=== PATIENT | female | born 1950 | race Caucasian/White ===

== ENCOUNTER → 2016-07-05 | Outpatient (CLI) | payer MEDICARE ==
--- NOTE | 2016-07-09 10:51 | MM ---
Reason for exam: screening (asymptomatic). Last mammogram was performed 1 year ago. History: Patient is postmenopausal. Took estrogen beginning at age 63. Physical Findings: A clinical breast exam by your physician is recommended on an annual basis and results should be correlated with mammographic findings. MG 3D Screening Mammo W/Cad Bilateral CC and MLO view(s) were taken. Prior study comparison: July 06, 2015, bilateral MG 3d screening mammo w/cad. May 23, 2014, bilateral MG screening mammo w CAD. May 24, 2011, bilateral digital screening mammo w/CAD. There are scattered fibroglandular densities. Finding: There are typically benign round calcifications in the right breast. There is a chronic nodularity in the right breast. There is no discrete abnormality. ASSESSMENT: Benign, BI-RAD 2 RECOMMENDATION: Routine screening mammogram of both breasts in 1 year.
== END ==
LOC: RADMAMWWP 09:10
PROVIDERS: ATTEND Obstetrics & Gynecology
DX: Z12.31 Encounter for screening mammogram for malignant neoplasm of breast (principal)
CPT/HCPCS: 77063; G0202

== ENCOUNTER 2016-12-06 10:52 | Day surgery (SDC) | payer MEDICARE ==
[2016-12-04 10:24] VITALS: BMI 36.2
[~2016-12-06 10:52] MED LIST: CLINDAMYCIN 900 MG in DEXTROSE 5% IN WATER 50 ML IVPB ONE; DEXAMETHASONE SOD PHOSPHATE 10 MG/ML 1 ML VIAL IV ONE; HYDROmorphone 1 MG/ML 1 ML SYRINGE IVP PRN; LIDOCAINE 1% 20 ML VIAL (10MG/ML) FOR IV START INTRADERMA PRN; ONDANSETRON 4 MG/2 ML VIAL IVP ONE; SCOPOLAMINE 1.5MG/72HR PATCH TRANSDERM ONE
[2016-12-06] MEDS: LACTATED RINGERS 1,000 ML IV SCH (11:07)
[2016-12-06] MEDS ORDERED: PROPOFOL 10 MG/ML 20 ML VIAL IV ONE ×2 (12:28)
[2016-12-06] MEDS ORDERED: HYDROmorphone (PF) 1 MG/ML ONE ×2 (12:28)
[2016-12-06] MEDS ORDERED: GLYCOPYRROLATE 0.2 MG/ML 2 ML VIAL ONE ×2 (12:28)
[2016-12-06] MEDS ORDERED: MIDAZOLAM 2 MG/2 ML VIAL ONE ×2 (12:28)
[2016-12-06] MEDS ORDERED: PHENYLEPHRINE-0.9% NACL SYG 1 MG/10 ML SYRINGE ONE ×2 (12:28)
[2016-12-06] MEDS ORDERED: fentaNYL (PF) 50 MCG/ML 2 ML AMP ONE ×2 (12:28)
[2016-12-06] MEDS ORDERED: KETAMINE 10 MG/ML 20 ML VIAL ONE ×2 (12:28)
[2016-12-06] MEDS ORDERED: LACTATED RINGERS 1,000 ML IV ONE (13:51)
--- NOTE | 2016-12-06 15:12 | XR ---
EXAMINATION TYPE: XR foot complete RT DATE OF EXAM: 12/06/2016 COMPARISON: NONE HISTORY: Intraoperative TECHNIQUE: One view submitted. FINDINGS: Surgical change appears in near-anatomic alignment. Deformity of the distal metatarsal likely chronic . IMPRESSION: 1. Intraoperative image
--- NOTE | 2016-12-06 15:13 | FL ---
EXAMINATION TYPE: FL guidance operating room DATE OF EXAM: 12/06/2016 HISTORY: Flouroscopy time 48 seconds of fluoroscopy provided. IMPRESSION: 1. Fluoroscopy time.
[2016-12-06] MEDS ORDERED: hydrOXYzine PAMOATE 25 MG CAP PO PRN (15:25)
[2016-12-06] MEDS ORDERED: ONDANSETRON 4 MG/2 ML VIAL IVP PRN (15:25)
[2016-12-06] MEDS ORDERED: METOCLOPRAMIDE 5 MG/ML 2 ML VIAL IVP PRN (15:25)
[2016-12-06] MEDS ORDERED: SENNOSIDES-DOCUSATE SODIUM 1 EACH TAB PO PRN (15:25)
[2016-12-06] MEDS ORDERED: diphenhydrAMINE 25 MG CAP PO PRN (15:25)
[2016-12-06] MEDS ORDERED: TEMAZEPAM 15 MG CAP PO PRN (15:25)
[2016-12-06] MEDS ORDERED: HYDROmorphone 1 MG/ML 1 ML SYRINGE IVP PRN ×3 (15:25)
[2016-12-06] MEDS ORDERED: HYDROcodone/APAP 5-325MG 1 EACH TAB PO PRN ×2 (15:25)
[2016-12-06 15:46] VITALS: RESP 16
--- NOTE | 2016-12-06 15:51 | P.OP ---
Date of Procedure: 12/06/16 Preoperative Diagnosis: 1. Right midfoot arthritis 2. Right gastroc equinus contracture 3. Recurrent right hallux valgus Postoperative Diagnosis: Same Procedure(s) Performed: 1. Right midfoot arthrodesis (arthrodesis of the first, second, and third tarsometatarsal joints) 2. Right gastrocnemius recession 3. Right foot hardware removal 4. Application of short leg splint, right leg Anesthesia: RAEJEV Surgeon: Agustín Donaldson Revenue [employer] Collection Agent #1: Slick Ding Estimated Blood Loss (ml): 50 IV fluids (ml): 1,400 Pathology: none sent Condition: stable Disposition: PACU Indications for Procedure: The patient is a very pleasant 66-year-old female with a long-standing history of problems in her right foot. The patient previously had reduction of the hallux valgus deformity but continued to have pain mostly in her midfoot. The patient saw me in the office and was diagnosed with midfoot arthritis. The patient is failed a long course of conservative treatment over 6 months including activity modification, NSAIDs, shoe inserts, rocker-bottom shoes, and injections. The patient failed to improve with nonoperative treatment and requested surgery. My recommendation was to perform a midfoot fusion of the first, second, and third tarsometatarsal joints and a gastroc recession to offload the mid foot due to her equinus contracture. We discussed potential risks and complications of all the above procedures in the office including but not limited to risk of anesthesia, risk of superficial infection, risk of deep infection, risk of delayed wound healing, risk of wound necrosis, risk of necrosis of the flap between the dorsal incisions, risk of damage to local sensory nerves resulting in temporary or permanent numbness, risk of damage to sensory nerves resulting in a painful neuroma, risk of damage to blood vessels resulting in inadequate blood flow to the foot, risk of nonunion of the fusion sites, risk of malunion of the fusion sites, risk of metatarsalgia, risk of symptomatically hardware, risk of intraoperative fracture, risk of postoperative fracture, risk of chronic pain, risk of chronic swelling, risk of inability to ambulate long surgery, risk of dissatisfaction with surgery, risk of surgery failing to meet preoperative expectations, risk of damage to the sural nerve to the gastroc incision, risk of decreased Circumference, risk of Weakness, risk of DVT, risk of PE, risk of postoperative medical complications, and possibly loss of life or limb. The patient voiced her understanding of this and provided her verbal and written consent to go forward with surgery. Description of Procedure: The patient was identified in preoperative holding and the correct right lower extremity was marked with my initials. I reviewed the procedure and the consent form with the patient and her . All their questions were answered. The patient was then brought back to the operating room after I marked the correct right limb with a marker. Once in the operating room she was positioned on the operating room table where general anesthetic and preoperative antibiotics were administered. Once the patient was under anesthesia she was positioned on the operating room table. A tourniquet was applied to the proximal aspect of the right thigh. A bump was placed under her right buttock internally rotating the leg to neutral. The contralateral left leg was secured to the table with foam padding and tape. The patient's right leg was then prepped and draped in the standard sterile fashion. Prior to starting surgery timeout was performed identifying the correct patient, operative extremity, and procedure. The patient's leg was then placed on a sterile Rivers stand and a gastroc recession was performed. I began by outlining a 3 cm incision off the posteromedial border of the tibia at the level of the distal muscle belly of the gastrocnemius. Skin incision was made a 15 blade scalpel. I dissected carefully to the skin and subcu tissue and his tissues with tenotomy scissors. The fascia was identified and incised longitudinally in line with the skin incision. I bluntly developed the interval between the gastrocnemius aponeurosis and superficial fascia identifying the sural nerve adherent to the fascia. I then bluntly developed interval between the gastrocnemius aponeurosis and soleus fascia. Modified right angle retractors were placed in both of these intervals isolating the gastrocnemius aponeurosis. I resected the gastrocnemius aponeurosis from medial to lateral under direct visualization. Following this a verified that the sural nerve was intact and had not been cut. The wound was copiously irrigated. The deep subcu was reapproximated using 2-0 Vicryl. The skin was closed using 3-0 nylon horizontal mattress stitches. The leg was then elevated , exsanguinated with an Esmarch bandage, and the tourniquet was inflated to 250 mmHg. I began by marking out 2 incisions over the dorsal midfoot. The dorsomedial incision was marked out between the first and second metatarsals and the dorsolateral incision was marked out along the medial border of the fourth metatarsal. I began by making the medial incision. Skin incision was made a 15 blade scalpel dissection was carried down carefully to the subcutaneous tissue using tenotomy scissors. I retracted a branch of superficial peroneal nerve. The EHL tendon sheath was incised and the interval was developed between the EHL and EHB. I then circumferentially exposed the first tarsometatarsal joint and the medial aspect of the second tarsometatarsal joint. The articular cartilage from the first tarsometatarsal joint was removed using osteotomes and curettes. I nature to remove all of the cartilage to the plantar aspect of the joint to prevent inadvertently dorsiflexing the joint. I then removed the articular cartilage from the medial half of the second tarsometatarsal joint. Attention was then turned to the lateral incision. Skin incision was made to 15 blade scalpel. Dissection was carried down carefully through subcutaneous tissue with tenotomy scissors. A branch the superficial peroneal nerve was identified and carefully retracted. The EDB muscle was incised longitudinally in line with the skin incision. I then exposed the third tarsometatarsal joint and lateral half of the second tarsometatarsal joint. Osteophytes were contoured off both the second and third tarsometatarsal joint with a Ronguer. The articular cartilage from both the second and third tarsometatarsal joint was removed using Tourette's and osteotomes. I then used a 2.0 mm drill bit to perforate the subchondral bone of the first, second, and third tarsometatarsal joints. I also perforated the one-two intermetatarsal space. A bur was used tuber the dorsal aspect of the intercuneiform joint. Attention was then turned to the distal incision over the medial eminence of the first MTP joint. I marked out the previously made incision and incised the skin with a scalpel. Dissection was carried down carefully to the skin down to the level of the joint capsule which was incised in line with the skin incision. The dorsal screw was identified and removed. The joint was carefully distracted and the lateral aspect of the first MTP joint was sharply incised through the joint to allow correction of the hallux valgus deformity. Attention was then turned to reducing the first metatarsal. I held the first tarsometatarsal joint reduced taking care to plantarflex the first ray. An contact center assistant placed a 0.0625 K wire eccentric we across the joint. Reduction was verified with fluoroscopy and clinically. I then used a bur to create a pocket hole of the dorsal aspect of the first metatarsal 1.5 cm distal to the joint. Using a 3.5 mm drill bit a gliding hole was created in the dorsal aspect of the first metatarsal and using a 2.5 mm jewel bit a threaded hole was made in the medial cuneiform. A fully threaded 3.5 mm lag screw was placed across the joint generating excellent compression. I then placed a second lag screw antegrade across the joint. A 3.5 mm jewel bit was used to create a gliding hole in the dorsal aspect of the medial cuneiform and a 2.5 mm drill bit was used to create a threaded hole in the first metatarsal. A fully threaded 3.5 mm screw was placed across the joint generating excellent compression. Attention was then turned to the second tarsometatarsal joint. The joint was reduced and held with a [id number] reduction clamp. I then used a 3.5 mm drill bit to create a gliding hole along the dorsal aspect of the second metatarsal distal to the joint and a 2.5 mm jewel bit to create a threaded hole in the middle cuneiform. A fully threaded 3.5 mm screws placed generating excellent compression across the joint. Attention was then turned to the third tarsometatarsal joint through the lateral incision. The joint was held reduced with a 0.0625 K wire. I then used a 3.5 mm drill bit to create a gliding hole on the dorsal aspect of the third metatarsal distal to the joint and a 2.5 mm drill bit to create a threaded hole in the lateral cuneiform. A fully threaded 3.5 mm screw was placed across the joint generating excellent compression. I then elected to place an intercuneiform screw. A stab incision was made along the medial border of the middle cuneiform. A 2.5 mm drill bit was used to create a airplane pilot hole for a fully threaded 3.5 mm screw. I then placed a fully threaded 3.5 mm screw across the intercuneiform joint. Bone graft that had been collected from the drill bits was then used to pack the first tarsometatarsal joint and a bur was used to create stress-strain bone graft sites. Final fluoroscopy images were taken. All the hardware appeared to be in acceptable position and the joints appeared to be adequately compressed. The wounds were then copiously irrigated. The periosteum over the first and second tarsometatarsal joint was closed with a running 0 Vicryl stitch. The deep subcutaneous tissue was reapproximated using 3-0 Monocryl. The skin was closed using 3-0 nylon horizontal mattress stitches. Incision over the medial eminence was irrigated and the capsule was closed with interrupted 0 Vicryl stitch. The deep subcu was reapproximated using 3-0 Monocryl and the skin was closed with 3-0 nylon horizontal mattress stitches. The dorsolateral incision was closed using 3-0 Monocryl for the subcutaneous layers and 3-0 nylon horizontal mattress stitches in the skin. The stab incision medially was closed with a single interrupted nylon stitch. I verified that all instrument, sponge, and sharp counts were correct. The skin was cleansed and a sterile dressing consisting of Betadine soaked Adaptic 4 x 4 and web roll was applied. Tourniquet was let down for total tourniquet time of 90 minutes. The drapes were removed and a very well-padded bulky [place] splint was placed with the ankle in neutral. At this point the patient was awoken from her anesthetic, transferred from the operating table to the [facility] and brought to PACU having tolerated the procedure well. Slick Ding PA-C was required is a skilled contact center assistant for the entire procedure for patient positioning, surgical exposure, retraction, preparation of the fusion site, placement of hardware, closure of wounds, and application of splint. Plan: The patient is going to be admitted overnight for pain control, 2 doses of postoperative antibiotics, and an evaluation by physical therapy. She'll be treated with Lovenox for DVT prophylaxis while in-house home on aspirin. She can discharge home tomorrow when her pain is adequately controlled and she passes physical therapy.
[2016-12-06] MEDS ORDERED: LIDOCAINE 2%-EPI 1:100,000 20 ML VIAL SQ ONE (16:01)
[2016-12-06] MEDS ORDERED: BUPIVACAINE-EPI 0.5%-1:200,000 10 ML VIAL SQ ONE (16:01)
[2016-12-06] MEDS ORDERED: CLINDAMYCIN 600 MG in DEXTROSE 5% IN WATER 50 ML IVPB SCH ×2 (18:00)
--- NOTE | 2016-12-06 18:42 | P.ONQ ---
Anesthesiology Proc Note - PNB - Peripheral Nerve Block Performed Right Popliteal Single Time Out Performed: Yes Indication: Acute Post-Operative Pain, Analgesia Specifically requested for management of pain by DrMatthew: Agustín Donaldson Sedation Type: Sedate with meaningful contact maintained Preparation: Sterile Prep Position: Supine Catheter: None Needle Types: Other (see comment) (stimuplex) Needle Size: 50mm (2") Needle Gauge: 21 Technique: Ultrasound Injectate: Other (see comment) (2% lidocaine, 0.25% Bupivicaine) Adjunct: Epinephrine (see comment for dilution ratio) (1/200,000) Blood Aspirated: No Pain Paresthesia on Injection Noted: No Resistance on Injection: Normal Events: Uneventful and Well Tolerated
[2016-12-06 19:01] LABS: Basophils % (A) 0 %; CH 27.1; CHCM 31.9; Eosinophils % (A) 0 %; HCT 41.3 % (34.0-46.0); HDW 2.53; HGB 12.7 gm/dL (11.4-16.0); Luc # (Auto) 0.02; Luc % (Auto) 0; Lymphocytes # (A) 0.4 k/uL (1.0-4.8); Lymphocytes % (A) 3 %; MCH 26.4 pg (25.0-35.0); MCHC 30.8 g/dL (31.0-37.0); MCV 85.8 fL (80.0-100.0); Mean Platelet Volume 7.6; Monocytes # (A) 0.2 k/uL (0-1.0); Monocytes % (A) 2 %; Neutrophils # (A) 10.7 k/uL (1.3-7.7); Neutrophils % (A) 94 %; RBC 4.81 m/uL (3.80-5.40); RDW 15.7 % (11.5-15.5); WBC 11.3 k/uL (3.8-10.6); WBC (Perox) 12.16
[2016-12-06] MEDS: CLINDAMYCIN 900 MG in DEXTROSE 5% IN WATER 50 ML IVPB SCH ×4 (22:43→23:17)
[2016-12-07] MEDS: LACTATED RINGERS 1,000 ML IV SCH ×4 (00:05→12:37)
[2016-12-07] MEDS: CLINDAMYCIN 900 MG in DEXTROSE 5% IN WATER 50 ML IVPB SCH ×4 (05:18→12:58)
[2016-12-07 08:45] VITALS: BP 135/60; PULSE 78; TEMP 97.4
[2016-12-07] MEDS ORDERED: ENOXAPARIN 40 MG/0.4 ML SYRINGE SQ SCH (09:00)
[2016-12-07] MEDS ORDERED: LEVOTHYROXINE 50 MCG TAB PO SCH (09:00)
--- NOTE | 2016-12-07 09:46 | P.DS ---
Providers Date of admission: 12/06/2016 Expected date of discharge: 12/07/16 Attending physician: Agustín Donaldson Consults: 12/06/16 15:25 Consult Physician Routine Consulting Provider: Willard Fox Reason/Comments: post op medical management Do you want consulting provider notified?: Yes Primary care physician: Willard Fox Hospital Course: She was admitted the OR on 12/06/2016 to undergo a right tarsometatarsal fusion , midfoot fusion after failing conservative measures as an outpatient. She elected to proceed with elective surgery after given informed consent. She underwent the above procedure which she tolerated well without complication. Postoperative hospital course has remained without complication. On day of discharge she is afebrile, vital signs stable, labs within acceptable ranges, tolerating by mouth meds and diet, voiding without difficulty, positive flatus, denies abdominal pain or calf pain, pain is controlled on oral pain medication and has no new complaints. Wound is benign, neurovascular status is intact, calf is soft and nontender, abdomen soft and nontender. Review of systems is negative for numbness, tingling, fever, chills, chest pain, shortness breath, nausea, vomiting, dizziness, headaches, slurred speech or other. Procedures: Tarsometatarsal fusion of the right foot Patient Condition at Discharge: Good Plan - Discharge Summary New Discharge Prescriptions: New Aspirin 325 mg PO BID #60 tab Docusate [Colace] 100 mg PO BID #60 capsule HYDROcodone/APAP 7.5-325MG [Benson 7.5-325] 1 - 2 tab PO Q6HR PRN #60 tab PRN Reason: Pain No Action Zolpidem [Ambien] 10 mg PO HS PRN PRN Reason: SLEEP Lovastatin [Mevacor] 20 mg PO HS Levothyroxine Sodium [Synthroid] 50 mcg PO QAM ALPRAZolam [Xanax] 0.5 mg PO DAILY PRN PRN Reason: Anxiety Naproxen Sodium [Aleve] 440 mg PO HS PRN PRN Reason: Pain Aspirin EC [Ecotrin] 325 mg PO DAILY PRN PRN Reason: Pain Discharge Medication List Levothyroxine Sodium [Synthroid] 50 mcg PO QAM 05/19/14 [History] Lovastatin [Mevacor] 20 mg PO HS 05/19/14 [History] Zolpidem [Ambien] 10 mg PO HS PRN 05/19/14 [History] ALPRAZolam [Xanax] 0.5 mg PO DAILY PRN 05/26/14 [History] Naproxen Sodium [Aleve] 440 mg PO HS PRN 12/05/14 [History] Aspirin EC [Ecotrin] 325 mg PO DAILY PRN 12/05/15 [History] Aspirin 325 mg PO BID #60 tab 12/07/16 [Rx] Docusate [Colace] 100 mg PO BID #60 capsule 12/07/16 [Rx] HYDROcodone/APAP 7.5-325MG [Benson 7.5-325] 1 - 2 tab PO Q6HR PRN #60 tab [Rx] Follow up Appointment(s)/Referral(s): Agustín Donaldson MD [Medical Doctor] - 2 Weeks Ambulatory/Diagnostic Orders: Walker w/ Wheels [DME.AMB1] Location: Determined By Patient Activity/Diet/Wound Care/Special Instructions: maintain splint non weightbearing right lower extremity take meds as directed f/u with Dr. Donaldson elevate right foot Discharge Disposition: HOME SELF-CARE
[2016-12-07 13:47] LABS: Appearance,Urine Clear (Clear); Bilirubin,Urine Negative (Negative); Glucose,Urine (UA) Negative (Negative); Ketones,Urine Negative (Negative); Leukocyte Esterase,Urine Negative (Negative); Nitrite,Urine Negative (Negative); PH, Urine 6.5 (5.0-8.0); Protein,Urine Negative (Negative); UA Billing (MACRO vs. MICRO) CHEM; Urobilinogen,Urine <2.0 mg/dL (<2.0)
--- NOTE | 2016-12-07 22:44 | CONS ---
CONSULTATION I am covering for Dr. Fox. REASON FOR CONSULTATION: Advice regarding hyperlipidemia and other multiple medical problems requested by Dr. Donaldson. HISTORY OF PRESENT ILLNESS: This 66-year-old woman with a past history of chest pain, angina, hyperlipidemia, DJD, hypothyroidism and H-pylori being followed by Dr. Fox in the outpatient setting was admitted with right foot pain and patient underwent tarsometatarsal fusion of the right foot by Dr. Donaldson. There is no history of fever, rigors. No history of headache, loss of consciousness. No chest pain. No palpations at this time. White count is 11.3. PAST MEDICAL HISTORY: History of chest pain, hyperlipidemia, DJD, history of thyroid disorders, cardiac catheterization. MEDICATIONS: Prior to admission include: 1. Ambien 10 mg q.h.s. p.r.n. 2. Mevacor 20 mg q.h.s. 3. Xanax 0.5 daily p.r.n. 4. Aleve 440 mg q.h.s. 5. Synthroid 50 mcg p.o. q.a.m. 6. Aspirin 320 mg daily. 7. [place] 7.5 q.6h p.r.n. 8. Colace 100 mg b.i.d. 9. Aspirin 320 mg daily. ALLERGIES: PENICILLIN AND SULFA. FAMILY HISTORY: No history of any strokes or heart attacks. SOCIAL HISTORY: No history of smoking. Occasional alcohol intake. REVIEW OF SYSTEMS: ENT: No diminished hearing or vision. CARDIOVASCULAR: No angina or palpitations. Respiration: No cough or hemoptysis. GI: No nausea or vomiting. no dysuria. Nervous system: No numbness, weakness. Allergy/Immunology: No asthma or hayfever. Musculoskeletal: As mentioned earlier. Hematology/Oncology: No history of anemia. Endocrine: No history of diabetes, hypothyroidism. Constitutional: As mentioned earlier. Dermatology: Negative. Rheumatology: Negative. Psychiatric: As mentioned earlier. PHYSICAL EXAMINATION: Alert and oriented times three. Pulse 78, blood pressure 135/60, respirations 16, temperature 97.4, pulse ox 97% on 2 L. HEENT: Conjunctivae normal. Oral mucosa moist. Neck is no jugular venous distention. No carotid bruit. No lymph node enlargement. Cardiovascular is S1, S2. No S3, no S4. Respiratory: Breath sounds diminished in the bases. Bilateral scattered rhonchi and crackles. Expiratory wheezing also present. ABDOMEN: Soft, nontender. No mass palpable. Legs no edema. No swelling. NERVOUS SYSTEM: Higher functions as mentioned earlier. Moves all four limbs. Lymphatics: No lymph nodes palpable in the neck, axillae or groin. SKIN: No ulcer, rash or bleeding. LABS: At this time shows, the labs WBC 7.2, hemoglobin 12.7. ASSESSMENT: 1. Right midfoot arthrodesis status post increased WBC possibly reactive improved. 2. History of chest pain. 3. Hyperlipidemia. 4. History of degenerative joint disease. 5. History of hypothyroidism. RECOMMENDATIONS AND DISCUSSION: In this 66-year-old woman presents after surgery, at this time I recommend to continue current medications. I recommend resume the home medications. I would also recommend UA with micro because of the high WBC. UA with micro is normal. Patient may be discharged and recommended to follow up with Dr. Fox in the outpatient setting. Please note the UA with micro is normal. Continue incentive spirometry. Pain medications and rest of the medications per orthopedic surgery. Further recommendations to follow. Thank you Dr. Donaldson for letting us participate in the care of this patient. MMODL / IJN: [id number] /
== END 2016-12-07 16:22 | disposition home or self-care (01) ==
LOC: OR 10:52 → 3SUR 15:10 → OR 12-07 16:22
PROVIDERS: ATTEND Orthopaedic Surgery
DX: M20.11 Hallux valgus (acquired), right foot (principal); M62.471 Contracture of muscle, right ankle and foot; M25.774 Osteophyte, right foot; M19.071 Primary osteoarthritis, right ankle and foot; E78.5 Hyperlipidemia, unspecified; E03.9 Hypothyroidism, unspecified; F41.9 Anxiety disorder, unspecified; F32.9 Major depressive disorder, single episode, unspecified; Z79.1 Long term (current) use of non-steroidal anti-inflammatories (NSAID); Z79.891 Long term (current) use of opiate analgesic; Z79.899 Other long term (current) drug therapy; Z88.0 Allergy status to penicillin; Z88.2 Allergy status to sulfonamides
CPT/HCPCS: 97162; 85025; 81003; 87086; 73630; 27687; 28730; C1713; J2250; J1100; J2405; J1650; J3010; J1170; J2370; J2704

== ENCOUNTER 2017-09-29 21:34 | Inpatient (IN) | payer MEDICARE ==
--- NOTE | 2017-09-29 21:57 | ED ---
Chest Pain HPI - General Chief Complaint: Chest Pain Stated Complaint: Abdominl Pain Time Seen by Provider: 09/29/17 21:57 Source: patient Mode of arrival: ambulatory Limitations: no limitations - History of Present Illness Initial Comments: Kerry is a obese 67-year-old female with past medical history of hyperlipidemia who presents to the emergency department today for evaluation of epigastric discomfort. Patient reports that earlier today she was feeling her usual self. She completed a lot of household tasks including vacuuming and cleaning the floors. She began to feel of some epigastric burning pain that radiated from her epigastrium to her back. She thought that this was just due to the exertion she declined coming to the hospital earlier in the day. Throughout the day the discomfort has progressively worsened, the burning like discomfort located in her epigastrium and radiating to the right side. She states that she discussed the symptoms with her and they were concerned that it may be her gallbladder, however she wanted make sure wasn't her heart. Patient denies any exertional symptoms. She does report pain with deep inspiration and states that due to the pain she feels like she is taking short breaths but she is able to get oxygen. She denies any palpitations. She denies any previous cardiac history. She states that she had a stress test approximately one year ago and was told that it was good. She has no history of acid reflux or gallbladder disorders that she is aware of. - Related Data Home Medications Medication Instructions Recorded Confirmed Levothyroxine Sodium [Synthroid] 50 mcg PO QAM 05/19/14 09/29/17 Zolpidem [Ambien] 10 mg PO HS PRN 05/19/14 09/29/17 ALPRAZolam [Xanax] 0.5 mg PO TID PRN 05/26/14 09/29/17 Naproxen Sodium [Aleve] 440 mg PO HS PRN 12/05/14 09/29/17 Aspirin EC [Ecotrin] 325 mg PO ONCE PRN 12/05/15 09/29/17 Simvastatin [Zocor] 20 mg PO HS 09/29/17 09/29/17 Allergies Allergy/AdvReac Type Severity Reaction Status Date / Time Penicillins Allergy Rash/Hives/ Verified 09/29/17 22:06 Swelling Sulfa (Sulfonamide Allergy Rash/Hives Verified 09/29/17 21:52 Antibiotics) Review of Systems ROS Statement: Those systems with pertinent positive or pertinent negative responses have been documented in the HPI. ROS Other: All systems not noted in ROS Statement are negative. Constitutional: Denies: fever, chills ENT: Denies: throat pain Respiratory: Denies: cough, dyspnea, wheezes Cardiovascular: Denies: chest pain, palpitations, dyspnea on exertion Endocrine: Denies: fatigue Gastrointestinal: Reports: abdominal pain, nausea. Denies: diarrhea, constipation Genitourinary: Denies: urgency, dysuria Musculoskeletal: Reports: back pain Skin: Denies: rash Neurological: Denies: headache Psychiatric: Reports: anxiety Hematological/Lymphatic: Denies: easy bleeding, easy bruising EKG Findings - EKG Comments: EKG Findings:: KG at 2158. Rate is 75, rhythm is normal sinus, there is normal axis, there are normal intervals, there are no acute ST elevations or depressions. No evidence of acute ischemia or infarction. Past Medical History Past Medical History: Cancer, Chest Pain / Angina, Hyperlipidemia, Osteoarthritis (OA), Thyroid Disorder Additional Past Medical History / Comment(s): pain rt foot, hx. h pylori, irregular heart beat, SOB w/activity, skin cancer, past elevated liver enzymes, varicose veins,UTIs.Steroid injection 11-12-16 Last Myocardial Infarction Date:: unknown History of Any Multi-Drug Resistant Organisms: None Reported Past Surgical History: Heart Catheterization, Hysterectomy, Orthopedic Surgery Additional Past Surgical History / Comment(s): yesica cataract surg., bunionectomy , carpal tunnel surg. Past Anesthesia/Blood Transfusion Reactions: No Reported Reaction Additional Past Anesthesia/Blood Transfusion Reaction / Comment(s): no hx blood transfusion Past Psychological History: Anxiety Smoking Status: Never smoker Past Alcohol Use History: Occasional Past Drug Use History: None Reported - Past Family History Sister(s) Family Medical History: Cancer Brother(s) Family Medical History: Cancer Mother Family Medical History: No Reported History General Exam Limitations: no limitations General appearance: alert, other (Appears uncomfortable) Head exam: Present: atraumatic, normocephalic Eye exam: Present: normal appearance ENT exam: Present: normal exam Neck exam: Present: normal inspection Respiratory exam: Present: normal lung sounds bilaterally. Absent: respiratory distress Cardiovascular Exam: Present: regular rate, normal rhythm, normal heart sounds. Absent: systolic murmur, diastolic murmur GI/Abdominal exam: Present: soft, tenderness, normal bowel sounds. Absent: distended, guarding, rebound Rectal exam: Present: deferred Extremities exam: Present: normal inspection, normal capillary refill. Absent: pedal edema Back exam: Present: normal inspection Neurological exam: Present: alert, oriented X3 Psychiatric exam: Present: normal affect, normal mood Skin exam: Present: warm, dry Course Vital Signs 09/29/17 09/30/17 09/30/17 21:49 00:41 00:43 Temperature 98.3 F Pulse Rate 81 70 66 Respiratory 18 18 18 Rate Blood Pressure 185/116 135/63 135/63 O2 Sat by Pulse 98 97 96 Oximetry Chest Pain [facility] Patient was seen and evaluated, history was obtained from the patient and her at bedside Patient with no cardiac history presenting with burning epigastric pain radiating to her back, no exertional pain, no shortness breath, no diaphoresis, no lightheadedness upon initial evaluation at a low suspicion for cardiac etiology a high suspicion for pancreatitis. Patient does have her gallbladder, no history of gallstones, no history of pancreatic tightness, no history of alcohol abuse. She's had no recent change in her medications which would precipitate pancreatitis. Patient has no dental trauma which would precipitate the otitis Labs are consistent with acute pancreatitis Ultrasound and CT revealed no evidence of acute gallstones, no evidence of acute PE cryptitis, pancreatic abscess or pancreatic pseudocyst on CT IV fluids, when necessary morphine and diet were ordered for the patient care was discussed with her primary care physician Dr. Fox who accepts admission to the hospital for acute pancreatitis of uncertain etiology. Disposition Clinical Impression: Acute pancreatitis Disposition: ADMITTED IP TO THIS HOSP Decision Time: 01:04
[2017-09-29] MEDS ORDERED: SODIUM CHLORIDE 0.9% 500 ML IV STA (22:03)
[2017-09-29] MEDS ORDERED: ASPIRIN 81 MG PO STA (22:03)
[2017-09-29] MEDS ORDERED: MORPHINE SULFATE 4 MG/ML SYRINGE IVP STA (22:06)
[2017-09-29 22:17] LABS: Basophils % (A) 0 %; Eosinophils # (A) 0.2 k/uL (0-0.7); Eosinophils % (A) 2 %; HGB 14.3 gm/dL (11.4-16.0); Lymphocytes # (A) 1.8 k/uL (1.0-4.8); Lymphocytes % (A) 20 %; MCHC 32.4 g/dL (31.0-37.0); MCV 80.4 fL (80.0-100.0); Mean Platelet Volume 7.4; Monocytes # (A) 0.5 k/uL (0-1.0); Monocytes % (A) 6 %; Neutrophils # (A) 6.3 k/uL (1.3-7.7); Neutrophils % (A) 70 %; Platelet Count 226 k/uL (150-450); RBC 5.48 m/uL (3.80-5.40); RDW 14.9 % (11.5-15.5); WBC 8.9 k/uL (3.8-10.6)
[2017-09-29 22:23] LABS: ALT 61 U/L (9-52); AST 24 U/L (14-36); Albumin 4.7 g/dL (3.5-5.0); Alkaline Phosphatase 128 U/L (38-126); Anion Gap 10 mmol/L; Blood Urea Nitrogen 17 mg/dL (7-17); Calcium 9.9 mg/dL (8.4-10.2); Carbon Dioxide 26 mmol/L (22-30); Chloride 103 mmol/L (98-107); Glucose 96 mg/dL (74-99); Magnesium 2.2 mg/dL (1.6-2.3); Potassium 4.3 mmol/L (3.5-5.1); Sodium 139 mmol/L (137-145); Total Bilirubin 0.8 mg/dL (0.2-1.3); Total Protein 7.6 g/dL (6.3-8.2)
--- NOTE | 2017-09-29 22:34 | XR ---
EXAMINATION TYPE: XR chest 2V DATE OF EXAM: 09/29/2017 COMPARISON: NONE HISTORY: Chest pain TECHNIQUE: Frontal and lateral views of the chest are obtained. FINDINGS: Heart and mediastinum are normal. Lungs are clear. Diaphragm is normal. There are chest le ads. Bony thorax is intact. IMPRESSION: Normal chest.
[2017-09-29 22:35] LABS: Creatine Kinase 163 U/L (30-135)
[2017-09-29 22:37] LABS: Partial Thromboplastin Time 24.5 sec (22.0-30.0)
[2017-09-29 22:49] LABS: Creatine Kinase MB 1.4 ng/mL (0.0-2.4); Troponin I <0.012 ng/mL (0.000-0.034)
[2017-09-29 22:51] LABS: Lipase 7099 U/L (23-300)
[2017-09-29] MEDS ORDERED: SODIUM CHLORIDE 0.9% 2,000 ML IV STA (23:10)
[2017-09-29] MEDS ORDERED: SODIUM CHLORIDE 0.9% 1,000 ML IV STA (23:10)
--- NOTE | 2017-09-30 00:15 | US ---
EXAMINATION TYPE: US abdomen complete DATE OF EXAM: 09/29/2017 COMPARISON: NONE CLINICAL HISTORY: Pain. RUQ pain EXAM MEASUREMENTS: Liver Length: 17.8 cm Gallbladder Wall: 0.3 cm CBD: 0.56 cm Spleen: 10.6 cm Right Kidney: 10.8 x 4.3 x 4.6 cm Left Kidney: 11.0 x 5.1 x 4.2 cm Pancreas: Obscured by bowel gas Liver: Heterogenous course texture. Gallbladder: No stones seen Evidence for sonographic Rwoan's sign: No CBD: wnl Spleen: wnl Right Kidney: No hydronephrosis or masses seen Left Kidney: No hydronephrosis or masses seen Upper IVC: wnl Abd Aorta: wnl IMPRESSION: Negative complete abdominal sonogram. No gallstones or dilated ducts. No evidence of azalea l obstruction.
--- NOTE | 2017-09-30 00:42 | CT ---
EXAMINATION TYPE: CT abdomen pelvis w con DATE OF EXAM: 09/30/2017 COMPARISON: None HISTORY: Epigastric pain CT DLP: 1221.90 mGycm Automated exposure control for dose reduction was used. TECHNIQUE: Helical acquisition of images was performed from the lung bases through the pelvis. CONTRAST: Performed without Oral Contrast and with IV Contrast, patient injected with 100 mL of Isovue 300. FINDINGS: Lung bases are clear. There is no pleural effusion. There is no pericardial effusion. There is heterogeneous enhancement of the liver. The spleen appears normal. There is no pancreatic ma ss. Gallbladder appears normal. Bile ducts are not dilated. There is no adrenal mass. Kidneys show satisfactory contrast opacification. There is no hydronephrosi s. There is a 5 mm cyst in the anterior left kidney. There is no retroperitoneal adenopathy. There is no ascites. Bladder distends smoothly. There is no free fluid in the pelvis. I see no intestinal wal l thickening. There are no dilated loops. Appendix appears normal. There are a few sigmoid diverticul a. There is no evidence of diverticulitis. I see no bony destructive process. IMPRESSION: NO EVIDENCE OF PANCREATITIS. HETEROGENEOUS ENHANCEMENT OF THE LIVER WITH TARGET RING-ENHANCING LESION S SEEN IN THE POSTERIOR RIGHT LOBE. FOLLOW-UP IS RECOMMENDED. THIS COULD RELATE TO MULTIPLE HEMANGIOM JENIFER OR METASTATIC DISEASE. MR SCAN WOULD BE HELPFUL FOR FURTHER EVALUATION IF CLINICALLY INDICATED. LIVER WAS SOMEWHAT HETEROGENEOUS ON THE ULTRASOUND EXAM TODAY BUT NO DISCRETE MASS BY ULTRASOUND.
[2017-09-30] MEDS ORDERED: MORPHINE SULFATE 4 MG/ML SYRINGE IV PRN (00:52)
[2017-09-30] MEDS ORDERED: NALOXONE 0.4 MG/ML 1 ML VIAL IV PRN (00:52)
[2017-09-30] MEDS ORDERED: ONDANSETRON 4 MG/2 ML VIAL IVP PRN (00:52)
[2017-09-30 02:07] VITALS: BMI 80.4
[2017-09-30 07:02] LABS: Glucose,Whole Blood 92 mg/dL (75-99)
[2017-09-30] MEDS: INSULIN ASPART 100 UNIT/ML 1 ML 10 ML VIAL SQ SCH ×3 (07:05→19:38)
[2017-09-30] MEDS ORDERED: NAPROXEN 250 MG TAB PO PRN (07:21)
[2017-09-30] MEDS ORDERED: ALPRAZolam 0.5 MG TAB PO PRN (07:21)
[2017-09-30] MEDS ORDERED: ZOLPIDEM 10 MG TAB PO PRN (07:21)
[2017-09-30] MEDS: PANTOPRAZOLE 40 MG/10 ML VIAL IVP SCH (09:45)
[2017-09-30] MEDS: SODIUM CHLORIDE 0.9% 1,000 ML IV SCH ×2 (09:45→13:41)
--- NOTE | 2017-09-30 11:20 | P.CONS ---
History of Present Illness - Reason for Consult Consult date: 09/30/17 Pancreatitis Requesting physician: Willard Fox - History of Present Illness 67-year-old female admitted with severe midepigastric upper back pain that started yesterday afternoon after scrubbing her floors. Patient has no history of this type of pain. Admission lipase 7099. Amylase 2:30. Total bilirubin 0.8. AST 24. ALT 61. AP 128. INR 1.0. White count 8.9. He will and 14.3. Platelet 226. No history of pancreatitis or autoimmune disorders. She drinks 1 maybe 2 beers a week and has been doing so for many years. No history of alcohol abuse. No changes in medications. No recent travels or sick contacts. No weight loss hematemesis hematochezia or melena. No history of peptic ulcer disease. Ultrasound abdomen pancreas obscured by gas. Gallbladder wall 0.3 cm. CBD 0.5 cm. No evidence of gallstones or dilated ducts. CT abdomen and pelvis with contrast heterogeneous enhancement of the liver with target ring-enhancing lesions seen in the posterior right lobe could relate to multiple hemangiomata or metastatic disease. Spleen appeared normal. No pancreatic mass. Gallbladder appeared normal. Bile duct not dilated. Patient states that when she was very young her mother took her downtown for radiation treatments to the right side of her abdomen wasn't sure if it was secondary to skin hemangiomas or not she doesn't remember. EGD colonoscopy November 2014 for H. pylori positive testing and change in bowel habits reported small sliding hiatal hernia no evidence of peptic ulcer disease. Sigmoid diverticulosis. Review of Systems Constitutional: Denies fever, chills, sweats, weight gain, or loss. HEENT: Negative for migraines, blurred vision or loss, earaches, drainage, tinnitus, oral mucosal lesions, dysphagia, or odynophagia. CARDIAC: Negative for chest pain, arrhythmias, or palpitation. RESPIRATORY: Negative for shortness of breath, hemoptysis, cough, or sputum production. GI: See HPI for pertinent findings. : Negative for hematuria, urgency, frequency, polyuria, or dysuria. GYNc: Denies possibility of . Negative vaginal discharge. MUSCULOSKELETAL: Negative for muscle aches, swelling, arthritis, and arthralgias. NEUROLOGIC: Negative for stroke or TIA. ENDOCRINE: Negative for thyroid problems. SKIN: Negative for rash or itching. PSYCHIATRIC: Negative history for depression and anxiety Past Medical History Past Medical History: Cancer, Chest Pain / Angina, Hyperlipidemia, Osteoarthritis (OA), Thyroid Disorder Additional Past Medical History / Comment(s): pain rt foot, hx. h pylori, irregular heart beat, SOB w/activity, skin cancer, past elevated liver enzymes, varicose veins,UTIs.Steroid injection 11-12-16 Last Myocardial Infarction Date:: unknown History of Any Multi-Drug Resistant Organisms: None Reported Past Surgical History: Heart Catheterization, Hysterectomy, Orthopedic Surgery Additional Past Surgical History / Comment(s): yesica cataract surg., bunionectomy , carpal tunnel surg. Past Anesthesia/Blood Transfusion Reactions: No Reported Reaction Additional Past Anesthesia/Blood Transfusion Reaction / Comm: no hx blood transfusion Past Psychological History: Anxiety Smoking Status: Never smoker Past Alcohol Use History: Occasional Past Drug Use History: None Reported - Past Family History Sister(s) Family Medical History: Cancer Brother(s) Family Medical History: Cancer Mother Family Medical History: No Reported History Medications and Allergies Home Medications Medication Instructions Recorded Confirmed Type Levothyroxine Sodium [Synthroid] 50 mcg PO QAM 05/19/14 09/29/17 History Zolpidem [Ambien] 10 mg PO HS PRN 05/19/14 09/30/17 History ALPRAZolam [Xanax] 0.5 mg PO TID PRN 05/26/14 09/29/17 History Naproxen Sodium [Aleve] 440 mg PO HS PRN 12/05/14 09/30/17 History Aspirin EC [Ecotrin] 325 mg PO ONCE PRN 12/05/15 09/30/17 History Simvastatin [Zocor] 20 mg PO HS 09/29/17 09/29/17 History Allergies Allergy/AdvReac Type Severity Reaction Status Date / Time Penicillins Allergy Rash/Hives/ Verified 09/29/17 22:06 Swelling Sulfa (Sulfonamide Allergy Rash/Hives Verified 09/29/17 21:52 Antibiotics) Physical Exam Vitals: Vital Signs Temp Pulse Pulse Resp BP BP Pulse Ox 09/30/17 07:00 97.6 F 64 18 131/77 96 09/30/17 02:06 97 F L 74 18 147/83 98 09/30/17 00:43 66 18 135/63 96 09/30/17 00:41 70 18 135/63 97 09/29/17 21:49 98.3 F 81 18 185/116 98 Intake and Output 09/29/17 09/30/17 09/30/17 22:59 06:59 14:59 Other: # Voids 1 Weight 90.718 kg 90.407 kg General appearance: The patient is alert, oriented, in no acute distress. HET: Head is normocephalic and atraumatic. Pupils are equal and reactive. Oropharynx is clear without lesions. Neck: Supple without lymphadenopathy. Trachea midline. Heart: S1 S2. Regular rate and rhythm. Lungs: No crackles or wheezes are heard. Abdomen: Soft, very mild tenderness to the midepigastrium, nondistended with bowel sounds. No peritoneal signs. No palpable organomegaly or masses. Extremities: Normal skin color and turgor. No cyanosis, rash, ulceration, clubbing, or edema. Radial and pedal pulses are 2/4 bilaterally. Neurological: No focal deficits. Strength and sensation are grossly intact. Results CBC & Chem 7: 10/01/17 07:05 10/01/17 07:05 Labs: Abnormal Lab Results - Last 24 Hours (Table) 09/29/17 09/29/17 09/29/17 Range/Units 22:00 22:00 22:00 RBC 5.48 H (3.80-5.40) m/uL ALT 61 H (9-52) U/L Alkaline Phosphatase 128 H (38-126) U/L Total Creatine Kinase 163 H (30-135) U/L Amylase (30-110) U/L Lipase 7099 H (23-300) U/L 09/30/17 Range/Units 07:51 RBC (3.80-5.40) m/uL ALT (9-52) U/L Alkaline Phosphatase (38-126) U/L Total Creatine Kinase (30-135) U/L Amylase 230 H (30-110) U/L Lipase (23-300) U/L CT scan - abdomen: report reviewed (Dr. Kelly) US - abdomen: report reviewed (Dr. Kelly) Assessment and Plan (1) Acute pancreatitis Narrative/Plan: First episode etiology unclear underlying autoimmune pathology cannot be excluded Current Visit: Yes Status: Acute Code(s): K85.90 - ACUTE PANCREATITIS WITHOUT NECROSIS OR INFECTION, UNSP SNOMED Code(s): 223924407 (2) Abnormal CT of the abdomen Narrative/Plan: Heterogeneous enhancement of liver with ring-enhancing lesions seen in the right posterior lobe suspicious for possible metastatic disease possible hemangiomatas. 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 Current Visit: Yes Status: Acute Code(s): R93.5 - ABN FINDINGS ON DX IMAGING OF ABD REGIONS, INC RETROPERITON SNOMED Code(s): 11923848621536007 Plan: 1. MRI liver/MRCP. 2. AFP, CEA, CA-19-9. 3. Repeat amylase lipase today and in a.m. Hepatitis screen. Triglycerides. AARON, subclass 1-4 IgG. 4. Clear liquid diet. Thank you for this kind referral and the opportunity to participate in the care of your patient. This consultation was discussed with Dr. Kelly. The impression and plan of care have been directed as dictated.
[2017-09-30 11:48] LABS: ALT 44 U/L (9-52); AST 17 U/L (14-36); Albumin 3.3 g/dL (3.5-5.0); Alkaline Phosphatase 96 U/L (38-126); Anion Gap 5 mmol/L; Blood Urea Nitrogen 11 mg/dL (7-17); Calcium 8.2 mg/dL (8.4-10.2); Carbon Dioxide 25 mmol/L (22-30); Chloride 109 mmol/L (98-107); Glucose 97 mg/dL (74-99); Lipase 1264 U/L (23-300); Potassium 4.5 mmol/L (3.5-5.1); Sodium 139 mmol/L (137-145); Total Bilirubin 0.6 mg/dL (0.2-1.3); Total Protein 5.8 g/dL (6.3-8.2)
--- NOTE | 2017-09-30 12:46 | P.HPIM ---
History of Present Illness H&P Date: 09/30/17 Chief Complaint: Elevated lipase with abdominal pain This is a 67-year-old white female with history of hypertension who states sudden onset abdominal pain yesterday. Food was numbness or provocative or palliative. But the pain was epigastric and felt the back. The patient has no ethanol usage. Oh elevation of lipase was found in the ER workup and she is appropriately admitted for this abnormality. She has consulted and is ordering MRI MRCP of the area of the liver and question. Otherwise, she is in minimal pain when seen this morning. Review of Systems Constitutional: Denies chills, Denies fever Eyes: denies blurred vision, denies pain Ears, nose, mouth and throat: Denies headache, Denies sore throat Cardiovascular: Denies chest pain, Denies shortness of breath Respiratory: Denies cough Gastrointestinal: Reports as per HPI, Reports abdominal pain, Reports belching, Reports diarrhea, Reports nausea, Reports vomiting Musculoskeletal: Denies myalgias Integumentary: Denies pruritus, Denies rash Past Medical History Past Medical History: Cancer, Chest Pain / Angina, Hyperlipidemia, Osteoarthritis (OA), Thyroid Disorder Additional Past Medical History / Comment(s): pain rt foot, hx. h pylori, irregular heart beat, SOB w/activity, skin cancer, past elevated liver enzymes, varicose veins,UTIs.Steroid injection 11-12-16 Last Myocardial Infarction Date:: unknown History of Any Multi-Drug Resistant Organisms: None Reported Past Surgical History: Heart Catheterization, Hysterectomy, Orthopedic Surgery Additional Past Surgical History / Comment(s): yesica cataract surg., bunionectomy , carpal tunnel surg. Past Anesthesia/Blood Transfusion Reactions: No Reported Reaction Additional Past Anesthesia/Blood Transfusion Reaction / Comment(s): no hx blood transfusion Past Psychological History: Anxiety Smoking Status: Never smoker Past Alcohol Use History: Occasional Past Drug Use History: None Reported - Past Family History Sister(s) Family Medical History: Cancer Brother(s) Family Medical History: Cancer Mother Family Medical History: No Reported History Medications and Allergies Home Medications Medication Instructions Recorded Confirmed Type Levothyroxine Sodium [Synthroid] 50 mcg PO QAM 05/19/14 09/29/17 History Zolpidem [Ambien] 10 mg PO HS PRN 05/19/14 09/30/17 History ALPRAZolam [Xanax] 0.5 mg PO TID PRN 05/26/14 09/29/17 History Naproxen Sodium [Aleve] 440 mg PO HS PRN 12/05/14 09/30/17 History Aspirin EC [Ecotrin] 325 mg PO ONCE PRN 12/05/15 09/30/17 History Simvastatin [Zocor] 20 mg PO HS 09/29/17 09/29/17 History Allergies Allergy/AdvReac Type Severity Reaction Status Date / Time Penicillins Allergy Rash/Hives/ Verified 09/29/17 22:06 Swelling Sulfa (Sulfonamide Allergy Rash/Hives Verified 09/29/17 21:52 Antibiotics) Physical Exam Vitals: Vital Signs Temp Pulse Pulse Resp BP BP Pulse Ox 09/30/17 07:00 97.6 F 64 18 131/77 96 09/30/17 02:06 97 F L 74 18 147/83 98 09/30/17 00:43 66 18 135/63 96 09/30/17 00:41 70 18 135/63 97 09/29/17 21:49 98.3 F 81 18 185/116 98 Intake and Output 09/29/17 09/30/17 09/30/17 22:59 06:59 14:59 Other: # Voids 1 Weight 90.718 kg 90.407 kg - Constitutional General appearance: no acute distress - EENT Eyes: EOMI - Neck Neck: no lymphadenopathy - Respiratory Respiratory: bilateral: CTA - Cardiovascular Rhythm: regular - Gastrointestinal General gastrointestinal: soft - Integumentary Integumentary: no cellulitis Results CBC & Chem 7: 09/29/17 22:00 09/30/17 07:51 Labs: Abnormal Lab Results - Last 24 Hours (Table) 09/29/17 09/29/17 09/29/17 Range/Units 22:00 22:00 22:00 RBC 5.48 H (3.80-5.40) m/uL Chloride (98-107) mmol/L Calcium (8.4-10.2) mg/dL ALT 61 H (9-52) U/L Alkaline Phosphatase 128 H (38-126) U/L Total Creatine Kinase 163 H (30-135) U/L Total Protein (6.3-8.2) g/dL Albumin (3.5-5.0) g/dL Amylase (30-110) U/L Lipase 7099 H (23-300) U/L 09/30/17 09/30/17 Range/Units 07:51 07:51 RBC (3.80-5.40) m/uL Chloride 109 H (98-107) mmol/L Calcium 8.2 L (8.4-10.2) mg/dL ALT (9-52) U/L Alkaline Phosphatase (38-126) U/L Total Creatine Kinase (30-135) U/L Total Protein 5.8 L (6.3-8.2) g/dL Albumin 3.3 L (3.5-5.0) g/dL Amylase 230 H (30-110) U/L Lipase 1264 H (23-300) U/L Thrombosis Risk Factor Assmnt - Choose All That Apply Any of the Below Risk Factors Present?: Yes Each Factor Represents 1 point: Obesity (BMI >25), Varicose veins Other Risk Factors: Yes Each Risk Factor Represents 2 Points: Age 61-74 years Other congenital or acquired thrombophilia - If yes, enter type in comment: No Thrombosis Risk Factor Assessment Total Risk Factor Score: 4 Thrombosis Risk Factor Assessment Level: Moderate Risk Assessment and Plan (1) Elevated lipase Current Visit: Yes Status: Acute Code(s): R74.8 - ABNORMAL LEVELS OF OTHER SERUM ENZYMES SNOMED Code(s): 833477625 (2) Abdominal pain Current Visit: Yes Status: Acute Code(s): R10.9 - UNSPECIFIED ABDOMINAL PAIN SNOMED Code(s): 93955954 Plan: Given her elevated lipase with abnormality found on computed tomography scan of abdomen, MRI will be obtained. Check enzymatic follow-up with amylase and lipase in a.m. Gastroneurology is not consulted. Reconcile medications. See orders otherwise. Prognosis is guarded. Time with Patient: Less than 30
[2017-09-30 13:25] LABS: Glucose,Whole Blood 77 mg/dL (75-99)
[2017-09-30 17:03] LABS: Alpha Fetoprotein, Tumor Mkr <2.5 ng/mL (0.0-7.9)
[2017-09-30 17:04] LABS: Cancer Antigen 19-9 10.9 U/mL (0.0-34.9)
[2017-09-30 17:34] LABS: Hepatitis A Antibody IgM Non-Reactive (Non-Reactive); Hepatitis B Core IgM Non-Reactive (Non-Reactive)
[2017-09-30 19:01] LABS: Glucose,Whole Blood 82 mg/dL (75-99)
[2017-09-30] MEDS ORDERED: ATORVASTATIN 10 MG TAB PO SCH (21:00)
[2017-09-30 21:26] VITALS: TEMP 96.9
--- NOTE | 2017-09-30 22:58 | MR ---
EXAMINATION TYPE: MR liver wo/w con and mrcp DATE OF EXAM: 09/30/2017 COMPARISON: CT abdomen and pelvis from earlier today. Complete abdominal ultrasound from yesterday. H ISTORY: Epigastric pain. Pancreatitis, possible liver lesions per order. CONTRAST: Standard multiplanar, multisequence MRI departmental protocol utilizing 10 mL intravenous Gadavist c ontrast. Imaging is performed of the abdomen focusing on the liver. Thin and thick slice MRCP imagin g was performed without contrast. FINDINGS: LIVER/GB/PANCREAS/BILIARY SYSTEM: Gallbladder has distended margins. There are no intraluminal gallst ones identified. No suspicious wall thickening or surrounding inflammatory change is seen. There is n o intrahepatic or extrahepatic biliary dilatation noted. Findings correlate with recent CT and ultras ound. Pancreas is normal in size. Pancreatic duct is visualized but nondilated. There are a few subcentimet er areas of thin-walled cysts scattered throughout the pancreas, some appear to connect to side branc hes of the main pancreatic duct, others do not show connection. No suspicious solid masses identified . No adjacent inflammatory change is seen. Liver is normal in size. There is 4 mm thin-walled cyst right hepatic lobe near gallbladder fossa cor onal image 17. There is peripheral 9 mm lesion posterior segment right hepatic lobe series 8 on image 54 of T1 hypointensity and T2 hyperintensity with peripheral nodular enhancement and progressive edith tripetal filling, imaging characteristics consistent with benign hemangioma. Lesion corresponds to CT axial image 23. Medial and just superior to this there is a 7 mm lesion of subtle T1 hypointensity a nd T2 hyperintensity that shows progressive central enhancement on multiphasic sequences favoring hem angioma, initial sequences do not show classic peripheral nodular enhancement. Findings correlate wit h CT axial image 21. There is no additional worrisome solid or cystic intrahepatic mass. Liver overall shows mild diffuse dropout consistent with mild diffuse fatty infiltration on in and out of phase sequence imaging. Main portal vein is patent and nondilated. Hepatic veins are patent draining into the portal vein. Other: Lung bases are clear. Heart size is upper limits of normal. Spleen is normal in size and appea rs grossly unremarkable. Adrenal glands are within normal limits. There is no concerning renal mass o r hydronephrosis identified. Stomach is poorly distended and thus suboptimally evaluated. There is no suspicious small or large bowel dilatation. IMPRESSION: 1. No MRI evidence for acute pancreatitis. Several thin-walled cystic lesions along course of pancrea s somewhat which connect to the side branches of main pancreatic duct. Differential includes pancreat ic pseudocysts however cystic neoplasm and sidebranch IPMNs are in the differential for some of these lesions. At minimum would advise MRI/MRCP monitoring in 6-12 months time. 2. Mild fatty infiltration of liver. A 9 mm hemangioma is noted. A smaller 7 mm nonspecific lesion fa vors a hemangioma. Advise MRI surveillance or reimaging in 6-12 months time. 3. No gallstones or US evidence for acute cholecystitis.
[2017-10-01 00:57] LABS: Glucose,Whole Blood 81 mg/dL (75-99)
[2017-10-01] MEDS: INSULIN ASPART 100 UNIT/ML 1 ML 10 ML VIAL SQ SCH ×2 (04:29→06:31)
[2017-10-01 06:30] VITALS: BP 137/78; PULSE 72; RESP 18
[2017-10-01 06:30] LABS: Glucose,Whole Blood 108 mg/dL (75-99)
[2017-10-01] MEDS ORDERED: LEVOTHYROXINE 50 MCG TAB PO SCH (06:30)
[2017-10-01 07:56] LABS: Basophils % (A) 1 %; Eosinophils # (A) 0.1 k/uL (0-0.7); Eosinophils % (A) 2 %; HCT 47.1 % (34.0-46.0); HGB 14.4 gm/dL (11.4-16.0); Hypochromasia Slight; Lymphocytes # (A) 1.3 k/uL (1.0-4.8); Lymphocytes % (A) 20 %; MCH 25.3 pg (25.0-35.0); MCHC 30.5 g/dL (31.0-37.0); MCV 83.1 fL (80.0-100.0); Mean Platelet Volume 7.2; Monocytes # (A) 0.4 k/uL (0-1.0); Monocytes % (A) 6 %; Neutrophils # (A) 4.6 k/uL (1.3-7.7); Neutrophils % (A) 69 %; Platelet Count 242 k/uL (150-450); RBC 5.67 m/uL (3.80-5.40); RDW 14.9 % (11.5-15.5); WBC 6.6 k/uL (3.8-10.6)
[2017-10-01 08:25] LABS: ALT 44 U/L (9-52); AST 20 U/L (14-36); Alkaline Phosphatase 111 U/L (38-126); Amylase 52 U/L (30-110); Anion Gap 8 mmol/L; Blood Urea Nitrogen 10 mg/dL (7-17); Calcium 9.1 mg/dL (8.4-10.2); Carbon Dioxide 25 mmol/L (22-30); Chloride 107 mmol/L (98-107); Glucose 96 mg/dL (74-99); Lipase 116 U/L (23-300); Potassium 4.3 mmol/L (3.5-5.1); Sodium 140 mmol/L (137-145); Total Bilirubin 0.8 mg/dL (0.2-1.3); Total Protein 6.4 g/dL (6.3-8.2)
[2017-10-01] MEDS: PANTOPRAZOLE 40 MG/10 ML VIAL IVP SCH (09:27)
--- NOTE | 2017-10-01 10:11 | P.PN ---
Subjective Progress Note Date: 10/01/17 Principal diagnosis: Pancreatitis Feels well abdominal pain improved. Pancreatic enzymes normalized. AFP CEA CA- 19-9 within normal limits. MRI of liver reviewed mostly consistent with benign hemangiomas. Few pancreatic cysts possible pseudocyst possible IPMN possible cystic neoplasm could not be excluded. Objective - Vital Signs Vital signs: Vital Signs Temp 96.9 F L 09/30/17 20:29 Pulse 72 10/01/17 06:29 Resp 18 10/01/17 06:29 BP 137/78 10/01/17 06:29 Pulse Ox 97 10/01/17 06:29 Intake & Output 09/30/17 10/01/17 10/01/17 18:59 06:59 18:59 Intake Total 700 300 Balance 700 300 Intake: Intake, IV Titration 700 Amount Sodium Chloride 0.9% 1, 700 000 ml @ 100 mls/hr IV . Q10H TOMAS Rx#:[id number] Oral 300 Other: Voiding Method Toilet # Voids 1 - Exam General appearance: The patient is alert, oriented, in no acute distress. HET: Head is normocephalic and atraumatic. Pupils are equal and reactive. Oropharynx is clear without lesions. Neck: Supple without lymphadenopathy. Trachea midline. Heart: S1 S2. Regular rate and rhythm. Lungs: No crackles or wheezes are heard. Abdomen: Soft, nontender, nondistended with bowel sounds. No peritoneal signs. No palpable organomegaly or masses. Extremities: Normal skin color and turgor. No cyanosis, rash, ulceration, clubbing, or edema. Radial and pedal pulses are 2/4 bilaterally. Neurological: No focal deficits. Strength and sensation are grossly intact. - Labs CBC & Chem 7: 10/01/17 07:05 10/01/17 07:05 Labs: Abnormal Lab Results - Last 24 Hours (Table) 09/30/17 10/01/17 10/01/17 Range/Units 07:51 06:28 07:05 RBC 5.67 H (3.80-5.40) m/uL Hct 47.1 H (34.0-46.0) % MCHC 30.5 L (31.0-37.0) g/dL Chloride 109 H (98-107) mmol/L POC Glucose (mg/dL) 108 H (75-99) mg/dL Calcium 8.2 L (8.4-10.2) mg/dL Total Protein 5.8 L (6.3-8.2) g/dL Albumin 3.3 L (3.5-5.0) g/dL Lipase 1264 H (23-300) U/L Assessment and Plan (1) Acute pancreatitis Narrative/Plan: First episode etiology unclear underlying autoimmune pathology cannot be excluded. Cystic areas seen on pancreas per MRI possible pancreatic pseudocysts possible IPMN cystic neoplasm could not be excluded. Current Visit: Yes Status: Acute Code(s): K85.90 - ACUTE PANCREATITIS WITHOUT NECROSIS OR INFECTION, UNSP SNOMED Code(s): 479414480 (2) Abnormal CT of the abdomen Narrative/Plan: MRI abdomen demonstrated liver lesions consistent with benign hemangiomas. Current Visit: Yes Status: Acute Code(s): R93.5 - ABN FINDINGS ON DX IMAGING OF ABD REGIONS, INC RETROPERITON SNOMED Code(s): 28565343133317928 Plan: 1. MRI findings discussed with patient and spouse. Abdominal pain is resolved. Pancreatic enzymes normalized. Agreeable for discharge today. Continue with a low-fat diet. Abstain from alcohol. Follow-up in office in 2- 3 weeks for reevaluation. Outpatient endoscopic ultrasound was advised and will be scheduled through the GI office. Assessment and plan a care discussed with Dr. Kelly
[2017-10-01 10:30] LABS: IgG Subclass 3 19.5 mg/dL (11.0-85.0); IgG Subclass 4 7.8 mg/dL (3.0-175.0)
--- NOTE | 2017-10-01 11:22 | P.DS ---
Providers Date of admission: 09/30/17 00:52 Expected date of discharge: 10/01/17 Attending physician: Willard Fox Consults: 09/30/17 07:21 Consult Physician Routine Consulting Provider: Elma Kelly Consult Reason/Comments: elevated lipase Do you want consulting provider notified?: Yes Primary care physician: Willard Fox [facility] Course: 67-year-old female who presented to the emergency room with a chief complaint of abdominal pain/epigastric discomfort that radiated to her back. The patient had been doing household cleaning tasks such as vacuuming and cleaning the floors on her hands and knees. She thought originally the pain was due to these activities and thought that she possibly "overdid it". However the pain persisted and the patient presented to the emergency room for further evaluation. Chest x-ray was negative for acute process. Ultrasound of abdomen was negative. No evidence of gallstones or dilated ducts. No evidence of renal obstruction. CT of abdomen and pelvis was completed which did not reveal evidence of pancreatitis. Heterogeneous enhancement of the liver with target ring-enhancing lesion seen in the posterior right lobe, which could be related to multiple hemangiomas or metastatic disease. Lipase was elevated on admission at 7099. Amylase was 230. She was admitted to the medical floor and a consult for GI was placed. She underwent an MRI which did not show evidence of acute pancreatitis. Possible pancreatic pseudocysts however cystic neoplasm and side branch IPMNs are also in the differential. Mild fatty infiltration of the liver. 9 mm hemangiomas noted. A smaller 7 mm nonspecific lesion favors a hemangioma. No gallstones or evidence of acute cholecystitis. AFP, CEA, and CA 19-9 were within normal limits. The patient's abdominal pain has resolved. Her pancreatic enzymes have returned to normal. She was cleared for discharge from a GI standpoint. She is to follow up with Dr. Kelly in 2-3 weeks and outpatient endoscopic ultrasound was recommended and will be scheduled through GI office. She was deemed stable for discharge. She is to resume previous home medications. Low fat diet was recommended. She was encouraged to also avoid alcohol. DISCHARGE DIAGNOSIS: Acute pancreatitis, etiology unclear, patient denies alcohol abuse, no evidence of gallstones, can not rule out underlying autoimmune pathology. Abdominal pain, present on admission, secondary to above, resolved at time of discharge Cystic lesions of pancreas per MRI, possible pseudocysts, however cystic neoplasm and IPMN are included in differential Liver lesions, visualized on MRI, consistent with benign hemangiomas Hyperlipidemia Osteoarthritis Hypothyroidism Obesity: BMI 36.5 Nurse practitioner note has been reviewed by physician. Signing provider agrees with the documented findings, assessment, and plan of care. Patient Condition at Discharge: Stable Plan - Discharge Summary Discharge Rx Participant: Yes New Discharge Prescriptions: Continue Zolpidem [Ambien] 10 mg PO HS PRN PRN Reason: SLEEP Levothyroxine Sodium [Synthroid] 50 mcg PO QAM ALPRAZolam [Xanax] 0.5 mg PO TID PRN PRN Reason: Anxiety Naproxen Sodium [Aleve] 440 mg PO HS PRN PRN Reason: Pain Simvastatin [Zocor] 20 mg PO HS Discontinued Aspirin EC [Ecotrin] 325 mg PO ONCE PRN PRN Reason: Chest Pain Discharge Medication List Levothyroxine Sodium [Synthroid] 50 mcg PO QAM 05/19/14 [History] Zolpidem [Ambien] 10 mg PO HS PRN 05/19/14 [History] ALPRAZolam [Xanax] 0.5 mg PO TID PRN 05/26/14 [History] Naproxen Sodium [Aleve] 440 mg PO HS PRN 12/05/14 [History] Simvastatin [Zocor] 20 mg PO HS 09/29/17 [History] Follow up Appointment(s)/Referral(s): Willard Fox MD [Primary Care Provider] - 1-2 days Elma Kelly MD [STAFF PHYSICIAN] - 11/13/17 2:00 pm Activity/Diet/Wound Care/Special Instructions: Low fat diet, avoid alcohol Discharge Disposition: HOME SELF-CARE
== END 2017-10-01 11:42 | disposition home or self-care (01) | DRG 439 ==
LOC: EC 21:34 → 6PED 09-30 00:52
PROVIDERS: ADMIT Family Medicine; ATTEND Family Medicine
DX: K85.90 Acute pancreatitis without necrosis or infection, unspecified (principal); K86.2 Cyst of pancreas; D18.03 Hemangioma of intra-abdominal structures; E03.9 Hypothyroidism, unspecified; E66.9 Obesity, unspecified; E78.5 Hyperlipidemia, unspecified; F41.9 Anxiety disorder, unspecified; I10 Essential (primary) hypertension; K44.9 Diaphragmatic hernia without obstruction or gangrene; K57.30 Diverticulosis of large intestine without perforation or abscess without bleeding; K76.0 Fatty (change of) liver, not elsewhere classified; M19.90 Unspecified osteoarthritis, unspecified site; Z68.36 Body mass index [BMI] 36.0-36.9, adult; Z79.82 Long term (current) use of aspirin; Z85.828 Personal history of other malignant neoplasm of skin; Z90.710 Acquired absence of both cervix and uterus; Z98.42 Cataract extraction status, left eye; Z98.41 Cataract extraction status, right eye; Z79.1 Long term (current) use of non-steroidal anti-inflammatories (NSAID); Z79.890 Hormone replacement therapy; Z79.899 Other long term (current) drug therapy; Z88.0 Allergy status to penicillin; Z88.2 Allergy status to sulfonamides
CPT/HCPCS: 36415; 71046; 74177; 74183; 76700; 80053; 80074; 82105; 82150; 82378; 82550; 82553; 82787; 83690; 83735; 83880; 84478; 84484; 85025; 85610; 85730; 86038; 86301; 93005; 96361; 96374; 99285

== ENCOUNTER → 2018-01-13 | Outpatient (CLI) | payer MEDICARE ==
[2018-01-13 16:22] LABS: LDL Cholesterol,Calculated 94.4 mg/dL (0.0-131.0); VLDL Calculation 18.6 mg/dL (5.00-40.00)
== END ==
LOC: LABWHC1 09:24
PROVIDERS: ATTEND Internal Medicine Interventional Cardiology
DX: E78.2 Mixed hyperlipidemia (principal)
CPT/HCPCS: 36415; 80061; 84450; 84460

== ENCOUNTER → 2018-02-16 | Outpatient (CLI) | payer MEDICARE ==
[2018-02-16 17:08] LABS: Appearance,Urine Clear (Clear); Bilirubin,Urine Negative (Negative); Blood,Urine Negative (Negative); Color,Urine Yellow; Glucose,Urine (UA) Negative (Negative); Ketones,Urine Negative (Negative); Leukocyte Esterase,Urine Trace (Negative); Mucus,Urine Rare /hpf; Nitrite,Urine Negative (Negative); PH, Urine 5.5 (5.0-8.0); Protein,Urine Negative (Negative); RBC,Urine 1 /hpf (0-5); Squamous Epithelial Cell,Urine 1 /hpf (0-4); Urobilinogen,Urine <2.0 mg/dL (<2.0); WBC,Urine 1 /hpf (0-5)
== END | disposition home or self-care (01) ==
LOC: LABPAT 16:23
PROVIDERS: ATTEND Orthopaedic Surgery
DX: Z01.812 Encounter for preprocedural laboratory examination (principal)
CPT/HCPCS: 81001

== ENCOUNTER → 2018-02-16 | Outpatient (CLI) | payer MEDICARE | END | disposition home or self-care (01) | LOC: LABWHC1 12:06 | PROVIDERS: ATTEND Internal Medicine Gastroenterology | DX: K86.2 Cyst of pancreas (principal) | CPT/HCPCS: 36415; 82565; 84520 ==

== ENCOUNTER → 2018-02-17 | Outpatient (CLI) | payer MEDICARE ==
--- NOTE | 2018-02-19 16:23 | MR ---
MR pancreas, MRCP with and without contrast HISTORY: Previous abnormal pancreas MRI, cysts of pancreas Multiplanar multisequence and postcontrast images obtained through the pancreas following 8.5 cc Gada vist IV. Three-dimensional reconstructions performed through the biliary system. Correlation to prior MRI liver and CT abdomen pelvis dated 09/30/2017 Small cystic foci within the pancreas show a stable appearance. 2 hyperintensity shows a similar dist ribution of lesions, same size. Biliary system shows a similar appearance. Apparent kinking of the region of the distal proper hepati c duct shows a stable appearance and correlates to passage of vessel at this level is likely due to s ome extrinsic vascular compression, difficult to exclude a stricture at this level, there is a calibe r change. No evident gallstone. There is no retroperitoneal adenopathy or ascites. No evident pleural effusion. The areas of enhancement in the posterior right lobe of the liver seen on prior exam shows a similar appearance. Liver shows a heterogeneous enhancement pattern initially. Small umbilical hernia contains fat. Circumaortic left renal vein is noted incidentally. Small cystic focus associated with the left kidney anteriorly at the midpole is stable. IMPRESSION: Findings are stable. No significant interval change.
== END | disposition home or self-care (01) ==
LOC: RADMRIMAIN 08:12
PROVIDERS: ATTEND Internal Medicine Gastroenterology
DX: K86.2 Cyst of pancreas (principal)
CPT/HCPCS: 74183; A9585

== ENCOUNTER 2018-02-23 07:00 | Inpatient (IN) | payer MEDICARE ==
[2018-02-16 14:59] VITALS: BMI 35.4
[~2018-02-23 07:00] MED LIST changes: +ACETAMINOPHEN TAB 500 MG TAB PO ONE; +HYDROmorphone 0.5 MG/0.5 ML SYRINGE IVP PRN; -HYDROmorphone 1 MG/ML 1 ML SYRINGE IVP PRN; +MELOXICAM 7.5 MG TAB PO ONE; +MIDAZOLAM (PF) 2 MG/2 ML VIAL IV PRN; +ROPIVACAINE 246.25 MG, EPINEPHrine 0.5 MG, KETOROLAC 30 MG, cloNIDine HCL/PF 80 MCG, WA... MISCELLANE ONE; +TRANEXAMIC ACID 1,000 MG in SODIUM CHLORIDE 0.9% 50 ML IVPB ONE
[2018-02-23] MEDS: LACTATED RINGERS 1,000 ML IV SCH (08:02)
[2018-02-23] MEDS ORDERED: MIDAZOLAM 2 MG/2 ML VIAL IVP ONE (08:27)
[2018-02-23] MEDS ORDERED: HYDROmorphone 1 MG/ML 1 ML SYRINGE IVP PRN ×2 (08:56)
[2018-02-23] MEDS ORDERED: NA PHOS,M-B/NA PHOS,DI-BA 133 ML ENEMA RECTAL PRN (08:56)
[2018-02-23] MEDS ORDERED: MAGNESIUM HYDROXIDE 2,400 MG/10 ML CUP PO PRN (08:56)
[2018-02-23] MEDS ORDERED: DIAZEPAM 5 MG TAB PO PRN (08:56)
[2018-02-23] MEDS ORDERED: BISACODYL 10 MG SUPP RECTAL PRN (08:56)
[2018-02-23] MEDS ORDERED: NALOXONE 0.4 MG/ML 1 ML VIAL IV PRN (08:56)
[2018-02-23] MEDS ORDERED: HYDROcodone/APAP 5-325MG 1 EACH TAB PO PRN (08:56)
[2018-02-23] MEDS ORDERED: DEXTROSE 5% IN WATER 250 ML BAG IV ONE (09:31)
[2018-02-23] MEDS ORDERED: TRANEXAMIC ACID 1,000 MG/10 ML VIAL ONE (09:31)
[2018-02-23] MEDS ORDERED: PROPOFOL 10 MG/ML 20 ML VIAL IV ONE (09:31)
[2018-02-23] MEDS ORDERED: SODIUM CHLORIDE 0.9% 100 ML BAG ONE (09:31)
[2018-02-23] MEDS ORDERED: MIDAZOLAM 2 MG/2 ML VIAL ONE (09:31)
[2018-02-23] MEDS ORDERED: BUPIVACAINE (PF) 0.5% 30 ML VIAL ONE (09:31)
[2018-02-23] MEDS ORDERED: fentaNYL (PF) 50 MCG/ML 2 ML AMP ONE (09:31)
[2018-02-23] MEDS ORDERED: ceFAZolin 3,000 MG in SODIUM CHLORIDE 0.9% IRRIGATIO 3,000 ML IRRIGATION ONE (09:58)
[2018-02-23] MEDS ORDERED: ROPIVACAINE 1,100 MG, SODIUM CHLORIDE 0.9% 500 ML 330 ML MISCELLANE PRN ×2 (10:28)
--- NOTE | 2018-02-23 10:30 | P.ONQ ---
Anesthesiology Proc Note - PNB - Peripheral Nerve Block Performed Left Adductor Canal Infusion Time Out Performed: Yes (826) Procedure Start Time: : Procedure Stop Time: :37 Indication: Acute Post-Operative Pain, Dx/Pain Location, Requested by physician Sedation Type: Awake Preparation: Sterile Prep Catheter: Indwelling Needle Types: On-Q Needle Size: 100mm (4") Needle Gauge: 20 Technique: Ultrasound Injectate: 0.5% Ropivacaine (see comment for volume) (20ml) Blood Aspirated: No Pain Paresthesia on Injection Noted: No Resistance on Injection: Normal Events: Uneventful and Well Tolerated
--- NOTE | 2018-02-23 10:47 | P.OP ---
Date of Procedure: 02/23/18 Preoperative Diagnosis: Severe osteoarthritis left knee Postoperative Diagnosis: Severe osteoarthritis left knee Procedure(s) Performed: Left total knee arthroplasty Implants: Argueta [employer] Nephew Journey II CR Oxinium cruciate retaining femoral component size 4, left [employer] Journey left nonporous tibial baseplate size 4 Ar[employer] Journey II, XLPE CR articular insert, size 9 mm, Size 3-4 left [employer] Journey BCS resurfacing oval patellar component, 29 mm All components were cemented using Palacos R bone cement.. The articulation is Oxinium on polyethylene. Anesthesia: spinal Surgeon: Kaz Pham Autoclave Operator #1: Tess Anand Estimated Blood Loss (ml): 25 Pathology: other (Bone and cartilage) Condition: stable Disposition: PACU Indications for Procedure: After failure of conservative treatment we discussed the surgical and nonsurgical treatment options at length. Patient wishes to proceed with a total knee arthroplasty. Complications specific to this procedure were discussed at length, including but not limited to infection, bleeding, stiffness , and nerve injury. Patient is aware of all these complications and informed consent was obtained Operative Findings: The operative findings are consistent with severe osteoarthritis of the left knee Description of Procedure: Patient was seen in the preoperative area consent was reviewed and operative site was marked with a skin marker. An adductor canal pain catheter was placed by anesthesia in the preoperative area. Patient was then brought to the operating room and given preoperative antibiotics intravenously. A spinal anesthetic was administered by the anesthesia department. A tourniquet was placed on the upper thigh and the lower extremity was prepped and draped in usual sterile fashion. A gram of transexamic acid was given. A universal timeout was then performed which confirmed the patient's name, surgical site, ALLERGIES, and consent. The lower extremity was then exsanguinated and tourniquet was inflated to 250 mmHg. A standard and anterior midline approach to the knee was performed. The skin and subcutaneous tissue was dissected down to the patellar tendon. A medial parapatellar arthrotomy was then performed. The knee was then extended, the patellar was everted, and the knee was again flexed. Anterior horns of both menisci were excised, and a release was performed to the posterior medial aspect of the knee. On gross visual inspection, there was complete loss of articular cartilage in the medial and patellofemoral joint spaces. There was also significant cartilage damage in the lateral compartment. There were multiple periarticular osteophytes which were then removed with a Ronguer. The femoral canal was then opened with the appropriate drill, and the intramedullary femoral cutting guide was then placed and set for 5 of valgus. The distal femoral cutting block was then pinned in place, and the distal femur was then cut. The cutting block was then removed and the cut was checked for flatness. Next, the sizing guide was then placed and set for 3 external rotation based off of the epicondylar axis and Whitesides line. After the femur was sized, the appropriate 4-in-1 cutting block was then pinned in place. The anterior condyles were cut without notching. The posterior and chamfer cuts were performed while protecting the collateral ligaments. The cutting block was then removed, and the femoral canal was plugged with autologous bone. Attention was then directed to the tibia. The remaining ACL was removed with a Ronguer, and the tibia was then gently subluxed forward with a large bent knee retractor. Any remaining menisci was excised. The posterior lateral corner was cauterized in order to cauterize the lateral geniculate artery. The extra medullary tibial cutting guide was then placed, set for the appropriate rotation , slope, and depth of resection. The proximal tibia cutting guide was then pinned in place. Proximal tibia was then cut and sized. Next trials were then placed with the appropriate-sized insert. The knee was able to fully extend and flex to 130 and was stable throughout all range of motion. The knee was then extended, patella everted. Patella was then measured, and then using an osteotomy guide, the patella was cut at the appropriate level. The patella was then measured and drilled and the patella trial was then placed. The knee was then taken through range of motion with the patella trial and the patella tracked normally. The knee was then extended patella trial was then removed and the patella was everted. Knee was then flexed and lug holes were drilled through the femoral trial and the femoral trial was then removed. The tibial was then exposed, and the tibial broach guide was then pinned in place after it was set for the appropriate rotation to allow for the most coverage without overhang. The tibia was then reamed and broached. The cut surfaces of bone were then irrigated with pulsatile lavage. The posterior structures were injected with the ropivacaine solution. The knee was also irrigated with Irrisept solution. The components were then opened, the cement was mixed, and the components were then cemented in place. The cement was allowed to harden with the knee in full extension. While the cement was hardening, the remaining soft tissues were then injected with a ropivacaine solution, which consisted of 246.25 mg of ropivacaine, 0.5 mg of epinephrine, 30 mg of Toradol, 80 g of clonidine, and 48.45 mL of sterile water, for a total of 100 mL of fluid injected. After the cemented hardened. The tourniquet was released, and hemostasis was obtained. A second gram of transexamic acid was given. The knee was again irrigated. The knee was again taken through range of motion and found to be stable throughout all range of motion of 0-130 , and the patella tracked normally. The fascia was then closed with #2 strata fix suture. The subcutaneous tissue was closed with 3-0 Vicryl and 3-0 strata fix. Dermabond glue was used for the skin and placed with the knee in flexion. The patient was placed in a sterile silver dressing. Patient was then transferred to recovery room in stable condition. The retail event and sales assistant TABATHA Love was required due the complexity surgery and the need for a skilled surgical elastic knitter. She assisted in positioning, draping, retraction, and closure of the wound.
--- NOTE | 2018-02-23 12:35 | XR ---
Limited left knee HISTORY: Status post left knee arthroplasty 2 views of the left knee Patient is status post left knee arthroplasty. There is anatomic alignment. Lucency in the soft tissu es compatible with postop state IMPRESSION: Orthopedic follow-up.
[2018-02-23] MEDS: SODIUM CHLORIDE 0.9% 1,000 ML IV SCH (12:41)
[2018-02-23] MEDS: ASPIRIN 325 MG TAB PO SCH ×2 (12:56→20:40)
[2018-02-23] MEDS: HYDROcodone/APAP 5-325MG 1 EACH TAB PO PRN ×2 (13:46→18:34)
[2018-02-23] MEDS: hydrOXYzine PAMOATE 25 MG CAP PO PRN ×2 (13:47→18:33)
[2018-02-23] MEDS ORDERED: ALPRAZolam 0.5 MG TAB PO PRN (14:00)
[2018-02-23] MEDS: CLINDAMYCIN 900 MG in DEXTROSE 5% IN WATER 50 ML IVPB SCH ×4 (16:40→21:35)
[2018-02-23] MEDS: HYDROmorphone 1 MG/ML 1 ML SYRINGE IVP PRN (16:59)
[2018-02-23] MEDS: ATORVASTATIN 10 MG TAB PO SCH (20:40)
[2018-02-23] MEDS: SENNOSIDES-DOCUSATE SODIUM 1 EACH TAB PO SCH (20:40)
[2018-02-23] MEDS: ZOLPIDEM 10 MG TAB PO PRN (23:20)
[2018-02-24] MEDS: HYDROcodone/APAP 5-325MG 1 EACH TAB PO PRN ×3 (00:21→13:23)
[2018-02-24] MEDS: SODIUM CHLORIDE 0.9% 1,000 ML IV SCH ×2 (02:57→17:02)
[2018-02-24] MEDS: LEVOTHYROXINE 50 MCG TAB PO SCH (05:46)
[2018-02-24] MEDS: LACTATED RINGERS 1,000 ML IV SCH (08:01)
[2018-02-24] MEDS: ASPIRIN 325 MG TAB PO SCH ×2 (08:13→21:14)
[2018-02-24] MEDS: MELOXICAM 7.5 MG TAB PO SCH (08:13)
--- NOTE | 2018-02-24 09:32 | P.DS ---
Providers Date of admission: 02/23/18 07:00 Expected date of discharge: 02/24/18 Attending physician: Kaz Pham Consults: 02/23/18 08:56 Consult Physician Routine Consulting Provider: Willard Fox Consult Reason/Comments: medical management Do you want consulting provider notified?: Yes Primary care physician: Willard Fox - Discharge Diagnosis(es) (1) S/P total knee arthroplasty Current Visit: Yes Status: Acute (2) Primary osteoarthritis of left knee Current Visit: Yes Status: Acute Hospital Course: This is a 67-year-old female with known history of degenerative arthritis of the left knee. The patient presents for evaluation. After discussion and consideration patient elects to proceed with total knee arthroplasty. The patient is seen preoperatively by Dr. Pham and medically cleared for surgery by their primary care physician. Patient is admitted to [facility] on 02/23/2018 for total knee arthroplasty. The procedures performed without complication or sequelae. The patient is doing well postoperatively. Labs and vital signs are stable on day of discharge. On day of discharge patient's knee incision is healing well. There is minimal erythema. There is no drainage noted at this time. There is minimal soft tissue swelling to the knee. Patient has full foot and ankle motion without difficulty or pain. Neurovascular status to the left lower extremity is intact. Patient is discharged home in good condition. Please see med rec for accurate list of home medications. Plan - Discharge Summary Discharge Rx Participant: Yes New Discharge Prescriptions: New Aspirin 325 mg PO BID #60 tab HYDROcodone/APAP 5-325MG [Adams 5-325] 1 - 2 tab PO Q4-6H PRN #84 tab PRN Reason: Pain Sennosides [Senokot] 1 tab PO BID #60 tablet No Action Zolpidem [Ambien] 10 mg PO HS PRN PRN Reason: Insomnia Levothyroxine Sodium [Synthroid] 50 mcg PO QAM ALPRAZolam [Xanax] 0.5 mg PO TID PRN PRN Reason: Anxiety Naproxen Sodium [Aleve] 440 mg PO HS PRN PRN Reason: Pain Simvastatin [Zocor] 20 mg PO HS Discharge Medication List Levothyroxine Sodium [Synthroid] 50 mcg PO QAM 05/19/14 [History] Zolpidem [Ambien] 10 mg PO HS PRN 03/05/15 [History] ALPRAZolam [Xanax] 0.5 mg PO TID PRN 05/26/14 [History] Naproxen Sodium [Aleve] 440 mg PO HS PRN 12/05/14 [History] Simvastatin [Zocor] 20 mg PO HS 09/29/17 [History] Aspirin 325 mg PO BID #60 tab 02/24/18 [Rx] HYDROcodone/APAP 5-325MG [Adams 5-325] 1 - 2 tab PO Q4-6H PRN #84 tab 02/24/18 [ Rx] Sennosides [Senokot] 1 tab PO BID #60 tablet 02/24/18 [Rx] Follow up Appointment(s)/Referral(s): Kaz Pham DO [Doctor of Osteopathic Medicine] - 2 Weeks Ambulatory/Diagnostic Orders: Continuous Passive Motion (CPM) Machine [DME.AMB1] Time Frame: 3 Weeks, Location : None Selected Activity/Diet/Wound Care/Special Instructions: Weightbearing as tolerated with a walker. CPM 5-6h daily. Leave dressing intact. May be removed by home care nurse in 10 days. May shower with dressing on. Please follow up with [facility] and call with any questions or concerns, . Discharge Disposition: HOME WITH HOME HEALTH SERVICES
--- NOTE | 2018-02-24 10:26 | P.CONS ---
History of Present Illness - Reason for Consult Consult date: 02/24/18 Medical management - Chief Complaint Knee repair - History of Present Illness This is a consultation note on a 67-year-old white female who has an underlying history of arthropathy. We are consulted for medical management and I have seen her postop day #1. Pain control is appropriate. No significant nausea, vomiting or diarrhea is stated. Vital signs are stable. However, after this, she had episodic chest pain. CK-MB and troponin are now ordered. There are no acute EKG changes. She has had intermittent chest pain in the past. Review of Systems Constitutional: Denies chills, Denies fever Eyes: denies blurred vision, denies pain Ears, nose, mouth and throat: Denies headache, Denies sore throat Cardiovascular: Denies chest pain, Denies shortness of breath Respiratory: Denies cough Gastrointestinal: Denies abdominal pain, Denies diarrhea, Denies nausea, Denies vomiting Musculoskeletal: right: knee pain Neurological: Denies numbness, Denies weakness Past Medical History Past Medical History: Cancer, Chest Pain / Angina, Hyperlipidemia, Osteoarthritis (OA), Thyroid Disorder Additional Past Medical History / Comment(s): pain rt foot, hx. h pylori, irregular heart beat, SOB w/activity, skin cancer, past elevated liver enzymes, varicose veins,UTIs.Steroid injection 11-12-16 Last Myocardial Infarction Date:: unknown History of Any Multi-Drug Resistant Organisms: None Reported Past Surgical History: Heart Catheterization, Hysterectomy, Orthopedic Surgery Additional Past Surgical History / Comment(s): yesica cataract surg., bunionectomy , carpal tunnel surg. Past Anesthesia/Blood Transfusion Reactions: No Reported Reaction Additional Past Anesthesia/Blood Transfusion Reaction / Comm: no hx blood transfusion Past Psychological History: Anxiety Smoking Status: Never smoker Past Alcohol Use History: Occasional Past Drug Use History: None Reported - Past Family History Sister(s) Family Medical History: Cancer Brother(s) Family Medical History: Cancer Mother Family Medical History: No Reported History Medications and Allergies Home Medications Medication Instructions Recorded Confirmed Type Levothyroxine Sodium [Synthroid] 50 mcg PO QAM 05/19/14 02/23/18 History Zolpidem [Ambien] 10 mg PO HS PRN 05/19/14 02/23/18 History ALPRAZolam [Xanax] 0.5 mg PO TID PRN 05/26/14 02/23/18 History Naproxen Sodium [Aleve] 440 mg PO HS PRN 12/05/14 02/23/18 History Simvastatin [Zocor] 20 mg PO HS 09/29/17 02/23/18 History Aspirin 325 mg PO BID #60 tab 02/24/18 Rx HYDROcodone/APAP 5-325MG [[place] 1 - 2 tab PO Q4-6H PRN #84 tab 02/24/18 Rx 5-325] Sennosides [Senokot] 1 tab PO BID #60 tablet 02/24/18 Rx Allergies Allergy/AdvReac Type Severity Reaction Status Date / Time Penicillins Allergy Rash/Hives/ Verified 02/23/18 11:50 Swelling Sulfa (Sulfonamide Allergy Rash/Hives Verified 02/23/18 11:50 Antibiotics) Physical Exam Vitals: Vital Signs Temp Pulse Pulse Resp BP Pulse Ox 02/24/18 10:06 81 16 136/81 96 02/24/18 07:00 97.5 F L 75 16 121/62 98 02/24/18 03:26 77 18 02/24/18 00:20 98.8 F 77 18 111/70 97 02/24/18 00:00 18 02/23/18 20:00 98 F 77 18 130/71 94 L 02/23/18 14:15 98 169/72 98 02/23/18 14:00 87 134/72 98 02/23/18 13:45 85 124/71 97 02/23/18 13:30 83 127/76 98 02/23/18 13:15 83 126/71 99 02/23/18 13:00 75 127/66 100 02/23/18 12:45 71 121/75 99 02/23/18 12:30 70 113/67 98 02/23/18 12:25 68 16 108/59 96 02/23/18 12:15 97.3 F L 64 18 113/69 98 02/23/18 12:10 72 16 107/58 96 02/23/18 11:55 69 16 104/53 95 02/23/18 11:32 64 16 96/54 96 02/23/18 11:17 98.3 F 71 18 113/59 95 Intake and Output 02/23/18 02/24/18 02/24/18 22:59 06:59 14:59 Intake Total 50 Balance 50 Intake: Intake, IV Titration 50 Amount Clindamycin 900 mg In 50 Dextrose 5% in Water 50 ml @ 50 mls/hr IVPB Q6H [facility] Rx#:[id number] Other: Voiding Method Toilet Toilet Weight 87.997 kg - Constitutional General appearance: no acute distress - EENT Eyes: EOMI - Neck Neck: no lymphadenopathy - Respiratory Respiratory: bilateral: CTA - Cardiovascular Rhythm: regular Heart sounds: normal: S1, S2 Abnormal Heart Sounds: S3 Gallop - Gastrointestinal General gastrointestinal: soft, no tenderness - Psychiatric Psychiatric: A&O x's 3, no appropriate affect Assessment and Plan (1) Primary osteoarthritis of left knee Current Visit: Yes Status: Acute Code(s): M17.12 - UNILATERAL PRIMARY OSTEOARTHRITIS, LEFT KNEE SNOMED Code(s): 655167546077340 (2) S/P total knee arthroplasty Current Visit: Yes Status: Acute Code(s): Z96.659 - PRESENCE OF UNSPECIFIED ARTIFICIAL KNEE JOINT SNOMED Code(s): 4122994674552 Plan: Reconcile home medications. Postop pain control by orthopedics. Will discharge when cleared by orthopedic surgery. Episodic chest pain which is not new for the patient. Go ahead and get stat EKG with appropriate enzymatic check. Anticipate discharge in next 24 hours.
[2018-02-24 10:54] LABS: Basophils % (A) 0 %; Eosinophils % (A) 0 %; HGB 11.2 gm/dL (11.4-16.0); Lymphocytes # (A) 1.1 k/uL (1.0-4.8); Lymphocytes % (A) 10 %; MCH 25.9 pg (25.0-35.0); MCHC 31.9 g/dL (31.0-37.0); MCV 81.1 fL (80.0-100.0); Mean Platelet Volume 7.1; Monocytes # (A) 0.8 k/uL (0-1.0); Monocytes % (A) 7 %; Neutrophils # (A) 8.3 k/uL (1.3-7.7); Neutrophils % (A) 80 %; Platelet Count 207 k/uL (150-450); RBC 4.32 m/uL (3.80-5.40); RDW 15.4 % (11.5-15.5); WBC 10.3 k/uL (3.8-10.6)
[2018-02-24] MEDS: HYDROmorphone 1 MG/ML 1 ML SYRINGE IVP PRN ×2 (15:06→22:19)
[2018-02-24] MEDS ORDERED: HYDROcodone/APAP 7.5-325MG 1 EACH TAB PO PRN (18:06)
[2018-02-24] MEDS: hydrOXYzine PAMOATE 25 MG CAP PO PRN (18:41)
[2018-02-24] MEDS: HYDROcodone/APAP 7.5-325MG 1 EACH TAB PO PRN ×2 (18:43→23:45)
[2018-02-24] MEDS: ONDANSETRON 4 MG/2 ML VIAL IVP PRN (21:13)
[2018-02-24] MEDS: ZOLPIDEM 10 MG TAB PO PRN (21:14)
[2018-02-24] MEDS: SENNOSIDES-DOCUSATE SODIUM 1 EACH TAB PO SCH (21:14)
[2018-02-24] MEDS: ATORVASTATIN 10 MG TAB PO SCH (21:14)
[2018-02-25] MEDS: HYDROcodone/APAP 7.5-325MG 1 EACH TAB PO PRN ×2 (05:34→11:05)
[2018-02-25] MEDS: LEVOTHYROXINE 50 MCG TAB PO SCH (05:34)
[2018-02-25] MEDS: LACTATED RINGERS 1,000 ML IV SCH (05:40)
[2018-02-25 07:48] VITALS: BP 139/78; PULSE 82; RESP 16; TEMP 97.7
[2018-02-25] MEDS: SODIUM CHLORIDE 0.9% 1,000 ML IV SCH (08:34)
--- NOTE | 2018-02-25 08:39 | P.PN ---
Subjective Progress Note Date: 02/25/18 Principal diagnosis: Status post left knee arthroplasty The patient is here essentially because of significant problems related to chest pain yesterday. We suspect it was poor timing for her pain control medication. She feels much better. EKG and cardiac enzymes did not show significant issue. Otherwise no voiding difficulties are stated. Objective - Vital Signs Vital signs: Vital Signs Temp 97.7 F 02/25/18 07:40 Pulse 82 02/25/18 07:40 Resp 16 02/25/18 07:40 BP 139/78 02/25/18 07:40 Pulse Ox 96 02/25/18 07:40 Intake & Output 02/24/18 02/25/18 02/25/18 18:59 06:59 18:59 Intake Total 500 Balance 500 Intake: Oral 500 Other: Voiding Method Toilet # Voids 3 - Constitutional General appearance: Present: average body habitus - EENT Eyes: Absent: abnormal pupil - Respiratory Respiratory: bilateral: CTA - Cardiovascular Rhythm: regular Heart sounds: normal: S1, S2 Abnormal Heart Sounds: Absent: S3 Gallop - Gastrointestinal General gastrointestinal: Present: soft. Absent: tenderness - Neurologic Neurologic: Present: CNII-XII intact - Labs CBC & Chem 7: 02/24/18 10:08 Labs: Abnormal Lab Results - Last 24 Hours (Table) 02/24/18 02/24/18 Range/Units 10:08 10:08 Hgb 11.2 L (11.4-16.0) gm/dL Neutrophils # 8.3 H (1.3-7.7) k/uL Total Creatine Kinase 160 H (30-135) U/L Assessment and Plan (1) Primary osteoarthritis of left knee Current Visit: Yes Status: Acute Code(s): M17.12 - UNILATERAL PRIMARY OSTEOARTHRITIS, LEFT KNEE SNOMED Code(s): 588858985473810 (2) S/P total knee arthroplasty Current Visit: Yes Status: Acute Code(s): Z96.659 - PRESENCE OF UNSPECIFIED ARTIFICIAL KNEE JOINT SNOMED Code(s): 0049555890238 Plan: Anticipate discharge today. Pain control is stable. Follow-up with me within 7-10 days.
[2018-02-25] MEDS: ASPIRIN 325 MG TAB PO SCH (09:03)
[2018-02-25] MEDS: ONDANSETRON 4 MG/2 ML VIAL IVP PRN (09:03)
[2018-02-25] MEDS: MELOXICAM 7.5 MG TAB PO SCH (09:03)
[2018-02-25] MEDS: hydrOXYzine PAMOATE 25 MG CAP PO PRN (09:04)
== END 2018-02-25 12:19 | disposition home health service (06) | DRG 470 ==
LOC: 2ORMAIN 07:00 → 4SSUR 11:23
PROVIDERS: ADMIT Orthopaedic Surgery; ATTEND Orthopaedic Surgery
PROC: 0SRD069 Replacement of Left Knee Joint with Oxidized Zirconium on Polyethylene Synthetic Substitute, Cemented, Open Approach (ICD-10-PCS; principal; 2018-02-23 09:15)
DX: M17.12 Unilateral primary osteoarthritis, left knee (principal); E78.5 Hyperlipidemia, unspecified; Z79.82 Long term (current) use of aspirin; Z85.828 Personal history of other malignant neoplasm of skin; Z90.710 Acquired absence of both cervix and uterus; Z79.890 Hormone replacement therapy; Z79.899 Other long term (current) drug therapy; Z88.0 Allergy status to penicillin; Z88.2 Allergy status to sulfonamides; Z83.3 Family history of diabetes mellitus; Z82.49 Family history of ischemic heart disease and other diseases of the circulatory system
CPT/HCPCS: 82550; 82553; 84484; 85025; 88300; 93005; 94760

== ENCOUNTER → 2018-03-23 | Outpatient (CLI) | payer MEDICARE ==
--- NOTE | 2018-03-29 09:20 | MM ---
Reason for exam: screening (asymptomatic). Last mammogram was performed 1 year and 9 months ago. History: Patient is postmenopausal. Took estrogen beginning at age 63. MG 3D Screening Mammo W/Cad Bilateral CC and MLO view(s) were taken. Prior study comparison: July 05, 2016, bilateral MG 3d screening mammo w/cad. July 06, 2015, bilateral MG 3d screening mammo w/cad. There are scattered fibroglandular densities. Chronic nodularity right breast. Stable upper outer quadrant focal asymmetry in the left breast from 2017. No significant changes when compared with prior studies. ASSESSMENT: Negative, BI-RAD 1 RECOMMENDATION: Routine screening mammogram of both breasts in 1 year.
== END | disposition home or self-care (01) ==
LOC: RADMAMWWP 11:17
PROVIDERS: ATTEND Family Medicine
DX: Z12.31 Encounter for screening mammogram for malignant neoplasm of breast (principal)
CPT/HCPCS: 77063; 77067

== ENCOUNTER 2018-03-25 21:38 | Emergency (ER) | payer MEDICARE ==
[2018-03-25] MEDS ORDERED: MORPHINE SULFATE 4 MG/ML SYRINGE IV STA (23:09)
[2018-03-25 23:11] LABS: Appearance,Urine Clear (Clear); Basophils % (A) 0 %; Bilirubin,Urine Negative (Negative); Blood,Urine Negative (Negative); Color,Urine Yellow; Eosinophils # (A) 0.2 k/uL (0-0.7); Eosinophils % (A) 1 %; Glucose,Urine (UA) Negative (Negative); HCT 43.9 % (34.0-46.0); HGB 13.7 gm/dL (11.4-16.0); Ketones,Urine Negative (Negative); Leukocyte Esterase,Urine Negative (Negative); Lymphocytes % (A) 9 %; MCH 25.5 pg (25.0-35.0); MCHC 31.1 g/dL (31.0-37.0); Mean Platelet Volume 6.9; Monocytes # (A) 0.7 k/uL (0-1.0); Monocytes % (A) 6 %; Neutrophils # (A) 9.7 k/uL (1.3-7.7); Neutrophils % (A) 82 %; Nitrite,Urine Negative (Negative); Platelet Count 265 k/uL (150-450); Protein,Urine Negative (Negative); RBC 5.36 m/uL (3.80-5.40); RDW 15.5 % (11.5-15.5); Specific Gravity,Urine 1.011 (1.001-1.035); WBC 11.8 k/uL (3.8-10.6)
--- NOTE | 2018-03-25 23:37 | CT ---
EXAMINATION TYPE: CT abdomen pelvis wo con DATE OF EXAM: 03/25/2018 COMPARISON: 09/30/2017 HISTORY: left sided abdominal pain CT DLP: 669.5 mGycm Automated exposure control for dose reduction was used. TECHNIQUE: Helical acquisition of images was performed from the lung bases through the pelvis. FINDINGS: Lung bases are clear. There is no pleural effusion. Heart size is fairly normal. There is no pericard ial effusion. Liver spleen pancreas gallbladder appear normal. Bile ducts are not dilated. There is no adrenal mass . Kidneys have normal size and contour. There is no hydronephrosis. Ureters are not dilated. Bladder distends smoothly. There is no retroperitoneal adenopathy. There is no inguinal hernia. There are numerous diverticula in the sigmoid colon. There are mild hypertrophic changes in the sigmoid co jie. There is no sign of appendicitis. There are numerous phleboliths in the pelvis. There is some fa t stranding around the lower descending colon with fluid in the paracolic gutter. There are diverticu la in the descending colon. I see no bony destructive process. There is no evidence of free air. IMPRESSION: THERE IS EVIDENCE OF DIVERTICULITIS IN THE DESCENDING COLON THAT IS MUCH WORSE COMPARED TO OLD EXAM. THERE IS MODERATELY SEVERE SIGMOID DIVERTICULOSIS. NO DRAINABLE FLUID COLLECTION.
[2018-03-25 23:40] LABS: Albumin 4.8 g/dL (3.5-5.0); Amylase 40 U/L (30-110); Anion Gap 12 mmol/L; Blood Urea Nitrogen 14 mg/dL (7-17); Calcium 10.1 mg/dL (8.4-10.2); Carbon Dioxide 26 mmol/L (22-30); Chloride 101 mmol/L (98-107); Glucose 103 mg/dL (74-99); Lipase 52 U/L (23-300); Sodium 139 mmol/L (137-145); Total Bilirubin 1.2 mg/dL (0.2-1.3); Total Protein 8.2 g/dL (6.3-8.2)
[2018-03-25 23:41] LABS: ALT 46 U/L (9-52); AST 48 U/L (14-36); Alkaline Phosphatase 149 U/L (38-126); Potassium 4.7 mmol/L (3.5-5.1)
[2018-03-26] MEDS ORDERED: LEVOFLOXACIN 750 MG TAB PO STA (00:08)
[2018-03-26] MEDS ORDERED: metroNIDAZOLE 500 MG TAB PO STA (00:08)
--- NOTE | 2018-03-26 00:14 | ED ---
Abdominal Pain HPI - General Chief Complaint: Abdominal Pain Stated Complaint: Left lower abd pain Time Seen by Provider: 03/25/18 22:40 Source: patient Mode of arrival: ambulatory Limitations: no limitations - History of Present Illness Initial Comments: This patient is 67-year-old woman who comes in to be evaluated for left lower quadrant pain. She states it started yesterday in the evening. She describes it as being aching, somewhat cramping area she compared to labor pains. Patient states the pain is severe, constant. She has not found anything that relieves the pain, though she has tried using warm compresses, walking, stool softeners and [id number]-kba-[id number] medicines. It is worse if she presses on her abdomen. She denies other associated symptoms. MD Complaint: abdominal pain Onset/Timin -: days(s) Location: LLQ Radiation: none Migration to: no migration Severity: severe Quality: cramping, aching Consistency: constant Improves With: nothing Worsens With: nothing Associated Symptoms: denies other symptoms - Related Data Home Medications Medication Instructions Recorded Confirmed Levothyroxine Sodium [Synthroid] 50 mcg PO QAM 05/19/14 03/25/18 Zolpidem [Ambien] 10 mg PO HS 05/19/14 03/25/18 ALPRAZolam [Xanax] 0.5 mg PO TID PRN 05/26/14 03/25/18 Simvastatin [Zocor] 20 mg PO HS 09/29/17 03/25/18 Sennosides [Senokot] 1 tab PO BID PRN 03/25/18 03/25/18 Previous Rx's Medication Instructions Recorded Aspirin 325 mg PO BID #60 tab 02/24/18 HYDROcodone/APAP 7.5-325MG [[place] 1 - 2 tab PO Q4-6H PRN #84 tab 02/24/18 7.5-325] Ciprofloxacin HCl [Cipro] 500 mg PO Q12HR #14 tablet 03/26/18 Hydrocodone/Acetaminophen [[place] 1 each PO Q6HR PRN #20 tab 03/26/18 5-325] Ondansetron Odt [Zofran ODT] 4 mg PO Q8HR PRN #10 tab 03/26/18 metroNIDAZOLE [Flagyl] 500 mg PO TID #21 tab 01/10/19 Allergies Allergy/AdvReac Type Severity Reaction Status Date / Time Penicillins Allergy Rash/Hives/ Verified 03/25/18 23:13 Swelling Sulfa (Sulfonamide Allergy Rash/Hives Verified 03/25/18 23:13 Antibiotics) Review of Systems ROS Statement: Those systems with pertinent positive or pertinent negative responses have been documented in the HPI. ROS Other: All systems not noted in ROS Statement are negative. Constitutional: Denies: fever, chills Respiratory: Denies: cough, dyspnea Cardiovascular: Denies: chest pain, palpitations, syncope Gastrointestinal: Reports: abdominal pain, constipation. Denies: nausea, vomiting, diarrhea, melena, hematochezia Genitourinary: Denies: dysuria, hematuria Musculoskeletal: Denies: back pain Skin: Denies: rash Neurological: Denies: headache, weakness, numbness Past Medical History Past Medical History: Cancer, Chest Pain / Angina, Hyperlipidemia, Osteoarthritis (OA), Thyroid Disorder Additional Past Medical History / Comment(s): pain rt foot, hx. h pylori, irregular heart beat, SOB w/activity, skin cancer, past elevated liver enzymes, varicose veins,UTIs.Steroid injection 11-12-16 Last Myocardial Infarction Date:: unknown History of Any Multi-Drug Resistant Organisms: None Reported Past Surgical History: Heart Catheterization, Hysterectomy, Orthopedic Surgery Additional Past Surgical History / Comment(s): yesica cataract surg., bunionectomy , carpal tunnel surg., knee replacement. Past Anesthesia/Blood Transfusion Reactions: No Reported Reaction Additional Past Anesthesia/Blood Transfusion Reaction / Comment(s): no hx blood transfusion Past Psychological History: Anxiety Smoking Status: Never smoker Past Alcohol Use History: Occasional Past Drug Use History: None Reported - Past Family History Sister(s) Family Medical History: Cancer Brother(s) Family Medical History: Cancer Mother Family Medical History: No Reported History General Exam Limitations: no limitations General appearance: alert, in no apparent distress Head exam: Present: atraumatic, normocephalic Eye exam: Present: normal appearance. Absent: scleral icterus, conjunctival injection ENT exam: Present: normal oropharynx Respiratory exam: Present: normal lung sounds bilaterally. Absent: respiratory distress, wheezes, rales, rhonchi, stridor Cardiovascular Exam: Present: regular rate, normal rhythm, normal heart sounds. Absent: systolic murmur, diastolic murmur, rubs, gallop GI/Abdominal exam: Present: soft, tenderness, normal bowel sounds. Absent: distended, guarding, rebound, rigid, mass, pulsatile mass, hernia Extremities exam: Present: normal inspection, normal capillary refill. Absent: pedal edema, calf tenderness Back exam: Present: normal inspection. Absent: CVA tenderness (R), CVA tenderness (L) Neurological exam: Present: alert Skin exam: Present: warm, dry, intact, normal color. Absent: rash Course Vital Signs 03/25/18 21:56 Temperature 98.1 F Pulse Rate 72 Respiratory 16 Rate Blood Pressure 160/87 O2 Sat by Pulse 100 Oximetry Medical Decision Making - Medical Decision Making Detailed discussion with patient and regarding further care for diverticulitis, including outpatient course versus inpatient. At this point patient would like to try outpatient course, discussed appropriate further care and follow-up as well as return parameters. Patient has had improvement of symptoms and is tolerating by mouth. - Lab Data Result diagrams: 03/25/18 23:00 03/25/18 23:00 Lab Results 03/25/18 03/25/18 03/25/18 Range/Units 23:00 23:00 23:00 WBC 11.8 H (3.8-10.6) k/uL RBC 5.36 (3.80-5.40) m/uL Hgb 13.7 (11.4-16.0) gm/dL Hct 43.9 (34.0-46.0) % MCV 82.0 (80.0-100.0) fL MCH 25.5 (25.0-35.0) pg MCHC 31.1 (31.0-37.0) g/dL RDW 15.5 (11.5-15.5) % Plt Count 265 (150-450) k/uL Neutrophils % 82 % Lymphocytes % 9 % Monocytes % 6 % Eosinophils % 1 % Basophils % 0 % Neutrophils # 9.7 H (1.3-7.7) k/uL Lymphocytes # 1.0 (1.0-4.8) k/uL Monocytes # 0.7 (0-1.0) k/uL Eosinophils # 0.2 (0-0.7) k/uL Basophils # 0.0 (0-0.2) k/uL Sodium 139 (137-145) mmol/L Potassium 4.7 (3.5-5.1) mmol/L Chloride 101 (98-107) mmol/L Carbon Dioxide 26 (22-30) mmol/L Anion Gap 12 mmol/L BUN 14 (7-17) mg/dL Creatinine 0.67 (0.52-1.04) mg/dL Est GFR (CKD-EPI)AfAm >90 (>60 ml/min/1.73 sqM) Est GFR (CKD-EPI)NonAf >90 (>60 ml/min/1.73 sqM) Glucose 103 H (74-99) mg/dL Calcium 10.1 (8.4-10.2) mg/dL Total Bilirubin 1.2 (0.2-1.3) mg/dL AST 48 H (14-36) U/L ALT 46 (9-52) U/L Alkaline Phosphatase 149 H (38-126) U/L Total Protein 8.2 (6.3-8.2) g/dL Albumin 4.8 (3.5-5.0) g/dL Amylase 40 (30-110) U/L Lipase 52 (23-300) U/L Urine Color Yellow Urine Appearance Clear (Clear) Urine pH 7.0 (5.0-8.0) Ur Specific [place] 1.011 (1.001-1.035) Urine Protein Negative (Negative) Urine Glucose (UA) Negative (Negative) Urine Ketones Negative (Negative) Urine Blood Negative (Negative) Urine Nitrite Negative (Negative) Urine Bilirubin Negative (Negative) Urine Urobilinogen 3.0 (<2.0) mg/dL Ur Leukocyte Esterase Negative (Negative) Disposition Clinical Impression: Diverticulitis Disposition: HOME SELF-CARE Condition: Fair Instructions: Diverticulitis (ED) Prescriptions: Ciprofloxacin HCl [Cipro] 500 mg PO Q12HR #14 tablet Hydrocodone/Acetaminophen [[place] 5-325] 1 each PO Q6HR PRN #20 tab PRN Reason: Pain metroNIDAZOLE [Flagyl] 500 mg PO TID #21 tab Ondansetron Odt [Zofran ODT] 4 mg PO Q8HR PRN #10 tab PRN Reason: Nausea Is patient prescribed a controlled substance at d/c from ED?: No Referrals: Willard Fox MD [Primary Care Provider] - 1-2 days
[2018-03-26] MEDS ORDERED: HYDROmorphone 1 MG/ML 1 ML SYRINGE IVP STA (01:43)
[2018-03-26 02:26] VITALS: BP 147/68; PULSE 80; RESP 17; TEMP 98.2
== END 2018-03-26 01:55 | disposition home or self-care (01) ==
LOC: EC 21:38
DX: K57.92 Diverticulitis of intestine, part unspecified, without perforation or abscess without bleeding (principal); M19.90 Unspecified osteoarthritis, unspecified site; E78.5 Hyperlipidemia, unspecified; E07.9 Disorder of thyroid, unspecified; I25.2 Old myocardial infarction; F41.9 Anxiety disorder, unspecified; Z85.828 Personal history of other malignant neoplasm of skin; Z90.710 Acquired absence of both cervix and uterus; Z96.659 Presence of unspecified artificial knee joint; Z98.890 Other specified postprocedural states; Z79.890 Hormone replacement therapy; Z79.899 Other long term (current) drug therapy; Z88.0 Allergy status to penicillin; Z88.2 Allergy status to sulfonamides
CPT/HCPCS: 36415; 80053; 82150; 83690; 85025; 81003; 74176; 99284; 96374; 96375; J2270; J1170

== ENCOUNTER 2018-06-08 07:53 | Day surgery (SDC) | payer MEDICARE ==
[2018-06-03 11:16] VITALS: BMI 35.3
[~2018-06-08 07:53] MED LIST changes: -ACETAMINOPHEN TAB 500 MG TAB PO ONE; -CLINDAMYCIN 900 MG in DEXTROSE 5% IN WATER 50 ML IVPB ONE; -DEXAMETHASONE SOD PHOSPHATE 10 MG/ML 1 ML VIAL IV ONE; -HYDROmorphone 0.5 MG/0.5 ML SYRINGE IVP PRN; +LACTATED RINGERS 1,000 ML IV SCH; -MELOXICAM 7.5 MG TAB PO ONE; -MIDAZOLAM (PF) 2 MG/2 ML VIAL IV PRN; -ONDANSETRON 4 MG/2 ML VIAL IVP ONE; -ROPIVACAINE 246.25 MG, EPINEPHrine 0.5 MG, KETOROLAC 30 MG, cloNIDine HCL/PF 80 MCG, WA... MISCELLANE ONE; -SCOPOLAMINE 1.5MG/72HR PATCH TRANSDERM ONE; -TRANEXAMIC ACID 1,000 MG in SODIUM CHLORIDE 0.9% 50 ML IVPB ONE
[2018-06-08 08:26] VITALS: RESP 16; TEMP 97.8
[2018-06-08] MEDS ORDERED: LIDOCAINE 1% 20 ML VIAL (10MG/ML) FOR IV START SQ ONE (08:34)
[2018-06-08] MEDS ORDERED: PROPOFOL 10 MG/ML 20 ML VIAL IV ONE (08:49)
--- NOTE | 2018-06-08 09:21 | P.PCN ---
Date of Procedure: 06/08/18 Procedure(s) Performed: Procedure: Total colonoscopy. Preoperative diagnosis: History of polyps and history of diverticulitis. Postoperative diagnosis: Sigmoid diverticulosis with no evidence of acute diverticulitis, strictures, polyps or cancer. Preparation: HalfLytely prep. Sedation: Was provided by anesthesia. Brief clinical history: The patient is a 67-year-old female who is scheduled for this evaluation because of history of diverticulitis earlier this year. The patient has history of polyps and her last colonoscopy was in November 2014. This evaluation is to assess for strictures, polyps or cancer. Procedure: With the patient on her left lateral decubitus position and after informed consent and adequate sedation, the perianal area was inspected and it did not show any fissures or fistulas. There were no masses felt on digital rectal examination. The Olympus CFH 190L video colonoscope was then inserted in the rectum in the usual fashion and advanced to the cecum. There were multiple diverticular orifices scattered in the sigmoid but no evidence of acute diverticulitis or strictures. No polyps or tumors were seen or any mucosal abnormalities. I retroflexed the endoscope in the rectum before the endoscope was withdrawn. The patient tolerated the procedure well. Plan: The patient was reassured. Discussed dietary measures. She will follow- up with you as planned and I recommended repeat exam in 5 years.
[2018-06-08 09:39] VITALS: BP 132/82; PULSE 68
== END 2018-06-08 10:16 | disposition home or self-care (01) ==
LOC: ORWHC2ENDO 07:53
DX: Z12.11 Encounter for screening for malignant neoplasm of colon (principal); K57.30 Diverticulosis of large intestine without perforation or abscess without bleeding; F41.9 Anxiety disorder, unspecified; E78.5 Hyperlipidemia, unspecified; M19.90 Unspecified osteoarthritis, unspecified site; E07.9 Disorder of thyroid, unspecified; Z88.0 Allergy status to penicillin; Z88.2 Allergy status to sulfonamides; Z79.890 Hormone replacement therapy; Z86.010 Personal history of colon polyps; Z79.899 Other long term (current) drug therapy
CPT/HCPCS: G0105; J2704; 45378

== ENCOUNTER → 2018-08-25 | Outpatient (CLI) | payer MEDICARE ==
--- NOTE | 2018-08-25 15:48 | MR ---
EXAMINATION TYPE: MR abdomen wo/w con DATE OF EXAM: 08/25/2018 COMPARISON: CT abdomen pelvis dated 03/25/2018 and MRI of the liver dated 09/29/2017. HISTORY: Unspecified abdominal pain CONTRAST: Standard multiplanar, multisequence MRI departmental protocol utilizing 8.5 mL intravenous Gadavist g adolinium contrast. TECHNIQUE: Multiplanar, multisequential MR imaging of the abdomen was performed with and without intr avenous contrast. FINDINGS: The liver demonstrates mild signal dropout and out of phase imaging compatible with mild de gree hepatic steatosis. This limits evaluation for underlying hepatic masses. However there is a T2 h yperintense and T1 hypointense 9 mm lesion within segment 7 that demonstrates arterial enhancement wi thout washout. This is homogeneous enhancement with findings on the prior exam indicative of a benign hemangioma. However this is stable from 09/30/2017. Additionally there is a T1 hypointense more subtle 8 mm lesion within segment 7 on image 79 of series 601. This is suspicious enhancement with surrounding ill-defined enhancement and continuous enhancem ent throughout the arterial and portal venous phases. Given this ill-defined intensity on T2-weighted imaging this does not appear as a hemangioma. The size has not significantly changed from the prior of 09/30/2017 where this measured 7 mm. Punctate nonenhancing 1 to 2 mm cyst is seen within the inferior right hepatic lobe on T2 axial fat s at image 10. There is very slight right hemidiaphragm elevation and elevating the hepatic margin. No significant intrahepatic biliary ductal dilatation. The small thin-walled cyst near the gallbladder f abner in segment IVb is unchanged measuring 4 mm. approximately 4 mm The spleen is homogeneous in all sequences as is a small splenule adjacent to the [place] spleen and p ancreatic tail. The adrenal glands, pancreas, and kidneys have homogeneous enhancement other than few subcentimeter t oo small to accurately characterize left renal lesions and pancreatic side branch dilated ducts. Thes e demonstrate direct continuity with the main pancreatic duct that is nondilated. The first in the pa ncreatic body measures 5 mm and the second in the distal pancreatic body towards the tail on image 18 measures 7 mm. Common bile duct is nondilated. No discrete gallstones are seen. Lung bases are grossly unremarkable. No dilated large or small bowel. Subcutaneous tissues and bone m arrow signal are within normal limits. IMPRESSION: 1. Minimal interval growth of an 8mm right hepatic lesion that does not have typical characteristics of a hemangioma. This could relate to a small atypical hemangioma or slow-growing metastasis given it s characteristics. Continued short-term follow-up is recommended as this is not well seen on CT witho ut contrast and would be difficult to biopsy at this time. If there is a known primary carcinoma or h igh suspicion PET/CT could be performed. 2. Stable 9 mm hemangioma adjacent to the 8 mm indeterminant hepatic lesion and benign hepatic cysts. 3. Similar appearing pancreatic side branch IPMNs in comparison to the exam of 09/30/2017. Annual surv eillance is recommended. 4. Mild degree hepatic steatosis.
== END | disposition home or self-care (01) ==
LOC: RADMRIMAIN 12:01
DX: D18.03 Hemangioma of intra-abdominal structures (principal); K76.89 Other specified diseases of liver; K76.0 Fatty (change of) liver, not elsewhere classified
CPT/HCPCS: 74183; A9585

== ENCOUNTER → 2019-02-15 | Outpatient (CLI) | payer MEDICARE ==
--- NOTE | 2019-02-16 02:30 | MR ---
EXAMINATION TYPE: MR pancreas wo/w con DATE OF EXAM: 02/15/2019 COMPARISON: 08/25/2018 HISTORY: Abnormal MRI CONTRAST: Standard multiplanar, multisequence MRI departmental protocol utilizing 9 mL intravenous Gadavist tessa olinium contrast. FINDINGS: There are 2 small low signal rounded lesions in the posterior right lobe of the liver on th e T1 images. These have higher signal on T2 and show delayed enhancement. These measure 9 mm and 11 m m and are consistent with hemangiomas. These appear unchanged compared to last exam. The bile ducts a re not dilated. There is no ascites. There is no pleural effusion. There is no pericardial effusion. Spleen is intact. The pancreatic duct has normal size. No dilated ducts. There are several small cysts along the body of the pancreas adjacent to the pancreatic duct within w all. These measure up to 7 mm. There is no sign of adrenal mass. Kidneys show satisfactory contrast opacification. There is no hydro nephrosis. There is no sign of retroperitoneal adenopathy. IMPRESSION: Abdomen appears not significantly different than last exam. Small thin wall pancreatic cysts. There are small cysts along the body of the pancreas that measure up to 7 mm and consistent with pseu docysts. Stable small enhancing foci in the posterior right lobe of the liver consistent with hemangi omas unchanged.
== END ==
LOC: RADMRIMAIN 08:51
PROVIDERS: ATTEND Internal Medicine
DX: K86.2 Cyst of pancreas (principal); R93.2 Abnormal findings on diagnostic imaging of liver and biliary tract
CPT/HCPCS: 74183; A9585

== ENCOUNTER → 2019-03-01 | Outpatient (CLI) | payer MEDICARE ==
--- NOTE | 2019-03-01 21:57 | XR ---
EXAMINATION TYPE: XR chest 2V DATE OF EXAM: 03/01/2019 COMPARISON: Prior chest x-ray September 29, 2017. HISTORY: Shortness of breath. TECHNIQUE: Frontal and lateral views of the chest are obtained. FINDINGS: There is no focal air space opacity, pleural effusion, or pneumothorax seen. The cardiac silhouette size is within normal limits. Perhaps new mild cephalization. The osseous structures are intact. IMPRESSION: Perhaps new mild cephalization. Correlate for mild fluid overload state.
== END | disposition home or self-care (01) ==
LOC: RADXRMAIN 17:48
PROVIDERS: ATTEND Family Medicine
DX: R06.02 Shortness of breath (principal)
CPT/HCPCS: 71046

== ENCOUNTER → 2019-03-25 | Outpatient (CLI) | payer MEDICARE ==
[2019-03-25 17:02] LABS: Alpha Fetoprotein, Tumor Mkr 3.5 ng/mL (0.0-7.9)
[2019-03-25 17:32] LABS: Cancer Antigen 19-9 11.6 U/mL (0.0-34.9)
== END | disposition home or self-care (01) ==
LOC: LABWHC1 10:22
PROVIDERS: ATTEND Internal Medicine
DX: K86.2 Cyst of pancreas (principal); K76.89 Other specified diseases of liver
CPT/HCPCS: 36415; 82105; 86301; 86304

== ENCOUNTER → 2019-04-27 | Outpatient (CLI) | payer MEDICARE ==
--- NOTE | 2019-04-28 11:05 | XR ---
EXAMINATION TYPE: XR chest 2V DATE OF EXAM: 04/27/2019 COMPARISON: Prior chest x-ray 03/01/2019 HISTORY: Pulmonary hypertension, shortness of breath TECHNIQUE: Frontal and lateral views of the chest are obtained. FINDINGS: There is no focal air space opacity, pleural effusion, or pneumothorax seen. The cardiac silhouette size is within normal limits. The osseous structures are intact. Aorta is dense. IMPRESSION: No acute cardiopulmonary process.
== END | disposition home or self-care (01) ==
LOC: RADXRMAIN 16:36
PROVIDERS: ATTEND Internal Medicine
DX: I27.20 Pulmonary hypertension, unspecified (principal)
CPT/HCPCS: 71046

== ENCOUNTER → 2019-05-19 | Outpatient (CLI) | payer MEDICARE ==
--- NOTE | 2019-05-19 16:18 | XR ---
EXAMINATION TYPE: XR cervical spine comp DATE OF EXAM: 05/19/2019 TECHNIQUE: Frontal, lateral, oblique, swimmers, and open mouth view of the cervical spine are obtaine d. HISTORY: M54.2 left-sided neck pain down left arm for one to 2 weeks. COMPARISON: None FINDINGS: The cervical spine is visualized in its entirety from C1 thru the top of T1 level, it is s traightened in alignment without evidence of acute fracture or dislocation. The pre-vertebral soft tissue appears within normal limits. The C1-C2 articulation is within normal limits on the open mout h view. Vertebral body heights are maintained. There is grade 1 anterolisthesis C4 on C5. There is mo derate spurring and disc space narrowing C5-C6 and C6-C7 levels. Mild disc space narrowing C7-T1 leve l. The oblique images show some mild left-sided neural foraminal narrowing C3-C4 level due to uncover tebral facet spurring. The overlying slight soft tissue is unremarkable. IMPRESSION: As above.
== END | disposition home or self-care (01) ==
LOC: RAD 15:42
PROVIDERS: ATTEND Internal Medicine
DX: M99.71 Connective tissue and disc stenosis of intervertebral foramina of cervical region (principal); M99.72 Connective tissue and disc stenosis of intervertebral foramina of thoracic region; M48.02 Spinal stenosis, cervical region; M43.12 Spondylolisthesis, cervical region
CPT/HCPCS: 72050

== ENCOUNTER → 2019-05-19 | Outpatient (CLI) | payer MEDICARE ==
[2019-05-19 11:22] LABS: African American GFR (CKD) >90 (>60 ml/min/1.73 sqM); Blood Urea Nitrogen 11 mg/dL (7-17); Non-African American GFR(CKD) 78 (>60 ml/min/1.73 sqM)
--- NOTE | 2019-05-19 12:19 | CT ---
EXAMINATION TYPE: CT chest w con DATE OF EXAM: 05/19/2019 COMPARISON: Chest x-ray April 27, 2019 HISTORY: Cough, chest discomfort and full feeling CT DLP: 332 mGycm. Automated Exposure Control for Dose Reduction was Utilized. TECHNIQUE: CT scan of the thorax is performed following with IV Contrast, patient injected with 100 mL of Isovue 300. FINDINGS: LUNGS: There is 3 to 4 mm inferior right upper lobe nodule seen best image 54. No suspicious focal consolidation or groundglass opacity. There is no pleural effusion or pneumothorax seen. The tracheo bronchial tree is patent. MEDIASTINUM: There are no greater than 1 cm hilar or mediastinal lymph nodes. No pericardial effusi on is seen. Heart size upper limits of normal. OTHER: There is 1.0 cm splenule in the posterior splenic hilum image 56. Moderate anterior and latera l spurring lower thoracic spine. IMPRESSION: No suspicious acute pulmonary process.
== END | disposition home or self-care (01) ==
LOC: RADCTMAIN 10:31
PROVIDERS: ATTEND Internal Medicine
DX: R05 Cough (principal)
CPT/HCPCS: 82565; 84520; 71260; 36415; Q9967

== ENCOUNTER → 2019-08-03 | Outpatient (CLI) | payer MEDICARE ==
--- NOTE | 2019-08-03 15:53 | MR ---
EXAMINATION TYPE: MR cervical spine wo con DATE OF EXAM: 08/03/2019 COMPARISON: None HISTORY: Neck pain, headaches, RUE radic CONTRAST: Performed utilizing 0 mL intravenous Gadavist gadolinium contrast. TECHNIQUE: Multiplanar multiecho imaging on a 3.0 Lou magnet is performed through the cervical spin e. FINDINGS: The craniovertebral junction is normal. Vertebral body alignment is normal. Disc desicca tion is throughout the cervical spine. C7-T1: No focal disc herniation or significant disc bulge is evident. No spinal canal stenosis or n eural foraminal stenosis is present. C6-7: Mild endplate changes with some associated disc material is present. This is minimally greater in the left paracentral region. No cord contact is evident. No spinal canal stenosis present. Neural foramen are patent.. C5-6: There is narrowing of disc height to this level. Foramen are patent. A tiny central protrusion or endplate spur is present which comes in close approximation with the spinal cord. No cord deformit y is evident. No spinal canal stenosis is present.. C4-5: Mild disc bulge has anterior thecal sac compression. No AP spinal canal stenosis present. No co rd contact is evident. Neural foramen are patent. C3-4: No focal disc herniation or significant disc bulge is evident. No spinal canal stenosis or ericka ral foraminal stenosis is present. C2-3: No focal disc herniation or significant disc bulge is evident. No spinal canal stenosis or ericka ral foraminal stenosis is present. IMPRESSIONS: 1. Endplate changes with disc bulges C4-5 through C6-7. No cord contact or cord compression is eviden t. No stenosis is present.
== END | disposition home or self-care (01) ==
LOC: RADMRIMAIN 14:40
PROVIDERS: ATTEND Internal Medicine
DX: M50.221 Other cervical disc displacement at C4-C5 level (principal)
CPT/HCPCS: 72141

== ENCOUNTER 2019-09-06 10:59 | Emergency (ER) | payer MEDICARE ==
[2019-09-06] MEDS ORDERED: ONDANSETRON 4 MG/2 ML VIAL IVP STA (11:44)
[2019-09-06] MEDS ORDERED: MORPHINE SULFATE 4 MG/ML SYRINGE IVP STA (11:44)
[2019-09-06] MEDS ORDERED: KETOROLAC 30 MG/ML 1 ML VIAL IVP STA (11:44)
[2019-09-06] MEDS ORDERED: SODIUM CHLORIDE 0.9% 1,000 ML IV ONE (11:44)
[2019-09-06] MEDS ORDERED: SODIUM CHLORIDE 0.9% 1,000 ML IV SCH (11:45)
--- NOTE | 2019-09-06 11:46 | ED ---
Abdominal Pain HPI - General Chief Complaint: Abdominal Pain Stated Complaint: diverticulitis Time Seen by Provider: 09/06/19 11:32 Source: patient, RN notes reviewed, old records reviewed Mode of arrival: ambulatory Limitations: no limitations - History of Present Illness Initial Comments: This Patient is a pleasant 69-year-old female who presents emergency department today for evaluation with complaints of left lower and right lower quadrant abdominal pain, concern for diverticulitis flareup. Patient reportedly has had diverticulitis in the past her she's been having symptoms for the past week of crampy abdominal pain and general fatigue. She reports that she's had some looser stools. She denies any changes in urination. She reports no recorded fevers or vomiting but did complain of some nausea. Patient has had colonoscopy a few years ago. 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 - Related Data Home Medications Medication Instructions Recorded Confirmed Levothyroxine Sodium [Synthroid] 50 mcg PO QAM 05/19/14 09/06/19 Zolpidem [Ambien] 10 mg PO HS 05/19/14 09/06/19 ALPRAZolam [Xanax] 0.25 - 0.5 mg PO TID PRN 05/26/14 09/06/19 Simvastatin [Zocor] 20 mg PO HS 09/29/17 09/06/19 Baclofen [Lioresal] 10 mg PO BID PRN 09/06/19 09/06/19 Cyclobenzaprine [Flexeril] 10 mg PO TID PRN 09/06/19 09/06/19 Escitalopram [Lexapro] 10 mg PO DAILY 09/06/19 09/06/19 Previous Rx's Medication Instructions Recorded Ciprofloxacin HCl [Cipro] 500 mg PO Q12HR 10 Days #20 tab 09/06/19 metroNIDAZOLE [Flagyl] 500 mg PO TID #30 tab 09/06/19 Allergies Allergy/AdvReac Type Severity Reaction Status Date / Time Penicillins Allergy Rash/Hives/ Verified 09/06/19 12:09 Swelling Sulfa (Sulfonamide Allergy Rash/Hives Verified 09/06/19 12:09 Antibiotics) Review of Systems ROS Statement: Those systems with pertinent positive or pertinent negative responses have been documented in the HPI. ROS Other: All systems not noted in ROS Statement are negative. Past Medical History Past Medical History: Cancer, Chest Pain / Angina, Hyperlipidemia, Osteoarthritis (OA), Thyroid Disorder Additional Past Medical History / Comment(s): ON ANTIBIOTCS FOR CURRENT BLADDER INFECTION, WAS SEEN IN ER 04/04/18 FOR DIVERTICULITIS AND HAD PANCREATITIS 09/2017 hx. h pylori, irregular heart beat, SOB w/activity, skin cancer, past elevated liver enzymes,varicose veins, Last Myocardial Infarction Date:: unknown History of Any Multi-Drug Resistant Organisms: None Reported Past Surgical History: Heart Catheterization, Hysterectomy, Joint Replacement, Orthopedic Surgery Additional Past Surgical History / Comment(s): yescia cataract surg., bunionectomy, carpal tunnel surg., LT TKA,COLONOSCOPY Past Anesthesia/Blood Transfusion Reactions: No Reported Reaction Additional Past Anesthesia/Blood Transfusion Reaction / Comment(s): no hx blood transfusion Past Psychological History: Anxiety Smoking Status: Never smoker Past Alcohol Use History: None Reported Past Drug Use History: None Reported - Past Family History Sister(s) Family Medical History: Cancer Brother(s) Family Medical History: Cancer Mother Family Medical History: No Reported History General Exam - General Exam Comments Initial Comments: 69-year-old female. Alert and oriented 3. Pleasant. Limitations: no limitations General appearance: alert, in no apparent distress Head exam: Present: atraumatic, normocephalic, normal inspection Eye exam: Present: normal appearance, PERRL, EOMI. Absent: scleral icterus, c onjunctival injection, periorbital swelling ENT exam: Present: normal exam, mucous membranes moist Neck exam: Present: normal inspection Respiratory exam: Present: normal lung sounds bilaterally. Absent: respiratory distress, wheezes, rales, rhonchi, stridor Cardiovascular Exam: Present: regular rate, normal rhythm, normal heart sounds. Absent: systolic murmur, diastolic murmur, rubs, gallop, clicks GI/Abdominal exam: Present: soft, tenderness (Lower abdominal tenderness), normal bowel sounds. Absent: distended, guarding, rebound, rigid Extremities exam: Present: normal inspection, full ROM, normal capillary refill. Absent: tenderness, pedal edema, joint swelling, calf tenderness Back exam: Present: normal inspection Neurological exam: Present: alert, oriented X3, CN II-XII intact Psychiatric exam: Present: normal affect, normal mood Skin exam: Present: warm, dry, intact, normal color. Absent: rash Course Vital Signs 09/06/19 11:25 Temperature 98.6 F Pulse Rate 88 Respiratory 18 Rate Blood Pressure 133/76 O2 Sat by Pulse 95 Oximetry Medical Decision Making - Medical Decision Making 69-year-old female presents emergency Department today with lower abdominal pain concerning for acute diverticulitis. She's had this in the past. All lab work was reviewed today and a mild leukocytosis of 11.9. Patient scheduled counselor is unremarkable. CT on pelvis was completed and does show evidence of non-complicated diverticulitis. Due to ALLERGY to penicillin and sulfa drugs Patient be started on Cipro and Flagyl to cover for diverticulitis. Patient computed tomography scan also shows a new cyst of the liver recommends further evaluation with ultrasound and future. I did advise the Patient of these findi ngs. Discussed Patient to follow-up with primary care physician and to discharge Patient on oral antibiotics. Given a dose of the Cipro and Flagyl and emergency department. Patient was reevaluated and resting comfortably in bed and understands the treatment plan. - Lab Data Result diagrams: 09/06/19 12:21 09/06/19 12:21 Lab Results 09/06/19 09/06/19 09/06/19 Range/Units 12:21 12:21 12:21 WBC 11.8 H (3.8-10.6) k/uL RBC 5.23 (3.80-5.40) m/uL Hgb 13.7 (11.4-16.0) gm/dL Hct 43.4 (34.0-46.0) % MCV 82.9 (80.0-100.0) fL MCH 26.1 (25.0-35.0) pg MCHC 31.5 (31.0-37.0) g/dL RDW 15.1 (11.5-15.5) % Plt Count 221 (150-450) k/uL Neutrophils % 84 % Lymphocytes % 8 % Monocytes % 6 % Eosinophils % 1 % Basophils % 0 % Neutrophils # 9.9 H (1.3-7.7) k/uL Lymphocytes # 1.0 (1.0-4.8) k/uL Monocytes # 0.7 (0-1.0) k/uL Eosinophils # 0.1 (0-0.7) k/uL Basophils # 0.0 (0-0.2) k/uL Sodium 137 (137-145) mmol/L Potassium 4.2 (3.5-5.1) mmol/L Chloride 104 (98-107) mmol/L Carbon Dioxide 26 (22-30) mmol/L Anion Gap 7 mmol/L BUN 10 (7-17) mg/dL Creatinine 0.56 (0.52-1.04) mg/dL Est GFR (CKD-EPI)AfAm >90 (>60 ml/min/1.73 sqM) Est GFR (CKD-EPI)NonAf >90 (>60 ml/min/1.73 sqM) Glucose 92 (74-99) mg/dL Plasma Lactic Acid Rip 0.8 (0.7-2.0) mmol/L Calcium 8.9 (8.4-10.2) mg/dL Total Bilirubin 1.2 (0.2-1.3) mg/dL AST 21 (14-36) U/L ALT 26 (4-34) U/L Alkaline Phosphatase 105 (38-126) U/L Total Protein 6.8 (6.3-8.2) g/dL Albumin 4.1 (3.5-5.0) g/dL Amylase 44 (30-110) U/L Lipase 66 (23-300) U/L - Radiology Data Radiology results: report reviewed CT shows mild acute diverticulitis the distal sigmoid colon. No suspicious abscess formation or free air in the abdomen. A new 0.7 cm hypodensity in the right lobe of the liver of uncertain etiology. Additional workup with ultrasound is recommended. Disposition Clinical Impression: Diverticulitis, Abnormal liver CT Disposition: HOME SELF-CARE Condition: Good Instructions (If sedation given, give patient instructions): Diverticulitis (ED), Diverticulitis Diet (ED) Additional Instructions: Please use medication as discussed. Drink plenty of fluids. Please follow up with family doctor if symptoms have not improved over the next two days. Please return to the emergency room if your symptoms increase or worsen or for any other concerns. Take the antibiotic with a small snack, and Patient should increase your probiotics by eating a yogurt daily. Follow up with GI and PCP as discussed. Prescriptions: Ciprofloxacin HCl [Cipro] 500 mg PO Q12HR 10 Days #20 tab metroNIDAZOLE [Flagyl] 500 mg PO TID #30 tab Is patient prescribed a controlled substance at d/c from ED?: No Referrals: Dina Renteria MD [Primary Care Provider] - 1-2 days Time of Disposition: 14:12
[2019-09-06 12:51] LABS: Basophils % (A) 0 %; Eosinophils # (A) 0.1 k/uL (0-0.7); Eosinophils % (A) 1 %; HCT 43.4 % (34.0-46.0); HGB 13.7 gm/dL (11.4-16.0); Lymphocytes % (A) 8 %; MCH 26.1 pg (25.0-35.0); MCHC 31.5 g/dL (31.0-37.0); MCV 82.9 fL (80.0-100.0); Mean Platelet Volume 7.7; Monocytes # (A) 0.7 k/uL (0-1.0); Monocytes % (A) 6 %; Neutrophils # (A) 9.9 k/uL (1.3-7.7); Neutrophils % (A) 84 %; Platelet Count 221 k/uL (150-450); RBC 5.23 m/uL (3.80-5.40); RDW 15.1 % (11.5-15.5); WBC 11.8 k/uL (3.8-10.6)
[2019-09-06 13:04] LABS: ALT 26 U/L (4-34); AST 21 U/L (14-36); African American GFR (CKD) >90 (>60 ml/min/1.73 sqM); Albumin 4.1 g/dL (3.5-5.0); Alkaline Phosphatase 105 U/L (38-126); Amylase 44 U/L (30-110); Anion Gap 7 mmol/L; Blood Urea Nitrogen 10 mg/dL (7-17); Calcium 8.9 mg/dL (8.4-10.2); Carbon Dioxide 26 mmol/L (22-30); Chloride 104 mmol/L (98-107); Glucose 92 mg/dL (74-99); Non-African American GFR(CKD) >90 (>60 ml/min/1.73 sqM); Potassium 4.2 mmol/L (3.5-5.1); Sodium 137 mmol/L (137-145); Total Bilirubin 1.2 mg/dL (0.2-1.3); Total Protein 6.8 g/dL (6.3-8.2)
--- NOTE | 2019-09-06 14:07 | CT ---
EXAMINATION TYPE: CT abdomen pelvis w con DATE OF EXAM: 09/06/2019 COMPARISON: 03/25/2018 INDICATION: Abdominal pain history of cancer, diverticulitis DLP: 1459 mGycm, Automated exposure control for dose reduction was used. CONTRAST: 100 ml mL of Isovue 300. Study performed without Oral Contrast TECHNIQUE: Axial images were obtained from above the diaphragm to the pubic rami in the axial plane a t 5 mm thick sections. Reconstructed images are reviewed on the computer in the coronal plane. FINDINGS: Limited CT sections are obtained the lung bases. The lung bases are clear. CT ABDOMEN: Liver: There is a 0.7 cm hypodensity within the posterior superior right lobe liver. This was not sharlene ntified previously. Series 201 image 22 Other etiologies beyond cyst should be considered. Additional evaluation with ultrasound is recommended. Spleen: Normal Pancreas: Normal Adrenal glands: The adrenal glands are normal. Gallbladder: Normal Kidneys: No masses are evident. No hydronephrosis is present. No cysts are present. Delayed images were obtained through the kidneys, which remain unremarkable. Aorta: Normal Inferior vena cava: Normal. CT PELVIS: Loops of bowel within the abdomen and pelvis are normal. The study is without oral contrast limit ing bowel evaluation. Diverticular changes are within the sigmoid colon. There is some mild inflammat ory change in the distal sigmoid region suspicious for acute diverticulitis. This is in a more distan t region within the 2019 diverticulitis. Appendix: Normal as visualized. Urinary bladder: Normal. Genitourinary structures: Uterus and ovaries are not identified. Multiple phleboliths within the pelv is. Osseous structures: No suspicious lytic or sclerotic lesions. IMPRESSIONS: 1. Mild acute diverticulitis distal sigmoid colon. No suspicious abscess formation or free air in th e abdomen is evident. 2. New 0.7 cm hypodensity within the posterior right lobe liver of uncertain etiology. Additional wor kup with ultrasound is recommended.
[2019-09-06] MEDS ORDERED: CIPROFLOXACIN HCL 500 MG TAB PO STA (14:09)
[2019-09-06] MEDS ORDERED: metroNIDAZOLE 500 MG TAB PO STA (14:09)
[2019-09-06 14:25] LABS: Appearance,Urine Clear (Clear); Color,Urine Yellow; Protein,Urine Negative (Negative)
[2019-09-06 14:26] LABS: Bilirubin,Urine Negative (Negative); Blood,Urine Negative (Negative); Glucose,Urine (UA) Negative (Negative); Ketones,Urine Negative (Negative); Leukocyte Esterase,Urine Large (Negative); Nitrite,Urine Negative (Negative); Urobilinogen,Urine <2.0 mg/dL (<2.0)
[2019-09-06] MEDS ORDERED: ACET/COD 300 MG/30 MG STARTER PACK 6 TAB BTL PO STA (14:26)
[2019-09-06 14:31] LABS: Bacteria,Urine Rare /hpf; Hyaline Casts,Urine 1 /lpf (0-2); RBC,Urine 3 /hpf (0-5); Squamous Epithelial Cell,Urine 1 /hpf (0-4); WBC,Urine 21 /hpf (0-5)
[2019-09-06 14:55] VITALS: BP 125/64; PULSE 65; RESP 17; TEMP 97.4
== END 2019-09-06 14:55 | disposition home or self-care (01) ==
LOC: EC 10:59
DX: K57.92 Diverticulitis of intestine, part unspecified, without perforation or abscess without bleeding (principal); K76.89 Other specified diseases of liver; D72.829 Elevated white blood cell count, unspecified; E07.9 Disorder of thyroid, unspecified; F41.9 Anxiety disorder, unspecified; E78.5 Hyperlipidemia, unspecified; I25.2 Old myocardial infarction; Z79.899 Other long term (current) drug therapy; Z79.890 Hormone replacement therapy; Z88.0 Allergy status to penicillin; Z88.2 Allergy status to sulfonamides; Z85.828 Personal history of other malignant neoplasm of skin; Z96.652 Presence of left artificial knee joint; Z90.710 Acquired absence of both cervix and uterus
CPT/HCPCS: 96374; 96375 ×2; 96361 ×2; 36415; 80053; 82150; 83605; 83690; 85025; 81001; 87040; 87086; 74177; 99285; J2270; J2405; J1885; Q9967

== ENCOUNTER → 2019-09-08 | Outpatient (CLI) | payer MEDICARE ==
[2019-09-08 10:44] LABS: Basophils # (A) 0.1 k/uL (0-0.2); Basophils % (A) 1 %; Eosinophils # (A) 0.1 k/uL (0-0.7); Eosinophils % (A) 2 %; HCT 42.4 % (34.0-46.0); HGB 12.7 gm/dL (11.4-16.0); Hypochromasia Slight; Lymphocytes # (A) 1.3 k/uL (1.0-4.8); Lymphocytes % (A) 22 %; MCH 25.5 pg (25.0-35.0); MCHC 29.8 g/dL (31.0-37.0); MCV 85.6 fL (80.0-100.0); Mean Platelet Volume 7.8; Monocytes # (A) 0.4 k/uL (0-1.0); Monocytes % (A) 6 %; Neutrophils % (A) 67 %; Platelet Count 217 k/uL (150-450); RBC 4.96 m/uL (3.80-5.40); RDW 15.3 % (11.5-15.5)
[2019-09-08 16:23] LABS: Anion Gap 5.7 mmol/L (4.00-12.00); Calcium 9.1 mg/dL (8.7-10.3); Carbon Dioxide 29.3 mmol/L (21.6-31.8); Non-African American GFR(CKD) 74.2 (60.0-200.0); Potassium 4.9 mmol/L (3.5-5.5); Total Bilirubin 0.6 mg/dL (0.2-1.2)
[2019-09-08 16:55] LABS: Alpha Fetoprotein, Tumor Mkr 2.9 ng/mL (0.0-7.9)
[2019-09-08 17:24] LABS: Cancer Antigen 125 3.4 U/mL (0.0-30.1)
[2019-09-08 17:25] LABS: Cancer Antigen 19-9 5.6 U/mL (0.0-34.9)
[2019-09-08 18:42] LABS: Carcinoembryonic Antigen <0.5 ng/mL (0.0-4.9)
== END | disposition home or self-care (01) ==
LOC: LABWHC1 08:38
PROVIDERS: ATTEND Internal Medicine
DX: K86.2 Cyst of pancreas (principal); K76.89 Other specified diseases of liver; Z87.19 Personal history of other diseases of the digestive system; R10.9 Unspecified abdominal pain; R93.89 Abnormal findings on diagnostic imaging of other specified body structures
CPT/HCPCS: 36415; 80053; 82105; 82378; 85025; 86301; 86304

== ENCOUNTER 2019-10-05 18:21 | Inpatient (IN) | payer MEDICARE ==
[2019-10-05] MEDS ORDERED: ACETAMINOPHEN TAB 500 MG TAB PO STA (18:53)
[2019-10-05] MEDS ORDERED: IBUPROFEN 600 MG TAB PO STA (18:53)
[2019-10-05] MEDS ORDERED: cefTRIAXone IN SWFI 1,000 MG/10 ML SYRINGE IVP STA (18:53)
[2019-10-05 18:59] LABS: Basophils % (A) 0 %; Eosinophils # (A) 0.3 k/uL (0-0.7); Eosinophils % (A) 2 %; HCT 44.7 % (34.0-46.0); HGB 14.6 gm/dL (11.4-16.0); Lymphocytes # (A) 0.4 k/uL (1.0-4.8); Lymphocytes % (A) 2 %; MCH 27.3 pg (25.0-35.0); MCHC 32.7 g/dL (31.0-37.0); MCV 83.5 fL (80.0-100.0); Mean Platelet Volume 7.5; Monocytes # (A) 0.4 k/uL (0-1.0); Monocytes % (A) 2 %; Neutrophils # (A) 17.1 k/uL (1.3-7.7); Neutrophils % (A) 94 %; Platelet Count 214 k/uL (150-450); RBC 5.36 m/uL (3.80-5.40); RDW 14.4 % (11.5-15.5); WBC 18.2 k/uL (3.8-10.6)
[2019-10-05 19:08] LABS: ALT 27 U/L (4-34); AST 31 U/L (14-36); African American GFR (CKD) >90 (>60 ml/min/1.73 sqM); Albumin 4.5 g/dL (3.5-5.0); Alkaline Phosphatase 104 U/L (38-126); Anion Gap 10 mmol/L; Blood Urea Nitrogen 13 mg/dL (7-17); Calcium 9.5 mg/dL (8.4-10.2); Carbon Dioxide 25 mmol/L (22-30); Chloride 100 mmol/L (98-107); Glucose 114 mg/dL (74-99); Non-African American GFR(CKD) 88 (>60 ml/min/1.73 sqM); Potassium 4.1 mmol/L (3.5-5.1); Sodium 135 mmol/L (137-145); Total Bilirubin 1.4 mg/dL (0.2-1.3); Total Protein 7.3 g/dL (6.3-8.2)
[2019-10-05 19:22] LABS: Appearance,Urine Cloudy (Clear); Bilirubin,Urine Negative (Negative); Blood,Urine Small (Negative); Color,Urine Yellow; Glucose,Urine (UA) Negative (Negative); Ketones,Urine Negative (Negative); Leukocyte Esterase,Urine Large (Negative); Mucus,Urine Rare /hpf; Nitrite,Urine Negative (Negative); PH, Urine 6.5 (5.0-8.0); Protein,Urine Negative (Negative); RBC,Urine 46 /hpf (0-5); Specific Gravity,Urine 1.013 (1.001-1.035); Squamous Epithelial Cell,Urine 4 /hpf (0-4); Urobilinogen,Urine <2.0 mg/dL (<2.0); WBC,Urine 179 /hpf (0-5)
[2019-10-05] MEDS ORDERED: MORPHINE SULFATE 2 MG/ML SYRINGE IVP STA (19:22)
[2019-10-05] MEDS ORDERED: ONDANSETRON 4 MG/2 ML VIAL IVP STA (19:22)
--- NOTE | 2019-10-05 20:11 | ED ---
General Adult HPI - General Chief complaint: Urogenital Stated complaint: Bladder infection Time Seen by Provider: 10/05/19 18:25 Source: patient, RN notes reviewed, old records reviewed Mode of arrival: ambulatory Limitations: no limitations - History of Present Illness Initial comments: This is a 69-year-old female who presents emergency department stating she started having dysuria yesterday and Progressively worse throughout the day and this morning she wants her primary medical care doctor because she started urinating bright red blood as well as some clots. Patient was placed on Cipro she took one dose but now the pain has gone into her back in the CVA area bilaterally. Patient also complains of having just generalized body aches and feeling warm. Patient states she's also had episodes of chills. Patient states she has a little suprapubic abdominal tenderness. Patient denies any nausea vomiting or diarrhea. Patient states she did not take her temperature. - Related Data Home Medications Medication Instructions Recorded Confirmed Levothyroxine Sodium [Synthroid] 50 mcg PO DAILY 05/19/14 10/05/19 Zolpidem [Ambien] 10 mg PO HS PRN 05/19/14 10/05/19 ALPRAZolam [Xanax] 0.5 mg PO TID PRN 05/26/14 10/05/19 Simvastatin [Zocor] 20 mg PO HS 09/29/17 10/05/19 Baclofen [Lioresal] 10 mg PO BID PRN 09/06/19 10/05/19 Cyclobenzaprine [Flexeril] 10 mg PO TID PRN 09/06/19 10/05/19 Escitalopram [Lexapro] 10 mg PO DAILY 09/06/19 10/05/19 Acetaminophen Tab [Tylenol Tab] 500 - 1,000 mg PO Q6H PRN 10/05/19 10/05/19 Aspirin EC [Ecotrin] 325 - 650 mg PO QID PRN 10/05/19 10/05/19 Famotidine [Pepcid] 40 mg PO BID PRN 10/05/19 10/05/19 Allergies Allergy/AdvReac Type Severity Reaction Status Date / Time Penicillins Allergy Rash/Hives/ Verified 10/05/19 19:14 Swelling Sulfa (Sulfonamide Allergy Rash/Hives Verified 10/05/19 19:14 Antibiotics) Review of Systems ROS Statement: Those systems with pertinent positive or pertinent negative responses have been documented in the HPI. ROS Other: All systems not noted in ROS Statement are negative. Past Medical History Past Medical History: Cancer, Chest Pain / Angina, Hyperlipidemia, Osteoarthritis (OA), Thyroid Disorder Additional Past Medical History / Comment(s): ON ANTIBIOTCS FOR CURRENT BLADDER INFECTION, WAS SEEN IN ER 04/04/18 FOR DIVERTICULITIS AND HAD PANCREATITIS 09/2017 hx. h pylori, irregular heart beat, SOB w/activity, skin cancer, past elevated liver enzymes,varicose veins, Last Myocardial Infarction Date:: unknown History of Any Multi-Drug Resistant Organisms: None Reported Past Surgical History: Heart Catheterization, Hysterectomy, Joint Replacement, Orthopedic Surgery Additional Past Surgical History / Comment(s): yesica cataract surg., bunionectomy, carpal tunnel surg., LT TKA,COLONOSCOPY Past Anesthesia/Blood Transfusion Reactions: No Reported Reaction Additional Past Anesthesia/Blood Transfusion Reaction / Comment(s): no hx blood transfusion Past Psychological History: Anxiety Smoking Status: Never smoker Past Alcohol Use History: Rare Past Drug Use History: None Reported - Past Family History Sister(s) Family Medical History: Cancer Brother(s) Family Medical History: Cancer Mother Family Medical History: No Reported History General Exam - General Exam Comments Initial Comments: GENERAL: Patient is well-developed and well-nourished. Patient is nontoxic and well- hydrated and is in mild distress. ENT: Neck is soft and supple. No significant lymphadenopathy is noted. Oropharynx is clear. Moist mucous membranes. Neck has full range of motion without eliciting any pain. EYES: The sclera were anicteric and conjunctiva were pink and moist. Extraocular movements were intact and pupils were equal round and reactive to light. Eyelids were unremarkable. PULMONARY: Unlabored respirations. Good breath sounds bilaterally. No audible rales rhonchi or wheezing was noted. CARDIOVASCULAR: There is a regular rate and rhythm without any murmurs gallops or rubs. ABDOMEN: Patient is mild suprapubic tenderness. SKIN: Skin is clear with no lesions or rashes and otherwise unremarkable. NEUROLOGIC: Patient is alert and oriented x3. Cranial nerves II through XII are grossly intact. Motor and sensory are also intact. Normal speech, volume and content. Symmetrical smile. MUSCULOSKELETAL: Normal extremities with adequate strength and full range of motion. No lower extremity swelling or edema. No calf tenderness. Patient has slight CVA tenderness bilaterally LYMPHATICS: No significant lymphadenopathy is noted PSYCHIATRIC: Normal psychiatric evaluation. Limitations: no limitations Course Vital Signs 10/05/19 10/05/19 18:23 19:53 Temperature 98.3 F Pulse Rate 117 H 105 H Respiratory 18 20 Rate Blood Pressure 158/68 O2 Sat by Pulse 98 99 Oximetry Medical Decision Making - Medical Decision Making patient received 2 g of Rocephin emergency department as well as some Tylenol Motrin for the fever and the aches. Patient was feeling slightly better but not anywhere near back to her baseline. I spoke with Dr. Renteria he agreed to admit the patient admitted the patient wrote admitting orders - Lab Data Result diagrams: 10/05/19 18:55 10/05/19 18:55 Lab Results 10/05/19 10/05/19 10/05/19 Range/Units 18:55 18:55 18:55 WBC 18.2 H (3.8-10.6) k/uL RBC 5.36 (3.80-5.40) m/uL Hgb 14.6 (11.4-16.0) gm/dL Hct 44.7 (34.0-46.0) % MCV 83.5 (80.0-100.0) fL MCH 27.3 (25.0-35.0) pg MCHC 32.7 (31.0-37.0) g/dL RDW 14.4 (11.5-15.5) % Plt Count 214 (150-450) k/uL Neutrophils % 94 % Lymphocytes % 2 % Monocytes % 2 % Eosinophils % 2 % Basophils % 0 % Neutrophils # 17.1 H (1.3-7.7) k/uL Lymphocytes # 0.4 L (1.0-4.8) k/uL Monocytes # 0.4 (0-1.0) k/uL Eosinophils # 0.3 (0-0.7) k/uL Basophils # 0.0 (0-0.2) k/uL Sodium 135 L (137-145) mmol/L Potassium 4.1 (3.5-5.1) mmol/L Chloride 100 (98-107) mmol/L Carbon Dioxide 25 (22-30) mmol/L Anion Gap 10 mmol/L BUN 13 (7-17) mg/dL Creatinine 0.69 (0.52-1.04) mg/dL Est GFR (CKD-EPI)AfAm >90 (>60 ml/min/1.73 sqM) Est GFR (CKD-EPI)NonAf 88 (>60 ml/min/1.73 sqM) Glucose 114 H (74-99) mg/dL Calcium 9.5 (8.4-10.2) mg/dL Total Bilirubin 1.4 H (0.2-1.3) mg/dL AST 31 (14-36) U/L ALT 27 (4-34) U/L Alkaline Phosphatase 104 (38-126) U/L Total Protein 7.3 (6.3-8.2) g/dL Albumin 4.5 (3.5-5.0) g/dL Urine Color Yellow Urine Appearance Cloudy H (Clear) Urine pH 6.5 (5.0-8.0) Ur Specific [place] 1.013 (1.001-1.035) Urine Protein Negative (Negative) Urine Glucose (UA) Negative (Negative) Urine Ketones Negative (Negative) Urine Blood Small H (Negative) Urine Nitrite Negative (Negative) Urine Bilirubin Negative (Negative) Urine Urobilinogen <2.0 (<2.0) mg/dL Ur Leukocyte Esterase Large H (Negative) Urine RBC 46 H (0-5) /hpf Urine WBC 179 H (0-5) /hpf Ur Squamous Epith Cells 4 (0-4) /hpf Urine Mucus Rare H (None) /hpf Disposition Clinical Impression: Pyelonephritis Disposition: ADMITTED IP TO THIS HOSP Referrals: Dina Renteria MD [Primary Care Provider] - 1-2 days Time of Disposition: 20:17
[2019-10-05] MEDS ORDERED: SODIUM CHLORIDE 0.9% 1,000 ML IV ONE (20:17)
[2019-10-05] MEDS ORDERED: ACETAMINOPHEN TAB 325 MG TAB PO PRN (20:19)
[2019-10-05] MEDS ORDERED: MORPHINE SULFATE 2 MG/ML SYRINGE IVP PRN (20:20)
[2019-10-06] MEDS: IBUPROFEN 600 MG TAB PO SCH ×5 (00:09→21:26)
[2019-10-06] MEDS ORDERED: ALPRAZolam 0.5 MG TAB PO PRN (04:24)
[2019-10-06] MEDS ORDERED: ZOLPIDEM 10 MG TAB PO PRN (04:24)
[2019-10-06] MEDS: LEVOTHYROXINE 50 MCG TAB PO SCH (04:58)
[2019-10-06] MEDS: SODIUM CHLORIDE 0.9% 1,000 ML IV SCH ×3 (04:58→22:19)
--- NOTE | 2019-10-06 08:38 | US ---
EXAMINATION TYPE: US kidneys/renal and bladder DATE OF EXAM: 10/06/2019 COMPARISON: CT & US CLINICAL HISTORY: frequent UTIs. Frequent UTI's EXAM MEASUREMENTS: Right Kidney: 10.3 x 4.7 x 4.6 cm Left Kidney: 11.9 x 5.4 x 5.1 cm Right Kidney: Appeared wnl Left Kidney: Appeared wnl Bladder: wall appeared thickened, reverberation artifact anterior wall ?etiology Bilateral Jets seen: No IMPRESSION: No hydronephrosis or nephrolithiasis. Bladder wall is thickened anteriorly correlate with clinically and with direct visualization as clinically warranted. Recent CT scan demonstrated a normal thickness of the wall of the bladder. This could be artifactual correlate clinically.
[2019-10-06] MEDS ORDERED: BACLOFEN 10 MG TAB PO PRN (09:00)
[2019-10-06] MEDS ORDERED: FAMOTIDINE 20 MG TAB PO PRN (09:00)
[2019-10-06] MEDS: ENOXAPARIN 40 MG/0.4 ML SYRINGE SQ SCH (09:35)
[2019-10-06] MEDS: ESCITALOPRAM 10 MG TAB PO SCH (10:05)
[2019-10-06] MEDS ORDERED: ATORVASTATIN 10 MG TAB PO SCH (21:00)
[2019-10-06] MEDS ORDERED: PSYLLIUM HUSK 100% 6 GM PACKET PO SCH (21:00)
[2019-10-06 22:14] VITALS: RESP 16
[2019-10-07 05:15] VITALS: BP 127/80; PULSE 86; TEMP 97.9
--- NOTE | 2019-10-07 05:33 | P.HPIM ---
History of Present Illness H&P Date: 10/06/19 Chief Complaint: Acute pyelonephritis. This is a69 year old female one of my patient with a previous medical history significant for mixed hyperlipidemia, hypothyroidism, and significant spondylosis of the cervical spine, recent history of pancreatitis and anxiety disorder, patient woke u this morning with significant dysuria and urinary ferquency and she dropped urine specimen at my office it looked pure blood with blood clots, she was started on cipro 500 mg orally twice daily, she took only one dose and she started to have increased flank pain bilaterally and had temepratures with chills, she was directed to go to the ER and she was given IVF and Rocephin 2 gr IVPB a nd was admitted to the hospital for Pyelonephritis, urine cultures and blood cultures were obtained. Review of Systems Constitutional: Reports chills, Reports fatigue, Reports fever, Reports weakness Eyes: denies blurred vision, denies bulging eye, denies decreased vision Ears: deny: decreased hearing Ears, nose, mouth and throat: Denies dysphagia, Denies sore throat Cardiovascular: Denies chest pain, Denies decreased exercise tolerance, Denies dyspnea on exertion, Denies lightheadedness, Denies rapid heart beat, Denies shortness of breath, Denies syncope Respiratory: Denies congestion, Denies cough, Denies cough with sputum, Denies home oxygen, Denies sleep apnea, Denies snoring, Denies wheezing Gastrointestinal: Reports abdominal pain, Denies bloating, Denies BRBPR, Denies excessive gas, Denies heartburn, Denies melena, Denies nausea, Denies vomiting Genitourinary: Reports dysuria, Reports flank pain, Reports hematuria, Reports urgency, Reports urinary frequency Menstruation: Reports postmenopausal Musculoskeletal: Denies myalgias Musculoskeletal: absent: ankle pain, ankle stiffness, ankle swelling, elbow pain, elbow stiffness, elbow swelling, foot pain, foot stiffness, foot swelling, hand pain, hand stiffness, hand swelling, hip pain, hip stiffness, hip swelling, knee pain, knee stiffness, knee swelling, shoulder pain, shoulder stiffness, shoulder swelling, wrist pain, wrist stiffness, wrist swelling Integumentary: Denies pruritus, Denies rash Neurological: Denies numbness, Denies weakness Psychiatric: Reports anxiety Endocrine: Denies fatigue, Denies weight change Past Medical History Past Medical History: Cancer, Chest Pain / Angina, GERD/Reflux, Hyperlipidemia, Osteoarthritis (OA), Pneumonia, Thyroid Disorder Additional Past Medical History / Comment(s): BLADDER INFECTION, WAS SEEN IN ER 04/04/18 FOR DIVERTICULITIS AND HAD PANCREATITIS 09/2017 hx. h pylori, irregular heart beat, SOB w/activity, skin cancer on face 2018, past elevated liver enzymes,varicose veins Last Myocardial Infarction Date:: unknown History of Any Multi-Drug Resistant Organisms: None Reported Past Surgical History: Adenoidectomy, Heart Catheterization, Hysterectomy, Joint Replacement, Orthopedic Surgery, Tonsillectomy Additional Past Surgical History / Comment(s): yesica cataract surg., bunionectomy, carpal tunnel surg., LT Knee replaced,COLONOSCOPY Past Anesthesia/Blood Transfusion Reactions: No Reported Reaction Additional Past Anesthesia/Blood Transfusion Reaction / Comment(s): no hx blood transfusion Past Psychological History: Anxiety Smoking Status: Never smoker Past Alcohol Use History: Rare Additional Past Alcohol Use History / Comment(s): Patient has been a nonsmoker, rare alcohol use, no illicit drug use or marijuana use. Patient lives at home with her . Past Drug Use History: None Reported - Past Family History Sister(s) Family Medical History: Cancer Additional Family Medical History / Comment(s): Patient had total of 4 sisters. One from a form of lymphoma. Mr. sisters are alive. One has COPD. One is blind and deaf since 18 months old from strep meningitis. Third sister is also blind from aniridia and glaucoma. Brother(s) Family Medical History: Cancer Additional Family Medical History / Comment(s): Patient has a total of 4 brothers. One from myocardial infarction and one from pancreatic cancer. 2 living brothers have no major medical problems. Mother Family Medical History: Seizure Disorder Additional Family Medical History / Comment(s): Mother at age 78 from either [place] or seizure. She had history of COPD, Oxygen dependent, seizure disorder. Father Additional Family Medical History / Comment(s): Father at age 79 from [place], he was residing in [facility] at the time. Medications and Allergies Home Medications Medication Instructions Recorded Confirmed Type Levothyroxine Sodium [Synthroid] 50 mcg PO DAILY 05/19/14 10/05/19 History Zolpidem [Ambien] 10 mg PO HS PRN 05/19/14 10/05/19 History ALPRAZolam [Xanax] 0.5 mg PO TID PRN 05/26/14 10/05/19 History Simvastatin [Zocor] 20 mg PO HS 09/29/17 10/05/19 History Baclofen [Lioresal] 10 mg PO BID PRN 09/06/19 10/05/19 History Cyclobenzaprine [Flexeril] 10 mg PO TID PRN 09/06/19 10/05/19 History Escitalopram [Lexapro] 10 mg PO DAILY 09/06/19 10/05/19 History Acetaminophen Tab [Tylenol Tab] 500 - 1,000 mg PO Q6H PRN 10/05/19 10/05/19 Hist ory Aspirin EC [Ecotrin] 325 - 650 mg PO QID PRN 10/05/19 10/05/19 History Famotidine [Pepcid] 40 mg PO BID PRN 10/05/19 10/05/19 History Allergies Allergy/AdvReac Type Severity Reaction Status Date / Time Penicillins Allergy Rash/Hives/ Verified 10/05/19 19:14 Swelling Sulfa (Sulfonamide Allergy Rash/Hives Verified 10/05/19 19:14 Antibiotics) Physical Exam Vitals: Vital Signs Temp Pulse Pulse Resp BP BP Pulse Ox 10/05/19 21:27 98.0 F 101 H 16 157/78 92 L 10/05/19 20:57 98.0 F 102 H 18 169/59 98 10/05/19 19:53 105 H 20 99 10/05/19 18:23 98.3 F 117 H 18 158/68 98 Intake and Output 10/05/19 10/05/19 10/06/19 14:59 22:59 06:59 Intake Total 590 Balance 590 Intake: Oral 590 Other: Voiding Method Toilet # Voids 1 Weight 90.265 kg Physical examination: HEENT: head is atraumatic normocehalic pupils were equal round reactive to light and accommodations extra ocular muscle movements were intact. Neck: supple no JVP or lymphadenopathy. Chest: clear to auscultation bilaterally there is no crackles or wheezes, no chest wall tenderness or intercostal retraction. Heart: first heart sound is depressed , second heart sound is normal there is no gallop or murmur. Abdomen: soft non tender non distended positive bowel sounds, positive CVA tenderness. Extremities: there is no edema no cherri tenderness DP + 2 bilaterally. Neurologic examination: patient is awake alert and oriented X3 CN II-XI are grossly intact, Muscle power 5/5 in upper and lower extremities bilaterally, Deep tendon reflexes were normal. Results CBC & Chem 7: 10/05/19 18:55 10/05/19 18:55 Labs: Abnormal Lab Results - Last 24 Hours (Table) 10/05/19 10/05/19 10/05/19 Range/Units 18:55 18:55 18:55 WBC 18.2 H (3.8-10.6) k/uL Neutrophils # 17.1 H (1.3-7.7) k/uL Lymphocytes # 0.4 L (1.0-4.8) k/uL Sodium 135 L (137-145) mmol/L Glucose 114 H (74-99) mg/dL Total Bilirubin 1.4 H (0.2-1.3) mg/dL Urine Appearance Cloudy H (Clear) Urine Blood Small H (Negative) Ur Leukocyte Esterase Large H (Negative) Urine RBC 46 H (0-5) /hpf Urine WBC 179 H (0-5) /hpf Urine Mucus Rare H (None) /hpf Microbiology - Last 24 Hours (Table) 10/05/19 18:55 Urine Culture - Preliminary Urine,Voided Thrombosis Risk Factor Assmnt - DVT/VTE Prophylaxis DVT/VTE Prophylaxis: Pharmacologic Prophylaxis ordered, Mechanical Prophylaxis ordered - Choose All That Apply Any of the Below Risk Factors Present?: Yes Each Factor Represents 1 point: Obesity (BMI >25) Other Risk Factors: Yes Each Risk Factor Represents 2 Points: Age 61-74 years Other congenital or acquired thrombophilia - If yes, enter type in comment: No Thrombosis Risk Factor Assessment Total Risk Factor Score: 3 Thrombosis Risk Factor Assessment Level: Moderate Risk Assessment and Plan Assessment: Assessment and Plan: 1. Sever UTI with Sepsis and early Pyelonephritis. we will continue with IVF normal saline at 125 ml/h, we will continue with IV Rocephin 1 gr IVPB daily, we will get blood cultures and urine cultures and we will get CT scan of the abdomen and pelvis without and with contrast( CT Urogram). we will continue with current pain management and we will continue with Zofran 4 mg IVP Q 6 hours as needed. 2. Leukocytosis due to severe UTI/Pyelonephritis and sepsis. we will continue with IVF, Rocephin. 3. Mild hyponatremia due to hypovolemia. we will continue withNormal saline at 125 ml/h, repeat CMP in 24 hours. 4. Mixed hyperlipidemia. we will continue with Lipitor 10 mg orally at bedtime. 5. Hypothyroidism. we will continue with Synthroid 50 mcg orally daily. 6. Insomnia. we will continue with Zolpidem 10 mg orally at bedtime as needed. 7. Anxiety. we will continue with Lexapro 10 mg orally daily and Xanax 0.5 mg orally three times daily as needed. 8. Spondylosis of the C-Spine. we will continue with Baclofen 10 mg orally bid. 9. GERD. we will continue with Pepcid 40 mg orally daily. 10. DVT prophylaxis. we will continue with Lovenox 40 mg SC 24 hours. 11. Admits to inpatient, estimated length of stay 2 midnights. 12. Full code.
[2019-10-07] MEDS: SODIUM CHLORIDE 0.9% 1,000 ML IV SCH (06:07)
[2019-10-07] MEDS: LEVOTHYROXINE 50 MCG TAB PO SCH (06:07)
--- NOTE | 2019-10-07 07:25 | P.DS ---
Providers Date of admission: 10/05/19 20:19 Expected date of discharge: 10/07/19 Attending physician: Dina Renteria Primary care physician: Dina Renteria Hospital Course: This is a69 year old female one of my patient with a previous medical history significant for mixed hyperlipidemia, hypothyroidism, and significant spondylosis of the cervical spine, recent history of pancreatitis and anxiety disorder, patient woke u this morning with significant dysuria and urinary ferquency and she dropped urine specimen at my office it looked pure blood with blood clots, she was started on cipro 500 mg orally twice daily, she took only one dose and she started to have increased flank pain bilaterally and had temepratures with chills, she was directed to go to the ER and she was given IVF and Rocephin 2 gr IVPB a nd was admitted to the hospital for Pyelonephritis, urine cultures and blood cultures were obtained. 10/06: Patient has been afebrile, heart rate 86, blood pressure 127/80, pulse ox 93% on room air. Urine culture reveals skin or genital joseluis. Patient was started on Cipro as an outpatient prior to admission. Repeat blood work reveals WBC 10.2. Chloride 109, BUN 6 and creatinine 0.59. Calcium 8.3, total bilirubin 1.6, AST 94, ALT 109, alkaline phosphatase 138. The patient has been afebrile, back pain has resolved. She denies any abdominal pain. She states she is eating and drinking well. She denies any blood in her urine. Patient will be discharged home today in stable condition. Discharge diagnoses: 1. Sever UTI with Sepsis and early Pyelonephritis. 2. Leukocytosis due to severe UTI/Pyelonephritis and sepsis. 3. Mild hyponatremia due to hypovolemia. 4. Mixed hyperlipidemia. 5. Hypothyroidism. 6. Insomnia. 7. Generalized anxiety disorder. 8. Spondylosis of the C-Spine. 9. GERD. 10. COVID-19 infection not present. Discharge plan: Home Impression and plan of care have been directed as dictated by the signing physician. Julianna Cantrell nurse practitioner acting as scribe for signing physician. Patient Condition at Discharge: Good Plan - Discharge Summary New Discharge Prescriptions: New Psyllium Husk 100% [Metamucil Packet] 6 gm PO HS packet Continue Zolpidem [Ambien] 10 mg PO HS PRN PRN Reason: Insomnia Levothyroxine Sodium [Synthroid] 50 mcg PO DAILY ALPRAZolam [Xanax] 0.5 mg PO TID PRN PRN Reason: Anxiety Simvastatin [Zocor] 20 mg PO HS Escitalopram [Lexapro] 10 mg PO DAILY Cyclobenzaprine [Flexeril] 10 mg PO TID PRN PRN Reason: Spasms Baclofen [Lioresal] 10 mg PO BID PRN PRN Reason: Spasms Acetaminophen Tab [Tylenol] 500 - 1,000 mg PO Q6H PRN PRN Reason: Pain Aspirin EC [Ecotrin] 325 - 650 mg PO QID PRN PRN Reason: Pain Famotidine [Pepcid] 40 mg PO BID PRN PRN Reason: Heartburn Discharge Medication List Levothyroxine Sodium [Synthroid] 50 mcg PO DAILY 05/19/14 [History] Zolpidem [Ambien] 10 mg PO HS PRN 05/19/14 [History] ALPRAZolam [Xanax] 0.5 mg PO TID PRN 05/26/14 [History] Simvastatin [Zocor] 20 mg PO HS 09/29/17 [History] Baclofen [Lioresal] 10 mg PO BID PRN 09/06/19 [History] Cyclobenzaprine [Flexeril] 10 mg PO TID PRN 09/06/19 [History] Escitalopram [Lexapro] 10 mg PO DAILY 09/06/19 [History] Acetaminophen Tab [Tylenol] 500 - 1,000 mg PO Q6H PRN 10/05/19 [History] Aspirin EC [Ecotrin] 325 - 650 mg PO QID PRN 10/05/19 [History] Famotidine [Pepcid] 40 mg PO BID PRN 10/05/19 [History] Psyllium Husk 100% [Metamucil Packet] 6 gm PO HS packet 10/07/19 [Rx] Follow up Appointment(s)/Referral(s): Dina Renteria MD [Primary Care Provider] - 10/13/19 1:15 pm Patient Instructions/Handouts: Urinary Tract Infection in Women (DC) Activity/Diet/Wound Care/Special Instructions: Complete course of Cipro already started at home. Discharge Disposition: HOME SELF-CARE
[2019-10-07 08:09] LABS: HCT 38.3 % (34.0-46.0); HGB 12.1 gm/dL (11.4-16.0); Hypochromasia Slight; MCH 26.9 pg (25.0-35.0); MCHC 31.6 g/dL (31.0-37.0); MCV 85.2 fL (80.0-100.0); Mean Platelet Volume 8.1; Platelet Count 190 k/uL (150-450); RBC 4.49 m/uL (3.80-5.40); RDW 14.6 % (11.5-15.5); WBC 10.2 k/uL (3.8-10.6)
[2019-10-07] MEDS: ENOXAPARIN 40 MG/0.4 ML SYRINGE SQ SCH (08:17)
[2019-10-07] MEDS: IBUPROFEN 600 MG TAB PO SCH (08:18)
[2019-10-07] MEDS: ESCITALOPRAM 10 MG TAB PO SCH (08:25)
[2019-10-07 08:31] LABS: ALT 109 U/L (4-34); AST 94 U/L (14-36); African American GFR (CKD) >90 (>60 ml/min/1.73 sqM); Albumin 3.2 g/dL (3.5-5.0); Alkaline Phosphatase 138 U/L (38-126); Anion Gap 6 mmol/L; Blood Urea Nitrogen 6 mg/dL (7-17); Calcium 8.3 mg/dL (8.4-10.2); Carbon Dioxide 24 mmol/L (22-30); Chloride 109 mmol/L (98-107); Glucose 88 mg/dL (74-99); Non-African American GFR(CKD) >90 (>60 ml/min/1.73 sqM); Potassium 4.1 mmol/L (3.5-5.1); Sodium 139 mmol/L (137-145); Total Bilirubin 1.6 mg/dL (0.2-1.3); Total Protein 5.5 g/dL (6.3-8.2)
== END 2019-10-07 10:42 | disposition home or self-care (01) | DRG 872 ==
LOC: EC 18:21 → 5NMEDONC 20:19
PROVIDERS: ADMIT Internal Medicine; ATTEND Internal Medicine
DX: A41.9 Sepsis, unspecified organism (principal); N10 Acute pyelonephritis; E87.1 Hypo-osmolality and hyponatremia; E78.2 Mixed hyperlipidemia; M19.90 Unspecified osteoarthritis, unspecified site; E03.9 Hypothyroidism, unspecified; M47.812 Spondylosis without myelopathy or radiculopathy, cervical region; K21.9 Gastro-esophageal reflux disease without esophagitis; G47.00 Insomnia, unspecified; E86.1 Hypovolemia; F41.1 Generalized anxiety disorder; Z96.652 Presence of left artificial knee joint; Z11.59 Encounter for screening for other viral diseases; Z79.899 Other long term (current) drug therapy; Z79.890 Hormone replacement therapy; Z88.0 Allergy status to penicillin; Z90.710 Acquired absence of both cervix and uterus; Z98.890 Other specified postprocedural states; Z87.19 Personal history of other diseases of the digestive system; I25.2 Old myocardial infarction; Z90.89 Acquired absence of other organs; Z80.7 Family history of other malignant neoplasms of lymphoid, hematopoietic and related tissues; Z82.5 Family history of asthma and other chronic lower respiratory diseases; Z82.1 Family history of blindness and visual loss; Z82.2 Family history of deafness and hearing loss; Z83.1 Family history of other infectious and parasitic diseases; Z82.49 Family history of ischemic heart disease and other diseases of the circulatory system; Z80.0 Family history of malignant neoplasm of digestive organs; Z82.0 Family history of epilepsy and other diseases of the nervous system; Z85.828 Personal history of other malignant neoplasm of skin; Z98.42 Cataract extraction status, left eye; Z98.41 Cataract extraction status, right eye; Z88.2 Allergy status to sulfonamides
CPT/HCPCS: 36415; 76770; 80053; 81001; 83605; 85025; 85027; 87040; 87086; 96374; 96375; 99284

== ENCOUNTER 2019-10-24 09:15 | Emergency (ER) | payer MEDICARE ==
[2019-10-24 09:26] VITALS: RESP 18
[2019-10-24] MEDS ORDERED: ONDANSETRON ODT 4 MG TAB PO STA (09:37)
[2019-10-24] MEDS ORDERED: LORazepam 1 MG TAB PO STA (09:37)
[2019-10-24] MEDS ORDERED: PHENAZOPYRIDINE 200 MG TAB PO STA (09:38)
--- NOTE | 2019-10-24 09:40 | ED ---
General Adult HPI - General Chief complaint: Urogenital Stated complaint: hematuria Time Seen by Provider: 10/24/19 09:28 Source: patient, family, RN notes reviewed, old records reviewed Mode of arrival: ambulatory Limitations: no limitations - History of Present Illness Initial comments: Patient is a pleasant 69-year-old female presenting to the emergency Department with complaints of dysuria. Onset of symptoms was this morning. Patient has urgency and frequency with small amounts. Patient has nose blood in her urine. Patient also has dysuria. Patient recently was in the hospital with urinary tract infection and was placed on Cipro. Patient did finish this antibiotic. Urine culture reviewed. Patient denies any abdominal discomfort. Patient denies any back discomfort. Patient has some nausea without vomiting. Patient states her anxiety is also acting up. - Related Data Home Medications Medication Instructions Recorded Confirmed Levothyroxine Sodium [Synthroid] 50 mcg PO DAILY 05/19/14 10/24/19 Zolpidem [Ambien] 10 mg PO HS PRN 05/19/14 10/24/19 ALPRAZolam [Xanax] 0.5 mg PO TID PRN 05/26/14 10/24/19 Simvastatin [Zocor] 20 mg PO HS 09/29/17 10/24/19 Cyclobenzaprine [Flexeril] 10 mg PO TID PRN 09/06/19 10/24/19 Escitalopram [Lexapro] 10 mg PO DAILY@1200 09/06/19 10/24/19 Acetaminophen Tab [Tylenol] 500 - 1,000 mg PO Q6H PRN 10/05/19 10/24/19 Famotidine [Pepcid] 40 mg PO BID PRN 10/05/19 10/24/19 Psyllium Husk 100% [Metamucil 6 gm PO HS PRN 10/24/19 10/24/19 Packet] diphenhydrAMINE [Benadryl] 25 mg PO HS PRN 10/24/19 10/24/19 Previous Rx's Medication Instructions Recorded Nitrofurantoin Monohyd/M-Cryst 100 mg PO Q12HR #20 cap 10/24/19 [Macrobid] Ondansetron Odt [Zofran Odt] 4 mg PO Q8HR PRN #10 tab 10/24/19 Phenazopyridine [Pyridium] 100 mg PO TID #5 tablet 10/24/19 Allergies Allergy/AdvReac Type Severity Reaction Status Date / Time Penicillins Allergy Rash/Hives/ Verified 10/24/19 10:16 Swelling Sulfa (Sulfonamide Allergy Rash/Hives Verified 10/24/19 10:16 Antibiotics) Review of Systems ROS Statement: Those systems with pertinent positive or pertinent negative responses have been documented in the HPI. ROS Other: All systems not noted in ROS Statement are negative. Constitutional: Denies: fever Eyes: Denies: eye pain ENT: Denies: ear pain Respiratory: Denies: cough, dyspnea Cardiovascular: Denies: chest pain Endocrine: Denies: fatigue Gastrointestinal: Reports: nausea. Denies: abdominal pain, vomiting Genitourinary: Reports: urgency, dysuria, frequency, hematuria Musculoskeletal: Denies: back pain Skin: Denies: rash Neurological: Denies: weakness Psychiatric: Reports: anxiety Past Medical History Past Medical History: Cancer, Chest Pain / Angina, Hyperlipidemia, Osteoarthritis (OA), Pneumonia, Thyroid Disorder Additional Past Medical History / Comment(s): BLADDER INFECTION, WAS SEEN IN ER 04/04/18 FOR DIVERTICULITIS AND HAD PANCREATITIS 09/2017 hx. h pylori, irregular heart beat, SOB w/activity, skin cancer on face 2017, past elevated liver enzymes,varicose veins Last Myocardial Infarction Date:: unknown History of Any Multi-Drug Resistant Organisms: None Reported Past Surgical History: Adenoidectomy, Heart Catheterization, Hysterectomy, Joint Replacement, Orthopedic Surgery, Tonsillectomy Additional Past Surgical History / Comment(s): yesica cataract surg., bunionectomy, carpal tunnel surg., LT Knee replaced,COLONOSCOPY Past Anesthesia/Blood Transfusion Reactions: No Reported Reaction Additional Past Anesthesia/Blood Transfusion Reaction / Comment(s): no hx blood transfusion Past Psychological History: Anxiety Smoking Status: Never smoker Past Alcohol Use History: Rare Past Drug Use History: None Reported - Past Family History Sister(s) Family Medical History: Cancer Additional Family Medical History / Comment(s): Patient had total of 4 sisters. One from a form of lymphoma. Mr. sisters are alive. One has COPD. One is blind and deaf since 18 months old from strep meningitis. Third sister is also blind from aniridia and glaucoma. Brother(s) Family Medical History: Cancer Additional Family Medical History / Comment(s): Patient has a total of 4 brothers. One from myocardial infarction and one from pancreatic cancer. 2 living brothers have no major medical problems. Father Additional Family Medical History / Comment(s): Father at age 79 from [place], he was residing in [facility] at the time. Mother Family Medical History: Seizure Disorder Additional Family Medical History / Comment(s): Mother at age 78 from either [place] or seizure. She had history of COPD, Oxygen dependent, seizure disorder. General Exam Limitations: no limitations General appearance: alert, in no apparent distress Head exam: Present: normocephalic Eye exam: Present: normal appearance Neck exam: Present: normal inspection Respiratory exam: Present: normal lung sounds bilaterally Cardiovascular Exam: Present: regular rate, normal rhythm Expanded Peripheral pulses: 2+: Dorsalis Pedis (R), Dorsalis Pedis (L) GI/Abdominal exam: Present: soft, normal bowel sounds. Absent: distended, tenderness, guarding, rebound, rigid, pulsatile mass Extremities exam: Present: normal inspection. Absent: pedal edema, calf tenderness Back exam: Present: normal inspection. Absent: tenderness, CVA tenderness (R), CVA tenderness (L) Neurological exam: Present: alert Psychiatric exam: Present: anxious Skin exam: Present: normal color Course Vital Signs 10/24/19 09:22 Temperature 98.1 F Pulse Rate 94 Respiratory 18 Rate Blood Pressure 148/95 O2 Sat by Pulse 98 Oximetry Medical Decision Making - Medical Decision Making Patient reevaluated and resting more comfortably in bed. Patient states she is comfortable at this time. Patient again states no abdominal discomfort and no back discomfort. Abdomen soft and nontender. Patient also now adds that she has seen urologist a couple of times for this in the past. Patient is comfortable with discharge home and patient will be started on Macrobid secondary to recently on Cipro and other ALLERGIES. Urine culture obtained. - Lab Data Lab Results 10/24/19 Range/Units 09:45 Urine Color Dark Red Urine Appearance Bloody H (Clear) Urine RBC >182 H (0-5) /hpf Urine WBC >182 H (0-5) /hpf Urine Mucus Occasional H (None) /hpf Disposition Clinical Impression: Urinary tract infection Disposition: HOME SELF-CARE Condition: Stable Instructions (If sedation given, give patient instructions): Urinary Tract Infection in Women (ED) Additional Instructions: Please follow-up with primary care physician in the next day or 2 for recheck. Please also follow-up with your urologist. Return for fevers, abdominal or back pain, vomiting, worsening or change in symptoms or other concerns. Prescription sent to [facility] pharmacy Prescriptions: Nitrofurantoin Monohyd/M-Cryst [Macrobid] 100 mg PO Q12HR #20 cap Phenazopyridine [Pyridium] 100 mg PO TID #5 tablet Ondansetron Odt [Zofran Odt] 4 mg PO Q8HR PRN #10 tab PRN Reason: Nausea Is patient prescribed a controlled substance at d/c from ED?: No Referrals: Dina Renteria MD [Primary Care Provider] - 1-2 days Camacho Brewer MD [STAFF PHYSICIAN] - 1-2 days Time of Disposition: 10:48
[2019-10-24 10:15] LABS: Mucus,Urine Occasional /hpf; RBC,Urine >182 /hpf (0-5); WBC,Urine >182 /hpf (0-5)
[2019-10-24 10:16] LABS: Appearance,Urine Bloody (Clear)
[2019-10-24 10:18] LABS: Color,Urine Dark Red
[2019-10-24 11:20] VITALS: BP 144/86; PULSE 65; TEMP 97.3
== END 2019-10-24 11:20 | disposition home or self-care (01) ==
LOC: EC 09:15
DX: N39.0 Urinary tract infection, site not specified (principal); R31.9 Hematuria, unspecified; E07.9 Disorder of thyroid, unspecified; F41.9 Anxiety disorder, unspecified; E78.5 Hyperlipidemia, unspecified; Z79.890 Hormone replacement therapy; Z79.899 Other long term (current) drug therapy; Z88.0 Allergy status to penicillin; Z88.2 Allergy status to sulfonamides; Z96.652 Presence of left artificial knee joint; Z85.828 Personal history of other malignant neoplasm of skin
CPT/HCPCS: 81001; 87086; 99284

== ENCOUNTER 2019-10-25 09:31 | Inpatient (IN) | payer MEDICARE ==
[2019-10-25] MEDS ORDERED: ONDANSETRON 4 MG/2 ML VIAL IVP STA (10:10)
[2019-10-25 10:12] LABS: Basophils # (A) 0.1 k/uL (0-0.2); Basophils % (A) 0 %; Eosinophils # (A) 0.2 k/uL (0-0.7); Eosinophils % (A) 1 %; HCT 44.4 % (34.0-46.0); Lymphocytes # (A) 0.3 k/uL (1.0-4.8); Lymphocytes % (A) 2 %; MCH 25.6 pg (25.0-35.0); MCHC 31.5 g/dL (31.0-37.0); MCV 81.2 fL (80.0-100.0); Mean Platelet Volume 8.5; Monocytes # (A) 0.5 k/uL (0-1.0); Monocytes % (A) 2 %; Neutrophils # (A) 18.9 k/uL (1.3-7.7); Neutrophils % (A) 95 %; Platelet Count 173 k/uL (150-450); RBC 5.47 m/uL (3.80-5.40); RDW 14.3 % (11.5-15.5)
[2019-10-25] MEDS ORDERED: SODIUM CHLORIDE 0.9% 1,000 ML IV ONE (10:18)
[2019-10-25] MEDS: SODIUM CHLORIDE 0.9% 1,000 ML IV SCH ×2 (10:20→20:37)
[2019-10-25 10:28] LABS: Appearance,Urine Cloudy (Clear); Bilirubin,Urine 1+ (Negative); Blood,Urine Small (Negative); Color,Urine Dark Brown; Glucose,Urine (UA) Negative (Negative); Ketones,Urine Trace (Negative); Leukocyte Esterase,Urine Large (Negative); Mucus,Urine Rare /hpf; Nitrite,Urine Positive (Negative); Protein,Urine Trace (Negative); RBC,Urine 5 /hpf (0-5); Specific Gravity,Urine 1.017 (1.001-1.035); Squamous Epithelial Cell,Urine 5 /hpf (0-4); WBC,Urine 168 /hpf (0-5)
--- NOTE | 2019-10-25 10:29 | CT ---
EXAMINATION TYPE: CT abdomen pelvis wo con DATE OF EXAM: 10/25/2019 HISTORY: Bilateral flank pain CT DLP: 889 mGycm. Automated Exposure Control for Dose Reduction was Utilized. TECHNIQUE: CT scan of the abdomen and pelvis is performed without oral or IV contrast. COMPARISON: CT abdomen and pelvis September 06, 2019. FINDINGS: Within the limitations of a non-contrast study, the following observations are made. LUNG BASES: Mild left basilar linear scarring and/or atelectasis redemonstrated. LIVER/GB: Cholecystectomy clips redemonstrated.. PANCREAS: No significant abnormality is seen. SPLEEN: Small splenule in splenic hilum. ADRENALS: No significant abnormality is seen. KIDNEYS: No renal calculus or hydronephrosis seen currently. No intraluminal calculus and poorly dist ended bladder BOWEL: Suboptimally evaluated without enteric contrast. No suspicious small or large bowel dilatation . Scattered colonic diverticula. More prominent Sigmoid colonic diverticulosis. No CT evidence for ac ni diverticulitis. GENITAL ORGANS: Uterus surgically absent markedly atrophic. Scattered pelvic phleboliths bilaterally. LYMPH NODES: No greater than 1cm abdominal or pelvic lymph nodes are appreciated. OSSEOUS STRUCTURES: No significant abnormality is seen. OTHER: Intramuscular lipoma anterior left thigh is redemonstrated. IMPRESSION: No renal stones or hydronephrosis is seen bilaterally. Colonic diverticulosis redemonstra yu without CT evidence for acute diverticulitis currently. No suspicious new or acute findings seen on noncontrast CT
[2019-10-25 10:36] LABS: ALT 157 U/L (4-34); AST 154 U/L (14-36); African American GFR (CKD) >90 (>60 ml/min/1.73 sqM); Albumin 4.4 g/dL (3.5-5.0); Alkaline Phosphatase 216 U/L (38-126); Anion Gap 12 mmol/L; Blood Urea Nitrogen 12 mg/dL (7-17); Calcium 9.6 mg/dL (8.4-10.2); Carbon Dioxide 22 mmol/L (22-30); Chloride 100 mmol/L (98-107); Glucose 110 mg/dL (74-99); Non-African American GFR(CKD) >90 (>60 ml/min/1.73 sqM); Sodium 134 mmol/L (137-145); Total Bilirubin 2.6 mg/dL (0.2-1.3); Total Protein 7.6 g/dL (6.3-8.2)
[2019-10-25 10:38] LABS: Potassium 5.2 mmol/L (3.5-5.1)
[2019-10-25] MEDS ORDERED: SODIUM CHLORIDE 0.9% 500 ML 500 ML IV ONE (10:45)
--- NOTE | 2019-10-25 10:49 | ED ---
Female Urogenital HPI - General Source: patient Mode of arrival: wheelchair Limitations: no limitations <Judy Xavier - Last Filed: 10/25/19 11:12> <GarrettbriceAdrienne Kortney - Last Filed: 10/28/19 02:25> - General Chief complaint: Urogenital Stated complaint: Bladder Infection Time Seen by Provider: 10/25/19 09:46 - History of Present Illness Initial comments: 69-year-old male presents today for chief complaint of chills, general malaise and dysuria. Patient states the past 2 days she has had increasing pain with urination. Patient feels like she has a urinary tract infection. Patient states she is recently being treated with ciprofloxacin over one week ago she states she's been off medication for a total 4 days. Patient states that she presented yesterday to emergency department for significant dysuria or she had a urinalysis revealing hematuria and white blood cells in the urine. She was prescribed Macrobid as well as Pyridium and was discharged home. Patient states his symptoms only gotten worse now she is having significant chills and general malaise she states that she has lower back fullness and discomfort, also stretching towards sides. She does not know she has a kidney stone history. Patient denies any chest pain shortness of breath of respiratory symptoms abdominal pain she admits to nausea denies vomiting. Denies diarrhea. Patient upon arrival appears uncomfortable she is tearful. HR elevated. (Judy Xavier) - Related Data Home Medications Medication Instructions Recorded Confirmed Levothyroxine Sodium [Synthroid] 50 mcg PO DAILY 05/19/14 10/25/19 Zolpidem [Ambien] 10 mg PO HS PRN 05/19/14 10/25/19 ALPRAZolam [Xanax] 0.5 mg PO TID PRN 05/26/14 10/25/19 Simvastatin [Zocor] 20 mg PO HS 09/29/17 10/25/19 Cyclobenzaprine [Flexeril] 10 mg PO TID PRN 09/06/19 10/25/19 Escitalopram [Lexapro] 10 mg PO DAILY@1200 09/06/19 10/25/19 Acetaminophen Tab [Tylenol] 500 - 1,000 mg PO Q6H PRN 10/05/19 10/25/19 Famotidine [Pepcid] 40 mg PO BID PRN 10/05/19 10/25/19 Psyllium Husk 100% [Metamucil 6 gm PO HS PRN 10/24/19 10/25/19 Packet] diphenhydrAMINE [Benadryl] 25 mg PO HS PRN 10/24/19 10/25/19 Naproxen Sodium [Aleve] 220 mg PO DAILY PRN 10/25/19 10/25/19 Previous Rx's Medication Instructions Recorded Ondansetron Odt [Zofran ODT] 4 mg PO Q8HR PRN #10 tab 10/24/19 Phenazopyridine [Pyridium] 100 mg PO TID #5 tablet 10/24/19 Ertapenem [INVanz] 1 gm IVPB Q24H #10 vial 10/27/19 Loratadine [Claritin] 10 mg PO DAILY PRN tab 10/27/19 guaiFENesin SYRUP 100MG/5ML 200 mg PO Q6H PRN ml 10/27/19 [Robitussin] Allergies Allergy/AdvReac Type Severity Reaction Status Date / Time Penicillins Allergy Rash/Hives/ Verified 10/25/19 09:38 Swelling Sulfa (Sulfonamide Allergy Rash/Hives Verified 10/25/19 09:38 Antibiotics) Review of Systems ROS Other: All systems not noted in ROS Statement are negative. <Judy Xavier - Last Filed: 10/25/19 11:12> ROS Other: All systems not noted in ROS Statement are negative. <Adrienne Madison - Last Filed: 10/28/19 02:25> ROS Statement: Those systems with pertinent positive or pertinent negative responses have been documented in the HPI. Past Medical History Past Medical History: Cancer, Chest Pain / Angina, Hyperlipidemia, Osteoarthritis (OA), Pneumonia, Thyroid Disorder Additional Past Medical History / Comment(s): BLADDER INFECTION, DIVERTICULITIS AND HAD PANCREATITIS . h pylori, irregular heart beat, SOB w/activity, skin cancer on face 2018, past elevated liver enzymes,varicose veins Last Myocardial Infarction Date:: unknown History of Any Multi-Drug Resistant Organisms: None Reported Past Surgical History: Adenoidectomy, Heart Catheterization, Hysterectomy, Joint Replacement, Orthopedic Surgery, Tonsillectomy Additional Past Surgical History / Comment(s): yesica cataract surg., bunionectomy, carpal tunnel surg., LT Knee replaced,COLONOSCOPY Past Anesthesia/Blood Transfusion Reactions: No Reported Reaction Additional Past Anesthesia/Blood Transfusion Reaction / Comment(s): no hx blood transfusion Past Psychological History: Anxiety Smoking Status: Never smoker Past Alcohol Use History: Rare Past Drug Use History: None Reported - Past Family History Sister(s) Family Medical History: Cancer Additional Family Medical History / Comment(s): Patient had total of 4 sisters. One from a form of lymphoma. Mr. sisters are alive. One has COPD. One is blind and deaf since 18 months old from strep meningitis. Third sister is a lso blind from aniridia and glaucoma. Brother(s) Family Medical History: Cancer Additional Family Medical History / Comment(s): Patient has a total of 4 brothers. One from myocardial infarction and one from pancreatic cancer. 2 living brothers have no major medical problems. Father Additional Family Medical History / Comment(s): Father at age 79 from [place], he was residing in [facility] at the time. Mother Family Medical History: Seizure Disorder Additional Family Medical History / Comment(s): Mother at age 78 from either [place] or seizure. She had history of COPD, Oxygen dependent, seizure disorder. <Judy Xavier - Last Filed: 10/25/19 11:12> General Exam Limitations: no limitations <Judy Xavier - Last Filed: 10/25/19 11:12> - General Exam Comments Initial Comments: General: The patient is awake and alert, appear uncomfortable. Eye: +3 mm pupils are equal, round and reactive to light, extra-ocular movements are intact. No nystagmus. There is normal conjunctiva bilaterally. No signs of icterus. Ears, nose, mouth and throat: There are moist mucous membranes and no oral lesions. Neck: The neck is supple, there is no tenderness or JVD. Cardiovascular: There is a regular rate and rhythm. No murmur, rub or gallop is appreciated. Respiratory: Lungs are clear to auscultation, respirations are non-labored, breath sounds are equal. No wheezes, stridor, rales, or rhonchi. Gastrointestinal: Soft, non-distended, non-tender abdomen without masses or organomegaly noted. There is no rebound or guarding present. Some CVA tenderness. Musculoskeletal: Normal ROM, no tenderness. Strength 5/5. Sensation intact. Pulses equal bilaterally 2+. Neurological: A&O x 3. CN II-XII intact grossly, There are no obvious motor or sensory deficits. Coordination appears grossly intact. Speech is normal. Skin: Skin is warm and dry and no rashes or lesions are noted. Psychiatric: Cooperative, appropriate mood & affect, normal judgment. (Judy Xavier) Course Vital Signs 10/25/19 10/25/19 10/25/19 09:35 12:21 14:31 Temperature 99.1 F 98.3 F Pulse Rate 116 H 95 100 Respiratory 18 18 18 Rate Blood Pressure 140/78 149/81 149/80 O2 Sat by Pulse 97 97 98 Oximetry Medical Decision Making - Lab Data Result diagrams: 10/25/19 10:02 10/25/19 10:02 <Judy Xavier - Last Filed: 10/25/19 11:12> - Lab Data Result diagrams: 10/27/19 08:39 10/27/19 08:39 <Adrienne Madison - Last Filed: 10/28/19 02:25> - Medical Decision Making 69-year-old feel presenting for dysuria. Positive nitrates and urine with white blood cells concerning for urinary tract infection patient complaining of bilateral low back fullness there is some CVA tenderness. No abdominal pain. Patient does have some elevation of alkaline phosphatase ALT and AST which appears to have been previously elevated. Patient has been off of ciprofloxacin for 4 days and has only taken two doses of macrobid. Patient complaining of constitutional symptoms. Patient has significant leukocytosis. Blood cultures pending urine culture pending. Patient case discussed with Dr. Madison who is agreeable to admission with 2gm rocephin, IV fluids. Patient is agreeable to admission. Dr. Renteria accepted patient. (Judy Xavier) I was available for consultation in the emergency department. The history and physical exam were done by the midlevel provider. I was consulted for this patients care. I reviewed the case with the midlevel provider and based on their presentation of the patient, I agree with the assessment, medical decision making and plan of care as documented. Discussed case with Dr. Renteria who agreed to admit the patient. Chart was dictated using Dragon dictation software. Attempts were made to correct any dictation errors however some typographical errors may persist. Patient was seen during a national state of emergency due to the Covid-19 pandemic. (Adrienne Madison) - Lab Data Lab Results 10/25/19 10/25/19 10/25/19 Range/Units 10:02 10:02 10:02 WBC 20.0 H (3.8-10.6) k/uL RBC 5.47 H (3.80-5.40) m/uL Hgb 14.0 (11.4-16.0) gm/dL Hct 44.4 (34.0-46.0) % MCV 81.2 (80.0-100.0) fL MCH 25.6 (25.0-35.0) pg MCHC 31.5 (31.0-37.0) g/dL RDW 14.3 (11.5-15.5) % Plt Count 173 (150-450) k/uL Neutrophils % 95 % Lymphocytes % 2 % Monocytes % 2 % Eosinophils % 1 % Basophils % 0 % Neutrophils # 18.9 H (1.3-7.7) k/uL Lymphocytes # 0.3 L (1.0-4.8) k/uL Monocytes # 0.5 (0-1.0) k/uL Eosinophils # 0.2 (0-0.7) k/uL Basophils # 0.1 (0-0.2) k/uL Sodium 134 L (137-145) mmol/L Potassium 5.2 H (3.5-5.1) mmol/L Chloride 100 (98-107) mmol/L Carbon Dioxide 22 (22-30) mmol/L Anion Gap 12 mmol/L BUN 12 (7-17) mg/dL Creatinine 0.59 (0.52-1.04) mg/dL Est GFR (CKD-EPI)AfAm >90 (>60 ml/min/1.73 sqM) Est GFR (CKD-EPI)NonAf >90 (>60 ml/min/1.73 sqM) Glucose 110 H (74-99) mg/dL Calcium 9.6 (8.4-10.2) mg/dL Total Bilirubin 2.6 H (0.2-1.3) mg/dL AST 154 H (14-36) U/L ALT 157 H (4-34) U/L Alkaline Phosphatase 216 H (38-126) U/L Total Protein 7.6 (6.3-8.2) g/dL Albumin 4.4 (3.5-5.0) g/dL Urine Color Dark Brown Urine Appearance Cloudy H (Clear) Urine pH 6.0 (5.0-8.0) Ur Specific Trail 1.017 (1.001-1.035) Urine Protein Trace H (Negative) Urine Glucose (UA) Negative (Negative) Urine Ketones Trace H (Negative) Urine Blood Small H (Negative) Urine Nitrite Positive H (Negative) Urine Bilirubin 1+ H (Negative) Urine Urobilinogen 3.0 (<2.0) mg/dL Ur Leukocyte Esterase Large H (Negative) Urine RBC 5 (0-5) /hpf Urine WBC 168 H (0-5) /hpf Urine WBC Clumps Few H (None) /hpf Ur Squamous Epith Cells 5 H (0-4) /hpf Urine Mucus Rare H (None) /hpf Disposition Is patient prescribed a controlled substance at d/c from ED?: No Time of Disposition: 10:48 Decision to Admit Reason: Admit from EC Decision Date: 10/25/19 Decision Time: 10:48 <Judy Xavier - Last Filed: 10/25/19 11:12> <Adrienne Madison - Last Filed: 10/28/19 02:25> Clinical Impression: UTI (urinary tract infection), Leukocytosis, Tachycardia, Dysuria, Hematuria, Elevated liver enzymes, Elevated alkaline phosphatase level Disposition: ADMITTED IP TO THIS [facility] Condition: Stable
[2019-10-25] MEDS ORDERED: NALOXONE 0.4 MG/ML 1 ML VIAL IV PRN (10:52)
[2019-10-25] MEDS ORDERED: KETOROLAC 30 MG/ML 1 ML VIAL IVP STA (11:22)
--- NOTE | 2019-10-25 11:22 | US ---
EXAMINATION TYPE: US abdomen limited DATE OF EXAM: 10/25/2019 COMPARISON: CT earlier today CLINICAL HISTORY: enzymes elevated. Abnormal labs EXAM MEASUREMENTS: Liver Length: 17.7 cm Gallbladder Wall: 0.2 cm CBD: 0.7 cm Right Kidney: 11.7 x 4.6 x 5.1 cm Pancreas: Cyst at body= 1.1 x 0.8 x 0.7 cm Liver: Heterogeneous, somewhat difficult to penetrate Gallbladder: wnl Evidence for sonographic Rowan's sign: No CBD: wnl Right Kidney: Slightly dilated renal pelvis= 0.9 cm . No calyceal dilatation. Visualized pancreas is within normal limits. IVC is seen in the hepatic dome. Visualized liver is het erogeneously hyperechoic. No suspicious intrahepatic mass or hepatic ductal dilatation and images sadia ed. Gallbladder seen without shadowing mobile gallstones. No right-sided hydronephrosis. IMPRESSION: Mild diffuse fatty infiltration of liver redemonstrated. No biliary dilatation noted.
[2019-10-25] MEDS ORDERED: diphenhydrAMINE 25 MG CAP PO PRN (15:16)
[2019-10-25] MEDS ORDERED: FAMOTIDINE 20 MG TAB PO PRN (15:16)
[2019-10-25] MEDS ORDERED: CYCLOBENZAPRINE 10 MG TAB PO PRN (15:16)
[2019-10-25] MEDS ORDERED: NAPROXEN 250 MG TAB PO PRN (15:16)
[2019-10-25] MEDS ORDERED: PSYLLIUM HUSK 100% 6 GM PACKET PO PRN (15:16)
[2019-10-25] MEDS ORDERED: ALPRAZolam 0.5 MG TAB PO PRN (15:16)
[2019-10-25] MEDS ORDERED: MORPHINE SULFATE 2 MG/ML SYRINGE IVP PRN (15:19)
[2019-10-25] MEDS ORDERED: ACETAMINOPHEN TAB 325 MG TAB PO PRN (15:20)
[2019-10-25] MEDS: ONDANSETRON 4 MG/2 ML VIAL IVP PRN (17:11)
[2019-10-25] MEDS: PHENAZOPYRIDINE 100 MG TAB PO SCH ×2 (17:12→22:59)
[2019-10-25] MEDS: HEPARIN SODIUM,PORCINE 5,000 UNIT/ML 1 ML VIAL SQ SCH ×2 (17:12→22:59)
[2019-10-25] MEDS: ATORVASTATIN 10 MG TAB PO SCH (20:46)
[2019-10-25] MEDS: ZOLPIDEM 10 MG TAB PO PRN (22:59)
--- NOTE | 2019-10-26 02:44 | P.HPIM ---
History of Present Illness H&P Date: 10/25/19 Chief Complaint: Acute pyelonephritis. his is a 69 year old female one of my patient with a previous medical history significant for mixed hyperlipidemia, hypothyroidism, and significant spondylosis of the cervical spine, recent history of pancreatitis and anxiety disorder, patient was recently hospitalized at [facility] for severe UTI with sepsis and early Pyelonephritis and was started on Rocephin 1 gr IVPB daily at that time her urine culture was not very impressive and she was sent home on Cipro for 1 week, patient was seen in my office as a follow up and she has been doing better, repeated labs were back to normal, she came to the emergency dep artment yesterday with increasing dysuria and flank pain and she was started on Pyridium and Macrobid , however she ended up feeling worse with low grade temperature, abdominal pain, nausea, vomiting and diarrhea, she thought that she had stomach flu so she came today with increased fever and chills along with nausea and painful urination and had CT scan of the abdomen and pelvis without contrast was negative, she was started on Rocephin and was admitted for further evaluation and treatment. Review of Systems Constitutional: Reports chills, Reports fatigue, Reports malaise, Reports weakness Eyes: denies blurred vision, denies bulging eye, denies decreased vision Ears, nose, mouth and throat: Denies dysphagia, Denies neck lump Cardiovascular: Denies chest pain, Denies decreased exercise tolerance, Denies lightheadedness, Denies rapid heart beat, Denies shortness of breath, Denies syncope Respiratory: Denies congestion, Denies cough with sputum, Denies home oxygen, Denies sleep apnea, Denies snoring, Denies wheezing Gastrointestinal: Reports abdominal pain, Reports diarrhea, Reports nausea, Reports vomiting, Denies belching, Denies bloating, Denies BRBPR, Denies change in bowel habits, Denies heartburn, Denies melena Genitourinary: Reports dysuria, Reports nocturia, Reports urinary frequency, Denies hematuria Menstruation: Reports postmenopausal Musculoskeletal: Denies myalgias Musculoskeletal: absent: ankle pain, ankle stiffness, ankle swelling, elbow pain, elbow stiffness, elbow swelling, foot pain, foot stiffness, foot swelling, hand pain, hand stiffness, hand swelling, hip pain, hip stiffness, hip swelling, knee pain, knee stiffness, knee swelling, shoulder pain, shoulder stiffness, shoulder swelling, wrist pain, wrist stiffness, wrist swelling Integumentary: Denies pruritus, Denies rash Neurological: Denies numbness, Denies weakness Psychiatric: Reports anxiety, Reports sadness/tearfulness, Reports sleep disturbances, Denies suicidal ideation Endocrine: Denies fatigue, Denies weight change Past Medical History Past Medical History: Cancer, Chest Pain / Angina, GERD/Reflux, Hyperlipidemia, Osteoarthritis (OA), Pneumonia, Thyroid Disorder, Vascular Disorder Additional Past Medical History / Comment(s): Pt recently admitted to [facility] on 10/05/19 with early polynephritis, severe UTI with sepsis which she states she fully recovered from then last week pt states she had the flu and then urinary tract infection symptoms returned. Other hx: UTIs, skin cancer nose and R cheek, diverticular disease, pancreatitis, elevated liver function tests, irregular heart beat in the past, spondylosis cervical spine/neck pain, low back pain, varicosities bilateral legs, insomnia Last Myocardial Infarction Date:: unknown History of Any Multi-Drug Resistant Organisms: None Reported Past Surgical History: Adenoidectomy, Heart Catheterization, Hysterectomy, Joint Replacement, Orthopedic Surgery, Tonsillectomy Additional Past Surgical History / Comment(s): Total L knee arthroplasty, R foot bunionectomy, R carpal tunnel release, R middle finger cyst removed/spur removed, R foot surgery with screws in place, colonoscopies, skin cancer rem ovals, bilateral cataract removals/lens implants. Past Anesthesia/Blood Transfusion Reactions: No Reported Reaction Additional Past Anesthesia/Blood Transfusion Reaction / Comment(s): no hx blood transfusion Smoking Status: Never smoker - Past Family History Sister(s) Family Medical History: Cancer Additional Family Medical History / Comment(s): Patient had total of 4 sisters. One from a form of lymphoma. Mr. sisters are alive. One has COPD. One is blind and deaf since 18 months old from strep meningitis. Third sister is also blind from aniridia and glaucoma. Brother(s) Family Medical History: Cancer Additional Family Medical History / Comment(s): Patient has a total of 4 brothers. One from myocardial infarction and one from pancreatic cancer. 2 living brothers have no major medical problems. Father Family Medical History: Myocardial Infarction ([place]) Additional Family Medical History / Comment(s): Father at age 79 from [place], he was residing in [facility] at the time. Mother Family Medical History: Seizure Disorder Additional Family Medical History / Comment(s): Mother at age 78 from either [place] or seizure. She had history of COPD, Oxygen dependent, seizure disorder. Medications and Allergies Home Medications Medication Instructions Recorded Confirmed Type Levothyroxine Sodium [Synthroid] 50 mcg PO DAILY 05/19/14 10/25/19 History Zolpidem [Ambien] 10 mg PO HS PRN 05/19/14 10/25/19 History ALPRAZolam [Xanax] 0.5 mg PO TID PRN 05/26/14 10/25/19 History Simvastatin [Zocor] 20 mg PO HS 09/29/17 10/25/19 History Cyclobenzaprine [Flexeril] 10 mg PO TID PRN 09/06/19 10/25/19 History Escitalopram [Lexapro] 10 mg PO DAILY@1200 09/06/19 10/25/19 History Acetaminophen Tab [Tylenol] 500 - 1,000 mg PO Q6H PRN 10/05/19 10/25/19 History Famotidine [Pepcid] 40 mg PO BID PRN 10/05/19 10/25/19 History Nitrofurantoin Monohyd/M-Cryst 100 mg PO Q12HR #20 cap 10/24/19 10/25/19 Rx [Macrobid] Ondansetron Odt [Zofran Odt] 4 mg PO Q8HR PRN #10 tab 10/24/19 10/25/19 Rx Phenazopyridine [Pyridium] 100 mg PO TID #5 tablet 10/24/19 10/25/19 Rx Psyllium Husk 100% [Metamucil 6 gm PO HS PRN 10/24/19 10/25/19 History Packet] diphenhydrAMINE [Benadryl] 25 mg PO HS PRN 10/24/19 10/25/19 History Naproxen Sodium [Aleve] 220 mg PO DAILY PRN 10/25/19 10/25/19 History Allergies Allergy/AdvReac Type Severity Reaction Status Date / Time Penicillins Allergy Rash/Hives/ Verified 10/25/19 09:38 Swelling Sulfa (Sulfonamide Allergy Rash/Hives Verified 10/25/19 09:38 Antibiotics) Physical Exam Vitals: Vital Signs Temp Pulse Pulse Resp BP BP Pulse Ox 10/25/19 14:50 98.1 F 92 18 148/76 97 10/25/19 14:31 98.3 F 100 18 149/80 98 10/25/19 12:21 95 18 149/81 97 10/25/19 09:35 99.1 F 116 H 18 140/78 97 Intake and Output 10/25/19 10/25/19 10/25/19 06:59 14:59 22:59 Other: Voiding Method Toilet Weight 88.042 kg Physical examination: HEENT: head is atraumatic normocehalic pupils were equal round reactive to light and accommodations extra ocular muscle movements were intact. Neck: supple no JVP or lymphadenopathy. Chest: clear to auscultation bilaterally there is no crackles or wheezes, no chest wall tenderness or intercostal retraction. Heart: first heart sound is depressed , second heart sound is normal there is no gallop or murmur. Abdomen: soft non tender non distended positive bowel sounds. Extremities: there is no edema no cherri tenderness DP + 2 bilaterally. Neurologic examination: patient is awake alert and oriented X3 CN II-XI are grossly intact, Muscle power 5/5 in upper and lower extremities bilaterally, Deep tendon reflexes were normal. Results CBC & Chem 7: 10/25/19 10:02 10/25/19 10:02 Labs: Abnormal Lab Results - Last 24 Hours (Table) 10/25/19 10/25/19 10/25/19 Range/Units 10:02 10:02 10:02 WBC 20.0 H (3.8-10.6) k/uL RBC 5.47 H (3.80-5.40) m/uL Neutrophils # 18.9 H (1.3-7.7) k/uL Lymphocytes # 0.3 L (1.0-4.8) k/uL Sodium 134 L (137-145) mmol/L Potassium 5.2 H (3.5-5.1) mmol/L Glucose 110 H (74-99) mg/dL Total Bilirubin 2.6 H (0.2-1.3) mg/dL AST 154 H (14-36) U/L ALT 157 H (4-34) U/L Alkaline Phosphatase 216 H (38-126) U/L Urine Appearance Cloudy H (Clear) Urine Protein Trace H (Negative) Urine Ketones Trace H (Negative) Urine Blood Small H (Negative) Urine Nitrite Positive H (Negative) Urine Bilirubin 1+ H (Negative) Ur Leukocyte Esterase Large H (Negative) Urine WBC 168 H (0-5) /hpf Urine WBC Clumps Few H (None) /hpf Ur Squamous Epith Cells 5 H (0-4) /hpf Urine Mucus Rare H (None) /hpf Microbiology - Last 24 Hours (Table) 10/25/19 10:02 Urine Culture - Preliminary Urine,Voided Thrombosis Risk Factor Assmnt - Choose All That Apply Any of the Below Risk Factors Present?: Yes Each Factor Represents 1 point: Abnormal pulmonary function (COPD), Obesity (BMI >25) Other Risk Factors: Yes Each Risk Factor Represents 2 Points: Age 61-74 years, Malignancy Other congenital or acquired thrombophilia - If yes, enter type in comment: No Thrombosis Risk Factor Assessment Total Risk Factor Score: 6 Thrombosis Risk Factor Assessment Level: High Risk Assessment and Plan Assessment: Assessment and plan: 1. Severe UTI with Sepsis and early Pyelonephritis. we will continue with IVF normal saline at 125 ml/h, we will continue with IV Rocephin 1 gr IVPB daily, we will get blood cultures and urine cultures and we will get Urology evaluation . . 2. Leukocytosis due to severe UTI/Pyelonephritis and sepsis. we will continue with IVF, Rocephin. 3. Mild hyponatremia due to hypovolemia. we will continue withNormal saline at 125 ml/h, repeat CMP in 24 hours. 4. Mixed hyperlipidemia. we will continue with Lipitor 10 mg orally at bedtime. 5. Hypothyroidism. we will continue with Synthroid 50 mcg orally daily. 6. Insomnia. we will continue with Zolpidem 10 mg orally at bedtime as needed. 7. Anxiety. we will continue with Lexapro 10 mg orally daily and Xanax 0.5 mg orally three times daily as needed. 8. Spondylosis of the C-Spine. we will continue with Baclofen 10 mg orally bid. 9. GERD. we will continue with Pepcid 40 mg orally daily. 10. DVT prophylaxis. we will continue with Heparin 5000 units SC q 8 hours. 11. Elevated LFTs likely related to Fatty liver, she will need MRCP when she is better to rule out any hepatobiliary reason. 12. Admits to inpatient, estimated length of stay 2 midnights. 13. Full code.
[2019-10-26 04:36] LABS: Basophils % (A) 0 %; Eosinophils # (A) 0.3 k/uL (0-0.7); Eosinophils % (A) 2 %; HCT 38.1 % (34.0-46.0); HGB 11.9 gm/dL (11.4-16.0); Lymphocytes # (A) 1.6 k/uL (1.0-4.8); Lymphocytes % (A) 12 %; MCH 25.9 pg (25.0-35.0); MCHC 31.3 g/dL (31.0-37.0); MCV 82.7 fL (80.0-100.0); Mean Platelet Volume 7.3; Monocytes # (A) 0.4 k/uL (0-1.0); Monocytes % (A) 3 %; Neutrophils # (A) 10.5 k/uL (1.3-7.7); Neutrophils % (A) 81 %; Platelet Count 259 k/uL (150-450); RBC 4.61 m/uL (3.80-5.40); RDW 14.4 % (11.5-15.5); WBC 12.9 k/uL (3.8-10.6)
[2019-10-26 04:41] LABS: ALT 211 U/L (4-34); AST 139 U/L (14-36); African American GFR (CKD) >90 (>60 ml/min/1.73 sqM); Albumin 3.1 g/dL (3.5-5.0); Alkaline Phosphatase 189 U/L (38-126); Anion Gap 6 mmol/L; Blood Urea Nitrogen 7 mg/dL (7-17); Calcium 8.5 mg/dL (8.4-10.2); Carbon Dioxide 23 mmol/L (22-30); Chloride 109 mmol/L (98-107); Glucose 99 mg/dL (74-99); Non-African American GFR(CKD) >90 (>60 ml/min/1.73 sqM); Potassium 4.3 mmol/L (3.5-5.1); Sodium 138 mmol/L (137-145); Total Bilirubin 1.7 mg/dL (0.2-1.3); Total Protein 5.7 g/dL (6.3-8.2)
[2019-10-26] MEDS: SODIUM CHLORIDE 0.9% 1,000 ML IV SCH ×3 (05:37→23:34)
[2019-10-26] MEDS: LEVOTHYROXINE 50 MCG TAB PO SCH (05:37)
[2019-10-26] MEDS: PHENAZOPYRIDINE 100 MG TAB PO SCH ×3 (07:36→21:17)
[2019-10-26] MEDS: HEPARIN SODIUM,PORCINE 5,000 UNIT/ML 1 ML VIAL SQ SCH ×3 (07:36→23:34)
[2019-10-26 11:09] VITALS: BMI 35.4
--- NOTE | 2019-10-26 13:30 | P.PN ---
Subjective Progress Note Date: 10/26/19 This is a 69 year old female one of my patient with a previous medical history significant for mixed hyperlipidemia, hypothyroidism, and significant spondylosis of the cervical spine, recent history of pancreatitis and anxiety disorder, patient was recently hospitalized at [facility] for severe UTI with sepsis and early Pyelonephritis and was started on Rocephin 1 gr IVPB daily at that time her urine culture was not very impressive and she was sent home on Cipro for 1 week, patient was seen in my office as a follow up and she has been doing better, repeated labs were back to normal, she came to the emergency department yesterday with increasing dysuria and flank pain and she was started on Pyridium and Macrobid , however she ended up feeling worse with low grade temperature, abdominal pain, nausea, vomiting and diarrhea, she thought that she had stomach flu so she came today with increased fever and chills along with nausea and painful urination and had CT scan of the abdomen and pelvis without contrast was negative, she was started on Rocephin and was admitted for further evaluation and treatment. 10/25: Patient denies having any dizziness. She does have a cough. Patient has been afebrile, heart rate 83, blood pressure 139/81, pulse ox 93% on room air. WBC is improved to 12.9, hemoglobin 11.9. Liver function tests remain elevated with total bilirubin 1.7, AST 139, ALT 211, alkaline phosphatase 189. Consult in place with GI. She is eating about 25% of her meals. Supplement has been ordered by dietitian. Patient has been seen by Dr. Esparza with plan for c ystoscopy. Urine culture is in progress. Patient is continued on IV antibiotics in the form of ceftriaxone. Repeat blood work for the morning. 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 Objective - Vital Signs Vital signs: Vital Signs Temp 97.5 F L 10/26/19 07:00 Pulse 83 10/26/19 07:00 Resp 18 10/26/19 07:00 BP 139/81 10/26/19 07:00 Pulse Ox 93 L 10/26/19 07:00 Intake & Output 10/25/19 10/26/19 10/26/19 18:59 06:59 18:59 Weight 88.042 kg 88.042 kg Other: Voiding Method Toilet Toilet # Voids 2 - Exam Review of Systems Constitutional: Reports chills, Reports fatigue, Reports malaise, Reports weakness Eyes: denies blurred vision, denies bulging eye, denies decreased vision Ears, nose, mouth and throat: Denies dysphagia, Denies neck lump Cardiovascular: Denies chest pain, Denies decreased exercise tolerance, Denies lightheadedness, Denies rapid heart beat, Denies shortness of breath, Denies syncope Respiratory: Denies congestion, Denies cough with sputum, Denies home oxygen, Denies sleep apnea, Denies snoring, Denies wheezing Gastrointestinal: Reports abdominal pain, Reports diarrhea, denies nausea, denies vomiting, Denies belching, Denies bloating, Denies BRBPR, Denies change in bowel habits, Denies heartburn, Denies melena Genitourinary: Reports dysuria, Reports nocturia, Reports urinary frequency, Denies hematuria Menstruation: Reports postmenopausal Musculoskeletal: Denies myalgias Musculoskeletal: absent: ankle pain, ankle stiffness, ankle swelling, elbow pain, elbow stiffness, elbow swelling, foot pain, foot stiffness, foot swelling, hand pain, hand stiffness, hand swelling, hip pain, hip stiffness, hip swelling, knee pain, knee stiffness, knee swelling, shoulder pain, shoulder stiffness, shoulder swelling, wrist pain, wrist stiffness, wrist swelling Integumentary: Denies pruritus, Denies rash Neurological: Denies numbness, Denies weakness Psychiatric: Reports anxiety, Reports sadness/tearfulness, Reports sleep disturbances, Denies suicidal ideation Endocrine: Denies fatigue, Denies weight change Physical examination: GEN: This is a 69-year-old female. She is resting her recliner and appears to be in no acute distress. is at bedside. HEENT: head is atraumatic normocehalic pupils were equal round reactive to light and accommodations extra ocular muscle movements were intact. Neck: supple no JVP or lymphadenopathy. Chest: clear to auscultation bilaterally there is no crackles or wheezes, no chest wall tenderness or intercostal retraction. Heart: first heart sound is depressed , second heart sound is normal there is no gallop or murmur. Abdomen: soft non tender non distended positive bowel sounds. Extremities: there is no edema no cherri tenderness DP + 2 bilaterally. Neurologic examination: patient is awake alert and oriented X3 CN II-XI are grossly intact, Muscle power 5/5 in upper and lower extremities bilaterally, Deep tendon reflexes were normal. - Labs CBC & Chem 7: 10/26/19 04:06 10/26/19 04:06 Labs: Abnormal Lab Results - Last 24 Hours (Table) 10/26/19 10/26/19 Range/Units 04:06 04:06 WBC 12.9 H (3.8-10.6) k/uL Neutrophils # 10.5 H (1.3-7.7) k/uL Chloride 109 H (98-107) mmol/L Total Bilirubin 1.7 H (0.2-1.3) mg/dL AST 139 H (14-36) U/L ALT 211 H (4-34) U/L Alkaline Phosphatase 189 H (38-126) U/L Total Protein 5.7 L (6.3-8.2) g/dL Albumin 3.1 L (3.5-5.0) g/dL Microbiology - Last 24 Hours (Table) 10/25/19 10:02 Urine Culture - Preliminary Urine,Voided Assessment and Plan Plan: 1. Severe UTI with Sepsis and early Pyelonephritis. we will continue with IVF normal saline at 125 ml/h, we will continue with IV Rocephin 1 gr IVPB daily, we will get blood cultures and urine cultures and we will get Urology evaluation. 2. Leukocytosis due to severe UTI/Pyelonephritis and sepsis. we will continue with IVF, Rocephin. 3. Mild hyponatremia due to hypovolemia. we will continue withNormal saline at 125 ml/h, repeat CMP in 24 hours. 4. Mixed hyperlipidemia. we will continue with Lipitor 10 mg orally at bedtime. 5. Hypothyroidism. we will continue with Synthroid 50 mcg orally daily. 6. Insomnia. we will continue with Zolpidem 10 mg orally at bedtime as needed. 7. Generalized anxiety disorder. we will continue with Lexapro 10 mg orally daily and Xanax 0.5 mg orally three times daily as needed. 8. Spondylosis of the C-Spine. we will continue with Baclofen 10 mg orally bid. 9. GERD. we will continue with Pepcid 40 mg orally daily. 10. DVT prophylaxis. we will continue with Heparin 5000 units SC q 8 hours. 11. Elevated LFTs likely related to Fatty liver, she will need MRCP when she is better to rule out any hepatobiliary reason. Consult with GI. 12. COVID-19 testing Full code. Discharge plan: Home Impression and plan of care have been directed as dictated by the signing physician. Julianna Cantrell nurse practitioner acting as scribe for signing physician.
[2019-10-26] MEDS: ESCITALOPRAM 10 MG TAB PO SCH (13:51)
[2019-10-26] MEDS: ONDANSETRON 4 MG/2 ML VIAL IVP PRN (13:53)
--- NOTE | 2019-10-26 18:23 | P.GSCN ---
History of Present Illness Consult date: 10/26/19 Reason for Consult: Recurrent urinary tract with gross hematuria History of present illness: The patient is a 69-year-old female admitted for evaluation of a possible urinary tract infection associated with chills, dysuria and an elevated WBC. She says she has a history of recurrent urinary tract infections which date back over one year. The infections have been associated with urinary frequency, dysuria and gross hematuria. She says that the hematuria and ureteral symptoms resolved following antibiotic treatment. She was in this hospital in 08/2019 and received Rocephin. Urine culture at that time grew group B strep. She says sayra t she was treated several times in 09/2019 and finished treatment with Cipro later in the month. She said that last week she experienced chills associated with diarrhea. She was seen in the emergency room on 10/23 with symptoms of a urinary tract infection and was started on Macrobid but returned to the emergency room due to worsening of her symptoms. Urine culture from 10/23 is growing Escherichia coli which was resistant to multiple antibiotics including ceftriaxone. She says she usually voids every 1-2 hours during the day and 2 or 3 times at night. She has no history of urolithiasis and feels that she voids completely. CT scan of the abdomen and pelvis with IV contrast on 09/06/2019 showed no renal or ureteral abnormalities. Renal ultrasound on 10/05 showed no renal abnormalities. There was some nonspecific thickening of the bladder wall however this was not present on the CT scan performed in 09/05. Urine cytology on 10/[address] scan of the abdomen and pelvis without IV contrast on 10/25/2019 showed no abnormalities of the kidneys or bladder. When seen in the emergency room she was noted to have some nonspecific liver function test abnormalities and a right upper quadrant ultrasound showed no specific liver or right renal abnormality. Review of Systems - Constitutional Reports chills, Reports malaise - Gastrointestinal Reports abdominal pain (Suprapubic discomfort) - Genitourinary Genitourinary: Reports as per HPI Past Medical History Past Medical History: Cancer, Chest Pain / Angina, GERD/Reflux, Hyperlipidemia, Osteoarthritis (OA), Pneumonia, Thyroid Disorder, Vascular Disorder Additional Past Medical History / Comment(s): Pt recently admitted to [facility] on 10/05/19 with early polynephritis, severe UTI with sepsis which she states she fully recovered from then last week pt states she had the flu and then urinary tract infection symptoms returned. Other hx: UTIs, skin cancer nose and R cheek, diverticular disease, pancreatitis, elevated liver function tests, irregular heart beat in the past, spondylosis cervical spine/neck pain, low back pain, varicosities bilateral legs, insomnia Last Myocardial Infarction Date:: unknown History of Any Multi-Drug Resistant Organisms: None Reported Past Surgical History: Adenoidectomy, Heart Catheterization, Hysterectomy, Joint Replacement, Orthopedic Surgery, Tonsillectomy Additional Past Surgical History / Comment(s): Total L knee arthroplasty, R foot bunionectomy, R carpal tunnel release, R middle finger cyst removed/spur removed, R foot surgery with screws in place, colonoscopies, skin cancer removals, bilateral cataract removals/lens implants. Past Anesthesia/Blood Transfusion Reactions: No Reported Reaction Additional Past Anesthesia/Blood Transfusion Reaction / Comm: no hx blood transfusion Smoking Status: Never smoker - Past Family History Sister(s) Family Medical History: Cancer Additional Family Medical History / Comment(s): Patient had total of 4 sisters. One from a form of lymphoma. Mr. sisters are alive. One has COPD. One is blind and deaf since 18 months old from strep meningitis. Third sister is also blind from aniridia and glaucoma. Brother(s) Family Medical History: Cancer Additional Family Medical History / Comment(s): Patient has a total of 4 brothers. One from myocardial infarction and one from pancreatic cancer. 2 living brothers have no major medical problems. Father Family Medical History: Myocardial Infarction ([place]) Additional Family Medical History / Comment(s): Father at age 79 from [place], he was residing in [facility] at the time. Mother Family Medical History: Seizure Disorder Additional Family Medical History / Comment(s): Mother at age 78 from either [place] or seizure. She had history of COPD, Oxygen dependent, seizure di sorder. Medications and Allergies Home Medications Medication Instructions Recorded Confirmed Type Levothyroxine Sodium [Synthroid] 50 mcg PO DAILY 05/19/14 10/25/19 History Zolpidem [Ambien] 10 mg PO HS PRN 05/19/14 10/25/19 History ALPRAZolam [Xanax] 0.5 mg PO TID PRN 05/26/14 10/25/19 History Simvastatin [Zocor] 20 mg PO HS 09/29/17 10/25/19 History Cyclobenzaprine [Flexeril] 10 mg PO TID PRN 09/06/19 10/25/19 History Escitalopram [Lexapro] 10 mg PO DAILY@1200 09/06/19 10/25/19 History Acetaminophen Tab [Tylenol] 500 - 1,000 mg PO Q6H PRN 10/05/19 10/25/19 History Famotidine [Pepcid] 40 mg PO BID PRN 10/05/19 10/25/19 History Nitrofurantoin Monohyd/M-Cryst 100 mg PO Q12HR #20 cap 10/24/19 10/25/19 Rx [Macrobid] Ondansetron Odt [Zofran Odt] 4 mg PO Q8HR PRN #10 tab 10/24/19 10/25/19 Rx Phenazopyridine [Pyridium] 100 mg PO TID #5 tablet 10/24/19 10/25/19 Rx Psyllium Husk 100% [Metamucil 6 gm PO HS PRN 10/24/19 10/25/19 History Packet] diphenhydrAMINE [Benadryl] 25 mg PO HS PRN 10/24/19 10/25/19 History Naproxen Sodium [Aleve] 220 mg PO DAILY PRN 10/25/19 10/25/19 History Allergies Allergy/AdvReac Type Severity Reaction Status Date / Time Penicillins Allergy Rash/Hives/ Verified 10/25/19 09:38 Swelling Sulfa (Sulfonamide Allergy Rash/Hives Verified 10/25/19 09:38 Antibiotics) Surgical - Exam Vital Signs Temp Pulse Resp BP Pulse Ox 99.1 F 116 H 18 140/78 97 10/25/19 09:35 10/25/19 09:35 10/25/19 09:35 10/25/19 09:35 10/25/19 09:35 - General well developed, well nourished, obese - ENT no hearing loss - Neck no masses, no lymphadectomy - Respiratory normal respiratory effort - Abdomen Abdomen: non tender, no organomegaly Results - Labs 10/26/19 04:06 10/26/19 04:06 Abnormal Lab Results - Last 24 Hours (Table) 10/26/19 10/26/19 Range/Units 04:06 04:06 WBC 12.9 H (3.8-10.6) k/uL Neutrophils # 10.5 H (1.3-7.7) k/uL Chloride 109 H (98-107) mmol/L Total Bilirubin 1.7 H (0.2-1.3) mg/dL AST 139 H (14-36) U/L ALT 211 H (4-34) U/L Alkaline Phosphatase 189 H (38-126) U/L Total Protein 5.7 L (6.3-8.2) g/dL Albumin 3.1 L (3.5-5.0) g/dL Microbiology - Last 24 Hours (Table) 10/25/19 10:02 Urine Culture - Preliminary Urine,Voided Gram Neg Bacilli Diabetes panel 10/26/19 Range/Units 04:06 Sodium 138 (137-145) mmol/L Potassium 4.3 (3.5-5.1) mmol/L Chloride 109 H (98-107) mmol/L Carbon Dioxide 23 (22-30) mmol/L BUN 7 (7-17) mg/dL Creatinine 0.57 (0.52-1.04) mg/dL Glucose 99 (74-99) mg/dL Calcium 8.5 (8.4-10.2) mg/dL AST 139 H (14-36) U/L ALT 211 H (4-34) U/L Alkaline Phosphatase 189 H (38-126) U/L Total Protein 5.7 L (6.3-8.2) g/dL Albumin 3.1 L (3.5-5.0) g/dL Calcium panel 10/26/19 Range/Units 04:06 Calcium 8.5 (8.4-10.2) mg/dL Albumin 3.1 L (3.5-5.0) g/dL Pituitary panel 10/26/19 Range/Units 04:06 Sodium 138 (137-145) mmol/L Potassium 4.3 (3.5-5.1) mmol/L Chloride 109 H (98-107) mmol/L Carbon Dioxide 23 (22-30) mmol/L BUN 7 (7-17) mg/dL Creatinine 0.57 (0.52-1.04) mg/dL Glucose 99 (74-99) mg/dL Calcium 8.5 (8.4-10.2) mg/dL Adrenal panel 10/26/19 Range/Units 04:06 Sodium 138 (137-145) mmol/L Potassium 4.3 (3.5-5.1) mmol/L Chloride 109 H (98-107) mmol/L Carbon Dioxide 23 (22-30) mmol/L BUN 7 (7-17) mg/dL Creatinine 0.57 (0.52-1.04) mg/dL Glucose 99 (74-99) mg/dL Calcium 8.5 (8.4-10.2) mg/dL Total Bilirubin 1.7 H (0.2-1.3) mg/dL AST 139 H (14-36) U/L ALT 211 H (4-34) U/L Alkaline Phosphatase 189 H (38-126) U/L Total Protein 5.7 L (6.3-8.2) g/dL Albumin 3.1 L (3.5-5.0) g/dL Assessment and Plan (1) Urinary tract infection Narrative/Plan: The patient appears to have another acute urinary tract infection. Unfortunately the e coli may not be sensitive to her current antibiotic treatment. It is possible that her recurrent episodes of gross hematuria are associated with acute episodes of cystitis however I recommended to her that cystoscopy be performed in 2 or 3 weeks to exclude any other abnormality. I also discussed the use of vaginal estrogen cream 3 times weekly as this has been shown to reduce recurrent urinary tract infections in postmenopausal women. Current Visit: Yes Status: Acute Code(s): N39.0 - URINARY TRACT INFECTION, SITE NOT SPECIFIED SNOMED Code(s): 10744801
[2019-10-26] MEDS: ZOLPIDEM 10 MG TAB PO PRN (21:17)
[2019-10-26] MEDS: ATORVASTATIN 10 MG TAB PO SCH (21:17)
--- NOTE | 2019-10-27 00:11 | P.CONS ---
History of Present Illness - Reason for Consult Consult date: 10/26/19 Elevated liver enzymes Requesting physician: Dina Renteria - Chief Complaint Dysuria and flank pain - History of Present Illness 69-year-old female with a medical history significant for pancreatitis, anxiety, hyperlipidemia and hypothyroidism recently hospitalized for treatment of UTI with sepsis who presented back to the hospital due to concerns of dysuria and flank pain. Currently the patient is being treated with antibiotic therapy and consult has been placed to the urology service. Gastroenterology was consult see the patient's given elevation in the patient's liver enzymes with total bilirubin 1.7 from 2.6, alkaline phosphatase 189 from 216, AST 139 from 154 and ALT 201 from 157. Computed tomography scan of the abdomen negative for any intra-abdominal process. Ultrasound of the abdomen fatty liver. Patient has been on multiple courses of antibiotic therapy for urinary tract infections and diverticulitis recently. She denies any abdominal pain in the right upper quadrant her upper abdomen, jaundice, or any signs or symptoms of decompensated liver disease. She is seen lying in bed with her at side tolerating diet with no other acute complaints at this time. Review of Systems REVIEW OF SYSTEMS: CONSTITUTIONAL: Denies any fevers, chills, weight change or fatigue. CARDIOVASCULAR: Denies any chest pain, palpitations high or low blood pressures RESPIRATORY: Denies any shortness of breath, hemoptysis or cough. GENITOURINARY: Denies any hematuria but did report flank pain and dysuria pr esentation. MUSCULOSKELETAL: No weakness reported. SKIN: Denies any new rashes or lesions, jaundice or pallor. PSYCHIATRIC: Denies any depression but has a history of anxiety. NEUROLOGY: Denies headache, denies any new focal deficits. EARS/NOSE/THROAT: No recent hearing change, congestion, nasal discharge or sore throat. EYES: No pain in eyes, discharge or change in vision. GASTROINTESTINAL: As per HPI. Past Medical History Past Medical History: Cancer, Chest Pain / Angina, GERD/Reflux, Hyperlipidemia, Osteoarthritis (OA), Pneumonia, Thyroid Disorder, Vascular Disorder Additional Past Medical History / Comment(s): Pt recently admitted to [facility] on 10/05/19 with early polynephritis, severe UTI with sepsis which she states she fully recovered from then last week pt states she had the flu and then urinary tract infection symptoms returned. Other hx: UTIs, skin cancer nose and R cheek, diverticular disease, pancreatitis, elevated liver function tests, irregular heart beat in the past, spondylosis cervical spine/neck pain, low back pain, varicosities bilateral legs, insomnia Last Myocardial Infarction Date:: unknown History of Any Multi-Drug Resistant Organisms: None Reported Past Surgical History: Adenoidectomy, Heart Catheterization, Hysterectomy, Joint Replacement, Orthopedic Surgery, Tonsillectomy Additional Past Surgical History / Comment(s): Total L knee arthroplasty, R foot bunionectomy, R carpal tunnel release, R middle finger cyst removed/spur removed, R foot surgery with screws in place, colonoscopies, skin cancer removals, bilateral cataract removals/lens implants. Past Anesthesia/Blood Transfusion Reactions: No Reported Reaction Additional Past Anesthesia/Blood Transfusion Reaction / Comm: no hx blood transfusion Smoking Status: Never smoker - Past Family History Sister(s) Family Medical History: Cancer Additional Family Medical History / Comment(s): Patient had total of 4 sisters. One from a form of lymphoma. Mr. sisters are alive. One has COPD. One is blind and deaf since 18 months old from strep meningitis. Third sister is also blind from aniridia and glaucoma. Brother(s) Family Medical History: Cancer Additional Family Medical History / Comment(s): Patient has a total of 4 brothers. One from myocardial infarction and one from pancreatic cancer. 2 living brothers have no major medical problems. Father Family Medical History: Myocardial Infarction (NM) Additional Family Medical History / Comment(s): Father at age 79 from NM, he was residing in [facility] at the time. Mother Family Medical History: Seizure Disorder Additional Family Medical History / Comment(s): Mother at age 78 from either NM or seizure. She had history of COPD, Oxygen dependent, seizure disorder. Medications and Allergies Home Medications Medication Instructions Recorded Confirmed Type Levothyroxine Sodium [Synthroid] 50 mcg PO DAILY 05/19/14 10/25/19 History Zolpidem [Ambien] 10 mg PO HS PRN 05/19/14 10/25/19 History ALPRAZolam [Xanax] 0.5 mg PO TID PRN 05/26/14 10/25/19 History Simvastatin [Zocor] 20 mg PO HS 09/29/17 10/25/19 History Cyclobenzaprine [Flexeril] 10 mg PO TID PRN 09/06/19 10/25/19 History Escitalopram [Lexapro] 10 mg PO DAILY@1200 09/06/19 10/25/19 History Acetaminophen Tab [Tylenol] 500 - 1,000 mg PO Q6H PRN 10/05/19 10/25/19 History Famotidine [Pepcid] 40 mg PO BID PRN 10/05/19 10/25/19 History Nitrofurantoin Monohyd/M-Cryst 100 mg PO Q12HR #20 cap 10/24/19 10/25/19 Rx [Macrobid] Ondansetron Odt [Zofran Odt] 4 mg PO Q8HR PRN #10 tab 10/24/19 10/25/19 Rx Phenazopyridine [Pyridium] 100 mg PO TID #5 tablet 10/24/19 10/25/19 Rx Psyllium Husk 100% [Metamucil 6 gm PO HS PRN 10/24/19 10/25/19 History Packet] diphenhydrAMINE [Benadryl] 25 mg PO HS PRN 10/24/19 10/25/19 History Naproxen Sodium [Aleve] 220 mg PO DAILY PRN 10/25/19 10/25/19 History Allergies Allergy/AdvReac Type Severity Reaction Status Date / Time Penicillins Allergy Rash/Hives/ Verified 10/25/19 09:38 Swelling Sulfa (Sulfonamide Allergy Rash/Hives Verified 10/25/19 09:38 Antibiotics) Physical Exam Vitals: Vital Signs Temp Pulse Pulse Resp BP BP Pulse Ox 10/26/19 07:00 97.5 F L 83 18 139/81 93 L 10/26/19 04:19 18 10/26/19 01:40 97.8 F 88 20 133/76 94 L 10/25/19 23:05 19 10/25/19 20:30 18 10/25/19 19:30 97.9 F 86 16 162/76 93 L 10/25/19 14:50 98.1 F 92 18 148/76 97 10/25/19 14:31 98.3 F 100 18 149/80 98 Intake and Output 10/25/19 10/26/19 10/26/19 22:59 06:59 14:59 Other: Voiding Method Toilet Toilet # Voids 1 2 Weight 88.042 kg On physical examination, patient appears comfortable in no apparent distress. HEAD: Normocephalic, atraumatic. EYES: No scleral icterus. No conjunctival injection. MOUTH: No lesions, tongue midline. NECK: Trachea midline, no gross abnormalities. CHEST: Clear to auscultation with no wheezing or rhonchi appreciated. HEART: Regular rate and rhythm. ABDOMEN: Soft, obese. Bowel sounds are positive. No organomegaly. No guarding or rigidity. EXTREMITIES: No pedal edema. SKIN: No rashes, no jaundice. NEUROLOGIC: Alert and oriented x3. No focal deficits. Results CBC & Chem 7: 10/26/19 04:06 10/26/19 04:06 Labs: Abnormal Lab Results - Last 24 Hours (Table) 10/26/19 10/26/19 Range/Units 04:06 04:06 WBC 12.9 H (3.8-10.6) k/uL Neutrophils # 10.5 H (1.3-7.7) k/uL Chloride 109 H (98-107) mmol/L Total Bilirubin 1.7 H (0.2-1.3) mg/dL AST 139 H (14-36) U/L ALT 211 H (4-34) U/L Alkaline Phosphatase 189 H (38-126) U/L Total Protein 5.7 L (6.3-8.2) g/dL Albumin 3.1 L (3.5-5.0) g/dL Microbiology - Last 24 Hours (Table) 10/25/19 10:02 Urine Culture - Preliminary Urine,Voided US - abdomen: report reviewed (Fatty infiltration of the liver on ultrasound the abdomen with no other pathology noted.) Assessment and Plan (1) Elevated liver enzymes Narrative/Plan: 69-year-old female with multiple medical comorbidities including recent admissions and treatment for urinary tract infection and diverticulitis presented back to the hospital due to concerns over flank pain and dysuria. Patient also has a known history of elevated liver enzymes and does follow up in the GI clinic. Patient had elevation of liver enzymes on presentation which have subsequently improved with total bilirubin 1.7, alkaline phosphatase 189, AST 139 and ALT 211. Computed tomography scan and ultrasound of the abdomen negative for any acute intra-abdominal pathology but did show diverticulosis and fatty infiltration of the liver. Elevation in liver enzymes is likely multifactorial in the setting of underlying fatty liver disease, with exposures to recent antibiotics as well as infection all contributing to the elevation. Currently improving. Current Visit: Yes Status: Acute Code(s): R74.8 - ABNORMAL LEVELS OF OTHER SERUM ENZYMES SNOMED Code(s): 704708114 (2) Fatty liver Current Visit: Yes Status: Acute Code(s): K76.0 - FATTY (CHANGE OF) LIVER, NOT ELSEWHERE CLASSIFIED SNOMED Code(s): 146952140 (3) History of pancreatitis Current Visit: Yes Status: Acute Code(s): Z87.19 - PERSONAL HISTORY OF OTHER DISEASES OF THE DIGESTIVE SYSTEM SNOMED Code(s): 05409326961371 (4) Diverticulosis Current Visit: Yes Status: Acute Code(s): K57.90 - DVRTCLOS OF INTEST, PART UNSP, W/O PERF OR ABSCESS W/O BLEED SNOMED Code(s): 221475226 Plan: Supportive care Okay for diet Okay to continue current medical management Continue to monitor LFTs Acute viral hepatitis panel has been negative in the past but we'll repeat at this time Ultrasound of the abdomen reviewed with hepatomegaly and fatty infiltration noted but no other acute intra-abdominal process No plans for endoscopic evaluation at this time Thank you for allowing us to participate in the care of the patient
[2019-10-27] MEDS: LEVOTHYROXINE 50 MCG TAB PO SCH (05:33)
[2019-10-27] MEDS: SODIUM CHLORIDE 0.9% 1,000 ML IV SCH ×2 (05:36→14:04)
[2019-10-27] MEDS: HEPARIN SODIUM,PORCINE 5,000 UNIT/ML 1 ML VIAL SQ SCH ×2 (08:14→13:59)
[2019-10-27] MEDS: PHENAZOPYRIDINE 100 MG TAB PO SCH ×3 (08:14→22:45)
[2019-10-27 09:45] LABS: Basophils # (A) 0.1 k/uL (0-0.2); Basophils % (A) 1 %; Eosinophils # (A) 0.3 k/uL (0-0.7); Eosinophils % (A) 3 %; HCT 41.7 % (34.0-46.0); HGB 12.7 gm/dL (11.4-16.0); Hypochromasia Moderate; Lymphocytes # (A) 1.3 k/uL (1.0-4.8); Lymphocytes % (A) 14 %; MCH 25.5 pg (25.0-35.0); MCHC 30.4 g/dL (31.0-37.0); MCV 83.7 fL (80.0-100.0); Mean Platelet Volume 7.4; Monocytes # (A) 0.5 k/uL (0-1.0); Monocytes % (A) 5 %; Neutrophils # (A) 6.9 k/uL (1.3-7.7); Neutrophils % (A) 76 %; Platelet Count 284 k/uL (150-450); RBC 4.98 m/uL (3.80-5.40); WBC 9.1 k/uL (3.8-10.6)
[2019-10-27 09:50] LABS: Prothrombin Time 10.1 sec (9.0-12.0)
[2019-10-27 10:04] LABS: ALT 204 U/L (4-34); AST 78 U/L (14-36); African American GFR (CKD) >90 (>60 ml/min/1.73 sqM); Albumin 3.6 g/dL (3.5-5.0); Alkaline Phosphatase 189 U/L (38-126); Anion Gap 7 mmol/L; Bilirubin, Delta 0.4 mg/dL (0.0-0.2); Bilirubin,Unconjugated 0.3 mg/dL (0.0-1.1); Blood Urea Nitrogen 9 mg/dL (7-17); Calcium 8.8 mg/dL (8.4-10.2); Carbon Dioxide 26 mmol/L (22-30); Chloride 104 mmol/L (98-107); Glucose 136 mg/dL (74-99); Non-African American GFR(CKD) >90 (>60 ml/min/1.73 sqM); Potassium 4.1 mmol/L (3.5-5.1); Sodium 137 mmol/L (137-145); Total Bilirubin 0.7 mg/dL (0.2-1.3); Total Protein 6.3 g/dL (6.3-8.2)
[2019-10-27] MEDS ORDERED: LORATADINE 10 MG TAB PO PRN (11:24)
[2019-10-27] MEDS ORDERED: guaiFENesin SYRUP 100MG/5ML 200 MG/10 ML CUP PO PRN (11:25)
[2019-10-27] MEDS: ESCITALOPRAM 10 MG TAB PO SCH (11:35)
[2019-10-27] MEDS: ERTAPENEM 1 GM in SODIUM CHLORIDE 0.9% 50 ML IVPB SCH (14:03)
--- NOTE | 2019-10-27 14:05 | P.PN ---
Subjective Progress Note Date: 10/27/19 This is a 69 year old female one of my patient with a previous medical history significant for mixed hyperlipidemia, hypothyroidism, and significant spondylosis of the cervical spine, recent history of pancreatitis and anxiety disorder, patient was recently hospitalized at [facility] for severe UTI with sepsis and early Pyelonephritis and was started on Rocephin 1 gr IVPB daily at that time her urine culture was not very impressive and she was sent home on Cipro for 1 week, patient was seen in my office as a follow up and she has been doing better, repeated labs were back to normal, she came to the emergency department yesterday with increasing dysuria and flank pain and she was started on Pyridium and Macrobid , however she ended up feeling worse with low grade temperature, abdominal pain, nausea, vomiting and diarrhea, she thought that she had stomach flu so she came today with increased fever and chills along with nausea and painful urination and had CT scan of the abdomen and pelvis without contrast was negative, she was started on Rocephin and was admitted for further evaluation and treatment. 10/25: Patient denies having any dizziness. She does have a cough. Patient has been afebrile, heart rate 83, blood pressure 139/81, pulse ox 93% on room air. WBC is improved to 12.9, hemoglobin 11.9. Liver function tests remain elevated with total bilirubin 1.7, AST 139, ALT 211, alkaline phosphatase 189. Consult in place with GI. She is eating about 25% of her meals. Supplement has been ordered by dietitian. Patient has been seen by Dr. Esparza with plan for c ystoscopy. Urine culture is in progress. Patient is continued on IV antibiotics in the form of ceftriaxone. Repeat blood work for the morning. 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 10/26: Patient has been seen by GI and plan to continue to monitor LFTs. Acute viral hepatitis panel was negative. Ultrasound of the abdomen revealed hepatomegaly and fatty infiltration. Urine culture is ESBL E. coli and antibiotics will be changed to Invanz. Midline ordered with plan for IV antibiotics at discharge. Patient complains of cough and sinus drainage. Claritin and Robitussin added. Otherwise patient states she is feeling much better today. Discharge plan will be most likely home with home care for IV antibiotics. Patient will most likely be ready for discharge tomorrow. Objective - Vital Signs Vital signs: Vital Signs Temp 97.9 F 10/27/19 07:00 Pulse 78 10/27/19 07:00 Resp 18 10/27/19 07:00 BP 151/86 10/27/19 07:00 Pulse Ox 95 10/27/19 07:00 Intake & Output 10/26/19 10/27/19 10/27/19 18:59 06:59 18:59 Weight 88.042 kg Other: Voiding Method Toilet Toilet Toilet # Voids 2 - Exam Review of Systems Constitutional: Denies chills, Reports fatigue, Denies malaise, Reports weakness Eyes: denies blurred vision, denies bulging eye, denies decreased vision Ears, nose, mouth and throat: Denies dysphagia, Denies neck lump Cardiovascular: Denies chest pain, Denies decreased exercise tolerance, Denies lightheadedness, Denies rapid heart beat, Denies shortness of breath, Denies syncope Respiratory: Denies congestion, Denies cough with sputum, Denies home oxygen, Denies sleep apnea, Denies snoring, Denies wheezing Gastrointestinal: Denies abdominal pain, Denies diarrhea, denies nausea, denies vomiting, Denies belching, Denies bloating, Denies BRBPR, Denies change in bowel habits, Denies heartburn, Denies melena Genitourinary: Reports dysuria, Reports nocturia, Reports urinary frequency, Denies hematuria Menstruation: Reports postmenopausal Musculoskeletal: Denies myalgias Musculoskeletal: absent: ankle pain, ankle stiffness, ankle swelling, elbow pain, elbow stiffness, elbow swelling, foot pain, foot stiffness, foot swelling, hand pain, hand stiffness, hand swelling, hip pain, hip stiffness, hip swelling, knee pain, knee stiffness, knee swelling, shoulder pain, shoulder stiffness, shoulder swelling, wrist pain, wrist stiffness, wrist swelling Integumentary: Denies pruritus, Denies rash Neurological: Denies numbness, Denies weakness Psychiatric: Reports anxiety, Reports sadness/tearfulness, Reports sleep disturbances, Denies suicidal ideation Endocrine: Denies fatigue, Denies weight change Physical examination: GEN: This is a 69-year-old female. She is resting her recliner and appears to be in no acute distress. is at bedside. HEENT: head is atraumatic normocehalic pupils were equal round reactive to light and accommodations extra ocular muscle movements were intact. Neck: supple no JVP or lymphadenopathy. Chest: clear to auscultation bilaterally there is no crackles or wheezes, no chest wall tenderness or intercostal retraction. Heart: first heart sound is depressed , second heart sound is normal there is no gallop or murmur. Abdomen: soft non tender non distended positive bowel sounds. Extremities: No pedal edema no cherri tenderness DP + 2 bilaterally. Neurologic examination: patient is awake alert and oriented X3 CN II-XI are grossly intact, Muscle power 5/5 in upper and lower extremities bilaterally, Deep tendon reflexes were normal. - Labs CBC & Chem 7: 10/27/19 08:39 10/27/19 08:39 Labs: Abnormal Lab Results - Last 24 Hours (Table) 10/27/19 10/27/19 Range/Units 08:39 08:39 MCHC 30.4 L (31.0-37.0) g/dL Glucose 136 H (74-99) mg/dL Delta Bilirubin 0.4 H (0.0-0.2) mg/dL AST 78 H (14-36) U/L ALT 204 H (4-34) U/L Alkaline Phosphatase 189 H (38-126) U/L Microbiology - Last 24 Hours (Table) 10/25/19 10:02 Urine Culture - Final Urine,Voided Escherichia coli 10/26/19 04:06 Blood Culture - Preliminary Blood No Growth after 24 hours Assessment and Plan Plan: 1. Severe ESBL E. coli UTI with Sepsis and early Pyelonephritis. IV antibiotics changed to Invanz, midline ordered. manager sharepoint updated with plan for home IV antibiotics. Urology consult appreciated.. 2. Leukocytosis due to severe UTI/Pyelonephritis and sepsis. Discontinue IV fluids, continue Invanz 3. Mild hyponatremia due to hypovolemia. Discontinue IV fluids. 4. Mixed hyperlipidemia. we will continue with Lipitor 10 mg orally at bedtime. 5. Hypothyroidism. we will continue with Synthroid 50 mcg orally daily. 6. Insomnia. we will continue with Zolpidem 10 mg orally at bedtime as needed. 7. Generalized anxiety disorder. we will continue with Lexapro 10 mg orally daily and Xanax 0.5 mg orally three times daily as needed. 8. Spondylosis of the C-Spine. we will continue with Baclofen 10 mg orally bid. 9. GERD. we will continue with Pepcid 40 mg orally daily. 10. DVT prophylaxis. we will continue with Heparin 5000 units SC q 8 hours. 11. Elevated LFTs likely related to Fatty liver, she will need MRCP when she is better to rule out any hepatobiliary reason. Consult with GI. 12. COVID-19 infection not present Full code. Discharge plan: Home with IV antibiotics: Invanz for 10 days. Impression and plan of care have been directed as dictated by the signing physician. Julianna Cantrell nurse practitioner acting as scribe for signing physician.
[2019-10-27] MEDS ORDERED: ONDANSETRON 4 MG TAB PO PRN (15:58)
[2019-10-27 17:33] LABS: Hepatitis A Antibody IgM Non-Reactive (Non-Reactive); Hepatitis B Core IgM Non-Reactive (Non-Reactive); Hepatitis B Surface Antigen Non-Reactive (Non-Reactive); Hepatitis C IgG Antibody Non-Reactive (Non-Reactive)
[2019-10-27] MEDS: ATORVASTATIN 10 MG TAB PO SCH (21:03)
--- NOTE | 2019-10-27 22:22 | P.PN ---
Subjective Progress Note Date: 10/27/19 Principal diagnosis: Elevated liver enzymes Patient is seen sitting bedside with her today. Overall feeling good. Tolerating diet. No abdominal pain reported. Objective - Vital Signs Vital signs: Vital Signs Temp 97.9 F 10/27/19 07:00 Pulse 78 10/27/19 07:00 Resp 18 10/27/19 07:00 BP 151/86 10/27/19 07:00 Pulse Ox 95 10/27/19 07:00 Intake & Output 10/26/19 10/27/19 10/27/19 18:59 06:59 18:59 Weight 88.042 kg Other: Voiding Method Toilet Toilet Toilet # Voids 2 - Exam On physical examination, patient appears comfortable in no apparent distress. HEAD: Normocephalic, atraumatic. EYES: No scleral icterus. No conjunctival injection. MOUTH: No lesions, tongue midline. NECK: Trachea midline, no gross abnormalities. ABDOMEN: Soft, obese. Bowel sounds are positive. No organomegaly. No guarding or rigidity. EXTREMITIES: No pedal edema. SKIN: No rashes, no jaundice. NEUROLOGIC: Alert and oriented x3. No focal deficits. - Labs CBC & Chem 7: 10/27/19 08:39 10/27/19 08:39 Labs: Abnormal Lab Results - Last 24 Hours (Table) 10/27/19 10/27/19 Range/Units 08:39 08:39 MCHC 30.4 L (31.0-37.0) g/dL Glucose 136 H (74-99) mg/dL Delta Bilirubin 0.4 H (0.0-0.2) mg/dL AST 78 H (14-36) U/L ALT 204 H (4-34) U/L Alkaline Phosphatase 189 H (38-126) U/L Microbiology - Last 24 Hours (Table) 10/25/19 10:02 Urine Culture - Final Urine,Voided Escherichia coli 10/26/19 04:06 Blood Culture - Preliminary Blood No Growth after 24 hours Assessment and Plan (1) Elevated liver enzymes Narrative/Plan: 69-year-old female with multiple medical comorbidities including recent admissions and treatment for urinary tract infection and diverticulitis presented back to the hospital due to concerns over flank pain and dysuria. Patient also has a known history of elevated liver enzymes and does follow up in the GI clinic. Patient had elevation of liver enzymes on presentation which have subsequently improved with total bilirubin 1.7, alkaline phosphatase 189, AST 139 and ALT 211. Computed tomography scan and ultrasound of the abdomen negative for any acute intra-abdominal pathology but did show diverticulosis and fatty infiltration of the liver. Elevation in liver enzymes is likely multifactorial in the setting of underlying fatty liver disease, with exposures to recent antibiotics as well as infection all contributing to the elevation. Liver enzymes improved today with total bilirubin 0.7, alkaline phosphatase 189, AST 78 and ALT 204. Current Visit: Yes Status: Acute Code(s): R74.8 - ABNORMAL LEVELS OF OTHER S FAUSTO ENZYMES SNOMED Code(s): 121383909 (2) Fatty liver Current Visit: Yes Status: Acute Code(s): K76.0 - FATTY (CHANGE OF) LIVER, NOT ELSEWHERE CLASSIFIED SNOMED Code(s): 409792258 (3) History of pancreatitis Current Visit: Yes Status: Acute Code(s): Z87.19 - PERSONAL HISTORY OF OTHER DISEASES OF THE DIGESTIVE SYSTEM SNOMED Code(s): 49634529033403 (4) Diverticulosis Current Visit: Yes Status: Acute Code(s): K57.90 - DVRTCLOS OF INTEST, PART UNSP, W/O PERF OR ABSCESS W/O BLEED SNOMED Code(s): 371853590 Plan: Supportive care Okay for diet Okay to continue current medical management Continue to monitor LFTs, improved Acute viral hepatitis panel negative Ultrasound of the abdomen reviewed with hepatomegaly and fatty infiltration noted but no other acute intra-abdominal process No plans for endoscopic evaluation at this time Okay for discharge from GI standpoint when otherwise medically stable Thank you for allowing us to participate in the care of the patient
[2019-10-27] MEDS: ZOLPIDEM 10 MG TAB PO PRN (22:45)
[2019-10-27 23:29] VITALS: RESP 16
[2019-10-28] MEDS: HEPARIN SODIUM,PORCINE 5,000 UNIT/ML 1 ML VIAL SQ SCH ×2 (00:39→08:04)
[2019-10-28] MEDS: LEVOTHYROXINE 50 MCG TAB PO SCH (06:28)
[2019-10-28] MEDS: PHENAZOPYRIDINE 100 MG TAB PO SCH (08:03)
[2019-10-28 08:59] VITALS: BP 161/83; PULSE 80; TEMP 98.4
[2019-10-28 09:08] LABS: ALT 167 U/L (4-34); AST 42 U/L (14-36); African American GFR (CKD) >90 (>60 ml/min/1.73 sqM); Albumin 3.9 g/dL (3.5-5.0); Alkaline Phosphatase 185 U/L (38-126); Anion Gap 8 mmol/L; Blood Urea Nitrogen 10 mg/dL (7-17); Calcium 9.3 mg/dL (8.4-10.2); Carbon Dioxide 27 mmol/L (22-30); Chloride 101 mmol/L (98-107); Glucose 131 mg/dL (74-99); Non-African American GFR(CKD) >90 (>60 ml/min/1.73 sqM); Potassium 4.4 mmol/L (3.5-5.1); Sodium 136 mmol/L (137-145); Total Bilirubin 0.8 mg/dL (0.2-1.3); Total Protein 6.6 g/dL (6.3-8.2)
--- NOTE | 2019-10-28 10:35 | P.DS ---
Providers Date of admission: 10/25/19 10:56 Expected date of discharge: 10/28/19 Attending physician: Dina Renteria Consults: 10/26/19 07:15 Consult Physician Routine Consulting Provider: Camacho Brewer Consult Reason/Comments: pyelonephritis Do you want consulting provider notified?: Yes Consult Physician Routine Consulting Provider: Satish Arzola Consult Reason/Comments: elevated LFTs Do you want consulting provider notified?: Yes Primary care physician: Dina Renteria Hospital Course: This is a 69 year old female one of my patient with a previous medical history significant for mixed hyperlipidemia, hypothyroidism, and significant spondylosis of the cervical spine, recent history of pancreatitis and anxiety disorder, patient was recently hospitalized at [facility] for severe UTI with sepsis and early Pyelonephritis and was started on Rocephin 1 gr IVPB daily at that time her urine culture was not very impressive and she was sent home on Cipro for 1 week, patient was seen in my office as a follow up and she has been doing better, repeated labs were back to normal, she came to the emergency department yesterday with increasing dysuria and flank pain and she was started on Pyridium and Macrobid , however she ended up feeling worse with low grade temperature, abdominal pain, nausea, vomiting and diarrhea, she thought that she had stomach flu so she came today with increased fever and chills along with nausea and painful urination and had CT scan of the abdomen and pelvis without contrast was negative, she was started on Rocephin and was admitted for further evaluation and treatment. 10/25: Patient denies having any dizziness. She does have a cough. Patient has been afebrile, heart rate 83, blood pressure 139/81, pulse ox 93% on room air. WBC is improved to 12.9, hemoglobin 11.9. Liver function tests remain elevated with total bilirubin 1.7, AST 139, ALT 211, alkaline phosphatase 189. Consult in place with GI. She is eating about 25% of her meals. Supplement has been ordered by dietitian. Patient has been seen by Dr. Esparza with plan for cystoscopy. Urine culture is in progress. Patient is continued on IV antibiotics in the form of ceftriaxone. Repeat blood work for the morning. engine monitor will be discontinued. 10/26: Patient has been seen by GI and plan to continue to monitor LFTs. Acute viral hepatitis panel was negative. Ultrasound of the abdomen revealed hepatomegaly and fatty infiltration. Urine culture is ESBL E. coli and antibiotics will be changed to Invanz. Midline ordered with plan for IV antibiotics at discharge. Patient complains of cough and sinus drainage. Claritin and Robitussin added. Otherwise patient states she is feeling much better today. Discharge plan will be most likely home with home care for IV antibiotics. Patient will most likely be ready for discharge tomorrow. 10/27: Midline was placed yesterday. merchandising manager has made arrangements for IV antibiotics at the [facility]. Patient has been afebrile, heart rate 80, blood pressure 161/83, pulse ox 95% on room air. Repeat blood work reveals sodium 136, creatinine 0.62, blood sugar 131. AST 42, ALT 167, phosphatase 185. Viral hepatitis panel was negative. Patient will be discharged home today in stable condition. Discharge diagnoses: 1. Severe ESBL E. coli UTI with Sepsis and early Pyelonephritis. 2. Leukocytosis due to severe UTI/Pyelonephritis and sepsis. 3. Mild hyponatremia due to hypovolemia. 4. Mixed hyperlipidemia. 5. Hypothyroidism. 6. Insomnia. 7. Generalized anxiety disorder. 8. Spondylosis of the C-Spine. 9. GERD. 10. Elevated LFTs likely related to Fatty liver,. 12. COVID-19 infection not present Discharge plan: Home with IV antibiotics: Invanz for 10 days. Impression and plan of care have been directed as dictated by the signing physician. Julianna Cantrell nurse practitioner acting as scribe for signing physician. Patient Condition at Discharge: Stable Plan - Discharge Summary Discharge Rx Participant: No New Discharge Prescriptions: New Loratadine [Claritin] 10 mg PO DAILY PRN tab PRN Reason: Congestion Ertapenem [INVanz] 1 gm IVPB Q24H #10 vial guaiFENesin SYRUP 100MG/5ML [Robitussin] 200 mg PO Q6H PRN ml PRN Reason: Cough Continue Zolpidem [Ambien] 10 mg PO HS PRN PRN Reason: Insomnia Levothyroxine Sodium [Synthroid] 50 mcg PO DAILY ALPRAZolam [Xanax] 0.5 mg PO TID PRN PRN Reason: Anxiety Simvastatin [Zocor] 20 mg PO HS Escitalopram [Lexapro] 10 mg PO DAILY@1200 Cyclobenzaprine [Flexeril] 10 mg PO TID PRN PRN Reason: Spasms Acetaminophen Tab [Tylenol] 500 - 1,000 mg PO Q6H PRN PRN Reason: Pain Famotidine [Pepcid] 40 mg PO BID PRN PRN Reason: Heartburn diphenhydrAMINE [Benadryl] 25 mg PO HS PRN PRN Reason: Cold Symptoms Psyllium Husk 100% [Metamucil Packet] 6 gm PO HS PRN PRN Reason: Constipation Phenazopyridine [Pyridium] 100 mg PO TID #5 tablet Ondansetron Odt [Zofran ODT] 4 mg PO Q8HR PRN #10 tab PRN Reason: Nausea Naproxen Sodium [Aleve] 220 mg PO DAILY PRN PRN Reason: Pain Discontinued Nitrofurantoin Monohyd/M-Cryst [Macrobid] 100 mg PO Q12HR #20 cap Discharge Medication List Levothyroxine Sodium [Synthroid] 50 mcg PO DAILY 05/19/14 [History] Zolpidem [Ambien] 10 mg PO HS PRN 05/19/14 [History] ALPRAZolam [Xanax] 0.5 mg PO TID PRN 05/26/14 [History] Simvastatin [Zocor] 20 mg PO HS 09/29/17 [History] Cyclobenzaprine [Flexeril] 10 mg PO TID PRN 09/06/19 [History] Escitalopram [Lexapro] 10 mg PO DAILY@1200 09/06/19 [History] Acetaminophen Tab [Tylenol] 500 - 1,000 mg PO Q6H PRN 10/05/19 [History] Famotidine [Pepcid] 40 mg PO BID PRN 10/05/19 [History] Ondansetron Odt [Zofran ODT] 4 mg PO Q8HR PRN #10 tab 10/24/19 [Rx] Phenazopyridine [Pyridium] 100 mg PO TID #5 tablet 10/24/19 [Rx] Psyllium Husk 100% [Metamucil Packet] 6 gm PO HS PRN 10/24/19 [History] diphenhydrAMINE [Benadryl] 25 mg PO HS PRN 10/24/19 [History] Naproxen Sodium [Aleve] 220 mg PO DAILY PRN 10/25/19 [History] Ertapenem [INVanz] 1 gm IVPB Q24H #10 vial 10/27/19 [Rx] Loratadine [Claritin] 10 mg PO DAILY PRN tab 10/27/19 [Rx] guaiFENesin SYRUP 100MG/5ML [Robitussin] 200 mg PO Q6H PRN ml 10/27/19 [Rx] Follow up Appointment(s)/Referral(s): Dina Renteria MD [Primary Care Provider] - 1 Week Gordy Esparza MD [STAFF PHYSICIAN] - 2 Weeks Activity/Diet/Wound Care/Special Instructions: Outpatient IV antibiotics at [facility] located inside [facility]. First appointment on 10/29/2019 at 11:15a.m. Please call [phone] to change appointments or with questions. Enter the hospital through the main lobby and check-in at the main desk. Discharge Disposition: HOME SELF-CARE
[2019-10-28] MEDS: ERTAPENEM 1 GM in SODIUM CHLORIDE 0.9% 50 ML IVPB SCH (10:49)
[2019-10-28] MEDS: ESCITALOPRAM 10 MG TAB PO SCH (11:22)
== END 2019-10-28 11:46 | disposition home or self-care (01) | DRG 872 ==
LOC: EC 09:31 → 4SSUR 10:56
PROVIDERS: ADMIT Internal Medicine; ATTEND Internal Medicine
PROC: 05HF33Z Insertion of Infusion Device into Left Cephalic Vein, Percutaneous Approach (ICD-10-PCS; principal; 2019-10-27 20:15)
DX: A41.51 Sepsis due to Escherichia coli [E. coli] (principal); E87.1 Hypo-osmolality and hyponatremia; N10 Acute pyelonephritis; Z16.19 Resistance to other specified beta lactam antibiotics; Z16.12 Extended spectrum beta lactamase (ESBL) resistance; Z20.828 Contact with and (suspected) exposure to other viral communicable diseases; K76.0 Fatty (change of) liver, not elsewhere classified; M47.812 Spondylosis without myelopathy or radiculopathy, cervical region; E66.9 Obesity, unspecified; F41.1 Generalized anxiety disorder; E78.2 Mixed hyperlipidemia; E03.9 Hypothyroidism, unspecified; K21.9 Gastro-esophageal reflux disease without esophagitis; M19.90 Unspecified osteoarthritis, unspecified site; K57.90 Diverticulosis of intestine, part unspecified, without perforation or abscess without bleeding; G47.00 Insomnia, unspecified; I83.90 Asymptomatic varicose veins of unspecified lower extremity; E86.1 Hypovolemia; R31.0 Gross hematuria; K59.00 Constipation, unspecified; Z68.35 Body mass index [BMI] 35.0-35.9, adult; Z71.3 Dietary counseling and surveillance; I25.2 Old myocardial infarction; Z87.19 Personal history of other diseases of the digestive system; Z87.01 Personal history of pneumonia (recurrent); Z87.440 Personal history of urinary (tract) infections; Z85.828 Personal history of other malignant neoplasm of skin; Z90.710 Acquired absence of both cervix and uterus; Z98.890 Other specified postprocedural states; Z96.652 Presence of left artificial knee joint; Z96.1 Presence of intraocular lens; Z98.42 Cataract extraction status, left eye; Z98.41 Cataract extraction status, right eye; Z79.890 Hormone replacement therapy; Z79.899 Other long term (current) drug therapy; Z88.0 Allergy status to penicillin; Z88.2 Allergy status to sulfonamides; Z82.49 Family history of ischemic heart disease and other diseases of the circulatory system; Z80.0 Family history of malignant neoplasm of digestive organs; Z80.7 Family history of other malignant neoplasms of lymphoid, hematopoietic and related tissues; Z82.5 Family history of asthma and other chronic lower respiratory diseases; Z82.1 Family history of blindness and visual loss; Z82.0 Family history of epilepsy and other diseases of the nervous system
CPT/HCPCS: 36410; 36415; 74176; 76705; 76937; 80053; 80074; 81001; 82248; 85025; 85610; 87040; 87077; 87086; 87186; 96361; 96365; 96375; 99284

== ENCOUNTER 2020-01-08 16:50 | Inpatient (IN) | payer MEDICARE ==
[2020-01-08] MEDS ORDERED: KETOROLAC 15 MG/ML 1 ML VIAL IVP STA (17:10)
[2020-01-08] MEDS ORDERED: SODIUM CHLORIDE 0.9% 1,000 ML IV ONE (17:10)
--- NOTE | 2020-01-08 17:20 | ED ---
General Adult HPI <Tony Shaffer - Last Filed: 01/08/20 19:52> - General Source: patient, RN notes reviewed Mode of arrival: ambulatory Limitations: no limitations <Luis Armando Cerrato - Last Filed: 01/08/20 20:49> - General Chief complaint: Urogenital Stated complaint: bladder infection Time Seen by Provider: 01/08/20 16:58 - History of Present Illness Initial comments: 69-year-old female with a past medical history of pyelonephritis, UTI, GERD, hyperlipidemia present to the emergency room for a chief complaint of dysuria. Patient reports that she has had dysuria for the past 3-4 days as well as s uprapubic pressure. Patient reports that she has been taking [id number] supplements to help but has been unable to clear this by herself. She did contact her doctor today who started her on Macrobid. Patient reports she took her first dose this morning but has felt worse since that time she decided to come into the ER. Patient does have some flank pain. Patient denies any fevers or chills. Denies constitutional symptoms.Patient has no other complaints at this time including shortness of breath, chest pain, nausea or vomiting, headache, or visual changes. (Luis Armando Cerrato) - Related Data Home Medications Medication Instructions Recorded Confirmed Levothyroxine Sodium [Synthroid] 50 mcg PO DAILY 05/19/14 01/08/20 Zolpidem [Ambien] 10 mg PO HS PRN 05/19/14 01/08/20 ALPRAZolam [Xanax] 0.5 mg PO TID PRN 05/26/14 01/08/20 Simvastatin [Zocor] 20 mg PO HS 09/29/17 01/08/20 Escitalopram [Lexapro] 10 mg PO DAILY@1200 09/06/19 01/08/20 Dicyclomine HCl 20 mg PO QID PRN 01/08/20 01/08/20 Estradiol Cream [Estrace Cream 1 gm VAGINAL FR 01/08/20 01/08/20 0.01%] Famotidine 40 mg PO DAILY PRN 01/08/20 01/08/20 Methenamine/Sodium Salicylate 2 tab PO BID PRN 01/08/20 01/08/20 [Cystex Tablet] Nitrofurantoin Monohyd/M-Cryst 100 mg PO ONCE PRN 01/08/20 01/08/20 [Macrobid] Phenazopyridine [Pyridium] 100 mg PO TID PRN 01/08/20 01/08/20 Allergies Allergy/AdvReac Type Severity Reaction Status Date / Time Penicillins Allergy Rash/Hives/ Verified 01/08/20 18:45 Swelling Sulfa (Sulfonamide Allergy Rash/Hives Verified 01/08/20 18:45 Antibiotics) Review of Systems ROS Other: All systems not noted in ROS Statement are negative. <Tony Shaffer - Last Filed: 01/08/20 19:52> ROS Other: All systems not noted in ROS Statement are negative. <Luis Armando Cerrato - Last Filed: 01/08/20 20:49> ROS Statement: Those systems with pertinent positive or pertinent negative responses have been documented in the HPI. Past Medical History Past Medical History: Cancer, Chest Pain / Angina, GERD/Reflux, Hyperlipidemia, Osteoarthritis (OA), Pneumonia, Thyroid Disorder, Vascular Disorder Additional Past Medical History / Comment(s): Pt recently admitted to [facility] on 10/05/19 with early polynephritis, severe UTI with sepsis which she states she fully recovered from then last week pt states she had the flu and then urinary tract infection symptoms returned. Other hx: UTIs, skin cancer nose and R cheek, diverticular disease, pancreatitis, elevated liver function tests, irregular heart beat in the past, spondylosis cervical spine/neck pain, low back pain, varicosities bilateral legs, insomnia Last Myocardial Infarction Date:: unknown History of Any Multi-Drug Resistant Organisms: ESBL Date of last positivie culture/infection: 10/25/19 MDRO Source:: ESBL URINE Past Surgical History: Adenoidectomy, Heart Catheterization, Hysterectomy, Joint Replacement, Orthopedic Surgery, Tonsillectomy Additional Past Surgical History / Comment(s): Total L knee arthroplasty, R foot bunionectomy, R carpal tunnel release, R middle finger cyst removed/spur removed, R foot surgery with screws in place, colonoscopies, skin cancer removals, bilateral cataract removals/lens implants. Past Anesthesia/Blood Transfusion Reactions: No Reported Reaction Additional Past Anesthesia/Blood Transfusion Reaction / Comment(s): no hx blood transfusion Past Psychological History: Anxiety Smoking Status: Never smoker Past Alcohol Use History: None Reported Past Drug Use History: None Reported - Past Family History Sister(s) Family Medical History: Cancer Additional Family Medical History / Comment(s): Patient had total of 4 sisters. One from a form of lymphoma. Mr. sisters are alive. One has COPD. One is blind and deaf since 18 months old from strep meningitis. Third sister is also blind from aniridia and glaucoma. Brother(s) Family Medical History: Cancer Additional Family Medical History / Comment(s): Patient has a total of 4 brothers. One from myocardial infarction and one from pancreatic cancer. 2 living brothers have no major medical problems. Father Family Medical History: Myocardial Infarction (AK) Additional Family Medical History / Comment(s): Father at age 79 from AK, he was residing in [facility] at the time. Mother Family Medical History: Seizure Disorder Additional Family Medical History / Comment(s): Mother at age 78 from either AK or seizure. She had history of COPD, Oxygen dependent, seizure dis order. <Luis Armando Cerrato - Last Filed: 01/08/20 20:49> General Exam Limitations: no limitations General appearance: alert, in no apparent distress Head exam: Present: atraumatic, normocephalic, normal inspection Eye exam: Present: normal appearance, PERRL, EOMI. Absent: scleral icterus, conjunctival injection, periorbital swelling ENT exam: Present: normal exam, mucous membranes moist Neck exam: Present: normal inspection, full ROM. Absent: tenderness, meningismus, lymphadenopathy Respiratory exam: Present: normal lung sounds bilaterally. Absent: respiratory distress, wheezes, rales, rhonchi, stridor Cardiovascular Exam: Present: regular rate, normal rhythm, normal heart sounds. Absent: systolic murmur, diastolic murmur, rubs, gallop, clicks GI/Abdominal exam: Present: soft, normal bowel sounds. Absent: distended, tend erness, guarding, rebound, rigid Back exam: Absent: CVA tenderness (R), CVA tenderness (L) Neurological exam: Present: alert <Luis Armando Cerrato - Last Filed: 01/08/20 20:49> Course <Tony Shaffer - Last Filed: 01/08/20 19:52> Vital Signs 01/08/20 01/08/20 01/08/20 16:53 17:55 18:00 Temperature 99.5 F Pulse Rate 98 75 Respiratory 18 18 18 Rate Blood Pressure 158/86 150/75 O2 Sat by Pulse 99 95 95 Oximetry 01/08/20 19:00 Temperature Pulse Rate 75 Respiratory 18 Rate Blood Pressure 142/72 O2 Sat by Pulse 95 Oximetry - Reevaluation(s) Reevaluation #1: 01/08/20 19:52 PA supervision: I proceeded [id number] evaluation the patient. Patient did present with complaints of hematuria this morning and feeling as if she had urgency. She has had bilateral flank pain. She does have CVA tenderness on my examination. The workup is consistent with a urinary tract infection. I did discuss the case with the patient her and Dr. Renteria. Patient be admitted for IV antibiotics initial choices at of Rocephin which she has tolerated in the past. (Tony Shaffer) Medical Decision Making - Lab Data Result diagrams: 01/08/20 18:00 01/08/20 18:36 <Tony Shaffer - Last Filed: 01/08/20 19:52> - Lab Data Result diagrams: 01/08/20 18:00 01/08/20 18:36 <Luis Armando Cerrato - Last Filed: 01/08/20 20:49> - Medical Decision Making Vitals are stable. Patient is afebrile. CBC does show leukocytosis with a left shift. CMP unremarkable. There is mild transaminitis which is chronic. Urinalysis does show evidence of infection. Culture pending. Patient does have CVA tenderness with evidence of pyelonephritis. Previous cultures do show evidence of ESBL. Therefore we discussed with Dr. Renteria who does recommend admission. Patient has a penicillin ALLERGY. Dr. Renteria requesting Rocephin which patient has had before without reaction. (Luis Armando Cerrato) - Lab Data Lab Results 01/08/20 01/08/20 01/08/20 Range/Units 17:33 18:00 18:00 WBC 14.8 H (3.8-10.6) k/uL RBC 5.24 (3.80-5.40) m/uL Hgb 13.4 (11.4-16.0) gm/dL Hct 43.6 (34.0-46.0) % MCV 83.2 (80.0-100.0) fL MCH 25.6 (25.0-35.0) pg MCHC 30.7 L (31.0-37.0) g/dL RDW 15.0 (11.5-15.5) % Plt Count 242 (150-450) k/uL Neutrophils % 91 % Lymphocytes % 5 % Monocytes % 3 % Eosinophils % 1 % Basophils % 0 % Neutrophils # 13.5 H (1.3-7.7) k/uL Lymphocytes # 0.7 L (1.0-4.8) k/uL Monocytes # 0.5 (0-1.0) k/uL Eosinophils # 0.1 (0-0.7) k/uL Basophils # 0.0 (0-0.2) k/uL Sodium (137-145) mmol/L Potassium (3.5-5.1) mmol/L Chloride (98-107) mmol/L Carbon Dioxide (22-30) mmol/L Anion Gap mmol/L BUN (7-17) mg/dL Creatinine (0.52-1.04) mg/dL Est GFR (CKD-EPI)AfAm (>60 ml/min/1.73 sqM) Est GFR (CKD-EPI)NonAf (>60 ml/min/1.73 sqM) Glucose (74-99) mg/dL Plasma Lactic Acid Rip 1.2 (0.7-2.0) mmol/L Calcium (8.4-10.2) mg/dL Total Bilirubin (0.2-1.3) mg/dL AST (14-36) U/L ALT (4-34) U/L Alkaline Phosphatase (38-126) U/L Total Protein (6.3-8.2) g/dL Albumin (3.5-5.0) g/dL Urine Color Dark Yellow Urine Appearance Clear (Clear) Urine pH 6.5 (5.0-8.0) Ur Specific [place] 1.011 (1.001-1.035) Urine Protein Negative (Negative) Urine Glucose (UA) Negative (Negative) Urine Ketones Negative (Negative) Urine Blood Negative (Negative) Urine Nitrite Positive H (Negative) Urine Bilirubin Negative (Negative) Urine Urobilinogen <2.0 (<2.0) mg/dL Ur Leukocyte Esterase Moderate H (Negative) Urine RBC 5 (0-5) /hpf Urine WBC 18 H (0-5) /hpf Ur Squamous Epith Cells 1 (0-4) /hpf Urine Bacteria Rare H (None) /hpf Urine Mucus Rare H (None) /hpf 01/08/20 Range/Units 18:36 WBC (3.8-10.6) k/uL RBC (3.80-5.40) m/uL Hgb (11.4-16.0) gm/dL Hct (34.0-46.0) % MCV (80.0-100.0) fL MCH (25.0-35.0) pg MCHC (31.0-37.0) g/dL RDW (11.5-15.5) % Plt Count (150-450) k/uL Neutrophils % % Lymphocytes % % Monocytes % % Eosinophils % % Basophils % % Neutrophils # (1.3-7.7) k/uL Lymphocytes # (1.0-4.8) k/uL Monocytes # (0-1.0) k/uL Eosinophils # (0-0.7) k/uL Basophils # (0-0.2) k/uL Sodium 136 L (137-145) mmol/L Potassium 3.8 (3.5-5.1) mmol/L Chloride 105 (98-107) mmol/L Carbon Dioxide 25 (22-30) mmol/L Anion Gap 6 mmol/L BUN 15 (7-17) mg/dL Creatinine 0.63 (0.52-1.04) mg/dL Est GFR (CKD-EPI)AfAm >90 (>60 ml/min/1.73 sqM) Est GFR (CKD-EPI)NonAf >90 (>60 ml/min/1.73 sqM) Glucose 104 H (74-99) mg/dL Plasma Lactic Acid Rip (0.7-2.0) mmol/L Calcium 8.8 (8.4-10.2) mg/dL Total Bilirubin 0.8 (0.2-1.3) mg/dL AST 61 H (14-36) U/L ALT 50 H (4-34) U/L Alkaline Phosphatase 135 H (38-126) U/L Total Protein 6.5 (6.3-8.2) g/dL Albumin 3.7 (3.5-5.0) g/dL Urine Color Urine Appearance (Clear) Urine pH (5.0-8.0) Ur Specific [place] (1.001-1.035) Urine Protein (Negative) Urine Glucose (UA) (Negative) Urine Ketones (Negative) Urine Blood (Negative) Urine Nitrite (Negative) Urine Bilirubin (Negative) Urine Urobilinogen (<2.0) mg/dL Ur Leukocyte Esterase (Negative) Urine RBC (0-5) /hpf Urine WBC (0-5) /hpf Ur Squamous Epith Cells (0-4) /hpf Urine Bacteria (None) /hpf Urine Mucus (None) /hpf Disposition <Tony Shaffer - Last Filed: 01/08/20 19:52> Is patient prescribed a controlled substance at d/c from ED?: No Time of Disposition: 19:47 <Luis Armando Cerrato - Last Filed: 01/08/20 20:49> Clinical Impression: Pyelonephritis, Leukocytosis Disposition: ADMITTED IP TO THIS HOSP Condition: Fair Referrals: Dina Renteria MD [Primary Care Provider] - 1-2 days
[2020-01-08 18:15] LABS: Appearance,Urine Clear (Clear); Bacteria,Urine Rare /hpf; Bilirubin,Urine Negative (Negative); Blood,Urine Negative (Negative); Color,Urine Dark Yellow; Glucose,Urine (UA) Negative (Negative); Ketones,Urine Negative (Negative); Leukocyte Esterase,Urine Moderate (Negative); Mucus,Urine Rare /hpf; Nitrite,Urine Positive (Negative); PH, Urine 6.5 (5.0-8.0); Protein,Urine Negative (Negative); RBC,Urine 5 /hpf (0-5); Specific Gravity,Urine 1.011 (1.001-1.035); Squamous Epithelial Cell,Urine 1 /hpf (0-4); Urobilinogen,Urine <2.0 mg/dL (<2.0); WBC,Urine 18 /hpf (0-5)
[2020-01-08 18:32] LABS: Basophils % (A) 0 %; Eosinophils # (A) 0.1 k/uL (0-0.7); Eosinophils % (A) 1 %; HCT 43.6 % (34.0-46.0); HGB 13.4 gm/dL (11.4-16.0); Lymphocytes # (A) 0.7 k/uL (1.0-4.8); Lymphocytes % (A) 5 %; MCH 25.6 pg (25.0-35.0); MCHC 30.7 g/dL (31.0-37.0); MCV 83.2 fL (80.0-100.0); Mean Platelet Volume 9.4; Monocytes # (A) 0.5 k/uL (0-1.0); Monocytes % (A) 3 %; Neutrophils # (A) 13.5 k/uL (1.3-7.7); Neutrophils % (A) 91 %; Platelet Count 242 k/uL (150-450); RBC 5.24 m/uL (3.80-5.40); WBC 14.8 k/uL (3.8-10.6)
--- NOTE | 2020-01-08 18:44 | CT ---
EXAMINATION TYPE: CT abdomen pelvis wo con DATE OF EXAM: 01/08/2020 COMPARISON: 10/25/2019 HISTORY: abdominal pain, recent bladder infection CT DLP: 842.7 mGycm Automated exposure control for dose reduction was used. Images were obtained from the diaphragm to the floor the pelvis without contrast. Lung bases are clear. There is no pleural effusion. There is no pericardial effusion. Liver spleen pancreas stomach gallbladder appear normal. Bile ducts are nondilated. There is no adrenal mass. Kidneys show normal size and contour. There is no hydronephrosis. Ureters a re not dilated. There is small air bubble in the urinary bladder that could relate to catheterization . Bladder distends smoothly. There is no inguinal hernia. There are numerous phleboliths in the pelvi s. There are numerous sigmoid diverticula. Appendix is posterior and appears normal. There is no sign of diverticulitis. There is no mesenteric edema. There is no ascites or free air. There is no bowel obstruction. There i s lipoma of the left iliopsoas muscle. There is hysterectomy. Lumbar vertebra have normal alignment. There is no compression fracture. Bony pelvis is intact. IMPRESSION: There is colonic diverticulosis predominantly in the sigmoid colon without sign of diverticulitis. No rmal appendix. No adverse change compared to old exam.
[2020-01-08 19:09] LABS: ALT 50 U/L (4-34); AST 61 U/L (14-36); African American GFR (CKD) >90 (>60 ml/min/1.73 sqM); Albumin 3.7 g/dL (3.5-5.0); Alkaline Phosphatase 135 U/L (38-126); Anion Gap 6 mmol/L; Blood Urea Nitrogen 15 mg/dL (7-17); Calcium 8.8 mg/dL (8.4-10.2); Carbon Dioxide 25 mmol/L (22-30); Chloride 105 mmol/L (98-107); Glucose 104 mg/dL (74-99); Non-African American GFR(CKD) >90 (>60 ml/min/1.73 sqM); Potassium 3.8 mmol/L (3.5-5.1); Sodium 136 mmol/L (137-145); Total Bilirubin 0.8 mg/dL (0.2-1.3); Total Protein 6.5 g/dL (6.3-8.2)
[2020-01-08] MEDS ORDERED: NALOXONE 0.4 MG/ML 1 ML VIAL IV PRN (19:45)
[2020-01-08] MEDS ORDERED: cefTRIAXone IN SWFI 1,000 MG/10 ML SYRINGE IVP STA (19:51)
[2020-01-08] MEDS ORDERED: ALPRAZolam 0.5 MG TAB PO PRN (20:46)
[2020-01-08] MEDS ORDERED: PHENAZOPYRIDINE 100 MG TAB PO PRN (20:46)
[2020-01-08] MEDS ORDERED: FAMOTIDINE 20 MG TAB PO PRN (20:46)
[2020-01-08] MEDS ORDERED: DICYCLOMINE 20 MG TAB PO PRN (20:46)
[2020-01-08] MEDS: SODIUM CHLORIDE 0.9% 1,000 ML IV SCH (21:01)
[2020-01-08] MEDS: KETOROLAC 15 MG/ML 1 ML VIAL IVP PRN (21:02)
[2020-01-08] MEDS: ATORVASTATIN 10 MG TAB PO SCH (21:56)
[2020-01-08] MEDS: HYDROmorphone 0.5 MG/0.5 ML SYRINGE IVP PRN (21:56)
[2020-01-08] MEDS: ZOLPIDEM 10 MG TAB PO PRN (21:56)
[2020-01-09] MEDS: HYDROmorphone 0.5 MG/0.5 ML SYRINGE IVP PRN ×2 (03:54→07:40)
[2020-01-09] MEDS: ONDANSETRON 4 MG/2 ML VIAL IVP PRN ×2 (03:54→12:45)
[2020-01-09] MEDS: KETOROLAC 15 MG/ML 1 ML VIAL IVP PRN (06:33)
[2020-01-09] MEDS: SODIUM CHLORIDE 0.9% 1,000 ML IV SCH ×2 (06:34→14:04)
[2020-01-09] MEDS: LEVOTHYROXINE 50 MCG TAB PO SCH (06:34)
--- NOTE | 2020-01-09 10:00 | P.HPIM ---
History of Present Illness H&P Date: 01/09/20 Chief Complaint: UTI with hematuria. This is a 69 year old female one of my patient with a previous medical history significant for mixed hyperlipidemia, hypothyroidism, and significant spondylosis of the cervical spine, recent history of pancreatitis and anxiety chon garcia, patient was recently hospitalized at [facility] for severe UTI with sepsis and early Pyelonephritis back in 10/25/2019 at that time she was in consultation by urology and developed to have a significant E. coli UTI that was ESBL, and she was switched to IV Invanz 1 g IV piggyback every 24 hours, and she went home with the midline to finish ten-day course of that, patient was seen as an outpatient by urology underwent cystoscopy did not show any evidence of acute of normalities, patient had called yesterday and she stated that she has been having increased abdominal pressure associated with hematuria despite taken Cystex over the last month or so, she has been drinking enough water, she was started on Macrobid 100 mg orally twice every day as well as titanium 100 mg orally 3 times every day however the pain got to bed to the degree that she ended up going to the emergency department at [facility] last night and she was found to have a significant leukocytosis with a white count almost 15,000, she also did have a temperature with the tachycardia and she met the criteria for SIRS, she was started on IV antibiotic in the form of Rocephin urine culture and blood culture were obtained as well as she was placed on IV fluid resuscitation and she was admitted to the hospital for evaluation. Review of Systems Constitutional: Reports fatigue, Reports weakness, Denies anorexia, Denies chronic headaches, Denies malaise Eyes: denies blurred vision, denies bulging eye, denies decreased vision Ears, nose, mouth and throat: Denies dysphagia, Denies neck lump, Denies sore throat, Denies vertigo Cardiovascular: Denies chest pain, Denies decreased exercise tolerance, Denies dyspnea on exertion, Denies lightheadedness, Denies rapid heart beat, Denies shortness of breath, Denies syncope Respiratory: Denies congestion, Denies cough with sputum, Denies hemoptysis, Denies home oxygen, Denies respiratory infections, Denies sleep apnea, Denies snoring, Denies wheezing Gastrointestinal: Reports abdominal pain, Denies change in bowel habits, Denies excessive gas, Denies heartburn, Denies loss of appetite, Denies melena, Denies nausea, Denies vomiting Genitourinary: Reports dysuria, Reports flank pain, Reports hematuria, Reports nocturia, Reports vaginal dryness Menstruation: Reports postmenopausal Musculoskeletal: Denies myalgias Musculoskeletal: absent: ankle pain, ankle stiffness, ankle swelling, elbow pain, elbow stiffness, elbow swelling, foot pain, foot stiffness, foot swelling, hand pain, hand stiffness, hand swelling, hip pain, hip stiffness, hip swelling, knee pain, knee stiffness, knee swelling, shoulder pain, shoulder stiffness, shoulder swelling, wrist pain, wrist stiffness, wrist swelling Integumentary: Denies pruritus, Denies rash Neurological: Denies numbness, Denies weakness Psychiatric: Reports anxiety, Reports depression, Denies sadness/tearfulness, Denies sleep disturbances, Denies suicidal ideation Endocrine: Denies fatigue, Denies weight change Past Medical History Past Medical History: Cancer, Chest Pain / Angina, GERD/Reflux, Hyperlipidemia, Osteoarthritis (OA), Pneumonia, Thyroid Disorder, Vascular Disorder Additional Past Medical History / Comment(s): Pt recently admitted to [facility] on 10/05/19 with early polynephritis, severe UTI with sepsis which she states she fully recovered from then last week pt states she had the flu and then urinary tract infection symptoms returned. Other hx: UTIs, skin cancer nose and R cheek, diverticular disease, pancreatitis, elevated liver function tests, irregular heart beat in the past, spondylosis cervical spine/neck pain, low back pain, varicosities bilateral legs, insomnia Last Myocardial Infarction Date:: unknown History of Any Multi-Drug Resistant Organisms: ESBL Date of last positivie culture/infection: 10/25/19 MDRO Source:: ESBL URINE Past Surgical History: Adenoidectomy, Heart Catheterization, Hysterectomy, Joint Replacement, Orthopedic Surgery, Tonsillectomy Additional Past Surgical History / Comment(s): Total L knee arthroplasty, R foot bunionectomy, R carpal tunnel release, R middle finger cyst removed/spur removed, R foot surgery with screws in place, colonoscopies, skin cancer removals, bilateral cataract removals/lens implants. Past Anesthesia/Blood Transfusion Reactions: No Reported Reaction Additional Past Anesthesia/Blood Transfusion Reaction / Comment(s): no hx blood transfusion Past Psychological History: Anxiety Additional Psychological History / Comment(s): Pt resides with her spouse. She is independent. Smoking Status: Never smoker Past Alcohol Use History: None Reported Past Drug Use History: None Reported - Past Family History Sister(s) Family Medical History: Cancer Additional Family Medical History / Comment(s): Patient had total of 4 sisters. One from a form of lymphoma. Mr. sisters are alive. One has COPD. One is blind and deaf since 18 months old from strep meningitis. Third sister is also blind from aniridia and glaucoma. Brother(s) Family Medical History: Cancer Additional Family Medical History / Comment(s): Patient has a total of 4 brothers. One from myocardial infarction and one from pancreatic cancer. 2 living brothers have no major medical problems. Father Family Medical History: Myocardial Infarction (PA) Additional Family Medical History / Comment(s): Father at age 79 from PA, he was residing in [facility] at the time. Mother Family Medical History: Seizure Disorder Additional Family Medical History / Comment(s): Mother at age 78 from either PA or seizure. She had history of COPD, Oxygen dependent, seizure disorder. Medications and Allergies Home Medications Medication Instructions Recorded Confirmed Type Levothyroxine Sodium [Synthroid] 50 mcg PO DAILY 05/19/14 01/08/20 History Zolpidem [Ambien] 10 mg PO HS PRN 05/19/14 01/08/20 History ALPRAZolam [Xanax] 0.5 mg PO TID PRN 05/26/14 01/08/20 History Simvastatin [Zocor] 20 mg PO HS 09/29/17 01/08/20 History Escitalopram [Lexapro] 10 mg PO DAILY@1200 09/06/19 01/08/20 History Dicyclomine HCl 20 mg PO QID PRN 01/08/20 01/08/20 History Estradiol Cream [Estrace Cream 1 gm VAGINAL FR 01/08/20 01/08/20 History 0.01%] Famotidine 40 mg PO DAILY PRN 01/08/20 01/08/20 History Methenamine/Sodium Salicylate 2 tab PO BID PRN 01/08/20 01/08/20 History [Cystex Tablet] Nitrofurantoin Monohyd/M-Cryst 100 mg PO ONCE PRN 01/08/20 01/08/20 History [Macrobid] Phenazopyridine [Pyridium] 100 mg PO TID PRN 01/08/20 01/08/20 History Allergies Allergy/AdvReac Type Severity Reaction Status Date / Time Penicillins Allergy Rash/Hives/ Verified 01/08/20 18:45 Swelling Sulfa (Sulfonamide Allergy Rash/Hives Verified 01/08/20 18:45 Antibiotics) Physical Exam Vitals: Vital Signs Temp Pulse Pulse Resp BP BP Pulse Ox 01/09/20 07:46 98.8 F 103 H 14 130/62 95 01/09/20 03:00 98.6 F 102 H 17 131/60 96 01/08/20 22:15 100 F H 98 16 140/71 95 01/08/20 21:17 98.9 F 95 22 175/82 96 01/08/20 20:00 75 19 148/73 96 01/08/20 19:00 75 18 142/72 95 01/08/20 18:00 18 95 01/08/20 17:55 75 18 150/75 95 01/08/20 16:53 99.5 F 98 18 158/86 99 Intake and Output 01/08/20 01/09/20 01/09/20 22:59 06:59 14:59 Intake Total 500 Balance 500 Intake: Intake, IV Titration 500 Amount Sodium Chloride 0.9% 1, 500 000 ml @ 100 mls/hr IV . Q10H [facility] Rx#:[id number] Other: Voiding Method Toilet Toilet Toilet # Voids 1 1 1 Weight 87.09 kg Physical examination: HEENT: head is atraumatic normocehalic pupils were equal round reactive to light and accommodations extra ocular muscle movements were intact. Neck: supple no JVP or lymphadenopathy. Chest: clear to auscultation bilaterally there is no crackles or wheezes, no chest wall tenderness or intercostal retraction. Heart: first heart sound is depressed , second heart sound is normal there is no gallop or murmur. Abdomen: soft non tender non distended positive bowel sounds. Extremities: there is no edema no cherri tenderness DP + 2 bilaterally. Neurologic examination: patient is awake alert and oriented X3 CN II-XI are grossly intact, Muscle power 5/5 in upper and lower extremities bilaterally, Deep tendon reflexes were normal. Results CBC & Chem 7: 01/08/20 18:00 01/08/20 18:36 Labs: Abnormal Lab Results - Last 24 Hours (Table) 01/08/20 01/08/20 01/08/20 Range/Units 17:33 18:00 18:36 WBC 14.8 H (3.8-10.6) k/uL MCHC 30.7 L (31.0-37.0) g/dL Neutrophils # 13.5 H (1.3-7.7) k/uL Lymphocytes # 0.7 L (1.0-4.8) k/uL Sodium 136 L (137-145) mmol/L Glucose 104 H (74-99) mg/dL AST 61 H (14-36) U/L ALT 50 H (4-34) U/L Alkaline Phosphatase 135 H (38-126) U/L Urine Nitrite Positive H (Negative) Ur Leukocyte Esterase Moderate H (Negative) Urine WBC 18 H (0-5) /hpf Urine Bacteria Rare H (None) /hpf Urine Mucus Rare H (None) /hpf Microbiology - Last 24 Hours (Table) 01/08/20 17:33 Urine Culture - Preliminary Urine,Voided Thrombosis Risk Factor Assmnt - Choose All That Apply Each Factor Represents 1 point: Obesity (BMI >25) Each Risk Factor Represents 2 Points: Age 61-74 years Other congenital or acquired thrombophilia - If yes, enter type in comment: No Thrombosis Risk Factor Assessment Total Risk Factor Score: 3 Thrombosis Risk Factor Assessment Level: Moderate Risk Assessment and Plan Assessment: Assessment and plan: 1. Severe UTI with SIRS and early Pyelonephritis. we will continue with IVF normal saline at 100 ml/h, we will continue with IV Rocephin 2 gr IVPB daily, we will get blood culture as well as urine culture which still pending.. . 2. Leukocytosis due to severe UTI/Pyelonephritis and sepsis. we will continue with IVF, Rocephin 2 g IV piggyback every 24 hours. 3. Mild hyponatremia due to hypovolemia. we will continue withNormal saline at 100 ml/h, repeat CMP in 24 hours. 4. Mixed hyperlipidemia. we will continue with Lipitor 10 mg orally at bedtime. 5. Hypothyroidism. we will continue with Synthroid 50 mcg orally daily. 6. Insomnia. we will continue with Zolpidem 10 mg orally at bedtime as needed. 7. Anxiety. we will continue with Lexapro 10 mg orally daily and Xanax 0.5 mg orally three times daily as needed. 8. Spondylosis of the C-Spine. we will continue with Baclofen 10 mg orally bid. 9. GERD. we will continue with Protonix 40 mg once every day.. 10. DVT prophylaxis. we will continue with Heparin 5000 units SC q 8 hours. 11. Elevated LFTs likely related to Fatty liver as well as sepsis we will repeat CMP in the next 24 hours 12. Admits to inpatient, estimated length of stay 2 midnights. 13. Full code.
[2020-01-09] MEDS ORDERED: ACETAMINOPHEN TAB 325 MG TAB PO PRN (12:49)
[2020-01-09] MEDS: HEPARIN SODIUM,PORCINE 5,000 UNIT/ML 1 ML VIAL SQ SCH ×2 (14:04→23:47)
[2020-01-09] MEDS: ATORVASTATIN 10 MG TAB PO SCH (20:55)
[2020-01-09] MEDS: ZOLPIDEM 10 MG TAB PO PRN (23:15)
[2020-01-10] MEDS: LEVOTHYROXINE 50 MCG TAB PO SCH (05:27)
[2020-01-10 06:35] VITALS: PULSE 87
[2020-01-10] MEDS: SODIUM CHLORIDE 0.9% 1,000 ML IV SCH (06:39)
[2020-01-10] MEDS ORDERED: PANTOPRAZOLE 40 MG TABLET PO SCH (07:30)
[2020-01-10 07:58] LABS: Basophils % (A) 0 %; Eosinophils # (A) 0.2 k/uL (0-0.7); Eosinophils % (A) 3 %; HCT 40.9 % (34.0-46.0); HGB 12.7 gm/dL (11.4-16.0); Hypochromasia Slight; Lymphocytes # (A) 1.2 k/uL (1.0-4.8); Lymphocytes % (A) 13 %; MCH 26.4 pg (25.0-35.0); MCHC 31.1 g/dL (31.0-37.0); MCV 84.7 fL (80.0-100.0); Mean Platelet Volume 7.8; Monocytes # (A) 0.4 k/uL (0-1.0); Monocytes % (A) 4 %; Neutrophils # (A) 7.3 k/uL (1.3-7.7); Neutrophils % (A) 79 %; Platelet Count 220 k/uL (150-450); RBC 4.83 m/uL (3.80-5.40); RDW 15.1 % (11.5-15.5); WBC 9.2 k/uL (3.8-10.6)
[2020-01-10 08:16] LABS: ALT 140 U/L (4-34); AST 107 U/L (14-36); African American GFR (CKD) >90 (>60 ml/min/1.73 sqM); Albumin 3.7 g/dL (3.5-5.0); Alkaline Phosphatase 147 U/L (38-126); Anion Gap 5 mmol/L; Blood Urea Nitrogen 9 mg/dL (7-17); Calcium 8.8 mg/dL (8.4-10.2); Carbon Dioxide 24 mmol/L (22-30); Chloride 110 mmol/L (98-107); Glucose 100 mg/dL (74-99); Non-African American GFR(CKD) 88 (>60 ml/min/1.73 sqM); Potassium 4.1 mmol/L (3.5-5.1); Sodium 139 mmol/L (137-145); Total Bilirubin 1.3 mg/dL (0.2-1.3); Total Protein 6.5 g/dL (6.3-8.2)
[2020-01-10] MEDS: HEPARIN SODIUM,PORCINE 5,000 UNIT/ML 1 ML VIAL SQ SCH (08:38)
[2020-01-10 08:49] VITALS: BP 142/82; RESP 16; TEMP 98.1
--- NOTE | 2020-01-10 10:38 | P.DS ---
Providers Date of admission: 01/09/20 10:43 Expected date of discharge: 01/10/20 Attending physician: Dina Renteria Primary care physician: Dina Renteria [facility] Course: This is a 69 year old female one of my patient with a previous medical history significant for mixed hyperlipidemia, hypothyroidism, and significant spondylosis of the cervical spine, recent history of pancreatitis and anxiety disorder, patient was recently hospitalized at [facility] for severe UTI with sepsis and early Pyelonephritis back in 10/25/2019 at that time she was in consultation by urology and developed to have a significant E. coli UTI that was ESBL, and she was switched to IV Invanz 1 g IV piggyback every 24 hours, and she went home with the midline to finish ten-day course of that, patient was seen as an outpatient by urology underwent cystoscopy did not show any evidence of acute of normalities, patient had called yesterday and she stated that she has been having increased abdominal pressure associated with hematuria despite taken Cystex over the last month or so, she has been drinking enough water, she was started on Macrobid 100 mg orally twice every day as well as titanium 100 mg orally 3 times every day however the pain got to bed to the degree that she ended up going to the emergency department at [facility] last night and she was found to have a significant leukocytosis with a white count almost 15,000, she also did have a temperature with the tachycardia and she met the criteria for SIRS, she was started on IV antibiotic in the form of Rocephin urine culture and blood culture were obtained as well as she was placed on IV fluid resuscitation and she was admitted to the hospital for evaluation. 01/09: Patient has been afebrile, heart rate 82, blood pressure 142/82, pulse ox 90% on room air. Leukocytosis has resolved with WBC 9.2, hemoglobin is 12.7, platelet count 220. Electrolytes renal function are unremarkable. Total bilirubin 1.3, AST 107, ALT 140, and phosphatase 147. Urine culture has been finalized with no growth after 18 hours. Blood culture is no growth after 24 hours. Patient denies any new complaints, no issues overnight. Patient has been instructed to complete course of Macrodantin at home. Patient will be discharged home today in stable condition. Discharge diagnoses: 1. Severe UTI with SIRS and early Pyelonephritis, failed outpatient treatment. 2. Leukocytosis due to severe UTI/Pyelonephritis and sepsis. 3. Mild hyponatremia due to hypovolemia. 4. Mixed hyperlipidemia. 5. Hypothyroidism. 6. Insomnia. 7. Generalized anxiety disorder 8. Spondylosis of the C-Spine. 9. GERD. 10. Elevated LFTs likely related to Fatty liver as well as sepsis Discharge plan: Home Impression and plan of care have been directed as dictated by the signing physician. Julianna Cantrell nurse practitioner acting as scribe for signing physician. Patient Condition at Discharge: Good Plan - Discharge Summary Discharge Rx Participant: No New Discharge Prescriptions: Continue Zolpidem [Ambien] 10 mg PO HS PRN PRN Reason: Insomnia Levothyroxine Sodium [Synthroid] 50 mcg PO DAILY ALPRAZolam [Xanax] 0.5 mg PO TID PRN PRN Reason: Anxiety Simvastatin [Zocor] 20 mg PO HS Escitalopram [Lexapro] 10 mg PO DAILY@1200 Phenazopyridine [Pyridium] 100 mg PO TID PRN PRN Reason: Pain Nitrofurantoin Monohyd/M-Cryst [Macrobid] 100 mg PO ONCE PRN PRN Reason: uti Methenamine/Sodium Salicylate [Cystex Plus Tablet] 2 tab PO BID PRN PRN Reason: uti Estradiol Cream [Estrace Cream 0.01%] 1 gm VAGINAL FR Dicyclomine HCl 20 mg PO QID PRN PRN Reason: Gi Upset Famotidine 40 mg PO DAILY PRN PRN Reason: Heartburn Discharge Medication List Levothyroxine Sodium [Synthroid] 50 mcg PO DAILY 05/19/14 [History] Zolpidem [Ambien] 10 mg PO HS PRN 05/19/14 [History] ALPRAZolam [Xanax] 0.5 mg PO TID PRN 05/26/14 [History] Simvastatin [Zocor] 20 mg PO HS 09/29/17 [History] Escitalopram [Lexapro] 10 mg PO DAILY@1200 09/06/19 [History] Dicyclomine HCl 20 mg PO QID PRN 01/08/20 [History] Estradiol Cream [Estrace Cream 0.01%] 1 gm VAGINAL FR 01/08/20 [History] Famotidine 40 mg PO DAILY PRN 01/08/20 [History] Methenamine/Sodium Salicylate [Cystex Plus Tablet] 2 tab PO BID PRN 01/08/20 [History] Nitrofurantoin Monohyd/M-Cryst [Macrobid] 100 mg PO ONCE PRN 01/08/20 [History] Phenazopyridine [Pyridium] 100 mg PO TID PRN 01/08/20 [History] Follow up Appointment(s)/Referral(s): Dina Renteria MD [Primary Care Provider] - 1-2 days
[2020-01-14] MEDS ORDERED: ESTRADIOL 0.1 MG/GM VAGINAL CREAM 42.5 GM TUBE VAGINAL SCH (09:00)
== END 2020-01-10 11:04 | disposition home or self-care (01) | DRG 872 ==
LOC: EC 16:50 → 1SOBS 19:51 → OBSVTOIN 01-09 10:43
PROVIDERS: ADMIT Internal Medicine; ATTEND Internal Medicine
DX: A41.9 Sepsis, unspecified organism (principal); E87.1 Hypo-osmolality and hyponatremia; N10 Acute pyelonephritis; E03.9 Hypothyroidism, unspecified; E78.2 Mixed hyperlipidemia; Z96.652 Presence of left artificial knee joint; Z96.1 Presence of intraocular lens; K21.9 Gastro-esophageal reflux disease without esophagitis; G47.00 Insomnia, unspecified; F41.1 Generalized anxiety disorder; M19.90 Unspecified osteoarthritis, unspecified site; E86.1 Hypovolemia; M47.812 Spondylosis without myelopathy or radiculopathy, cervical region; K76.0 Fatty (change of) liver, not elsewhere classified; K57.30 Diverticulosis of large intestine without perforation or abscess without bleeding; Z90.710 Acquired absence of both cervix and uterus; Z88.0 Allergy status to penicillin; Z85.828 Personal history of other malignant neoplasm of skin; Z82.5 Family history of asthma and other chronic lower respiratory diseases; Z82.49 Family history of ischemic heart disease and other diseases of the circulatory system; Z82.1 Family history of blindness and visual loss; Z82.0 Family history of epilepsy and other diseases of the nervous system; Z80.7 Family history of other malignant neoplasms of lymphoid, hematopoietic and related tissues; Z80.0 Family history of malignant neoplasm of digestive organs; Z79.899 Other long term (current) drug therapy; Z79.890 Hormone replacement therapy; Z88.2 Allergy status to sulfonamides; Z87.01 Personal history of pneumonia (recurrent); Z86.19 Personal history of other infectious and parasitic diseases; Z90.89 Acquired absence of other organs; Z98.42 Cataract extraction status, left eye; Z98.41 Cataract extraction status, right eye
CPT/HCPCS: 36415; 74176; 80053; 81001; 83605; 85025; 87040; 87086; 96361; 96374; 96375; 99285

== ENCOUNTER 2020-01-20 09:26 | Day surgery (SDC) | payer MEDICARE ==
[2020-01-18 12:38] VITALS: BMI 35.4
[~2020-01-20 09:26] MED LIST changes: +LIDOCAINE 1% (10MG/ML) FOR IV START INTRADERMA PRN; -LIDOCAINE 1% 20 ML VIAL (10MG/ML) FOR IV START INTRADERMA PRN
[2020-01-20 10:17] VITALS: TEMP 97.5
[2020-01-20] MEDS ORDERED: PROPOFOL 10 MG/ML 20 ML VIAL IV ONE (10:38)
[2020-01-20] MEDS ORDERED: MIDAZOLAM 2 MG/2 ML VIAL ONE (10:38)
[2020-01-20] MEDS ORDERED: fentaNYL (PF) 50 MCG/ML 2 ML AMP ONE (10:38)
[2020-01-20] MEDS ORDERED: LIDOCAINE 1% INJ 10MG/ML (20 ML MDV) ONE (10:38)
--- NOTE | 2020-01-20 11:13 | P.PCN ---
Date of Procedure: 01/20/20 Description of Procedure: BRIEF HISTORY: Patient is a 69-year-old female presenting for outpatient colonoscopy for evaluation of fecal abnormalities/positive Cologard. Last colonoscopy in 2019. Patient denies any abdominal pain or change in bowel habits. PROCEDURE PERFORMED: Colonoscopy with polypectomy. PREOPERATIVE DIAGNOSIS: Other fecal abnormalities, positive Cologard, last colonoscopy 2019. ESTIMATED BLOOD LOSS: Minimal. IV sedation per Anesthesia. PROCEDURE: After informed consent was obtained, the patient, was brought into the endoscopy unit. IV sedation was administered by Anesthesia under continuous monitoring. Digital rectal examination was normal. Initially the Olympus CF-190 flexible video colonoscope was then inserted in the rectum, gradually advanced into the cecum without any difficulty. Careful examination was performed as the scope was gradually being withdrawn. Ileocecal valve and the appendiceal orifice were visualized and appeared normal. Prep was excellent. Mucosa of the cecum, ascending colon, transverse colon, descending colon, sigmoid colon, and rectum appeared normal. A flat 4 mm cecal polyp was removed with cold forcep polypectomy. Multiple diverticula noted in the left colon. Low-grade internal hemorrhoids Retroflexion was performed in the rectum and no lesions were seen. The patient tolerated the procedure well. IMPRESSION: Diminutive cecal polyp removed with cold forcep polypectomy. Moderate left colonic diverticulosis. Internal hemorrhoids. RECOMMENDATIONS: Findings of this examination were discussed with the patient and her . Okay to resume diet. Okay to resume medications. Await pathology from polypectomy. Would recommend repeat colonoscopy in 7 years for history of colon polyps.
[2020-01-20 11:29] VITALS: BP 125/75; PULSE 59; RESP 16
== END 2020-01-20 12:00 | disposition home or self-care (01) ==
LOC: ORWHC2ENDO 09:26
PROVIDERS: ATTEND Internal Medicine
DX: D12.0 Benign neoplasm of cecum (principal); K57.30 Diverticulosis of large intestine without perforation or abscess without bleeding; K64.8 Other hemorrhoids; Z98.42 Cataract extraction status, left eye; Z98.41 Cataract extraction status, right eye; Z96.652 Presence of left artificial knee joint; E07.9 Disorder of thyroid, unspecified; Z86.010 Personal history of colon polyps; F32.9 Major depressive disorder, single episode, unspecified; F41.9 Anxiety disorder, unspecified; Z98.890 Other specified postprocedural states; Z79.890 Hormone replacement therapy; Z79.899 Other long term (current) drug therapy; Z88.0 Allergy status to penicillin; Z88.2 Allergy status to sulfonamides; Z88.1 Allergy status to other antibiotic agents
CPT/HCPCS: 88305; 45380; J2250; J2001; J3010; J2704

== ENCOUNTER → 2020-01-21 | Outpatient (CLI) | payer MEDICARE ==
--- NOTE | 2020-01-24 01:26 | CT ---
EXAMINATION TYPE: CT soft tissue neck w con DATE OF EXAM: 01/21/2020 1:22 PM COMPARISON: None HISTORY: Lump on neck CT DLP: 354.00 mGycm Automated exposure control for dose reduction was used. CONTRAST: CT scan of the neck is performed following with IV Contrast, patient injected with 100 ml mL of Isovu e 300. Axial images are obtained, coronal and sagittal reformatted images are reviewed. FINDINGS: Airway: No gross abnormality seen. Parotid/submandibular glands: No gross abnormality seen. Carotid/Vascular Structures: Patent. Osseous Structures: Degenerative changes of the spine. Grade 1 anterolisthesis of C4 on C5. Other: No cervical lymphadenopathy. No focal mass or focal fluid collection. IMPRESSION: No focal abnormality.
== END | disposition home or self-care (01) ==
LOC: RADCTMAIN 12:16
PROVIDERS: ATTEND Internal Medicine
DX: R22.1 Localized swelling, mass and lump, neck (principal)
CPT/HCPCS: 70491; Q9967

== ENCOUNTER 2020-09-01 12:43 | Day surgery (SDC) | payer MEDICARE ==
[2020-09-01 14:16] LABS: Basophils % (A) 1 %; Eosinophils # (A) 0.1 k/uL (0-0.7); Eosinophils % (A) 2 %; HCT 42.9 % (34.0-46.0); HGB 13.5 gm/dL (11.4-16.0); Lymphocytes # (A) 1.3 k/uL (1.0-4.8); Lymphocytes % (A) 22 %; MCH 26.3 pg (25.0-35.0); MCHC 31.5 g/dL (31.0-37.0); MCV 83.4 fL (80.0-100.0); Mean Platelet Volume 7.5; Monocytes # (A) 0.4 k/uL (0-1.0); Monocytes % (A) 6 %; Neutrophils # (A) 3.9 k/uL (1.3-7.7); Neutrophils % (A) 67 %; Platelet Count 215 k/uL (150-450); RBC 5.15 m/uL (3.80-5.40); WBC 5.9 k/uL (3.8-10.6)
[2020-09-01] MEDS ORDERED: ERTAPENEM 1 GM in SODIUM CHLORIDE 0.9% 50 ML IVPB ONE (14:23)
[2020-09-01 14:39] LABS: ALT 61 U/L (4-34); AST 56 U/L (14-36); African American GFR (CKD) >90 (>60 ml/min/1.73 sqM); Albumin 4.2 g/dL (3.5-5.0); Alkaline Phosphatase 128 U/L (38-126); Anion Gap 6 mmol/L; Blood Urea Nitrogen 11 mg/dL (7-17); Calcium 9.2 mg/dL (8.4-10.2); Carbon Dioxide 29 mmol/L (22-30); Chloride 100 mmol/L (98-107); Glucose 98 mg/dL (74-99); Non-African American GFR(CKD) 90 (>60 ml/min/1.73 sqM); Sodium 135 mmol/L (137-145); Total Bilirubin 0.8 mg/dL (0.2-1.3)
[2020-09-01 14:46] LABS: Potassium 4.9 mmol/L (3.5-5.1)
== END 2020-09-01 15:25 | disposition home or self-care (01) ==
LOC: CATHCVL 12:43
PROVIDERS: ATTEND Internal Medicine
DX: Z76.89 Persons encountering health services in other specified circumstances (principal)
CPT/HCPCS: 36410; 76937; 80053; 85025; C1751; J1335

== ENCOUNTER → 2020-10-24 | Outpatient (CLI) | payer MEDICARE, OTHER ==
--- NOTE | 2020-10-24 11:49 | P.STRESS ---
- Stress Test Note Stress Test Results/Findings: Exam Performed: NM stress cardiolite complete Exam Date: 10/24/20 Reason for Exam: CP Height: 5 ft 2 in Weight: 89.5 kg Protocol: CARDIOLITE STRESS Stage: 3 Duration of Exercise: 7:15 Resting Heart Rate: 74 Resting Blood Pressure: 128/76 Maximum Achieved Heart Rate: 139 Maximum Achieved Blood Pressure: 190/82 85% PMHR: 126 100% PMHR: 148 METS: 8.7 Technologist Comment: Stress Test Results/Findings: Patient underwent exercise stress EKG with a Jonathan protocol treadmill stress test. Patient exercised into Stage 3 for a total of 7 minutes 15 seconds reaching a total of 8.7 METS. Patient's maximum heart rate was 139 which represented 94 % age-predicted maximum heart rate. Stress EKG findings: At baseline patient's EKG showed normal sinus rhythm, normal axis, occasional PVCs. At peak exercise, EKG showed and nonspecific 0.[address] depressions in the inferolateral leads which is nondiagnostic. Conclusions: 1. Normal EKG response to exercise without evidence of inducible ischemia. 2. Fair exercise capacity.
--- NOTE | 2020-10-24 19:13 | NM ---
EXAMINATION TYPE: NM stress cardiolite complete DATE OF EXAM: 10/24/2020 COMPARISON: NONE HISTORY: Chest pain TECHNIQUE: After the intravenous administration of 9.3 mCi Tc 99m Sestamibi - Cardiolite resting SPE CT images acquired 45 minutes post injection. At peak stress 25.2 mCi Tc 99m Sestamibi - Stress images obtained 30 minutes post injection The patient was stressed by Jonathan protocol on a treadmill FINDINGS: No fixed defects are evident No reversible stress defects on Spect images Dyskinesia of the distal apex is evident. This also involves the distal anterior wall, lateral wall a nd septal wall. Ejection fraction is calculated to be 48 %, which is low. Normal greater than 50%.. IMPRESSION: 1. Stress-induced ischemic change not identified. 2. 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 3. Low ejection fraction of 48%.
== END | disposition home or self-care (01) ==
LOC: RADNMMAIN 08:18
PROVIDERS: ATTEND Internal Medicine
DX: G24.9 Dystonia, unspecified (principal)
CPT/HCPCS: 93017; 78452; A9500

== ENCOUNTER 2021-01-01 11:57 | Emergency (ER) | payer MEDICARE, OTHER ==
[2021-01-01 12:20] VITALS: BP 145/79; PULSE 76; RESP 18; TEMP 98.4
--- NOTE | 2021-01-01 15:14 | ED ---
General Adult HPI - General Chief complaint: Neuro Symptoms/Deficit Stated complaint: numbness in arm, bladder infection Time Seen by Provider: 01/01/21 15:00 Source: patient, family, RN notes reviewed, old records reviewed Mode of arrival: ambulatory Limitations: no limitations - History of Present Illness Initial comments: This is a well-appearing 70-year-old white female that presents to the emergency room, alert and oriented 4, complaining of right arm and right leg weakness for 4 days. She also has complaints of diffuse abdominal pain for 3 days. She states that she is being treated for urinary tract infection at this time by her primary care doctor and is on antibiotics. She denies any nausea vomiting or diarrhea. She denies any fevers. She does have a history of GERD, urinary tract infections and C-spine spondylosis. She did receive the Covid vaccine. -: days(s) (4) Location: right, upper extremity Improves with: none Worsens with: none Associated Symptoms: other (Abdominal pain) Treatments Prior to Arrival: other (Antibiotics for urinary tract infection) - Related Data Home Medications Medication Instructions Recorded Confirmed Levothyroxine Sodium [Synthroid] 50 mcg PO DAILY 05/19/14 09/09/20 Zolpidem [Ambien] 10 mg PO HS PRN 05/19/14 09/09/20 ALPRAZolam [Xanax] 0.5 mg PO TID PRN 05/26/14 09/09/20 Simvastatin [Zocor] 20 mg PO HS 09/29/17 09/09/20 Escitalopram [Lexapro] 10 mg PO DAILY@1200 09/06/19 09/09/20 Estradiol Cream [Estrace Cream 1 gm VAGINAL FR 01/08/20 09/09/20 0.01%] Famotidine 40 mg PO DAILY PRN 01/08/20 09/09/20 Lisinopril [Zestril] 10 mg PO DAILY 09/02/20 09/09/20 Previous Rx's Medication Instructions Recorded Cyclobenzaprine [Flexeril] 10 mg PO TID PRN #15 tab 01/01/21 Allergies Allergy/AdvReac Type Severity Reaction Status Date / Time nitrofurantoin Allergy Itching Verified 01/01/21 12:20 [From Macrobid] Penicillins Allergy Rash/Hives/ Verified 10/18/21 12:20 Swelling Sulfa (Sulfonamide Allergy Rash/Hives Verified 01/01/21 12:20 Antibiotics) Review of Systems ROS Statement: Those systems with pertinent positive or pertinent negative responses have been documented in the HPI. ROS Other: All systems not noted in ROS Statement are negative. Past Medical History Past Medical History: Cancer, Chest Pain / Angina, GERD/Reflux, Hyperlipidemia, Osteoarthritis (OA), Pneumonia, Thyroid Disorder, Vascular Disorder Additional Past Medical History / Comment(s): polynephritis, severe UTI with sepsis which she states she fully recovered from then last week pt states she had the flu and then urinary tract infection symptoms returned. Other hx: UTIs, skin cancer nose and R cheek, diverticular disease, pancreatitis, elevated liver function tests, irregular heart beat in the past, spondylosis cervical spine/neck pain, low back pain, varicosities bilateral legs, insomnia Last Myocardial Infarction Date:: unknown History of Any Multi-Drug Resistant Organisms: ESBL Date of last positivie culture/infection: 08/28/20 MDRO Source:: ESBL URINE Past Surgical History: Adenoidectomy, Heart Catheterization, Hysterectomy, Joint Replacement, Orthopedic Surgery, Tonsillectomy Additional Past Surgical History / Comment(s): Total L knee arthroplasty, R foot bunionectomy, R carpal tunnel release, R middle finger cyst removed/spur removed, R foot surgery with screws in place, colonoscopies, skin cancer removals, bilateral cataract removals/lens implants. Past Anesthesia/Blood Transfusion Reactions: No Reported Reaction Additional Past Anesthesia/Blood Transfusion Reaction / Comment(s): no hx blood transfusion Past Psychological History: Anxiety Smoking Status: Former smoker Past Alcohol Use History: None Reported Past Drug Use History: None Reported - Past Family History Sister(s) Family Medical History: Cancer Additional Family Medical History / Comment(s): Patient had total of 4 sisters. One from a form of lymphoma. OTHER sisters are alive. One has COPD. One is blind and deaf since 18 months old from strep meningitis. Third sister is also blind from aniridia and glaucoma. Brother(s) Family Medical History: Cancer Additional Family Medical History / Comment(s): Patient has a total of 4 brothers. One from myocardial infarction and one from pancreatic cancer. 2 living brothers have no major medical problems. Father Family Medical History: Myocardial Infarction (LA) Additional Family Medical History / Comment(s): Father at age 79 from [place], he was residing [facility] at the time. Mother Family Medical History: Seizure Disorder Additional Family Medical History / Comment(s): Mother at age 78 from either LA or seizure. She had history of COPD, Oxygen dependent, seizure di sorder. General Exam Limitations: no limitations General appearance: alert, in no apparent distress Head exam: Present: atraumatic, normocephalic, normal inspection Eye exam: Present: normal appearance, PERRL, EOMI. Absent: scleral icterus, conjunctival injection, periorbital swelling ENT exam: Present: normal exam, normal oropharynx, mucous membranes moist Neck exam: Present: normal inspection, full ROM. Absent: tenderness, meni ngismus, lymphadenopathy Respiratory exam: Present: normal lung sounds bilaterally. Absent: respiratory distress, wheezes, rales, rhonchi, stridor Cardiovascular Exam: Present: regular rate. Absent: JVD GI/Abdominal exam: Present: soft, normal bowel sounds. Absent: distended, tenderness, guarding, rebound, rigid Extremities exam: Present: full ROM, normal capillary refill. Absent: tenderness, pedal edema, joint swelling Neurological exam: Present: alert, oriented X3, CN II-XII intact Expanded Patient oriented to: Present: person, place, time Speech: Present: fluid speech Cranial nerves: EOM's Intact: Normal, Gag Reflex: Normal, Tongue Deviation: Normal Motor strength exam: RUE: 5, LUE: 5, RLE: 5, LLE: 5 Eye Response: (4) open spontaneously Motor Response: (6) obeys commands Verbal Response: (5) oriented Leanna Total: 15 Psychiatric exam: Present: normal affect, normal mood Skin exam: Present: warm, dry, intact, normal color. Absent: rash, cyanosis, diaphoretic Course Vital Signs 01/01/21 12:17 Temperature 98.4 F Pulse Rate 76 Respiratory 18 Rate Blood Pressure 145/79 O2 Sat by Pulse 99 Oximetry EKG Findings - EKG Results: EKG shows: bradycardia (Ventricular rate 51, NC interval 0.144, QRS 0.94, QTC 0.470) Medical Decision Making - Medical Decision Making CT of the brain shows age-related atrophy and chronic small vessel ischemic changes with no intracranial process seen. There is no mass or midline shift. She has no focal neurological deficits. Abdominal x-ray shows no evidence of dilatation, no unusual calcifications or evidence of pneumoperitoneum. There is an overall nonobstructive bowel gas pattern. Patient's electrolytes are unremarkable. Her troponin is 0.012. EKG shows no acute changes. UA is negative for signs of infection. There is no evidence of leukocytosis. Patient does have a history of C-spine spondylosis and is likely the cause of her peripheral neuropathy on the right side. She has an MRI scheduled for Dr. Renteria January 24 for ataxia and neuropathy. Patient states that she has had similar pain in the past and was given Flexeril and a steroid with some relief. Patient was given Decadron and a prescription for Flexeril. I will refer her to her primary care doctor for continuation of care. Case discussed with Dr. Madison - Lab Data Result diagrams: 01/01/21 15:13 01/01/21 15:13 Lab Results 01/01/21 01/01/21 01/01/21 Range/Units 15:13 15:13 15:13 WBC 7.8 (3.8-10.6) k/uL RBC 5.29 (3.80-5.40) m/uL Hgb 14.6 (11.4-16.0) gm/dL Hct 45.2 (34.0-46.0) % MCV 85.4 (80.0-100.0) fL MCH 27.6 (25.0-35.0) pg MCHC 32.4 (31.0-37.0) g/dL RDW 15.0 (11.5-15.5) % Plt Count 241 (150-450) k/uL MPV 8.0 Neutrophils % 72 % Lymphocytes % 19 % Monocytes % 6 % Eosinophils % 1 % Basophils % 1 % Neutrophils # 5.6 (1.3-7.7) k/uL Lymphocytes # 1.4 (1.0-4.8) k/uL Monocytes # 0.4 (0-1.0) k/uL Eosinophils # 0.1 (0-0.7) k/uL Basophils # 0.0 (0-0.2) k/uL PT 10.3 (9.0-12.0) sec INR 1.0 (<1.2) APTT 25.0 (22.0-30.0) sec Sodium (137-145) mmol/L Potassium (3.5-5.1) mmol/L Chloride (98-107) mmol/L Carbon Dioxide (22-30) mmol/L Anion Gap mmol/L BUN (7-17) mg/dL Creatinine (0.52-1.04) mg/dL Est GFR (CKD-EPI)AfAm (>60 ml/min/1.73 sqM) Est GFR (CKD-EPI)NonAf (>60 ml/min/1.73 sqM) Glucose (74-99) mg/dL Plasma Lactic Acid Rip (0.7-2.0) mmol/L Calcium (8.4-10.2) mg/dL Total Bilirubin (0.2-1.3) mg/dL AST (14-36) U/L ALT (4-34) U/L Alkaline Phosphatase (38-126) U/L Troponin I (0.000-0.034) ng/mL Total Protein (6.3-8.2) g/dL Albumin (3.5-5.0) g/dL Amylase (30-110) U/L Lipase (23-300) U/L Urine Color Light Yellow Urine Appearance Clear (Clear) Urine pH 7.5 (5.0-8.0) Ur Specific [place] 1.007 (1.001-1.035) Urine Protein Negative (Negative) Urine Glucose (UA) Negative (Negative) Urine Ketones Negative (Negative) Urine Blood Negative (Negative) Urine Nitrite Negative (Negative) Urine Bilirubin Negative (Negative) Urine Urobilinogen <2.0 (<2.0) mg/dL Ur Leukocyte Esterase Negative (Negative) 01/01/21 01/01/21 01/01/21 Range/Units 15:13 15:13 15:13 WBC (3.8-10.6) k/uL RBC (3.80-5.40) m/uL Hgb (11.4-16.0) gm/dL Hct (34.0-46.0) % MCV (80.0-100.0) fL MCH (25.0-35.0) pg MCHC (31.0-37.0) g/dL RDW (11.5-15.5) % Plt Count (150-450) k/uL MPV Neutrophils % % Lymphocytes % % Monocytes % % Eosinophils % % Basophils % % Neutrophils # (1.3-7.7) k/uL Lymphocytes # (1.0-4.8) k/uL Monocytes # (0-1.0) k/uL Eosinophils # (0-0.7) k/uL Basophils # (0-0.2) k/uL PT (9.0-12.0) sec INR (<1.2) APTT (22.0-30.0) sec Sodium 134 L (137-145) mmol/L Potassium 4.3 (3.5-5.1) mmol/L Chloride 101 (98-107) mmol/L Carbon Dioxide 23 (22-30) mmol/L Anion Gap 10 mmol/L BUN 12 (7-17) mg/dL Creatinine 0.64 (0.52-1.04) mg/dL Est GFR (CKD-EPI)AfAm >90 (>60 ml/min/1.73 sqM) Est GFR (CKD-EPI)NonAf 90 (>60 ml/min/1.73 sqM) Glucose 94 (74-99) mg/dL Plasma Lactic Acid Rip 1.3 (0.7-2.0) mmol/L Calcium 9.8 (8.4-10.2) mg/dL Total Bilirubin 0.8 (0.2-1.3) mg/dL AST 28 (14-36) U/L ALT 33 (4-34) U/L Alkaline Phosphatase 118 (38-126) U/L Troponin I <0.012 (0.000-0.034) ng/mL Total Protein 7.6 (6.3-8.2) g/dL Albumin 4.4 (3.5-5.0) g/dL Amylase 49 (30-110) U/L Lipase 102 (23-300) U/L Urine Color Urine Appearance (Clear) Urine pH (5.0-8.0) Ur Specific [place] (1.001-1.035) Urine Protein (Negative) Urine Glucose (UA) (Negative) Urine Ketones (Negative) Urine Blood (Negative) Urine Nitrite (Negative) Urine Bilirubin (Negative) Urine Urobilinogen (<2.0) mg/dL Ur Leukocyte Esterase (Negative) Disposition Clinical Impression: Abdominal pain, Peripheral neuropathy Disposition: HOME SELF-CARE Condition: Good Instructions (If sedation given, give patient instructions): Cervical Radiculopathy (ED), Abdominal Pain (ED) Additional Instructions: Follow-up with the primary care doctor this week. Keep your appointment for your MRI as previously scheduled. Return to the emergency room with any new or worsening symptoms. Prescriptions: Cyclobenzaprine [Flexeril] 10 mg PO TID PRN #15 tab PRN Reason: Muscle Spasm Is patient prescribed a controlled substance at d/c from ED?: No Referrals: Dina Renteria MD [Primary Care Provider] - 1-2 days Time of Disposition: 16:34
[2021-01-01 15:31] LABS: Appearance,Urine Clear (Clear); Basophils % (A) 1 %; Bilirubin,Urine Negative (Negative); Blood,Urine Negative (Negative); Color,Urine Light Yellow; Eosinophils # (A) 0.1 k/uL (0-0.7); Eosinophils % (A) 1 %; Glucose,Urine (UA) Negative (Negative); HCT 45.2 % (34.0-46.0); HGB 14.6 gm/dL (11.4-16.0); Ketones,Urine Negative (Negative); Leukocyte Esterase,Urine Negative (Negative); Lymphocytes # (A) 1.4 k/uL (1.0-4.8); Lymphocytes % (A) 19 %; MCH 27.6 pg (25.0-35.0); MCHC 32.4 g/dL (31.0-37.0); MCV 85.4 fL (80.0-100.0); Monocytes # (A) 0.4 k/uL (0-1.0); Monocytes % (A) 6 %; Neutrophils # (A) 5.6 k/uL (1.3-7.7); Neutrophils % (A) 72 %; Nitrite,Urine Negative (Negative); PH, Urine 7.5 (5.0-8.0); Platelet Count 241 k/uL (150-450); Protein,Urine Negative (Negative); RBC 5.29 m/uL (3.80-5.40); Specific Gravity,Urine 1.007 (1.001-1.035); Urobilinogen,Urine <2.0 mg/dL (<2.0); WBC 7.8 k/uL (3.8-10.6)
[2021-01-01 15:38] LABS: AST 28 U/L (14-36); African American GFR (CKD) >90 (>60 ml/min/1.73 sqM); Albumin 4.4 g/dL (3.5-5.0); Anion Gap 10 mmol/L; Blood Urea Nitrogen 12 mg/dL (7-17); Calcium 9.8 mg/dL (8.4-10.2); Carbon Dioxide 23 mmol/L (22-30); Chloride 101 mmol/L (98-107); Glucose 94 mg/dL (74-99); Non-African American GFR(CKD) 90 (>60 ml/min/1.73 sqM); Potassium 4.3 mmol/L (3.5-5.1); Prothrombin Time 10.3 sec (9.0-12.0); Sodium 134 mmol/L (137-145); Total Bilirubin 0.8 mg/dL (0.2-1.3); Total Protein 7.6 g/dL (6.3-8.2)
[2021-01-01 15:39] LABS: ALT 33 U/L (4-34); Alkaline Phosphatase 118 U/L (38-126); Amylase 49 U/L (30-110); Lipase 102 U/L (23-300)
--- NOTE | 2021-01-01 15:50 | CT ---
EXAMINATION TYPE: CT brain wo con DATE OF EXAM: 01/01/2021 COMPARISON: none HISTORY: Right sided weakness. CT DLP: 1052.[address] of the brain was performed. The ventricles, basal cisterns and sulci overlying the cerebral convexities demonstrate mild enlargem ent. There is no evidence for intracranial hemorrhage or sulcal effacement. There is decreased attenuation about the periventricular white matter and deep white matter of both c erebral hemispheres, compatible with chronic small vessel ischemia. Differential diagnosis does inclu de demyelination. No mass effects are seen.No midline shift. Osseous calvarium is intact. If symptoms persist consider MRI. IMPRESSION: 1. Age related atrophic and chronic small vessel ischemic change without acute intracranial process s een at this time.
--- NOTE | 2021-01-01 15:53 | XR ---
EXAMINATION TYPE: XR abdomen 2V DATE OF EXAM: 01/01/2021 COMPARISON: NONE HISTORY: Pain TECHNIQUE: Single supine KUB image of the abdomen is obtained FINDINGS: Small bowel demonstrates no evidence for dilatation or air fluid levels. Gas and fecal material is seen in non-distended colon. No convincing evidence for pneumoperitoneum. No unusual calcifications. The lung bases are clear. The osseous structures are intact. IMPRESSION: 1. Overall nonobstructive bowel gas pattern.
[2021-01-01] MEDS ORDERED: KETOROLAC 15 MG/ML 1 ML VIAL IVP STA (16:39)
[2021-01-01] MEDS ORDERED: DEXAMETHASONE SOD PHOSPHATE 10 MG/ML 1 ML VIAL IV STA (16:42)
== END 2021-01-01 17:16 | disposition home or self-care (01) ==
LOC: EC 11:57
DX: G62.9 Polyneuropathy, unspecified (principal); R10.84 Generalized abdominal pain; E78.5 Hyperlipidemia, unspecified; M19.90 Unspecified osteoarthritis, unspecified site; F41.9 Anxiety disorder, unspecified; Z87.891 Personal history of nicotine dependence; Z79.890 Hormone replacement therapy; Z79.899 Other long term (current) drug therapy; Z88.0 Allergy status to penicillin; Z88.2 Allergy status to sulfonamides
CPT/HCPCS: 36415; 93005; 80053; 82150; 83605; 83690; 84484; 85025; 85610; 85730; 81003; 74019; 70450; 99285; 96374; J1100

== ENCOUNTER → 2021-01-24 | Outpatient (CLI) | payer MEDICARE, OTHER ==
--- NOTE | 2021-01-24 10:52 | MR ---
EXAMINATION TYPE: MR brain wo/w con DATE OF EXAM: 01/24/2021 COMPARISON: CT brain 01/01/2021 HISTORY: Ataxia, memory loss TECHNIQUE: Multiplanar, multisequence images of the brain and brainstem is performed without and with IV contras t, utilizing 9 mL intravenous Gadavist . FINDINGS: Diffusion weighted images demonstrate no evidence of a recent infarct or other diffusion ab normality. Mild generalized degenerative change. There is a single focus of abnormal signal in the le ft frontal white matter measuring 5 mm too small to characterize of doubtful significance.. The brai n volume is age appropriate. Midline structures demonstrate normal morphology. The craniocervical junction appears within normal limits. Post contrast images demonstrate no abnormal enhancement. The dural venous sinuses appear pa tent. The visualized sinuses are clear and the globes are intact. Changes of chronic sinusitis. Nasal septal deviation noted. Partially empty sella turcica. IMPRESSION: 1. Mild degenerative change with no acute process. 2. Partially empty sella turcica.
== END | disposition home or self-care (01) ==
LOC: RADMRIMAIN 09:40
PROVIDERS: ATTEND Internal Medicine
DX: E23.6 Other disorders of pituitary gland (principal)
CPT/HCPCS: 70553; A9585

== ENCOUNTER → 2021-09-13 | Outpatient (CLI) | payer MEDICARE, OTHER ==
--- NOTE | 2021-09-14 15:02 | BD ---
EXAMINATION TYPE: Axial Bone Density DATE OF EXAM: 09/13/2021 COMPARISON: NONE CLINICAL HISTORY: 71 years year old Female. 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 History of Fracture in Adulthood: no Secondary Osteoporosis: 1. Type 1 Diabetes: no 2. Hyperthyroidism: no 3. Menopause before 45: yes 4. Malnutrition: no 5. Chronic liver disease: no Rheumatoid Arthritis: no Current Tobacco Use: no RISK FACTORS HISTORY OF: Surgery to Spine/Hip(right/left)/Wrist (right/left): no Family History of Osteoporosis: yes Active: yes Diet low in dairy products/other sources of calcium: no Postmenopausal woman: yes Lost more than 2 inches in height since high school: no MEDICATIONS: Thyroid Medications: thyroid How Lon years Additional History: EXAM MEASUREMENTS: Bone mineral densitometry was performed using the [employer] System. Bone mineral density as measured about the Lumbar spine is: ----- L1-L4(G/cm2): 1.314 T Score Values are as follows: ----- L1: 0.5 ----- L2: 1.2 ----- L3: 1.5 ----- L4: 1.2 ----- L1-L4: 1.1 Bone mineral density has: decreased -1.2 % since study of: 05.23.2014 Bone mineral density about the R hip (g/cm2): 1.080 Bone mineral density about the L hip (g/cm2): 1.034 T Score values are as follows: -----R Neck: 0.3 -----L Neck: 0.0 -----R Total: 1.7 -----L Total: 1.5 Bone mineral density has: decreased -3.0 % since study of: 05.23.2014 FRAX%s: The graph provided illustrates a 6.8% chance for a major osteoporotic fx and a 0.4% chance fo r the hips probability for fx in 10 years time. IMPRESSION: Normal (Values between +1 and -1 indicate normal bone mass). Consider repeating this study in 5 year s or sooner if there is some new clinical indication. NOTE: T-SCORE=SD OF THE YOUNG ADULT MEAN.
== END | disposition home or self-care (01) ==
LOC: RADBDWWP 14:42
PROVIDERS: ATTEND Internal Medicine
DX: Z78.0 Asymptomatic menopausal state (principal)
CPT/HCPCS: 77080

== ENCOUNTER → 2021-10-09 | Outpatient (CLI) | payer MEDICARE ==
--- NOTE | 2021-10-09 15:57 | CT ---
EXAMINATION TYPE: CT urogram wo/w con CT DLP: 2899 mGycm, Automated exposure control for dose reduction was used. DATE OF EXAM: 10/09/2021 2:49 PM COMPARISON: CT abdomen pelvis 01/08/2020. CLINICAL INDICATION:Female, 71 years old with history of N39.0 UTI;Microhematuria, sx hx of hysterect mela. TECHNIQUE: Urogram with unenhanced, nephrographic and excretory phase imaging of the abdomen and pelvis using tw o doses of 100 cc of IV contrast Isovue 300 contrast. Coronal and sagittal reformats were performed. One or more CT dose reduction strategies were utilized during this examination. FINDINGS: GENITOURINARY: RIGHT KIDNEY AND URETER: No calculi. No hydronephrosis or hydroureter. No renal mass or other lesions . No urothelial lesions: no filling defect, dilation, stricture or wall thickening. LEFT KIDNEY AND URETER: No calculi. No hydronephrosis or hydroureter. No renal mass or other lesions. No urothelial lesions: no filling defect, dilation, stricture or wall thickening. URINARY BLADDER: Few foci of gas likely related to prior instrumentation. Normal, no calculi, mass or other lesions. REPRODUCTIVE: Post hysterectomy.. ABDOMEN LIVER: Diffusely hypoattenuating, consistent with hepatic steatosis. No suspicious lesions. GALLBLADDER AND BILE DUCTS: Unremarkable PANCREAS: Unremarkable. SPLEEN: Unremarkable. ADRENAL GLANDS: Unremarkable. STOMACH AND BOWEL: Colonic diverticulosis without evidence for acute diverticulitis. No evidence of b owel obstruction. PERITONEUM: No evidence of pneumoperitoneum, free fluid, or adenopathy. VASCULATURE: No aortic aneurysm. Multiple pelvic phleboliths. MUSCULOSKELETAL: No acute osseous abnormalities. Incidental lipoma within the left iliopsoas musculat ure. SOFT TISSUE/ABDOMINAL WALL: Unremarkable. LOWER CHEST: No significant findings. IMPRESSION: 1. No evidence of urolithiasis or renal/urothelial neoplasm. 2. Colonic diverticulosis without evidence for acute diverticulitis.
== END | disposition home or self-care (01) ==
LOC: RADCTMAIN 09:03
PROVIDERS: ATTEND Internal Medicine
DX: R31.9 Hematuria, unspecified (principal); K57.30 Diverticulosis of large intestine without perforation or abscess without bleeding
CPT/HCPCS: 82565; 84520; 74178; 36415; 74400; Q9967

== ENCOUNTER 2021-10-15 22:13 | Observation (INO) | payer MEDICARE, OTHER ==
[2021-10-16] MEDS ORDERED: NITROGLYCERIN SL TABS 0.4 MG TAB SUBLINGUAL STA ×2 (00:01→03:03)
[2021-10-16] MEDS ORDERED: ASPIRIN 81 MG PO STA (00:01)
--- NOTE | 2021-10-16 00:04 | ED ---
Chest Pain HPI - General Chief Complaint: Chest Pain Stated Complaint: gerd Time Seen by Provider: 10/15/21 23:39 Source: patient, RN notes reviewed Mode of arrival: ambulatory Limitations: no limitations - History of Present Illness Initial Comments: 31-year-old female history of reflux also history of poorly functioning lower part of her heart but no history of [place] who states she had the onset 3 days ago of burning epigastric pain it radiates up into her neck and her chest and back as well as her arms. She states she believes is reflux she started Macrobid then for UTI and started after taking the Macrobid. She also states she has some of the discomfort before that. No fevers chills she had shortness of breath with it however. Also nausea vomiting this morning no overt cough or phlegm production. He states is 10/10 in severity at this time. MD Complaint: chest pain - Related Data Home Medications Medication Instructions Recorded Confirmed Levothyroxine Sodium [Synthroid] 50 mcg PO DAILY 05/19/14 09/09/20 Zolpidem [Ambien] 10 mg PO HS PRN 05/19/14 09/09/20 ALPRAZolam [Xanax] 0.5 mg PO TID PRN 05/26/14 09/09/20 Simvastatin [Zocor] 20 mg PO HS 09/29/17 09/09/20 Escitalopram [Lexapro] 10 mg PO DAILY@1200 09/06/19 09/09/20 Estradiol Cream [Estrace Cream 1 gm VAGINAL FR 01/08/20 09/09/20 0.01%] Famotidine 40 mg PO DAILY PRN 01/08/20 09/09/20 lisinopriL [Zestril] 10 mg PO DAILY 09/02/20 09/09/20 Previous Rx's Medication Instructions Recorded Cyclobenzaprine [Flexeril] 10 mg PO TID PRN #15 tab 01/01/21 Allergies Allergy/AdvReac Type Severity Reaction Status Date / Time nitrofurantoin Allergy Itching Verified 10/15/21 22:35 [From Macrobid] Penicillins Allergy Rash/Hives/ Verified 10/15/21 22:35 Swelling Sulfa (Sulfonamide Allergy Rash/Hives Verified 10/15/21 22:35 Antibiotics) Review of Systems ROS Statement: Those systems with pertinent positive or pertinent negative responses have been documented in the HPI. ROS Other: All systems not noted in ROS Statement are negative. 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 Other hx: UTIs, skin cancer nose and R cheek, diverticular disease, pancreatitis, elevated liver function tests, irregular heart beat in the past, spondylosis cervical spine/neck pain, low back pain, varicosities bilateral legs, insomnia Last Myocardial Infarction Date:: unknown History of Any Multi-Drug Resistant Organisms: ESBL Date of last positivie culture/infection: 08/28/20 MDRO Source:: ESBL URINE Past Surgical History: Adenoidectomy, Heart Catheterization, Hysterectomy, Joint Replacement, Orthopedic Surgery, Tonsillectomy Additional Past Surgical History / Comment(s): Total L knee arthroplasty, R foot bunionectomy, R carpal tunnel release, R middle finger cyst removed/spur removed, R foot surgery with screws in place, colonoscopies, skin cancer removals, bilateral cataract removals/lens implants. Past Anesthesia/Blood Transfusion Reactions: No Reported Reaction Additional Past Anesthesia/Blood Transfusion Reaction / Comment(s): no hx blood transfusion Past Psychological History: Anxiety Smoking Status: Former smoker Past Alcohol Use History: None Reported Past Drug Use History: None Reported - Past Family History Sister(s) Family Medical History: Cancer Additional Family Medical History / Comment(s): Patient had total of 4 sisters. One from a form of lymphoma. OTHER sisters are alive. One has COPD. One is blind and deaf since 18 months old from strep meningitis. Third sister is also blind from aniridia and glaucoma. Brother(s) Family Medical History: Cancer Additional Family Medical History / Comment(s): Patient has a total of 4 brothers. One from myocardial infarction and one from pancreatic cancer. 2 living brothers have no major medical problems. Father Family Medical History: Myocardial Infarction ([place]) Additional Family Medical History / Comment(s): Father at age 79 from [place], he was residing in [facility] at the time. Mother Family Medical History: Seizure Disorder Additional Family Medical History / Comment(s): Mother at age 78 from either [place] or seizure. She had history of COPD, Oxygen dependent, seizure disorder. General Exam - General Exam Comments Initial Comments: This is a well-developed well-nourished awake alert oriented 4 female Limitations: no limitations General appearance: alert, anxious Head exam: Present: atraumatic, normocephalic, normal inspection Eye exam: Present: normal appearance, PERRL, EOMI. Absent: scleral icterus, conjunctival injection, periorbital swelling ENT exam: Present: mucous membranes dry Neck exam: Present: normal inspection. Absent: tenderness, meningismus, lymphadenopathy Respiratory exam: Present: normal lung sounds bilaterally. Absent: respiratory distress, wheezes, rales, rhonchi, stridor Cardiovascular Exam: Present: regular rate, normal rhythm, normal heart sounds. Absent: systolic murmur, diastolic murmur, rubs, gallop, clicks GI/Abdominal exam: Present: soft, normal bowel sounds. Absent: distended, tenderness, guarding, rebound, rigid Extremities exam: Present: normal inspection, full ROM, normal capillary refill. Absent: tenderness, pedal edema, joint swelling, calf tenderness Back exam: Present: normal inspection Neurological exam: Present: alert, oriented X3, CN II-XII intact Psychiatric exam: Present: normal affect, normal mood Skin exam: Present: warm, dry, intact, normal color. Absent: rash Course Vital Signs 10/15/21 22:35 Temperature 98.2 F Pulse Rate 87 Respiratory 20 Rate Blood Pressure 197/99 O2 Sat by Pulse 97 Oximetry Chest Pain MDM - MDM Patient did get improvement after nitroglycerin was administered. I did a long discussion with her and her family regarding the findings the presentation is suspicious for unstable angina although gastritis secondary to the Macrobid the patient was taking is also on the differential. Patient will be admitted with cardiology consultation I did discuss case with Santa who is covering Dr. Manuel Critical Care Time Critical Care Time: Yes Total Critical Care Time: 31 Critical Care Time: Critical care time included initial presentation with history physical labs x- rays multiple reevaluation the patient response to therapy discuss with the main service review of old charting was available admission orders and documentation the above Disposition Clinical Impression: Chest pain Disposition: ADMITTED IP TO THIS HOSP Condition: Fair Referrals: Dina Renteria MD [Primary Care Provider] - 1-2 days Decision Date: 10/16/21 Decision Time: 01:00
[2021-10-16 00:38] LABS: Basophils % (A) 1 %; Eosinophils # (A) 0.1 k/uL (0-0.7); Eosinophils % (A) 3 %; HCT 41.5 % (34.0-46.0); HGB 13.4 gm/dL (11.4-16.0); Lymphocytes # (A) 0.8 k/uL (1.0-4.8); Lymphocytes % (A) 16 %; MCH 28.3 pg (25.0-35.0); MCHC 32.4 g/dL (31.0-37.0); MCV 87.3 fL (80.0-100.0); Mean Platelet Volume 7.2; Monocytes # (A) 0.4 k/uL (0-1.0); Monocytes % (A) 7 %; Neutrophils # (A) 3.5 k/uL (1.3-7.7); Neutrophils % (A) 69 %; Platelet Count 214 k/uL (150-450); RBC 4.76 m/uL (3.80-5.40); RDW 15.1 % (11.5-15.5)
[2021-10-16 00:54] LABS: Albumin 4.1 g/dL (3.5-5.0); Calcium 9.2 mg/dL (8.4-10.2); INR 0.9 (<1.2); Magnesium 2.2 mg/dL (1.6-2.3); Partial Thromboplastin Time 24.7 sec (22.0-30.0); Potassium 3.8 mmol/L (3.5-5.1); Prothrombin Time 10.1 sec (9.0-12.0); Total Protein 7.2 g/dL (6.3-8.2)
[2021-10-16] MEDS ORDERED: MAG HYDROX/AL HYDROX/SIMETH 30 ML, HYOSCYAMINE ELIXIR 10 ML PO STA ×2 (01:04)
[2021-10-16] MEDS ORDERED: FAMOTIDINE 20 MG/2 ML VIAL IV STA (01:04)
[2021-10-16] MEDS ORDERED: HEPARIN SOD,PORK IN 0.45% NACL 25,000 UNIT in 0.45% NACL 1 250ML.BAG IV SCH (01:15)
[2021-10-16] MEDS ORDERED: HEPARIN SODIUM 1,000 UN/ML (10ML VL) IV ONE (01:15)
[2021-10-16] MEDS ORDERED: NITROGLYCERIN SL TABS 0.4 MG TAB SUBLINGUAL PRN (01:15)
[2021-10-16] MEDS ORDERED: ZOLPIDEM 5 MG TAB PO PRN (01:16)
[2021-10-16] MEDS ORDERED: ALPRAZolam 0.5 MG TAB PO PRN (01:16)
[2021-10-16 02:43] LABS: Appearance,Urine Cloudy (Clear); Bacteria,Urine Occasional /hpf; Bilirubin,Urine Negative (Negative); Blood,Urine Negative (Negative); Color,Urine Yellow; Glucose,Urine (UA) Negative (Negative); Ketones,Urine Negative (Negative); Leukocyte Esterase,Urine Large (Negative); Mucus,Urine Rare /hpf; Nitrite,Urine Negative (Negative); PH, Urine 6.5 (5.0-8.0); Protein,Urine Negative (Negative); RBC,Urine 1 /hpf (0-5); Specific Gravity,Urine 1.006 (1.001-1.035); Squamous Epithelial Cell,Urine 2 /hpf (0-4); Transitional Epi Cells,Urine <1 /hpf (0-1); Urobilinogen,Urine <2.0 mg/dL (<2.0); WBC,Urine 7 /hpf (0-5)
--- NOTE | 2021-10-16 03:19 | XR ---
EXAMINATION TYPE: XR chest 2V DATE OF EXAM: 10/16/2021 COMPARISON: 04/27/2019 HISTORY: Heartburn. TECHNIQUE: FINDINGS: There is no heart failure nor confluent pneumonic infiltrate. Costophrenic angles are clear . There are no hilar masses. There are chest leads. Bony thorax is intact. IMPRESSION: No active cardiopulmonary disease. Atheromatous aorta. No change.
[2021-10-16] MEDS ORDERED: NITROGLYCERIN OINT 1 INCH/GM PACKET TOPICAL SCH (06:00)
[2021-10-16] MEDS: LEVOTHYROXINE 50 MCG TAB PO SCH (06:52)
[2021-10-16] MEDS: SODIUM CHLORIDE 0.9% 1,000 ML IV SCH (07:20)
[2021-10-16] MEDS: lisinopriL 10 MG TAB PO SCH (08:26)
[2021-10-16] MEDS ORDERED: CYCLOBENZAPRINE 10 MG TAB PO PRN (09:00)
[2021-10-16] MEDS ORDERED: FAMOTIDINE 20 MG TAB PO PRN (09:00)
--- NOTE | 2021-10-16 09:44 | P.CRDCN ---
History of Present Illness History of present illness: Patient has pancreatitis, complains of epigastric discomfort Lipase greater than 3000 Abnormal AST and ALT and alkaline phosphatase and bilirubin 3 normal cardiac enzymes/troponins Normal NT proBNP Currently on IV heparin Twelve-lead EKG on admission shows sinus rhythm No ST segment abnormalities consistent with acute ischemia Suggest Evaluate for pancreatitis rather than coronary artery disease Hold atorvastatin Start amlodipine for hypertension Stop heparin Consider NPO status for pancreatitis. Patient ate a full breakfast this morning Past Medical History Past Medical History: Cancer, Chest Pain / Angina, GERD/Reflux, Hyperlipidemia, Hypertension, Osteoarthritis (OA), Pneumonia, Thyroid Disorder, Vascular Disorder Additional Past Medical History / Comment(s): polynephritis, severe UTI with sepsis which she states she fully recovered from then last week pt states she had the flu and then urinary tract infection symptoms returned. Other hx: UTIs, skin cancer nose and R cheek, diverticular disease, pancreatitis, elevated liver function tests, irregular heart beat in the past, spondylosis cervical spine/neck pain, low back pain, varicosities bilateral legs, insomnia Last Myocardial Infarction Date:: unknown History of Any Multi-Drug Resistant Organisms: ESBL Date of last positivie culture/infection: 08/28/20 MDRO Source:: ESBL URINE Past Surgical History: Adenoidectomy, Heart Catheterization, Hysterectomy, Joint Replacement, Orthopedic Surgery, Tonsillectomy Additional Past Surgical History / Comment(s): Total L knee arthroplasty, R foot bunionectomy, R carpal tunnel release, R middle finger cyst removed/spur removed, R foot surgery with screws in place, colonoscopies, skin cancer removals, bilateral cataract removals/lens implants. Past Anesthesia/Blood Transfusion Reactions: No Reported Reaction Additional Past Anesthesia/Blood Transfusion Reaction / Comment(s): no hx blood transfusion Past Psychological History: Anxiety Smoking Status: Former smoker Past Alcohol Use History: None Reported Past Drug Use History: None Reported - Past Family History Sister(s) Family Medical History: Cancer Additional Family Medical History / Comment(s): Patient had total of 4 sisters. One from a form of lymphoma. OTHER sisters are alive. One has COPD. One is blind and deaf since 18 months old from strep meningitis. Third sister is also blind from aniridia and glaucoma. Brother(s) Family Medical History: Cancer Additional Family Medical History / Comment(s): Patient has a total of 4 brothers. One from myocardial infarction and one from pancreatic cancer. 2 living brothers have no major medical problems. Father Family Medical History: Myocardial Infarction ([place]) Additional Family Medical History / Comment(s): Father at age 79 from [place], he was residing in [facility] at the time. Mother Family Medical History: Seizure Disorder Additional Family Medical History / Comment(s): Mother at age 78 from either [place] or seizure. She had history of COPD, Oxygen dependent, seizure disorder. Medications and Allergies Home Medications Medication Instructions Recorded Confirmed Type Levothyroxine Sodium [Synthroid] 50 mcg PO DAILY 05/19/14 10/16/21 History Zolpidem [Ambien] 10 mg PO HS PRN 05/19/14 10/16/21 History Acetaminophen Tab [Tylenol] 650 mg PO Q4H PRN 10/16/21 10/16/21 History Losartan [Cozaar] 25 mg PO DAILY 10/16/21 10/16/21 History Simvastatin [Zocor] 80 mg PO HS 10/16/21 10/16/21 History buPROPion XL [Wellbutrin XL] 150 mg PO DAILY 10/16/21 10/16/21 History Allergies Allergy/AdvReac Type Severity Reaction Status Date / Time nitrofurantoin Allergy Itching Verified 10/16/21 07:16 [From Macrobid] Penicillins Allergy Rash/Hives/ Verified 10/16/21 07:16 Swelling Sulfa (Sulfonamide Allergy Rash/Hives Verified 10/16/21 07:16 Antibiotics) Physical Exam Vitals: Vital Signs Temp Pulse Resp BP Pulse Ox 10/16/21 07:37 78 18 156/72 98 10/16/21 06:57 70 16 155/75 10/15/21 22:35 98.2 F 87 20 197/99 97 Intake and Output 10/15/21 10/16/21 10/16/21 22:59 06:59 14:59 Other: Weight 90.718 kg Results 10/16/21 00:01 10/16/21 00:01 Cardiac Enzymes 10/16/21 10/16/21 10/16/21 Range/Units 00:01 00:01 02:28 AST 186 H (14-36) U/L Troponin I <0.012 <0.012 (0.000-0.034) ng/mL 10/16/21 Range/Units 06:32 AST (14-36) U/L Troponin I <0.012 (0.000-0.034) ng/mL Coagulation 10/16/21 10/16/21 Range/Units 00:01 06:32 PT 10.1 (9.0-12.0) sec APTT 24.7 44.4 H (22.0-30.0) sec CBC 10/16/21 Range/Units 00:01 WBC 5.0 (3.8-10.6) k/uL RBC 4.76 (3.80-5.40) m/uL Hgb 13.4 (11.4-16.0) gm/dL Hct 41.5 (34.0-46.0) % Plt Count 214 (150-450) k/uL Comprehensive Metabolic Panel 10/16/21 Range/Units 00:01 Sodium 134 L (137-145) mmol/L Potassium 3.8 (3.5-5.1) mmol/L Chloride 102 (98-107) mmol/L Carbon Dioxide 25 (22-30) mmol/L BUN 10 (7-17) mg/dL Creatinine 0.77 (0.52-1.04) mg/dL Glucose 109 H (74-99) mg/dL Calcium 9.2 (8.4-10.2) mg/dL AST 186 H (14-36) U/L ALT 565 H (4-34) U/L Alkaline Phosphatase 268 H (38-126) U/L Total Protein 7.2 (6.3-8.2) g/dL Albumin 4.1 (3.5-5.0) g/dL Current Medications Generic Name Dose Route Start Last Admin Trade Name Freq PRN Reason Stop Dose Admin Alprazolam 0.5 mg 10/16/21 01:16 Alprazolam 0.5 Mg Tab PO TID PRN Anxiety Atorvastatin Calcium 10 mg 10/16/21 21:00 Atorvastatin 10 Mg Tab PO HS TOMAS Cyclobenzaprine HCl 10 mg 10/16/21 09:00 Cyclobenzaprine 10 Mg Tab PO TID PRN Muscle Spasm Escitalopram Oxalate 10 mg 10/16/21 12:00 Escitalopram 10 Mg Tab PO DAILY@1200 TOMAS Famotidine 40 mg 10/16/21 09:00 Famotidine 20 Mg Tab PO DAILY PRN Heartburn Sodium Chloride 1,000 mls @ 20 mls/hr 10/16/21 01:15 10/16/21 07:20 Saline 0.9% IV 20 mls/hr .Q24H TOMAS Administration Levothyroxine Sodium 50 mcg 10/16/21 06:30 10/16/21 06:52 Levothyroxine 50 Mcg Tab PO 50 mcg DAILY@0630 TOMAS Administration Lisinopril 10 mg 10/16/21 09:00 10/16/21 08:26 Lisinopril 10 Mg Tab PO 10 mg DAILY TOMAS Administration Nitroglycerin 0.4 mg 10/16/21 01:15 Nitroglycerin Sl Tabs 0.4 Mg Tab SUBLINGUAL Q5M PRN Chest Pain Pantoprazole Sodium 40 mg 10/16/21 09:45 Pantoprazole 40 Mg/10 Ml Vial IVP BID TOMAS Zolpidem Tartrate 10 mg 10/16/21 01:16 Zolpidem 5 Mg Tab PO HS PRN Insomnia Intake and Output 10/15/21 10/16/21 10/16/21 22:59 06:59 14:59 Other: Weight 90.718 kg 10/16/21 00:01 10/16/21 00:01
[2021-10-16] MEDS: PANTOPRAZOLE 40 MG/10 ML VIAL IVP SCH ×2 (09:56→19:38)
[2021-10-16] MEDS: amLODIPine 10 MG TAB PO SCH (09:56)
--- NOTE | 2021-10-16 11:00 | P.CRDCN ---
History of Present Illness Consult date: 10/16/21 History of present illness: HISTORY OF PRESENT ILLNESS: This is a 71-year-old female with a past medical history significant for hypertension, hyperlipidemia, and hypothyroidism. Patient follows in the office with Dr. Singleton. We have been asked to see the patient in consultation for chest pain. Patient examined at the bedside in the emergency room. The patient presented to the hospital for chief complaint of epigastric pain and heartburn that has been ongoing since Friday. She denies any chest pain. The patient was found to have a lipase of 3220. Total bilirubin of 4.0. AST 186. ALT 565. The patient has acute pancreatitis. She reports a history of pancreatitis. The patient was given a full breakfast this morning per the ER. Patient's troponins are negative 3. Her EKG is negative for ischemia. She was started on IV heparin per the ER physician. REVIEW OF SYSTEMS: At the time of my exam: CONSTITUTIONAL: Denies fever or chills. HEENT: Denies blurred vision, vision changes, or eye pain. Denies hemoptysis CARDIOVASCULAR: Denies chest pain. Denies orthopnea. Denies PND. Denies palpitations RESPIRATORY: Denies shortness of breath. GASTROINTESTINAL: Denies abdominal pain. Denies nausea or vomiting. HEMATOLOGIC: Denies bleeding disorders. GENITOURINARY: Denies any blood in urine. SKIN: Denies pruitis. Denies rash. PHYSICAL EXAM: VITAL SIGNS: Reviewed. GENERAL: Well-developed in no acute distress. HEENT: Head is normocephalic. Pupils are equal, round. Sclerae anicteric. Mucous membranes of the mouth are moist. Neck supple. No JVD or thyromegaly LUNGS: Respirations even and unlabored. Lungs essentially clear to auscultation bilaterally. HEART: Regular rate and rhythm. S1 and S2 heard. ABDOMEN: Soft. Nondistended. Nontender. EXTREMITIES: Normal range of motion. No clubbing or cyanosis. Peripheral pulses intact. No lower extremity edema NEUROLOGIC: Awake and alert. Oriented x 3. ASSESSMENT: Chest pain, ruled out, patient presented with epigastric pain Acute pancreatitis Transaminitis History of pancreatitis Hypertension Hyperlipidemia Hypothyroidism PLAN: Patient's presentation to the hospital is consistent with pancreatitis rather than acute coronary syndrome Discontinue IV heparin Recommend nothing by mouth status for pancreatitis. Patient may require GI or surgical consult. Resume home cardiac medications Hold atorvastatin secondary to transaminitis Patient is currently stable from a cardiac standpoint We will sign off. Please reconsult if needed. Nurse practitioner note has been reviewed by physician. Signing provider agrees with the documented findings, assessment, and plan of care. Past Medical History Past Medical History: Cancer, Chest Pain / Angina, GERD/Reflux, Hyperlipidemia, Hypertension, Osteoarthritis (OA), Pneumonia, Thyroid Disorder, Vascular Disorder Additional Past Medical History / Comment(s): polynephritis, severe UTI with sepsis which she states she fully recovered from then last week pt states she had the flu and then urinary tract infection symptoms returned. Other hx: UTIs, skin cancer nose and R cheek, diverticular disease, pancreatitis, elevated liver function tests, irregular heart beat in the past, spondylosis cervical spine/neck pain, low back pain, varicosities bilateral legs, insomnia Last Myocardial Infarction Date:: unknown History of Any Multi-Drug Resistant Organisms: ESBL Date of last positivie culture/infection: 08/28/20 MDRO Source:: ESBL URINE Past Surgical History: Adenoidectomy, Heart Catheterization, Hysterectomy, Joint Replacement, Orthopedic Surgery, Tonsillectomy Additional Past Surgical History / Comment(s): Total L knee arthroplasty, R foot bunionectomy, R carpal tunnel release, R middle finger cyst removed/spur removed, R foot surgery with screws in place, colonoscopies, skin cancer removals, bilateral cataract removals/lens implants. Past Anesthesia/Blood Transfusion Reactions: No Reported Reaction Additional Past Anesthesia/Blood Transfusion Reaction / Comment(s): no hx blood transfusion Past Psychological History: Anxiety Smoking Status: Former smoker Past Alcohol Use History: None Reported Past Drug Use History: None Reported - Past Family History Sister(s) Family Medical History: Cancer Additional Family Medical History / Comment(s): Patient had total of 4 sisters. One from a form of lymphoma. OTHER sisters are alive. One has COPD. One is blind and deaf since 18 months old from strep meningitis. Third sister is a lso blind from aniridia and glaucoma. Brother(s) Family Medical History: Cancer Additional Family Medical History / Comment(s): Patient has a total of 4 brothers. One from myocardial infarction and one from pancreatic cancer. 2 living brothers have no major medical problems. Father Family Medical History: Myocardial Infarction ([place]) Additional Family Medical History / Comment(s): Father at age 79 from [place], he was residing in [facility] at the time. Mother Family Medical History: Seizure Disorder Additional Family Medical History / Comment(s): Mother at age 78 from either [place] or seizure. She had history of COPD, Oxygen dependent, seizure disorder. Medications and Allergies Home Medications Medication Instructions Recorded Confirmed Type Levothyroxine Sodium [Synthroid] 50 mcg PO DAILY 05/19/14 10/16/21 History Zolpidem [Ambien] 10 mg PO HS PRN 05/19/14 10/16/21 History Acetaminophen Tab [Tylenol] 650 mg PO Q4H PRN 10/16/21 10/16/21 History Losartan [Cozaar] 25 mg PO DAILY 10/16/21 10/16/21 History Simvastatin [Zocor] 80 mg PO HS 10/16/21 10/16/21 History buPROPion XL [Wellbutrin XL] 150 mg PO DAILY 10/16/21 10/16/21 History Allergies Allergy/AdvReac Type Severity Reaction Status Date / Time nitrofurantoin Allergy Itching Verified 10/16/21 07:16 [From Macrobid] Penicillins Allergy Rash/Hives/ Verified 10/16/21 07:16 Swelling Sulfa (Sulfonamide Allergy Rash/Hives Verified 10/16/21 07:16 Antibiotics) Physical Exam Vitals: Vital Signs Temp Pulse Resp BP Pulse Ox 10/16/21 07:37 78 18 156/72 98 10/16/21 06:57 70 16 155/75 10/15/21 22:35 98.2 F 87 20 197/99 97 Intake and Output 10/15/21 10/16/21 10/16/21 22:59 06:59 14:59 Other: Weight 90.718 kg Results 10/16/21 00:01 10/16/21 00:01 Cardiac Enzymes 10/16/21 10/16/21 10/16/21 Range/Units 00:01 00:01 02:28 AST 186 H (14-36) U/L Troponin I <0.012 <0.012 (0.000-0.034) ng/mL 10/16/21 Range/Units 06:32 AST (14-36) U/L Troponin I <0.012 (0.000-0.034) ng/mL Coagulation 10/16/21 10/16/21 Range/Units 00:01 06:32 PT 10.1 (9.0-12.0) sec APTT 24.7 44.4 H (22.0-30.0) sec CBC 10/16/21 Range/Units 00:01 WBC 5.0 (3.8-10.6) k/uL RBC 4.76 (3.80-5.40) m/uL Hgb 13.4 (11.4-16.0) gm/dL Hct 41.5 (34.0-46.0) % Plt Count 214 (150-450) k/uL Comprehensive Metabolic Panel 10/16/21 Range/Units 00:01 Sodium 134 L (137-145) mmol/L Potassium 3.8 (3.5-5.1) mmol/L Chloride 102 (98-107) mmol/L Carbon Dioxide 25 (22-30) mmol/L BUN 10 (7-17) mg/dL Creatinine 0.77 (0.52-1.04) mg/dL Glucose 109 H (74-99) mg/dL Calcium 9.2 (8.4-10.2) mg/dL AST 186 H (14-36) U/L ALT 565 H (4-34) U/L Alkaline Phosphatase 268 H (38-126) U/L Total Protein 7.2 (6.3-8.2) g/dL Albumin 4.1 (3.5-5.0) g/dL Current Medications Generic Name Dose Route Start Last Admin Trade Name Freq PRN Reason Stop Dose Admin Alprazolam 0.5 mg 10/16/21 01:16 Alprazolam 0.5 Mg Tab PO TID PRN Anxiety Amlodipine Besylate 10 mg 10/16/21 09:45 10/16/21 09:56 Amlodipine 10 Mg Tab PO 10 mg DAILY TOMAS Administration Cyclobenzaprine HCl 10 mg 10/16/21 09:00 Cyclobenzaprine 10 Mg Tab PO TID PRN Muscle Spasm Escitalopram Oxalate 10 mg 10/16/21 12:00 Escitalopram 10 Mg Tab PO DAILY@1200 TOMAS Famotidine 40 mg 10/16/21 09:00 Famotidine 20 Mg Tab PO DAILY PRN Heartburn Sodium Chloride 1,000 mls @ 20 mls/hr 10/16/21 01:15 10/16/21 07:20 Saline 0.9% IV 20 mls/hr .Q24H TOMAS Administration Levothyroxine Sodium 50 mcg 10/16/21 06:30 10/16/21 06:52 Levothyroxine 50 Mcg Tab PO 50 mcg DAILY@0630 TOMAS Administration Lisinopril 10 mg 10/16/21 09:00 10/16/21 08:26 Lisinopril 10 Mg Tab PO 10 mg DAILY TOMAS Administration Pantoprazole Sodium 40 mg 10/16/21 09:45 10/16/21 09:56 Pantoprazole 40 Mg/10 Ml Vial IVP 40 mg BID TOMAS Administration Zolpidem Tartrate 10 mg 10/16/21 01:16 Zolpidem 5 Mg Tab PO HS PRN Insomnia Intake and Output 10/15/21 10/16/21 10/16/21 22:59 06:59 14:59 Other: Weight 90.718 kg 10/16/21 00:01 10/16/21 00:01
--- NOTE | 2021-10-16 11:08 | P.HPIM ---
History of Present Illness Patient was a 71-year-old female came in with complaints of epigastric abdominal pain burning sensation radiating to the throat area and retrosternal area. Patient had a sharp pain as well patient's symptoms started about 3 days ago at that time patient did have some hard liquor. Patient had history of peritonitis in the past patient still has gallbladder. Patient had multiple episodes of nausea vomiting. Patient denied any fever chills patient is found to have elevated lipase elevated liver enzymes with the elevated AST and ALT. AST and ALP elevation is not consistent with alcoholic hepatitis. Patient had mildly elevated d-dimer but doesn't have any symptoms pulmonary embolism low suspicion of PE. Patient's abdominal pain a significant limp better today. REVIEW OF SYSTEMS: CONSTITUTIONAL: No fever, no malaise, no fatigue. HEENT: No recent visual problems or hearing problems. Denied any sore throat. CARDIOVASCULAR: No chest pain, orthopnea, PND, no palpitations, no syncope. PULMONARY: No shortness of breath, no cough, no hemoptysis. GASTROINTESTINAL: No diarrhea. NEUROLOGICAL: No headaches, no weakness, no numbness. HEMATOLOGICAL: Denies any bleeding or petechiae. GENITOURINARY: Denies any burning micturition, frequency, or urgency. MUSCULOSKELETAL/RHEUMATOLOGICAL: Denies any joint pain, swelling, or any muscle pain. ENDOCRINE: Denies any polyuria or polydipsia. The rest of the 14-point review of systems is negative. PHYSICAL EXAMINATION: GENERAL: The patient is alert and oriented x3, not in any acute distress. Well developed, well nourished. HEENT: Pupils are round and equally reacting to light. EOMI. No scleral icterus. No conjunctival pallor. Normocephalic, atraumatic. No pharyngeal erythema. No thyromegaly. CARDIOVASCULAR: S1 and S2 present. No murmurs, rubs, or gallops. PULMONARY: Chest is clear to auscultation, no wheezing or crackles. ABDOMEN: Soft, mild tenderness and epigastric area nondistended, normoactive bowel sounds. No palpable organomegaly. MUSCULOSKELETAL: No joint swelling or deformity. EXTREMITIES: No cyanosis, clubbing, or pedal edema. NEUROLOGICAL: Gross neurological examination did not reveal any focal deficits. SKIN: No rashes. Assessment and plan -Acute pancreatitis: Patient doesn't have any significant alcoholism history we'll obtain ultrasound of the abdomen to rule out any gallstones and gallstone pancreatitis, patient will be started on Protonix may have some stress-related gastritis Pepcid will be discontinued. Patient in symptoms are significantly better patient will be started on clear liquid diet advance as tolerated. Patient was evaluated cardiology rule out any acute coronary syndromes which was ruled out and IV heparin is being discontinued at this time -Transaminitis: Ultrasound of the abdomen was obtained etiology is not known at this time -Hypovolemic hyponatremia secondary to nausea vomiting. -Hypothyroidism -Hypertension continue with losartan -Hyperlipidemia DVT prophylaxis: Lovenox Past Medical History Past Medical History: Cancer, Chest Pain / Angina, GERD/Reflux, Hyperlipidemia, Hypertension, Osteoarthritis (OA), Pneumonia, Thyroid Disorder, Vascular Diso rder Additional Past Medical History / Comment(s): polynephritis, severe UTI with sepsis which she states she fully recovered from then last week pt states she had the flu and then urinary tract infection symptoms returned. Other hx: UTIs, skin cancer nose and R cheek, diverticular disease, pancreatitis, elevated liver function tests, irregular heart beat in the past, spondylosis cervical spine/neck pain, low back pain, varicosities bilateral legs, insomnia Last Myocardial Infarction Date:: unknown History of Any Multi-Drug Resistant Organisms: ESBL Date of last positivie culture/infection: 08/28/20 MDRO Source:: ESBL URINE Past Surgical History: Adenoidectomy, Heart Catheterization, Hysterectomy, Joint Replacement, Orthopedic Surgery, Tonsillectomy Additional Past Surgical History / Comment(s): Total L knee arthroplasty, R foot bunionectomy, R carpal tunnel release, R middle finger cyst removed/spur removed, R foot surgery with screws in place, colonoscopies, skin cancer removals, bilateral cataract removals/lens implants. Past Anesthesia/Blood Transfusion Reactions: No Reported Reaction Additional Past Anesthesia/Blood Transfusion Reaction / Comment(s): no hx blood transfusion Past Psychological History: Anxiety Smoking Status: Former smoker Past Alcohol Use History: None Reported Past Drug Use History: None Reported - Past Family History Sister(s) Family Medical History: Cancer Additional Family Medical History / Comment(s): Patient had total of 4 sisters. One from a form of lymphoma. OTHER sisters are alive. One has COPD. One is blind and deaf since 18 months old from strep meningitis. Third sister is also blind from aniridia and glaucoma. Brother(s) Family Medical History: Cancer Additional Family Medical History / Comment(s): Patient has a total of 4 brothers. One from myocardial infarction and one from pancreatic cancer. 2 living brothers have no major medical problems. Father Family Medical History: Myocardial Infarction ([place]) Additional Family Medical History / Comment(s): Father at age 79 from [place], he was residing in [facility] at the time. Mother Family Medical History: Seizure Disorder Additional Family Medical History / Comment(s): Mother at age 78 from either [place] or seizure. She had history of COPD, Oxygen dependent, seizure disorder. Medications and Allergies Home Medications Medication Instructions Recorded Confirmed Type Levothyroxine Sodium [Synthroid] 50 mcg PO DAILY 05/19/14 10/16/21 History Zolpidem [Ambien] 10 mg PO HS PRN 05/19/14 10/16/21 History Acetaminophen Tab [Tylenol] 650 mg PO Q4H PRN 10/16/21 10/16/21 History Losartan [Cozaar] 25 mg PO DAILY 10/16/21 10/16/21 History Simvastatin [Zocor] 80 mg PO HS 10/16/21 10/16/21 History buPROPion XL [Wellbutrin XL] 150 mg PO DAILY 10/16/21 10/16/21 History Allergies Allergy/AdvReac Type Severity Reaction Status Date / Time nitrofurantoin Allergy Itching Verified 10/16/21 07:16 [From Macrobid] Penicillins Allergy Rash/Hives/ Verified 10/16/21 07:16 Swelling Sulfa (Sulfonamide Allergy Rash/Hives Verified 10/16/21 07:16 Antibiotics) Physical Exam Vitals: Vital Signs Temp Pulse Resp BP Pulse Ox 10/16/21 07:37 78 18 156/72 98 10/16/21 06:57 70 16 155/75 10/15/21 22:35 98.2 F 87 20 197/99 97 Intake and Output 10/15/21 10/16/21 10/16/21 22:59 06:59 14:59 Other: Weight 90.718 kg Results CBC & Chem 7: 10/16/21 00:01 10/16/21 00:01 Labs: Abnormal Lab Results - Last 24 Hours (Table) 10/16/21 10/16/2110/16/22 Range/Units 00:01 00:01 00:01 Lymphocytes # 0.8 L (1.0-4.8) k/uL APTT (22.0-30.0) sec D-Dimer 0.89 H (<0.60) mg/L FEU Sodium 134 L (137-145) mmol/L Glucose 109 H (74-99) mg/dL Total Bilirubin 4.0 H (0.2-1.3) mg/dL AST 186 H (14-36) U/L ALT 565 H (4-34) U/L Alkaline Phosphatase 268 H (38-126) U/L Lipase 3220 H (23-300) U/L Urine Appearance (Clear) Ur Leukocyte Esterase (Negative) Urine WBC (0-5) /hpf Urine Bacteria (None) /hpf Urine Mucus (None) /hpf 10/16/21 10/16/21 Range/Units 02:19 06:32 Lymphocytes # (1.0-4.8) k/uL APTT 44.4 H (22.0-30.0) sec D-Dimer (<0.60) mg/L FEU Sodium (137-145) mmol/L Glucose (74-99) mg/dL Total Bilirubin (0.2-1.3) mg/dL AST (14-36) U/L ALT (4-34) U/L Alkaline Phosphatase (38-126) U/L Lipase (23-300) U/L Urine Appearance Cloudy H (Clear) Ur Leukocyte Esterase Large H (Negative) Urine WBC 7 H (0-5) /hpf Urine Bacteria Occasional H (None) /hpf Urine Mucus Rare H (None) /hpf
[2021-10-16] MEDS ORDERED: ESCITALOPRAM 10 MG TAB PO SCH (12:00)
--- NOTE | 2021-10-16 14:03 | US ---
EXAMINATION TYPE: US gallbladder DATE OF EXAM: 10/16/2021 COMPARISON: US & CT CLINICAL HISTORY: elevated liver enzymes. Elevated LFT's TECHNIQUE: Multiple sonographic images of the right upper quadrant are obtained. FINDINGS: EXAM MEASUREMENTS: Liver Length: 19.2 cm Gallbladder Wall: 0.2 cm CBD: 0.8 cm Right Kidney: 11.5 x 4[address] RECORDER NOTES: Large pt body habitus Pancreas: wnl, tail gassed out Liver: Enlarged, heterogeneous, difficult to penetrate Gallbladder: wnl Evidence for sonographic Rowan's sign: No CBD: ?upper limits of normal for age Right Kidney: wnl IMPRESSION: Hepatocellular disease most commonly relating to hepatic steatosis.
[2021-10-16] MEDS: LOSARTAN 25 MG TAB PO SCH (15:22)
[2021-10-16] MEDS: buPROPion XL 150 MG TAB.ER.24H PO SCH (15:23)
[2021-10-16] MEDS: ACETAMINOPHEN TAB 325 MG TAB PO PRN ×2 (15:38→19:47)
[2021-10-16] MEDS ORDERED: ATORVASTATIN 40 MG TAB PO SCH (21:00)
[2021-10-16] MEDS ORDERED: ATORVASTATIN 10 MG TAB PO SCH (21:00)
[2021-10-17] MEDS: SODIUM CHLORIDE 0.9% 1,000 ML IV SCH (03:34)
[2021-10-17] MEDS: LEVOTHYROXINE 50 MCG TAB PO SCH (05:44)
[2021-10-17 08:51] VITALS: BP 165/79; PULSE 88; RESP 18; TEMP 97.4
[2021-10-17] MEDS ORDERED: ASPIRIN 325 MG TAB PO SCH (09:00)
[2021-10-17] MEDS ORDERED: ENOXAPARIN 40 MG/0.4 ML SYRINGE SQ SCH (09:00)
[2021-10-17 09:09] LABS: HCT 40.5 % (37.2-46.3); HGB 12.7 g/dL (12.0-15.0); MCH 26.7 pg (27.0-32.0); MCHC 31.4 g/dL (32.0-37.0); MCV 85.3 fL (80.0-97.0); Mean Platelet Volume 9.9 fL (9.5-12.2); NRBC Per 100 WBC 0 /100 WBCS (0.0-0.0); Platelet Count 223 X 10*3/uL (140-440); RBC 4.75 X 10*6/uL (4.10-5.20); RDW 15.7 % (11.5-14.5); WBC 4.67 X 10*3/uL (4.50-10.00)
[2021-10-17 09:28] LABS: Chol/HDL Ratio 4.43 Ratio; LDL Cholesterol,Calculated 129.4 mg/dL (0.0-131.0)
[2021-10-17] MEDS: PANTOPRAZOLE 40 MG/10 ML VIAL IVP SCH (09:51)
[2021-10-17] MEDS: LOSARTAN 25 MG TAB PO SCH (09:52)
[2021-10-17] MEDS: buPROPion XL 150 MG TAB.ER.24H PO SCH (09:52)
[2021-10-17] MEDS: amLODIPine 10 MG TAB PO SCH (09:57)
[2021-10-17] MEDS: lisinopriL 10 MG TAB PO SCH (10:01)
[2021-10-17 10:19] LABS: ALT 396 U/L (8-44); AST 88 U/L (13-35); African American GFR (CKD) 99.6 (60.0-200.0); Albumin 3.9 g/dL (3.8-4.9); Albumin/Globulin Ratio 1.77 (1.60-3.17); Alkaline Phosphatase 239 U/L (41-126); BUN/Creat Ratio 9.57 Ratio (12.00-20.00); Blood Urea Nitrogen 6.7 mg/dL (9.0-27.0); Calcium 8.9 mg/dL (8.7-10.3); Carbon Dioxide 24.8 mmol/L (20.0-27.5); Chloride 105 mmol/L (96-109); Globulin 2.2 g/dL (1.6-3.3); Glucose 100 mg/dL (70-110); Potassium 4.3 mmol/L (3.5-5.5); Sodium 139 mmol/L (135-145); Total Protein 6.1 g/dL (6.2-8.2)
--- NOTE | 2021-10-17 19:13 | P.DS ---
Providers Date of admission: 10/16/21 01:15 Expected date of discharge: 10/17/21 Attending physician: Luz Manuel Primary care physician: Dina Renteria Hospital Course: Final diagnosis -Acute pancreatitis: ruled out gallstone pancreatitis -chest pain, acute coronary syndrome, ruled out -Transaminitis, etiology is not known at this time -Hypovolemic hyponatremia secondary to nausea, vomiting. improved -Hypothyroidism -Hypertension -Hyperlipidemia -DVT prophylaxis Discharge disposition Patient is being discharged in a stable condition with guarded prognosis to home . Patient will follow-up with Dr. Renteria in the outpatient setting upon discharge. Patient is to also follow up with cardiology as well as GI in the outpatient setting as scheduled. Patient to continue on protonix BID x 2 weeks. Total time taken is greater than 35 minutes. Hospital course This is a 71-year-old female who was recently admitted with chest pain, epigastric and also nausea and vomiting and was being closely monitored. Patient was seen and evaluated by cardiology and acs was ruled out. Patient is to follow up outpatient with cardio. Patient had gallbladder ultrasound showing no gallstones and findings consistent with hepatic steatosis. Recommending holding statin due to transaminitis and also noted to have elevated lipase above 3000. Recommend follow up with pcp DR. Renteria and labs in the next week. Encouraged to continue with full liquid diet as she is tolerating and continue with for the next few days. Recommend GI follow up outpatient. Currently no reports of chest pain, shortness of breath, or palpitations. Patient is afebrile. No reports of nausea or vomiting and patient is tolerating diet. Patient will be discharged home today. Physical exam: Gen: This is a 71 year old female who is awake, alert and oriented x3, well developed, well nourished, obese HEENT: Head is atraumatic, normocephalic. Pupils equal, round. Sclerae is anicteric. NECK: Supple. No JVD. No lymphadenopathy. No thyromegaly. LUNGS: Clear to auscultation. No wheezes or rhonchi. No intercostal retractions. HEART: Regular rate and rhythm. No murmur. ABDOMEN: Soft. Bowel sounds are present. No masses. No tenderness. EXTREMITIES: No pedal edema. No calf tenderness. NEUROLOGICAL: Patient is awake, alert and oriented x3. Cranial nerves 2 through 12 are grossly intact. Please refer to medication reconciliation sheet for a list of medications. The impression and plan of care has been dictated by Supriya Samano, Nurse Practitioner as directed. Dr. Santos MD I have performed a history and examination and MDM of this patient, discussed the same with the dictator, and agree with the dictator's assessment and plan as written ,documented as a scribe. Based on total visit time, I have performed more than 50% of the visit. Patient Condition at Discharge: Fair Plan - Discharge Summary Discharge Rx Participant: No New Discharge Prescriptions: New amLODIPine [Norvasc] 10 mg PO DAILY 30 Days #30 tab Pantoprazole [Protonix] 40 mg PO BID 15 Days #30 tab Continue Zolpidem [Ambien] 10 mg PO HS PRN PRN Reason: Insomnia Levothyroxine Sodium [Synthroid] 50 mcg PO DAILY Simvastatin [Zocor] 80 mg PO HS Losartan [Cozaar] 25 mg PO DAILY buPROPion XL [Wellbutrin XL] 150 mg PO DAILY Escitalopram [Lexapro] 20 mg PO DAILY Acetaminophen Tab [Tylenol] 650 mg PO Q4H PRN PRN Reason: Pain Or Fever > 100.5 Discharge Medication List Levothyroxine Sodium [Synthroid] 50 mcg PO DAILY 05/19/14 [History] Zolpidem [Ambien] 10 mg PO HS PRN 05/19/14 [History] Acetaminophen Tab [Tylenol] 650 mg PO Q4H PRN 10/16/21 [History] Losartan [Cozaar] 25 mg PO DAILY 10/16/21 [History] Simvastatin [Zocor] 80 mg PO HS 10/16/21 [History] buPROPion XL [Wellbutrin XL] 150 mg PO DAILY 10/16/21 [History] Escitalopram [Lexapro] 20 mg PO DAILY 10/17/21 [History] Pantoprazole [Protonix] 40 mg PO BID 15 Days #30 tab 10/17/21 [Rx] amLODIPine [Norvasc] 10 mg PO DAILY 30 Days #30 tab 10/17/21 [Rx] Follow up Appointment(s)/Referral(s): Dina Renteria MD [Primary Care Provider] - 1-2 days Elma Kelly MD [STAFF PHYSICIAN] - 1 Week Ambulatory/Diagnostic Orders: Comprehensive Metabolic Panel [LAB.AMB] Time Frame: 3 Days, Location: None Selected Patient Instructions/Handouts: Pancreatitis (DC) Activity/Diet/Wound Care/Special Instructions: Activity Limited until follow-up Recommend continue with low fiber diet for the next couple of days and slowly advance as tolerated Recommend follow-up with GI outpatient Recommend following up with primary care provider on discharge Recommend repeat labs in the next 2-3 days [facility] outpatient follow-up with cardiology Recommend holding cholesterol medication until improvement in labs and discussing with primary care provider Discharge Disposition: HOME SELF-CARE
== END 2021-10-17 14:44 | disposition home or self-care (01) ==
LOC: EC 22:13 → 6NMEDSUR 10-16 01:15
PROVIDERS: ADMIT Hospitalist; ATTEND Hospitalist
DX: K85.90 Acute pancreatitis without necrosis or infection, unspecified (principal); R07.89 Other chest pain; R74.01 Elevation of levels of liver transaminase levels; E78.5 Hyperlipidemia, unspecified; I10 Essential (primary) hypertension; G47.00 Insomnia, unspecified; M47.812 Spondylosis without myelopathy or radiculopathy, cervical region; K21.9 Gastro-esophageal reflux disease without esophagitis; F41.9 Anxiety disorder, unspecified; E03.9 Hypothyroidism, unspecified; I70.0 Atherosclerosis of aorta; K76.9 Liver disease, unspecified; E66.9 Obesity, unspecified; E87.1 Hypo-osmolality and hyponatremia; Z79.890 Hormone replacement therapy; Z79.899 Other long term (current) drug therapy; Z88.3 Allergy status to other anti-infective agents; Z88.0 Allergy status to penicillin; Z88.2 Allergy status to sulfonamides; Z85.828 Personal history of other malignant neoplasm of skin; Z90.710 Acquired absence of both cervix and uterus; Z96.1 Presence of intraocular lens; Z96.652 Presence of left artificial knee joint; Z87.891 Personal history of nicotine dependence; Z80.7 Family history of other malignant neoplasms of lymphoid, hematopoietic and related tissues; Z82.5 Family history of asthma and other chronic lower respiratory diseases; Z82.1 Family history of blindness and visual loss; Z80.0 Family history of malignant neoplasm of digestive organs; Z82.49 Family history of ischemic heart disease and other diseases of the circulatory system; Z82.0 Family history of epilepsy and other diseases of the nervous system; Z20.822 Contact with and (suspected) exposure to COVID-19; Z68.36 Body mass index [BMI] 36.0-36.9, adult
CPT/HCPCS: 96376 ×2; 96372; 96374; 96375; 99291; 36415; 93005; 85379; 83880; 80061; 80053 ×2; 83690; 83735; 84484; 85025; 85027; 85610; 85730; 81001; 87635; 71046; 76705; G0378 ×2; J1650; J1644 ×2; C9113 ×2

== ENCOUNTER → 2021-11-12 | Outpatient (CLI) | payer MEDICARE, OTHER ==
--- NOTE | 2021-11-12 11:02 | MR ---
EXAMINATION TYPE: MR MRCP DATE OF EXAM: 11/12/2021 COMPARISON: CT abdomen and pelvis January 08, 2020 and older studies HISTORY: Abdominal pain Standard multiplanar, multisequence MRI departmental protocol Multiplanar, multisequence images of the abdomen were acquired without contrast. Diffusion weighted i maging was performed. Thin and thick slice MRCP imaging is performed. FINDINGS: LIVER/GB/PANCREAS/BILIARY SYSTEM: Gallbladder has slightly distended margins. There are no intralumin al gallstones identified. No suspicious wall thickening or surrounding inflammatory change is seen. T here is no new intrahepatic or extrahepatic biliary dilatation noted. Common bile duct measures up to 7 mm which is upper limits of normal for patient's age Findings correlate with prior studies. Pancreas is normal in size. Pancreatic duct is visualized but nondilated. There are a few subcentimet er areas of thin-walled cysts redemonstrated throughout the pancreas, some appear to connect to side branches of the main pancreatic duct, others do not show connection. Largest lesion in the central smith dy is bilobed in shape measuring 11 x 9 x 7 mm slightly larger in size from prior studies. No suspici ous solid masses identified. No adjacent inflammatory change is seen. Liver is normal in size. There is is persistent peripheral 8 mm lesion posterior segment right hepati c lobe series 8 on image 43 series 501 of T1 hypointensity and T2 hyperintensity consistent with shaila gn hemangioma on prior studies. Medial and just superior to this there is a 8 mm round lesion of subt le T1 hypointensity and T2 hyperintensity image 45 series 601 stable in size from prior studies. There is no additional worrisome solid or cystic intrahepatic mass. Liver overall shows persistent di ffuse dropout consistent with diffuse fatty infiltration on in and out of phase sequence imaging. Janette n portal vein is patent and nondilated. No surrounding ascites. Other: Lung bases remain clear. Heart size is upper limits of normal. Spleen is normal in size and ap pears grossly unremarkable. Adrenal glands are within normal limits. There is no concerning renal mas s or hydronephrosis identified. Stomach is poorly distended and thus suboptimally evaluated. There is no suspicious small or large bowel dilatation. IMPRESSION: Slightly larger thin-walled cyst or cystic lesion in the central pancreatic body should b e closely followed. Side branch IPMN is suspected. Additional smaller lesions are stable. Hepatic les ions are grossly stable in size. Diffuse fatty infiltration of liver redemonstrated.
== END | disposition home or self-care (01) ==
LOC: RADMRIMAIN 06:27
PROVIDERS: ATTEND Internal Medicine Gastroenterology
DX: K76.0 Fatty (change of) liver, not elsewhere classified (principal)
CPT/HCPCS: 74181

== ENCOUNTER 2021-12-10 11:39 | Emergency (ER) | payer MEDICARE, OTHER ==
[2021-12-10 11:53] VITALS: BP 178/71; PULSE 68; TEMP 97.9
[2021-12-10] MEDS ORDERED: PANTOPRAZOLE 40 MG/10 ML VIAL IVP STA (12:30)
[2021-12-10] MEDS ORDERED: MORPHINE SULFATE 4 MG/ML SYRINGE IV STA (12:30)
[2021-12-10] MEDS ORDERED: SODIUM CHLORIDE 0.9% 1,000 ML IV STA (12:30)
[2021-12-10] MEDS ORDERED: ONDANSETRON 4 MG/2 ML VIAL IVP STA (12:30)
--- NOTE | 2021-12-10 12:40 | ED ---
General Adult HPI - General Chief complaint: Abdominal Pain Stated complaint: abd, back and left leg pain Time Seen by Provider: 12/10/21 12:20 Source: patient, RN notes reviewed, old records reviewed Mode of arrival: ambulatory - History of Present Illness Initial comments: Patient is a 71-year-old female with past medical history remarkable for chronic abdominal pain, chronic pancreatitis, who presents emergency department with recurrence of her chronic abdominal pain in addition to pain radiating down her left leg. States the pain is primarily in the bilateral lower quadrants of her abdomen. Describes as crampy, achy. States does radiate down into her left hip and left leg. Started about one week ago and is worsening. Did recently receive an MRI to workup the chronic lower abdominal pain is uncertain of the results. Does follow up with Dr. Kelly outpatient. States that what is different is the left leg involvement of her pain. Denies diarrhea. Denies any blood in her bowel movements. Denies any urinary complaints including dysuria or hematuria. Denies any vaginal discharge or bleeding. Endorses nausea but no vomiting. Denies chest pain. Endorses a mild cough. There is no upper abdominal pain. His no other acute complaints at this time. Presents for further evaluation at this time over concern for abdominal pain.Denies any saddle anesthesias. Denies any weakness in the lower extremities. Denies any urinary or bowel incontinence or retention. - Related Data Home Medications Medication Instructions Recorded Confirmed Levothyroxine Sodium [Synthroid] 50 mcg PO DAILY 05/19/14 12/10/21 Zolpidem [Ambien] 10 mg PO HS PRN 05/19/14 12/10/21 Acetaminophen Tab [Tylenol] 650 mg PO Q4H PRN 10/16/21 12/10/21 Losartan [Cozaar] 25 mg PO DAILY 10/16/21 12/10/21 Simvastatin [Zocor] 80 mg PO HS 10/16/21 12/10/21 buPROPion XL [Wellbutrin XL] 150 mg PO DAILY 10/16/21 12/10/21 Escitalopram [Lexapro] 20 mg PO DAILY 10/17/21 12/10/21 Pantoprazole [Protonix] 40 mg PO BID PRN 12/10/21 12/10/21 Previous Rx's Medication Instructions Recorded amLODIPine [Norvasc] 10 mg PO DAILY 30 Days #30 tab 10/17/21 HYDROcodone/APAP 5-325MG [[place] 1 tab PO Q4HR PRN 3 Days #18 tab 12/10/21 5-325] Ondansetron Odt [Zofran Odt] 4 mg PO Q8HR PRN 3 Days #9 tab 12/10/21 Allergies Allergy/AdvReac Type Severity Reaction Status Date / Time nitrofurantoin Allergy Itching Verified 12/10/21 13:54 [From Macrobid] Penicillins Allergy Rash/Hives/ Verified 12/10/21 13:54 Swelling Sulfa (Sulfonamide Allergy Rash/Hives Verified 12/10/21 13:54 Antibiotics) Review of Systems ROS Statement: Those systems with pertinent positive or pertinent negative responses have been documented in the HPI. Review of Systems: CONST: Denies fever EYES: Denies blurry vision ENT: Denies nasal congestion C/V: Denies Chest pain RESP: Denies shortness of breath GI: Endorses abdominal pain : Denies dysuria SKIN: Denies rash. MSK: Endorses left leg pain NEURO: Denies headache ROS Other: All systems not noted in ROS Statement are negative. Past Medical History Past Medical History: Cancer, Chest Pain / Angina, GERD/Reflux, Hyperlipidemia, Hypertension, Osteoarthritis (OA), Pneumonia, Thyroid Disorder, Vascular Disorder Additional Past Medical History / Comment(s): polynephritis, severe UTI with sepsis which she states she fully recovered from then last week pt states she had the flu and then urinary tract infection symptoms returned. Other hx: UTIs, skin cancer nose and R cheek, diverticular disease, pancreatitis, elevated liver function tests, irregular heart beat in the past, spondylosis cervical spine/neck pain, low back pain, varicosities bilateral legs, insomnia Last Myocardial Infarction Date:: unknown History of Any Multi-Drug Resistant Organisms: ESBL Date of last positivie culture/infection: 08/28/20 MDRO Source:: ESBL URINE Past Surgical History: Adenoidectomy, Heart Catheterization, Hysterectomy, Joint Replacement, Orthopedic Surgery, Tonsillectomy Additional Past Surgical History / Comment(s): Total L knee arthroplasty, R foot bunionectomy, R carpal tunnel release, R middle finger cyst removed/spur removed, R foot surgery with screws in place, colonoscopies, skin cancer removals, bilateral cataract removals/lens implants. Past Anesthesia/Blood Transfusion Reactions: No Reported Reaction Additional Past Anesthesia/Blood Transfusion Reaction / Comment(s): no hx blood transfusion Past Psychological History: Anxiety Smoking Status: Former smoker Past Alcohol Use History: None Reported Past Drug Use History: None Reported - Past Family History Sister(s) Family Medical History: Cancer Additional Family Medical History / Comment(s): Patient had total of 4 sisters. One from a form of lymphoma. OTHER sisters are alive. One has COPD. One is blind and deaf since 18 months old from strep meningitis. Third sister is also blind from aniridia and glaucoma. Brother(s) Family Medical History: Cancer Additional Family Medical History / Comment(s): Patient has a total of 4 brothers. One from myocardial infarction and one from pancreatic cancer. 2 living brothers have no major medical problems. Father Family Medical History: Myocardial Infarction ([place]) Additional Family Medical History / Comment(s): Father at age 79 from [place], he was residing in [facility] at the time. Mother Family Medical History: Seizure Disorder Additional Family Medical History / Comment(s): Mother at age 78 from either [place] or seizure. She had history of COPD, Oxygen dependent, seizure disorder. General Exam - General Exam Comments Initial Comments: General: Appears in no acute distress. HEAD: Normal with no signs of head trauma. EYES: PERRLA, EOMI, conjunctiva normal, no discharge. ENT: Hearing grossly intact, normal oropharynx. RESPIRATORY: Clear breath sounds bilaterally. No wheezes, rales, or rhonchi. C/V: Regular rate and rhythm. S1 and S2 auscultated, no edema, peripheral pulses 2+ and intact throughout ABD: Abdomen is soft, nondistended. Mild tenderness to palpation in the suprapubic, bilateral lower quadrants. Left seems to be worse than right. No guarding. No rebound tenderness. No peritoneal signs. No CVA tenderness to percussion. Tenderness radiating down the posterior aspect of her left leg. EXT: Normal range of motion, no obvious deformity SKIN: No rashes or lesions observed on exposed skin. NEURO: Alert and oriented x 4. Cranial nerves II-XII intact. No focal sensory or strength deficits. No saddle anesthesias. Course Vital Signs 12/10/21 12/10/21 11:49 15:20 Temperature 97.9 F Pulse Rate 68 Respiratory 16 18 Rate Blood Pressure 178/71 O2 Sat by Pulse 98 Oximetry Medical Decision Making - Medical Decision Making Based on the patient's presentation and physical exam, I discussed with the patient would like to obtain a dental laboratory studies. Cannot rule out intra-abdominal process at this time. She was in agreement this plan. We will start with plain film x-rays, abdominal laboratory studies, screening EKG. She'll be sent likely treatment with IV medications and fluids. Vital signs within normal limits. Appears to be having acute on chronic pain with slight change in symptoms. She was in agreement this plan. Screening EKG shows no signs of acute ischemia. Chest x-ray shows no acute cardio, process. KUB x-ray shows no definitive process. There are small phleboliths. Due to involvement of the left leg with her symptoms, be we did obtain CT angiogram to evaluate the patient's abdomen as well as her aorta. CT angiogram showed no acute aortic aneurysm or dissection. No acute findings in the abdomen. Laboratory studies are remarkable for an lactic acid within normal limits. Covid is negative. She is mildly elevated alk phos, AST, ALT all of which are chronic for her. No acute findings. On reevaluation, patient's pain is resolved. She is feeling improved. We discussed the negative workup. She does have follow-up with her gastrologist in 2 days on Friday. I believe it is safer to be discharged home at this time. She was in agreement this plan. Strict return precautions were discussed. We discussed that her symptoms are likely secondary to her chronic abdominal pain. I will provide the patient with a prescription for [place], EDITH Adams. I instructed the patient to follow up with their PCP in the next 1-3 days. I explained that the patient should return to the emergency department if they experience any worsening symptoms. Strict return precautions were discussed with the patient. The patient expressed understanding of these instructions. I answered all questions that the patient had. The patient was discharged home in good condition with their prescriptions and follow up information. - Lab Data Result diagrams: 12/10/21 13:07 12/10/21 13:07 Lab Results 12/10/21 12/10/21 12/10/21 Range/Units 13:07 13:07 13:07 WBC 5.4 (3.8-10.6) k/uL RBC 5.04 (3.80-5.40) m/uL Hgb 13.5 (11.4-16.0) gm/dL Hct 43.1 (34.0-46.0) % MCV 85.6 (80.0-100.0) fL MCH 26.8 (25.0-35.0) pg MCHC 31.3 (31.0-37.0) g/dL RDW 14.7 (11.5-15.5) % Plt Count 230 (150-450) k/uL MPV 7.6 Neutrophils % 67 % Lymphocytes % 17 % Monocytes % 7 % Eosinophils % 6 % Basophils % 1 % Neutrophils # 3.6 (1.3-7.7) k/uL Lymphocytes # 0.9 L (1.0-4.8) k/uL Monocytes # 0.4 (0-1.0) k/uL Eosinophils # 0.3 (0-0.7) k/uL Basophils # 0.0 (0-0.2) k/uL PT 10.1 (9.0-12.0) sec INR 0.9 (<1.2) APTT 26.1 (22.0-30.0) sec Sodium 138 (137-145) mmol/L Potassium 4.7 (3.5-5.1) mmol/L Chloride 99 (98-107) mmol/L Carbon Dioxide 28 (22-30) mmol/L Anion Gap 11 mmol/L BUN 13 (7-17) mg/dL Creatinine 0.68 (0.52-1.04) mg/dL Est GFR (CKD-EPI)AfAm >90 (>60 ml/min/1.73 sqM) Est GFR (CKD-EPI)NonAf 87 (>60 ml/min/1.73 sqM) Glucose 101 H (74-99) mg/dL Plasma Lactic Acid Rip (0.7-2.0) mmol/L Calcium 9.2 (8.4-10.2) mg/dL Total Bilirubin 0.4 (0.2-1.3) mg/dL AST 71 H (14-36) U/L ALT 108 H (4-34) U/L Alkaline Phosphatase 187 H (38-126) U/L Total Protein 6.7 (6.3-8.2) g/dL Albumin 4.1 (3.5-5.0) g/dL Amylase 44 (30-110) U/L Lipase 46 (23-300) U/L Coronavirus (PCR) (Not Detectd) 12/10/21 12/10/21 Range/Units 13:07 13:07 WBC (3.8-10.6) k/uL RBC (3.80-5.40) m/uL Hgb (11.4-16.0) gm/dL Hct (34.0-46.0) % MCV (80.0-100.0) fL MCH (25.0-35.0) pg MCHC (31.0-37.0) g/dL RDW (11.5-15.5) % Plt Count (150-450) k/uL MPV Neutrophils % % Lymphocytes % % Monocytes % % Eosinophils % % Basophils % % Neutrophils # (1.3-7.7) k/uL Lymphocytes # (1.0-4.8) k/uL Monocytes # (0-1.0) k/uL Eosinophils # (0-0.7) k/uL Basophils # (0-0.2) k/uL PT (9.0-12.0) sec INR (<1.2) APTT (22.0-30.0) sec Sodium (137-145) mmol/L Potassium (3.5-5.1) mmol/L Chloride (98-107) mmol/L Carbon Dioxide (22-30) mmol/L Anion Gap mmol/L BUN (7-17) mg/dL Creatinine (0.52-1.04) mg/dL Est GFR (CKD-EPI)AfAm (>60 ml/min/1.73 sqM) Est GFR (CKD-EPI)NonAf (>60 ml/min/1.73 sqM) Glucose (74-99) mg/dL Plasma Lactic Acid Rip 0.7 (0.7-2.0) mmol/L Calcium (8.4-10.2) mg/dL Total Bilirubin (0.2-1.3) mg/dL AST (14-36) U/L ALT (4-34) U/L Alkaline Phosphatase (38-126) U/L Total Protein (6.3-8.2) g/dL Albumin (3.5-5.0) g/dL Amylase (30-110) U/L Lipase (23-300) U/L Coronavirus (PCR) Not Detected (Not Detectd) - EKG Data -: EKG Interpreted by Me EKG Comments: 12-lead Electrocardiogram Interpretation Note EKG was reviewed and interpreted by myself. 12-lead ECG performed at 1304 is interpreted by me as revealing sinus bradycardia at a rate of 58 beats per minute. Sikes is normal. CA interval is 171 ms, QRS duration is 92 ms, QTc is 415 ms.. There is an isolated T-wave inversion in lead V3 which does appear somewhat acute. There is an old T-wave inversion in lead III. No other findings to suggest acute ischemia.. R wave progression across the precordium was satisfactory. By my interpretation this EKG is non-diagnostic for acute ischemia. There is an isolated new T-wave findings. Disposition Clinical Impression: Chronic abdominal pain Disposition: HOME SELF-CARE Condition: Good Instructions (If sedation given, give patient instructions): Abdominal Pain (ED) Prescriptions: HYDROcodone/APAP 5-325MG [[place] 5-325] 1 tab PO Q4HR PRN 3 Days #18 tab PRN Reason: Pain Ondansetron Odt [Zofran Odt] 4 mg PO Q8HR PRN 3 Days #9 tab PRN Reason: Nausea Is patient prescribed a controlled substance at d/c from ED?: Yes When asked, does pt state using other controlled substances?: No If prescribed controlled substance>3 days was MAPS reviewed?: Prescribed <3 Days If opioid is for acute pain is fill amount 7 days or less?: Yes If Rx opioid, was Start Talking consent form obtained?: Yes Referrals: Dina Renteria MD [Primary Care Provider] - 1-2 days Time of Disposition: 15:00
--- NOTE | 2021-12-10 13:07 | XR ---
EXAMINATION TYPE: XR chest 2V DATE OF EXAM: 12/10/2021 COMPARISON: 10/16/2021 HISTORY: 71-year-old female with cough TECHNIQUE: PA and lateral views FINDINGS: Heart normal size. Aorta shows mild tortuosity. Pulmonary vasculature within normal limits. No consol idation or pleural effusion. IMPRESSION: No acute cardiopulmonary process.
--- NOTE | 2021-12-10 13:09 | XR ---
EXAMINATION TYPE: XR KUB DATE OF EXAM: 12/10/2021 Comparison: Correlation CT 10/09/2021 Clinical History: 71-year-old female left-sided abdominal pain Findings: Lung bases are clear. No evidence for free intraperitoneal air. No dilated small bowel or air-fluid levels. No significant stool burden. Multiple pelvic phleboliths are noted. No definite suspicious calcification projecting in the region of either kidney is radiographically ap parent. Impression: No definite suspicious calcification is radiographically apparent. Numerous small pelvic phleboliths.
[2021-12-10 13:14] LABS: Basophils % (A) 1 %; Eosinophils # (A) 0.3 k/uL (0-0.7); Eosinophils % (A) 6 %; HCT 43.1 % (34.0-46.0); HGB 13.5 gm/dL (11.4-16.0); Lymphocytes # (A) 0.9 k/uL (1.0-4.8); Lymphocytes % (A) 17 %; MCH 26.8 pg (25.0-35.0); MCHC 31.3 g/dL (31.0-37.0); MCV 85.6 fL (80.0-100.0); Mean Platelet Volume 7.6; Monocytes # (A) 0.4 k/uL (0-1.0); Monocytes % (A) 7 %; Neutrophils # (A) 3.6 k/uL (1.3-7.7); Neutrophils % (A) 67 %; Platelet Count 230 k/uL (150-450); RBC 5.04 m/uL (3.80-5.40); RDW 14.7 % (11.5-15.5); WBC 5.4 k/uL (3.8-10.6)
[2021-12-10 13:33] LABS: Glucose 101 mg/dL (74-99); INR 0.9 (<1.2); Partial Thromboplastin Time 26.1 sec (22.0-30.0); Prothrombin Time 10.1 sec (9.0-12.0)
[2021-12-10 13:34] LABS: ALT 108 U/L (4-34); AST 71 U/L (14-36); African American GFR (CKD) >90 (>60 ml/min/1.73 sqM); Albumin 4.1 g/dL (3.5-5.0); Alkaline Phosphatase 187 U/L (38-126); Amylase 44 U/L (30-110); Anion Gap 11 mmol/L; Blood Urea Nitrogen 13 mg/dL (7-17); Calcium 9.2 mg/dL (8.4-10.2); Carbon Dioxide 28 mmol/L (22-30); Chloride 99 mmol/L (98-107); Lipase 46 U/L (23-300); Non-African American GFR(CKD) 87 (>60 ml/min/1.73 sqM); Potassium 4.7 mmol/L (3.5-5.1); Sodium 138 mmol/L (137-145); Total Bilirubin 0.4 mg/dL (0.2-1.3); Total Protein 6.7 g/dL (6.3-8.2)
--- NOTE | 2021-12-10 14:50 | CT ---
EXAMINATION TYPE: CT angio thor/abd pel aorta DATE OF EXAM: 12/10/2021 COMPARISON: Prior CT abdomen and pelvis January 08, 2020 HISTORY: LOWER ABD PAIN RADIATES TO LEFT LEG CT DLP: 1528.6 mGycm. Automated Exposure Control for Dose Reduction was Utilized. CONTRAST: CTA scan of the thorax, abdomen and pelvis is performed with IV Contrast, patient injected with 100 m L of Isovue 370. Three-D reconstructed images created on an independent workstation and reviewed. FINDINGS: Vascular: No suspicious hyperdense material to suggest intramural hematoma. Satisfactory enhancement of the pulmonary arteries. Prominent right pulmonary artery suggests underlying pulmonary artery hype rtension. Bovine type aortic arch seen which is normal variant. Mild calcified plaque at this level w ithout significant stenosis. Patent celiac artery and SMA along with bilateral single renal arteries and patent RIK. Patent iliac artery vessels without significant plaque or stenosis. Patent femoral ar zunilda vessels in the groin region without significant plaque or stenosis. No aortic aneurysm. No linea r hypodensity to suggest dissection. LUNGS: Some increased opacities in the lower lungs could reflect mild edema and/or atelectasis. No fo cherri consolidation. MEDIASTINUM: There are no greater than 1 cm hilar or mediastinal lymph nodes. No pericardial effusi on is seen. Heart size upper limits of normal. OTHER: No additional significant abnormality is seen. LIVER/GB: Liver size stable and upper limits of normal with heterogeneous hypodense appearance consis tent with diffuse fatty infiltration redemonstrated. PANCREAS: No significant abnormality is seen. SPLEEN: No significant abnormality is seen. ADRENALS: No significant abnormality is seen. KIDNEYS: Small focus of Nondependent air in bladder redemonstrated. Correlate clinically for recent c atheterization otherwise other etiologies need to be considered. BOWEL: Some scattered colonic diverticula greatest in number in the sigmoid colon are redemonstrated. No CT evidence for acute diverticulitis. No suspicious small or large bowel dilatation. GENITAL ORGANS: Uterus surgically absent or atrophic in appearance with scattered bilateral pelvic ph leboliths redemonstrated. LYMPH NODES: No greater than 1cm abdominal or pelvic lymph nodes are appreciated. OSSEOUS STRUCTURES: No significant abnormality is seen. OTHER: Lipoma of the anterior thigh muscle axial image 255 and coronal image 88 redemonstrated measur ing 8.3 cm long axis. IMPRESSION: No aortic aneurysm or dissection. No suspicious new or acute findings.
[2021-12-10 15:21] VITALS: RESP 18
== END 2021-12-10 15:22 | disposition home or self-care (01) ==
LOC: EC 11:39
DX: G89.29 Other chronic pain (principal); R10.9 Unspecified abdominal pain; E78.5 Hyperlipidemia, unspecified; I10 Essential (primary) hypertension; E07.9 Disorder of thyroid, unspecified; Z79.899 Other long term (current) drug therapy; K21.9 Gastro-esophageal reflux disease without esophagitis; Z79.83 Long term (current) use of bisphosphonates; Z87.891 Personal history of nicotine dependence; Z82.49 Family history of ischemic heart disease and other diseases of the circulatory system; Z20.822 Contact with and (suspected) exposure to COVID-19; Z88.3 Allergy status to other anti-infective agents; Z88.0 Allergy status to penicillin; Z88.2 Allergy status to sulfonamides
CPT/HCPCS: 93005; 80053; 82150; 83605; 83690; 85025; 85610; 85730; 87635; 71046; 74018; 71275; 74174; 99284; 96374; 96375; 96361; J2270; J2405; C9113; Q9967; 36415

== ENCOUNTER 2021-12-19 09:46 | Inpatient (IN) | payer MEDICARE, OTHER ==
[2021-12-19 10:25] LABS: Appearance,Urine Cloudy (Clear); Bacteria,Urine Rare /hpf; Bilirubin,Urine Negative (Negative); Blood,Urine Moderate (Negative); Color,Urine Yellow; Glucose,Urine (UA) Negative (Negative); Ketones,Urine Negative (Negative); Leukocyte Esterase,Urine Large (Negative); Mucus,Urine Moderate /hpf; Nitrite,Urine Negative (Negative); PH, Urine 6.5 (5.0-8.0); Protein,Urine 1+ (Negative); RBC,Urine 40 /hpf (0-5); Specific Gravity,Urine 1.015 (1.001-1.035); Squamous Epithelial Cell,Urine 3 /hpf (0-4); Urobilinogen,Urine <2.0 mg/dL (<2.0); WBC,Urine >182 /hpf (0-5)
[2021-12-19] MEDS ORDERED: cefTRIAXone IN SWFI 1,000 MG/10 ML SYRINGE IVP STA (11:59)
[2021-12-19] MEDS ORDERED: SODIUM CHLORIDE 0.9% 1,000 ML IV STA (11:59)
[2021-12-19] MEDS ORDERED: ONDANSETRON 4 MG/2 ML VIAL IVP STA (11:59)
[2021-12-19] MEDS ORDERED: HYDROmorphone 0.5 MG/0.5 ML SYRINGE IVP STA (11:59)
[2021-12-19 12:16] LABS: Basophils % (A) 0 %; Eosinophils # (A) 0.1 k/uL (0-0.7); Eosinophils % (A) 1 %; HCT 44.5 % (34.0-46.0); HGB 14.5 gm/dL (11.4-16.0); Lymphocytes # (A) 1.2 k/uL (1.0-4.8); Lymphocytes % (A) 9 %; MCH 27.1 pg (25.0-35.0); MCHC 32.5 g/dL (31.0-37.0); MCV 83.3 fL (80.0-100.0); Mean Platelet Volume 7.6; Monocytes # (A) 0.6 k/uL (0-1.0); Monocytes % (A) 4 %; Neutrophils # (A) 11.9 k/uL (1.3-7.7); Neutrophils % (A) 85 %; Platelet Count 267 k/uL (150-450); RBC 5.34 m/uL (3.80-5.40); RDW 14.6 % (11.5-15.5)
--- NOTE | 2021-12-19 12:21 | ED ---
Abdominal Pain HPI - General Chief Complaint: Abdominal Pain Stated Complaint: pelvic pain Time Seen by Provider: 12/19/21 10:02 Source: patient, RN notes reviewed Mode of arrival: ambulatory Limitations: no limitations - History of Present Illness Initial Comments: This is a 71-year-old female who presents to the emergency department for abdominal pain. States that this does feel similar to her chronic abdominal pain, however it is much worse. Symptoms began last night. Describes this as being in the lower abdominal area and she has a constant urge to urinate. She has nausea but no vomiting. She saw Dr. Kelly last week and was told to call [facility] office if symptoms did not improve. States that she called the office yesterday but has not heard back. She has been diagnosed with irritable bowel syndrome. Denies any constipation or diarrhea. She had back pain yesterday and earlier today, however the lower abdominal pain is much more bothersome than the back at this point. Denies any fevers, chills, sore throat, cough, dyspnea, chest pain, palpitations, vomiting, diarrhea, or headaches. MD Complaint: abdominal pain -: days(s) Location: suprapubic Associated Symptoms: nausea - Related Data Home Medications Medication Instructions Recorded Confirmed Levothyroxine Sodium [Synthroid] 50 mcg PO DAILY 05/19/14 12/19/21 Zolpidem [Ambien] 10 mg PO HS PRN 05/19/14 12/19/21 Acetaminophen Tab [Tylenol] 650 mg PO Q4H PRN 10/16/21 12/19/21 buPROPion XL [Wellbutrin XL] 150 mg PO DAILY 10/16/21 12/19/21 Escitalopram [Lexapro] 20 mg PO DAILY 10/17/21 12/19/21 Dicyclomine [Bentyl] 20 mg PO QID 12/19/21 12/19/21 Previous Rx's Medication Instructions Recorded amLODIPine [Norvasc] 10 mg PO DAILY 30 Days #30 tab 10/17/21 Allergies Allergy/AdvReac Type Severity Reaction Status Date / Time nitrofurantoin Allergy Itching Verified 12/19/21 15:27 [From Macrobid] Penicillins Allergy Rash/Hives/ Verified 12/19/21 15:27 Swelling Sulfa (Sulfonamide Allergy Rash/Hives Verified 10/05/22 15:27 Antibiotics) Review of Systems ROS Statement: Those systems with pertinent positive or pertinent negative responses have been documented in the HPI. ROS Other: All systems not noted in ROS Statement are negative. Past Medical History Past Medical History: Cancer, Chest Pain / Angina, GERD/Reflux, Hyperlipidemia, Hypertension, Osteoarthritis (OA), Pneumonia, Thyroid Disorder, Vascular Disorder Additional Past Medical History / Comment(s): polynephritis, severe UTI with sepsis which she states she fully recovered from then last week pt states she had the flu and then urinary tract infection symptoms returned. Other hx: UTIs, skin cancer nose and R cheek, diverticular disease, pancreatitis, elevated liver function tests, irregular heart beat in the past, spondylosis cervical spine/neck pain, low back pain, varicosities bilateral legs, insomnia Last Myocardial Infarction Date:: unknown History of Any Multi-Drug Resistant Organisms: ESBL Date of last positivie culture/infection: 08/28/20 MDRO Source:: ESBL URINE Past Surgical History: Adenoidectomy, Heart Catheterization, Hysterectomy, Joint Replacement, Orthopedic Surgery, Tonsillectomy Additional Past Surgical History / Comment(s): Total L knee arthroplasty, R foot bunionectomy, R carpal tunnel release, R middle finger cyst removed/spur r emoved, R foot surgery with screws in place, colonoscopies, skin cancer removals, bilateral cataract removals/lens implants. Past Anesthesia/Blood Transfusion Reactions: No Reported Reaction Additional Past Anesthesia/Blood Transfusion Reaction / Comment(s): no hx blood transfusion Past Psychological History: Anxiety Smoking Status: Former smoker Past Alcohol Use History: None Reported Past Drug Use History: None Reported - Past Family History Sister(s) Family Medical History: Cancer Additional Family Medical History / Comment(s): Patient had total of 4 sisters. One from a form of lymphoma. OTHER sisters are alive. One has COPD. One is blind and deaf since 18 months old from strep meningitis. Third sister is also blind from aniridia and glaucoma. Brother(s) Family Medical History: Cancer Additional Family Medical History / Comment(s): Patient has a total of 4 brothers. One from myocardial infarction and one from pancreatic cancer. 2 living brothers have no major medical problems. Father Family Medical History: Myocardial Infarction (NC) Additional Family Medical History / Comment(s): Father at age 79 from NC, he was residing in [facility] at the time. Mother Family Medical History: Seizure Disorder Additional Family Medical History / Comment(s): Mother at age 78 from either NC or seizure. She had history of COPD, Oxygen dependent, seizure disorder. General Exam Limitations: no limitations General appearance: alert, in distress Head exam: Present: atraumatic, normocephalic, normal inspection Respiratory exam: Present: normal lung sounds bilaterally. Absent: respiratory distress, wheezes, rales, rhonchi, stridor Cardiovascular Exam: Present: regular rate, normal rhythm, normal heart sounds. Absent: systolic murmur, diastolic murmur, rubs, gallop, clicks GI/Abdominal exam: Present: soft, tenderness (Suprapubic/lower abdominal ), normal bowel sounds. Absent: distended Back exam: Present: CVA tenderness (R), CVA tenderness (L) Neurological exam: Present: alert, oriented X3, CN II-XII intact Psychiatric exam: Present: normal affect, normal mood Skin exam: Present: warm, dry, intact, normal color. Absent: rash Course Vital Signs 12/19/21 12/19/21 12/19/21 09:55 12:22 13:02 Temperature 98.1 F 98.2 F Pulse Rate 94 84 84 Respiratory 16 18 18 Rate Blood Pressure 143/92 116/87 167/84 O2 Sat by Pulse 97 100 97 Oximetry 12/19/21 14:33 Temperature Pulse Rate 76 Respiratory 16 Rate Blood Pressure 135/67 O2 Sat by Pulse 95 Oximetry Medical Decision Making - Medical Decision Making This is a 71-year-old female who presents to the emergency department with abdominal pain. Lab work reveals leukocytosis. Urinalysis consistent with inf ection with a moderate amount of blood noted as well. Given the patient's symptoms and the associated blood in the urine, computed tomography scan of the abdomen and pelvis was obtained to evaluate for possible kidney stones. She was given a dose of ceftriaxone in the emergency department for the UTI. Computed tomography scan of the abdomen and pelvis revealed a possible calculus at the right UVJ versus phlebolith. It also reveals a mild acute diverticulitis. Given the patient's severe pain and hx of sepsis secondary to pyelonephritis, patient will be admitted to medicine for IV antibiotics and symptomatic management. She was started on IV Levaquin and Flagyl to treat both the UTI and diverticulitis. This case was discussed in detail with the attending ED physician. Presentation, findings, and treatment plan discussed in detail as well. - Lab Data Result diagrams: 12/19/21 12:04 12/19/21 12:04 Lab Results 12/19/21 12/19/21 12/19/21 Range/Units 09:56 12:04 12:04 WBC 14.0 H (3.8-10.6) k/uL RBC 5.34 (3.80-5.40) m/uL Hgb 14.5 (11.4-16.0) gm/dL Hct 44.5 (34.0-46.0) % MCV 83.3 (80.0-100.0) fL MCH 27.1 (25.0-35.0) pg MCHC 32.5 (31.0-37.0) g/dL RDW 14.6 (11.5-15.5) % Plt Count 267 (150-450) k/uL MPV 7.6 Neutrophils % 85 % Lymphocytes % 9 % Monocytes % 4 % Eosinophils % 1 % Basophils % 0 % Neutrophils # 11.9 H (1.3-7.7) k/uL Lymphocytes # 1.2 (1.0-4.8) k/uL Monocytes # 0.6 (0-1.0) k/uL Eosinophils # 0.1 (0-0.7) k/uL Basophils # 0.0 (0-0.2) k/uL Sodium 134 L (137-145) mmol/L Potassium 4.3 (3.5-5.1) mmol/L Chloride 96 L (98-107) mmol/L Carbon Dioxide 26 (22-30) mmol/L Anion Gap 12 mmol/L BUN 15 (7-17) mg/dL Creatinine 0.75 (0.52-1.04) mg/dL Est GFR (CKD-EPI)AfAm >90 (>60 ml/min/1.73 sqM) Est GFR (CKD-EPI)NonAf 79 (>60 ml/min/1.73 sqM) Glucose 104 H (74-99) mg/dL Plasma Lactic Acid Rip (0.7-2.0) mmol/L Calcium 9.6 (8.4-10.2) mg/dL Total Bilirubin 1.2 (0.2-1.3) mg/dL AST 26 (14-36) U/L ALT 38 H (4-34) U/L Alkaline Phosphatase 181 H (38-126) U/L Total Protein 8.0 (6.3-8.2) g/dL Albumin 4.9 (3.5-5.0) g/dL Amylase 50 (30-110) U/L Lipase 56 (23-300) U/L Urine Color Yellow Urine Appearance Cloudy H (Clear) Urine pH 6.5 (5.0-8.0) Ur Specific Fraser 1.015 (1.001-1.035) Urine Protein 1+ H (Negative) Urine Glucose (UA) Negative (Negative) Urine Ketones Negative (Negative) Urine Blood Moderate H (Negative) Urine Nitrite Negative (Negative) Urine Bilirubin Negative (Negative) Urine Urobilinogen <2.0 (<2.0) mg/dL Ur Leukocyte Esterase Large H (Negative) Urine RBC 40 H (0-5) /hpf Urine WBC >182 H (0-5) /hpf Ur Squamous Epith Cells 3 (0-4) /hpf Urine Bacteria Rare H (None) /hpf Urine Mucus Moderate H (None) /hpf 12/19/21 Range/Units 13:20 WBC (3.8-10.6) k/uL RBC (3.80-5.40) m/uL Hgb (11.4-16.0) gm/dL Hct (34.0-46.0) % MCV (80.0-100.0) fL MCH (25.0-35.0) pg MCHC (31.0-37.0) g/dL RDW (11.5-15.5) % Plt Count (150-450) k/uL MPV Neutrophils % % Lymphocytes % % Monocytes % % Eosinophils % % Basophils % % Neutrophils # (1.3-7.7) k/uL Lymphocytes # (1.0-4.8) k/uL Monocytes # (0-1.0) k/uL Eosinophils # (0-0.7) k/uL Basophils # (0-0.2) k/uL Sodium (137-145) mmol/L Potassium (3.5-5.1) mmol/L Chloride (98-107) mmol/L Carbon Dioxide (22-30) mmol/L Anion Gap mmol/L BUN (7-17) mg/dL Creatinine (0.52-1.04) mg/dL Est GFR (CKD-EPI)AfAm (>60 ml/min/1.73 sqM) Est GFR (CKD-EPI)NonAf (>60 ml/min/1.73 sqM) Glucose (74-99) mg/dL Plasma Lactic Acid Rip 0.6 L (0.7-2.0) mmol/L Calcium (8.4-10.2) mg/dL Total Bilirubin (0.2-1.3) mg/dL AST (14-36) U/L ALT (4-34) U/L Alkaline Phosphatase (38-126) U/L Total Protein (6.3-8.2) g/dL Albumin (3.5-5.0) g/dL Amylase (30-110) U/L Lipase (23-300) U/L Urine Color Urine Appearance (Clear) Urine pH (5.0-8.0) Ur Specific Fraser (1.001-1.035) Urine Protein (Negative) Urine Glucose (UA) (Negative) Urine Ketones (Negative) Urine Blood (Negative) Urine Nitrite (Negative) Urine Bilirubin (Negative) Urine Urobilinogen (<2.0) mg/dL Ur Leukocyte Esterase (Negative) Urine RBC (0-5) /hpf Urine WBC (0-5) /hpf Ur Squamous Epith Cells (0-4) /hpf Urine Bacteria (None) /hpf Urine Mucus (None) /hpf - Radiology Data Radiology results: report reviewed, image reviewed Disposition Clinical Impression: Pyelonephritis, Diverticulitis Disposition: ADMITTED IP TO THIS HOSP
[2021-12-19 12:35] LABS: ALT 38 U/L (4-34); AST 26 U/L (14-36); African American GFR (CKD) >90 (>60 ml/min/1.73 sqM); Albumin 4.9 g/dL (3.5-5.0); Alkaline Phosphatase 181 U/L (38-126); Amylase 50 U/L (30-110); Anion Gap 12 mmol/L; Blood Urea Nitrogen 15 mg/dL (7-17); Calcium 9.6 mg/dL (8.4-10.2); Carbon Dioxide 26 mmol/L (22-30); Chloride 96 mmol/L (98-107); Glucose 104 mg/dL (74-99); Lipase 56 U/L (23-300); Non-African American GFR(CKD) 79 (>60 ml/min/1.73 sqM); Potassium 4.3 mmol/L (3.5-5.1); Sodium 134 mmol/L (137-145); Total Bilirubin 1.2 mg/dL (0.2-1.3)
[2021-12-19] MEDS ORDERED: KETOROLAC 15 MG/ML 1 ML VIAL IVP STA (12:55)
--- NOTE | 2021-12-19 14:07 | CT ---
EXAMINATION TYPE: CT abdomen pelvis wo con DATE OF EXAM: 12/19/2021 COMPARISON: 12/10/2021 INDICATION: abdominal/flank pain DLP: 891.2 mGycm, Automated exposure control for dose reduction was used. CONTRAST: 0 mL of Isovue 300. Study performed without Oral Contrast TECHNIQUE: Axial images were obtained from above the diaphragm to the pubic rami in the axial plane a t 5 mm thick sections. Reconstructed images are reviewed on the computer in the coronal plane. FINDINGS: Limited CT sections are obtained the lung bases. Calcified granuloma may be in the medial right lung base.. CT ABDOMEN: Liver: Normal Spleen: Normal Pancreas: Normal Adrenal glands: The adrenal glands are normal. Gallbladder: Normal Kidneys: No masses are evident. No hydronephrosis is present. No cysts are present. No renal stone s are evident. Right ureter has minimal prominence. Consider recent passage of a calcification. Aorta: Vascular calcification is within the aorta. Inferior vena cava: Normal. CT PELVIS: Scattered diverticuli are through the sigmoid colon. Inflammatory changes are adjacent to some wall t hickening and diverticuli within the mid sigmoid colon. Correlate for acute diverticulitis. There are loops of bowel which are incompletely distended or lack oral contrast limiting their evaluation. Appendix: Normal as visualized. Urinary bladder: Normal. Multiple phleboliths are present within the pelvis. No obstructing distal ur eteral stones are identified. Punctate calcification at the right ureterovesical junction is not enti rely excluded. Correlate with location of the patient's pain. Series 201 image 123. Genitourinary structures: Uterus is not identified. Adnexal regions appear normal. Osseous structures: No suspicious lytic or sclerotic lesions. Degenerative changes are noted in the s acroiliac joints and facets. IMPRESSIONS: 1. Mild acute diverticulitis without abscess formation or free air in the mid sigmoid colon. 2. No definite renal or ureteral stones. Distal right ureteral vesicle junction stone versus phleboli th could be considered. Correlate with the location of the patient's pain.
[2021-12-19] MEDS ORDERED: metroNIDAZOLE-NS PMX 500 MG in SALINE 1 100ML.BAG IVPB STA (14:53)
[2021-12-19] MEDS ORDERED: LEVOFLOXACIN 750MG-D5W PMX 750 MG in DEXTROSE/WATER 1 150ML.BAG IVPB STA (14:53)
[2021-12-19] MEDS ORDERED: HYDROmorphone 0.5 MG/0.5 ML SYRINGE IVP PRN (15:09)
[2021-12-19] MEDS ORDERED: ACETAMINOPHEN TAB 325 MG TAB PO PRN (15:09)
[2021-12-19] MEDS ORDERED: NALOXONE 0.4 MG/ML 1 ML VIAL IV PRN (15:09)
[2021-12-19] MEDS: HYDROmorphone 1 MG/ML 1 ML SYRINGE IVP PRN ×2 (17:03→20:59)
[2021-12-19] MEDS: METOCLOPRAMIDE 5 MG/ML 2 ML VIAL IVP PRN (18:13)
[2021-12-19] MEDS: DICYCLOMINE 20 MG TAB PO SCH ×2 (18:14→22:27)
[2021-12-19] MEDS: ZOLPIDEM 5 MG TAB PO PRN (22:27)
[2021-12-20] MEDS ORDERED: ONDANSETRON 4 MG/2 ML VIAL IVP PRN (01:33)
[2021-12-20] MEDS: buPROPion XL 150 MG TAB.ER.24H PO SCH (08:12)
[2021-12-20] MEDS: LEVOTHYROXINE 50 MCG TAB PO SCH (08:12)
[2021-12-20] MEDS: DICYCLOMINE 20 MG TAB PO SCH ×4 (08:12→20:30)
[2021-12-20] MEDS: amLODIPine 10 MG TAB PO SCH (08:12)
[2021-12-20] MEDS: ESCITALOPRAM 20 MG TAB PO SCH (08:13)
[2021-12-20] MEDS: metroNIDAZOLE-NS PMX 500 MG in SALINE 1 100ML.BAG IVPB SCH ×3 (08:13→23:11)
[2021-12-20] MEDS: ENOXAPARIN 40 MG/0.4 ML SYRINGE SQ SCH (08:18)
--- NOTE | 2021-12-20 09:52 | P.HPIM ---
History of Present Illness H&P Date: 12/20/21 HISTORY OF PRESENT ILLNESS This is a 71-year-old female patient with past medical history of hypertension, hyperlipidemia, hypothyroidism, spondylosis of the cervical spine, history of 1 episode of diverticulitis, irritable bowel syndrome and anxiety disorder. She does have a history of admission for UTI and sepsis with early pyelonephritis secondary to ESBL E. coli UTI. Patient has been seen by urology status post cystoscopy that did not show any abnormalities at that time. She had a hospitalization in October 2021 for acute pancreatitis. She was discharged home in a follow-up with GI. Her last colonoscopy was possibly 2 years ago. MRCP done on November 12 as an outpatient revealed slightly larger thin-walled cyst or cystic lesion in the central pancreatic body should be closely followed. Side branch IPMN is suspected. Additional smaller lesions are stable. Hepatic lesions are grossly stable in size. Diffuse fatty infiltration of liver read demonstrated. Patient had a follow-up appointment with Dr. Kelly for results of the MRCP. She does have chronic lower abdominal pain and was to call Dr. Raphael if the pain worsened. She did call yesterday but did not receive a call back. She came in the emergency center for evaluation. Yesterday, she had mostly r ight lower quadrant pain but this morning it is on the bilateral lower quadrants. She states she has been eating a lot of cucumbers and fresh vegetables from her garden. Patient also complains of dysuria and has had hematuria for the past couple of days. Patient complains of nausea and had an episode of vomiting yesterday. Nausea is improved. . Patient was found to be afebrile, heart rate 94, blood pressure 143/92, pulse ox 97% on room air. WBC 14, hemoglobin 14.5, platelet count 267. Sodium 134, potassium 4.3, chloride 96, CO2 26, BUN 15 and creatinine 0.75. Blood sugar 104. Calcium 9.6. Total bilirubin 1.2, AST 26, ALT 38, alkaline phosphatase 181. Total protein 8. Albumin 4.9. Amylase and lipase normal. Urinalysis was cloudy, blood moderate, leukoesterase large, WBCs greater than 182, bacteria rare. Lactic acid 0.6. CAT scan of the abdomen and pelvis without contrast revealed mild acute diverticulitis without abscess formation or free air in the mid sigmoid colon. No definite renal or ureteral stones. Distal right ureteral vesicle junction stone versus phlebolith could be considered. Correlate with the location of patients pain. Patient has received 1 dose each of ceftriaxone, Levaquin, Flagyl, Dilaudid, Toradol and Zofran. She is status post 1 L of IV fluids, admitted to the [facility] oncology unit. REVIEW OF SYSTEMS Constitutional: No fever, no chills, no night sweats. No weight change. No weakness, fatigue or lethargy. No daytime sleepiness. EENT: No headache. No blurred vision or double vision, no loss of vision. No loss of Hearing, no ringing in the ears, no dizziness. No nasal drainage or congestion. No epistaxis. No sore throat. Lungs: No shortness of breath, cough, no sputum production. No wheezing. Cardiovascular: No chest pain, no lower extremity edema. No palpitations. No paroxysmal nocturnal dyspnea. No orthopnea. No lightheadedness or dizziness. No syncopal episodes. Abdominal: Reported abdominal pain. Reported nausea, reports vomiting. No diarrhea. No constipation. No bloody or tarry stools. No loss of appetite. Genitourinary: No dysuria, increased frequency, reports urgency. No urinary retention. Reports hematuria. Musculoskeletal: No myalgias. No muscle weakness, no gait dysfunction, no frequent falls. No back pain. No neck pain. Integumentary: No wounds, no lesions. No rash or pruritus. No unusual bruising. No change in hair or nails. Neurologic: No aphasia. No facial droop. No change in mentation. No head injury. No headache. No paralysis. No paresthesia. Psychiatric: No depression. No anxiety. No mood swings. Endocrine: No abnormal blood sugars. No weight change. No excessive sweating or thirst. No cold intolerance. MEDICAL HISTORY Hypertension Hyperlipidemia Hypothyroidism Spondylosis of the cervical spine Pancreatitis Generalized anxiety disorder ESBL E. coli UTI Irritable bowel syndrome Skin cancer removed from her nose and right cheek Diverticular disease Elevated liver function tests Insomnia SURGICAL HISTORY Tonsillectomy Adenoidectomy Cardiac catheterization Hysterectomy Total left knee arthroplasty Right foot bunionectomy Right carpal tunnel release Right middle finger cyst removal Colonoscopies Skin cancer resections Bilateral cataract removal and intraocular lens implants Cystoscopy SOCIAL HISTORY Patient is a lifelong nonsmoker, no alcohol abuse, in no marijuana or illicit drug use. Patient lives at home with her and is independent. FAMILY HISTORY Father at age 79 from myocardial infarction residing at an [facility] at the time. Mother at age 78 from either AR or seizure with history of COPD oxygen dependent and seizure disorder. Patient had a total of 4 brothers. One from a myocardial infarction and one from pancreatic cancer. 2 living brothers have no major medical problems. Patient had 4 sisters. One from a form of lymphoma. One sister has COPD. One sister is blind and deaf since 18 months old from strep meningitis. Third sister is also blind from aniridia and glaucoma. PHYSICAL EXAMINATION Gen: This is a 71-year-old obese female resting in bed and appears to be in no acute distress. HEENT: Head is atraumatic, normocephalic. Pupils equal, round. Sclerae is anict aris. Oral mucous membranes are slightly dry. NECK: Supple. No JVD. No lymphadenopathy. No thyromegaly. LUNGS: Clear to auscultation. No wheezes or rhonchi. No intercostal retractions. HEART: First heart sound is depressed, second heart sound is normal, no gallop or murmur. ABDOMEN: Soft. Bowel sounds are present. No masses. Mild lower quadrant tenderness. EXTREMITIES: No pedal edema. No calf tenderness. Dorsalis pedis +2 bilaterally. NEUROLOGICAL: Patient is awake, alert and oriented x3. Cranial nerves 2 through 12 are grossly intact. Muscle power 5/5 in the upper and lower extremities bilaterally. Deep tendon reflexes were normal. Mild diverticulitis. Patient started on Flagyl 500 mg IV piggyback every 8 hours, Levaquin 500 milligrams daily ASSESSMENT AND PLAN 1. Mild diverticulitis. Patient has been started on Flagyl 500 mg IV piggyback every 8 hours, Levaquin 500 mg IV piggyback daily, regular diet. Continue Tylenol or Dilaudid for pain, continue Zofran as needed for nausea. Consult with GI. 2. Acute urinary tract infection. Continue IV Levaquin, await urine culture. 3. Hypertension. Continue patient on amlodipine 10 mg daily. 4. Hyperlipidemia. 5. Hypothyroidism. Continue levothyroxine 50 g daily. 6. Generalized anxiety disorder, recurrent depression and insomnia. Continue Lexapro 20 mg daily, Wellbutrin 150 mg daily, Ambien 10 mg at bedtime as needed for insomnia. 7. Irritable bowel syndrome. Continue Bentyl 20 mg 4 times daily.. 8. Recent hospitalization for pancreatitis. 9. GI prophylaxis. Protonix. 10. DVT prophylaxis. Lovenox subcu. Patient will be admitted to the hospital for a minimum of 2 night stay. CODE STATUS: Full code DISCHARGE PLAN Return home. Impression and plan of care have been directed as dictated by the signing physician. Julianna Cantrell nurse practitioner acting as scribe for signing physician. Past Medical History Past Medical History: Cancer, Chest Pain / Angina, GERD/Reflux, Hyperlipidemia, Hypertension, Osteoarthritis (OA), Pneumonia, Thyroid Disorder, Vascular Disorder Additional Past Medical History / Comment(s): polynephritis, severe UTI with sepsis which she states she fully recovered from then last week pt states she had the flu and then urinary tract infection symptoms returned. Other hx: UTIs, skin cancer nose and R cheek, diverticular disease, pancreatitis, elevated liver function tests, irregular heart beat in the past, spondylosis cervical spine/neck pain, low back pain, varicosities bilateral legs, insomnia Last Myocardial Infarction Date:: unknown History of Any Multi-Drug Resistant Organisms: ESBL Date of last positivie culture/infection: 08/28/20 MDRO Source:: ESBL URINE Past Surgical History: Adenoidectomy, Heart Catheterization, Hysterectomy, Joint Replacement, Orthopedic Surgery, Tonsillectomy Additional Past Surgical History / Comment(s): Total L knee arthroplasty, R foot bunionectomy, R carpal tunnel release, R middle finger cyst removed/spur removed, R foot surgery with screws in place, colonoscopies, skin cancer removals, bilateral cataract removals/lens implants. Past Anesthesia/Blood Transfusion Reactions: No Reported Reaction Additional Past Anesthesia/Blood Transfusion Reaction / Comment(s): no hx blood transfusion Past Psychological History: Anxiety Additional Psychological History / Comment(s): Pt resides with her spouse. She is independent. Smoking Status: Former smoker Past Alcohol Use History: None Reported Past Drug Use History: None Reported - Past Family History Sister(s) Family Medical History: Cancer Additional Family Medical History / Comment(s): Patient had total of 4 sisters. One from a form of lymphoma. OTHER sisters are alive. One has COPD. One is blind and deaf since 18 months old from strep meningitis. Third sister is also blind from aniridia and glaucoma. Brother(s) Family Medical History: Cancer Additional Family Medical History / Comment(s): Patient has a total of 4 brothers. One from myocardial infarction and one from pancreatic cancer. 2 living brothers have no major medical problems. Father Family Medical History: Myocardial Infarction ([place]) Additional Family Medical History / Comment(s): Father at age 79 from [place], he was residing in [facility] at the time. Mother Family Medical History: Seizure Disorder Additional Family Medical History / Comment(s): Mother at age 78 from either [place] or seizure. She had history of COPD, Oxygen dependent, seizure disorder. Medications and Allergies Home Medications Medication Instructions Recorded Confirmed Type Levothyroxine Sodium [Synthroid] 50 mcg PO DAILY 05/19/14 12/19/21 History Zolpidem [Ambien] 10 mg PO HS PRN 05/19/14 12/19/21 History Acetaminophen Tab [Tylenol] 650 mg PO Q4H PRN 10/16/21 12/19/21 History buPROPion XL [Wellbutrin XL] 150 mg PO DAILY 10/16/21 12/19/21 History Escitalopram [Lexapro] 20 mg PO DAILY 10/17/21 12/19/21 History amLODIPine [Norvasc] 10 mg PO DAILY 30 Days #30 tab 10/17/21 12/19/21 Rx Dicyclomine [Bentyl] 20 mg PO QID 12/19/21 12/19/21 History Allergies Allergy/AdvReac Type Severity Reaction Status Date / Time nitrofurantoin Allergy Itching Verified 12/19/21 15:27 [From Macrobid] Penicillins Allergy Rash/Hives/ Verified 12/19/21 15:27 Swelling Sulfa (Sulfonamide Allergy Rash/Hives Verified 12/19/21 15:27 Antibiotics) Physical Exam Vitals: Vital Signs Temp Pulse Pulse Resp BP BP Pulse Ox 12/20/21 04:25 97.7 F 97 14 138/66 96 12/19/21 21:15 97.9 F 79 16 147/73 98 12/19/21 21:01 79 18 114/76 98 12/19/21 20:17 98.4 F 75 16 126/73 96 12/19/21 17:06 80 20 144/88 97 12/19/21 14:33 76 16 135/67 95 10/05/22 13:02 84 18 167/84 97 12/19/21 12:22 98.2 F 84 18 116/87 100 12/19/21 09:55 98.1 F 94 16 143/92 97 Intake and Output 12/19/21 12/20/21 12/20/21 22:59 06:59 14:59 Other: Voiding Method Toilet # Voids 1 Weight 90.718 kg Results CBC & Chem 7: 12/19/21 12:04 12/19/21 12:04 Labs: Abnormal Lab Results - Last 24 Hours (Table) 12/19/21 12/19/21 12/19/21 Range/Units 09:56 12:04 12:04 WBC 14.0 H (3.8-10.6) k/uL Neutrophils # 11.9 H (1.3-7.7) k/uL Sodium 134 L (137-145) mmol/L Chloride 96 L (98-107) mmol/L Glucose 104 H (74-99) mg/dL Plasma Lactic Acid Rip (0.7-2.0) mmol/L ALT 38 H (4-34) U/L Alkaline Phosphatase 181 H (38-126) U/L Urine Appearance Cloudy H (Clear) Urine Protein 1+ H (Negative) Urine Blood Moderate H (Negative) Ur Leukocyte Esterase Large H (Negative) Urine RBC 40 H (0-5) /hpf Urine WBC >182 H (0-5) /hpf Urine Bacteria Rare H (None) /hpf Urine Mucus Moderate H (None) /hpf 12/19/21 Range/Units 13:20 WBC (3.8-10.6) k/uL Neutrophils # (1.3-7.7) k/uL Sodium (137-145) mmol/L Chloride (98-107) mmol/L Glucose (74-99) mg/dL Plasma Lactic Acid Rip 0.6 L (0.7-2.0) mmol/L ALT (4-34) U/L Alkaline Phosphatase (38-126) U/L Urine Appearance (Clear) Urine Protein (Negative) Urine Blood (Negative) Ur Leukocyte Esterase (Negative) Urine RBC (0-5) /hpf Urine WBC (0-5) /hpf Urine Bacteria (None) /hpf Urine Mucus (None) /hpf Microbiology - Last 24 Hours (Table) 12/19/21 09:56 Urine Culture - Preliminary Urine,Voided Thrombosis Risk Factor Assmnt - Choose All That Apply Any of the Below Risk Factors Present?: Yes Each Factor Represents 1 point: Obesity (BMI >25) Other Risk Factors: Yes Each Risk Factor Represents 2 Points: Age 61-74 years Other congenital or acquired thrombophilia - If yes, enter type in comment: No Thrombosis Risk Factor Assessment Total Risk Factor Score: 3 Thrombosis Risk Factor Assessment Level: Moderate Risk
[2021-12-20] MEDS: SODIUM CHLORIDE 0.9% 1,000 ML IV SCH ×2 (12:46→21:57)
--- NOTE | 2021-12-20 13:47 | P.CONS ---
History of Present Illness - Reason for Consult Consult date: 12/20/21 Diverticulitis Requesting physician: Julianna Cantrell - Chief Complaint Abdominal pain, hematuria - History of Present Illness A pleasant 71-year-old female who presented to the emergency department with complaints of diffuse lower abdominal pain and light in her urine. She has a past medical history including hypertension, hyperlipidemia, hypothyroidism, spondylolisthesis of the spine, diverticulitis, irritable bowel syndrome, pancreatitis and anxiety disorder. The patient was recently seen in the emergency department on 12/10/2021 for complaints of chronic abdominal pain. During that visit she had a CT angiogram of the abdomen and aorta that showed no acute findings. She was sent home from the emergency department previous to that she was seen again here and diagnosed with pancreatitis in October of this year. She underwent MRCP which reported slightly larger thick-walled cyst or cystic lesion in the central pancreatic body should be closely followed. S idebranch IPM and is suspected. Additional smaller lesion stable. Hepatic lesions grossly stable in size. Diffuse fatty infiltration of liver demonstrated. She states abdominal pain different at this time is in her lower abdomen and associated with multiple episodes of diarrhea, nonbloody. She had a CT of the abdomen and pelvis that reported mild acute diverticulitis without abscess formation or free air in the mid sigmoid colon. No definite renal or ureteral stones. Distal right ureteral vesicle junction stone versus phlebolith could be considered. She currently states she has abdominal pain, no nausea or vomiting. Still has some loose stools again nonbloody. She also is reporting bloody urine. She is diagnosed with a urinary tract infection and has had positive urinary tract i nfections in the past. labs: WBC 14 hemoglobin 14 hematocrit 44 platelet count 267,000 sodium 134 potassium 4.3 BUN 15 creatinine 0.7 total bilirubin 1.2 AST 26 ALT 38 alkaline phosphatase 181 lipase 56 amylase 50 Past Medical History Past Medical History: Cancer, Chest Pain / Angina, GERD/Reflux, Hyperlipidemia, Hypertension, Osteoarthritis (OA), Pneumonia, Thyroid Disorder, Vascular Disorder Additional Past Medical History / Comment(s): polynephritis, severe UTI with sepsis which she states she fully recovered from then last week pt states she had the flu and then urinary tract infection symptoms returned. Other hx: UTI s, skin cancer nose and R cheek, diverticular disease, pancreatitis, elevated liver function tests, irregular heart beat in the past, spondylosis cervical spine/neck pain, low back pain, varicosities bilateral legs, insomnia Last Myocardial Infarction Date:: unknown History of Any Multi-Drug Resistant Organisms: ESBL Year Discovered:: 08/28/20 MDRO Source:: ESBL URINE Past Surgical History: Adenoidectomy, Heart Catheterization, Hysterectomy, Joint Replacement, Orthopedic Surgery, Tonsillectomy Additional Past Surgical History / Comment(s): Total L knee arthroplasty, R foot bunionectomy, R carpal tunnel release, R middle finger cyst removed/spur removed, R foot surgery with screws in place, colonoscopies, skin cancer removals, bilateral cataract removals/lens implants. Past Anesthesia/Blood Transfusion Reactions: No Reported Reaction Additional Past Anesthesia/Blood Transfusion Reaction / Comm: no hx blood transfusion Past Psychological History: Anxiety Additional Psychological History / Comment(s): Pt resides with her spouse. She is independent. Smoking Status: Former smoker Past Alcohol Use History: None Reported Past Drug Use History: None Reported - Past Family History Sister(s) Family Medical History: Cancer Additional Family Medical History / Comment(s): Patient had total of 4 sisters. One from a form of lymphoma. OTHER sisters are alive. One has COPD. One is blind and deaf since 18 months old from strep meningitis. Third sister is also blind from aniridia and glaucoma. Brother(s) Family Medical History: Cancer Additional Family Medical History / Comment(s): Patient has a total of 4 brothers. One from myocardial infarction and one from pancreatic cancer. 2 living brothers have no major medical problems. Father Family Medical History: Myocardial Infarction ([place]) Additional Family Medical History / Comment(s): Father at age 79 from [place], he was residing in [facility] at the time. Mother Family Medical History: Seizure Disorder Additional Family Medical History / Comment(s): Mother at age 78 from either [place] or seizure. She had history of COPD, Oxygen dependent, seizure di sorder. Medications and Allergies Home Medications Medication Instructions Recorded Confirmed Type Levothyroxine Sodium [Synthroid] 50 mcg PO DAILY 05/19/14 12/19/21 History Zolpidem [Ambien] 10 mg PO HS PRN 05/19/14 12/19/21 History Acetaminophen Tab [Tylenol] 650 mg PO Q4H PRN 10/16/21 12/19/21 History buPROPion XL [Wellbutrin XL] 150 mg PO DAILY 10/16/21 12/19/21 History Escitalopram [Lexapro] 20 mg PO DAILY 10/17/21 12/19/21 History amLODIPine [Norvasc] 10 mg PO DAILY 30 Days #30 tab 10/17/21 12/19/21 Rx Dicyclomine [Bentyl] 20 mg PO QID 12/19/21 12/19/21 History Allergies Allergy/AdvReac Type Severity Reaction Status Date / Time nitrofurantoin Allergy Itching Verified 12/19/21 15:27 [From Macrobid] Penicillins Allergy Rash/Hives/ Verified 12/19/21 15:27 Swelling Sulfa (Sulfonamide Allergy Rash/Hives Verified 12/19/21 15:27 Antibiotics) Physical Exam Vitals: Vital Signs Temp Pulse Pulse Resp BP BP Pulse Ox 12/20/21 11:08 97.7 F 62 16 135/72 94 L 12/20/21 04:25 97.7 F 97 14 138/66 96 12/19/21 21:15 97.9 F 79 16 147/73 98 12/19/21 21:01 79 18 114/76 98 12/19/21 20:17 98.4 F 75 16 126/73 96 12/19/21 17:06 80 20 144/88 97 12/19/21 14:33 76 16 135/67 95 12/19/21 13:02 84 18 167/84 97 Intake and Output 12/19/21 12/20/21 12/20/21 22:59 06:59 14:59 Other: Voiding Method Toilet Toilet # Voids 1 Weight 90.718 kg General appearance: The patient is alert, oriented, appears in no acute distress. HET: Head is normocephalic and atraumatic. Conjunctiva pink. Sclera anicteric. Neck: Supple without lymphadenopathy. Trachea midline. Heart: S1 S2. Regular rate and rhythm. Lungs: Clear to auscultation. Abdomen: Soft, left lower quadrant tenderness, epigastric tenderness, no ndistended with bowel sounds. No guarding or rigidity. Skin: No rashes. No jaundice. Extremities: Normal skin color and turgor. No pedal edema. Neurological: No focal deficits. Alert and oriented x3. Results CBC & Chem 7: 12/19/21 12:04 12/19/21 12:04 Labs: Abnormal Lab Results - Last 24 Hours (Table) 12/19/21 12/19/21 Range/Units 12:04 13:20 Sodium 134 L (137-145) mmol/L Chloride 96 L (98-107) mmol/L Glucose 104 H (74-99) mg/dL Plasma Lactic Acid Rip 0.6 L (0.7-2.0) mmol/L ALT 38 H (4-34) U/L Alkaline Phosphatase 181 H (38-126) U/L Microbiology - Last 24 Hours (Table) 12/19/21 09:56 Urine Culture - Preliminary Urine,Voided Gram Neg Bacilli CT scan - abdomen: report reviewed Assessment and Plan (1) Diverticulitis Narrative/Plan: The 1-year-old female with multiple comorbidities with complaints of abdominal pain over the last 2 weeks duration. States that it became progressively worse over the last couple days. She came into the emergency department had a CAT scan of the abdomen and pelvis reporting mild acute diverticulitis without abscess formation or free air in the mid sigmoid colon. No definite renal or ureteral stones. Distal right ureteral vesicle junction stone versus phlebolith could be considered. IV Levaquin and Flagyl were started this morning. Patient states his symptoms are improving no nausea or vomiting. She is tolerating her Antoine quit diet. Current Visit: Yes Status: Acute Code(s): K57.92 - DVTRCLI OF INTEST, PART UNSP, W/O PERF OR ABSCESS W/O BLEED SNOMED Code(s): 013866537 (2) Abdominal pain Current Visit: No Status: Acute Code(s): R10.9 - UNSPECIFIED ABDOMINAL PAIN SNOMED Code(s): 64212449 (3) Urinary tract infection Current Visit: No Status: Acute Code(s): N39.0 - URINARY TRACT INFECTION, SITE NOT SPECIFIED SNOMED Code(s): 27888090 Plan: 1. Continue symptomatic and supportive care 2. Continue IV Levaquin and Flagyl 3. Full liquid diet, advance as tolerated 4. Anti-emetics as needed 5. Pain medication as needed 6. No plans on endoscopic evaluation Thank you for this consultation, we will continue to follow. Dr. Barbie Kelly I agree with the dictator's note, documented as a scribe by Jennifer Hernandze.
[2021-12-20] MEDS: LEVOFLOXACIN 500MG-D5W PMX 500 MG in DEXTROSE/WATER 1 100ML.BAG IVPB SCH (16:27)
[2021-12-20] MEDS: ZOLPIDEM 5 MG TAB PO PRN (21:54)
[2021-12-21] MEDS: LEVOTHYROXINE 50 MCG TAB PO SCH (05:16)
[2021-12-21] MEDS: PANTOPRAZOLE 40 MG TABLET PO SCH (07:47)
[2021-12-21] MEDS: metroNIDAZOLE-NS PMX 500 MG in SALINE 1 100ML.BAG IVPB SCH ×2 (07:47→16:48)
[2021-12-21] MEDS: ESCITALOPRAM 20 MG TAB PO SCH (08:56)
[2021-12-21] MEDS: ENOXAPARIN 40 MG/0.4 ML SYRINGE SQ SCH (08:56)
[2021-12-21] MEDS: amLODIPine 10 MG TAB PO SCH (08:56)
[2021-12-21] MEDS: DICYCLOMINE 20 MG TAB PO SCH ×4 (08:56→21:11)
[2021-12-21] MEDS: buPROPion XL 150 MG TAB.ER.24H PO SCH (08:56)
--- NOTE | 2021-12-21 13:48 | P.PN ---
Subjective Progress Note Date: 12/21/21 Principal diagnosis: Diverticulitis This is a pleasant 71-year-old female who presented to the emergency department with complaints of diffuse lower abdominal pain and light in her urine. She has a past medical history including hypertension, hyperlipidemia, hypothyroidism, spondylolisthesis of the spine, diverticulitis, irritable bowel syndrome, pancreatitis and anxiety disorder. The patient was recently seen in the emergency department on 12/10/2021 for complaints of chronic abdominal pain. During that visit she had a CT angiogram of the abdomen and aorta that showed no acute findings. She was sent home from the emergency department previous to that she was seen again here and diagnosed with pancreatitis in October of this year. She underwent MRCP which reported slightly larger thick-walled cyst or cystic lesion in the central pancreatic body should be closely followed. 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 Additional smaller lesion stable. Hepatic lesions grossly stable in size. Diffuse fatty infiltration of liver demonstrated. She states abdominal pain different at this time is in her lower abdomen and associated with multiple episodes of diarrhea, nonbloody. She had a CT of the abdomen and pelvis that reported mild acute diverticulitis without abscess formation or free air in the mid sigmoid colon. No definite renal or ureteral stones. Distal right ureteral vesicle junction stone versus phlebolith could be considered. 12/21/2021: Patient is seen and examined today as a follow-up for abdominal pain, diarrhea who was diagnosed with diverticulitis. She remains on IV Flagyl and Levaquin. States her abdominal pain is improved, diarrhea frequency is improving. She does have some nausea but no vomiting. States she is feeling much better today than yesterday. She's been afebrile. Objective - Vital Signs Vital signs: Vital Signs Temp 97.9 F 12/21/21 04:17 Pulse 74 12/21/21 04:17 Resp 14 12/21/21 04:17 BP 131/67 12/21/21 04:17 Pulse Ox 95 12/21/21 04:17 FiO2 Intake & Output 12/20/21 12/21/21 12/21/21 18:59 06:59 18:59 Other: Voiding Method Toilet Toilet # Voids 2 1 - Exam General appearance: The patient is alert, oriented, appears in no acute distress. HET: Head is normocephalic and atraumatic. Conjunctiva pink. Sclera anicteric. Neck: Supple without lymphadenopathy. Abdomen: Soft, nontender, nondistended with bowel sounds. No guarding or rigidity. Extremities: Normal skin color and turgor. No pedal edema Skin: No rashes, no jaundice Neurological: No focal deficits. Alert and oriented. - Labs CBC & Chem 7: 12/19/21 12:04 12/19/21 12:04 Labs: Microbiology - Last 24 Hours (Table) 12/19/21 09:56 Urine Culture - Final Urine,Voided Escherichia coli Assessment and Plan (1) Diverticulitis Narrative/Plan: The 1-year-old female with multiple comorbidities with complaints of abdominal pain over the last 2 weeks duration. States that it became progressively worse over the last couple days. She came into the emergency department had a CAT scan of the abdomen and pelvis reporting mild acute diverticulitis without abscess formation or free air in the mid sigmoid colon. No definite renal or ureteral stones. Distal right ureteral vesicle junction stone versus phlebolith could be considered. IV Levaquin and Flagyl were started this morning. Patient states his symptoms are improving no nausea or vomiting. She is tolerating her Antoine quit diet. Current Visit: Yes Status: Acute Code(s): K57.92 - DVTRCLI OF INTEST, PART UNSP, W/O PERF OR ABSCESS W/O BLEED SNOMED Code(s): 787591328 (2) Abdominal pain Current Visit: No Status: Acute Code(s): R10.9 - UNSPECIFIED ABDOMINAL PAIN SNOMED Code(s): 78217863 (3) Urinary tract infection Current Visit: No Status: Acute Code(s): N39.0 - URINARY TRACT INFECTION, SITE NOT SPECIFIED SNOMED Code(s): 60117752 Plan: 1. Continue symptomatic and supportive care 2. Continue IV Levaquin and Flagyl 3. Full liquid diet, advance as tolerated 4. Anti-emetics as needed 5. Pain medication as needed 6. No plans on endoscopic evaluation 7. Recommend 10 day antibiotics Thank you for allowing us to participate in the care of the patient, the GI service will sign off, gastroenterology will not be available at the hospital this weekend and through next week. If further evaluation by gastroenterology is required the patient will need transfer as per the primary team's discretion. Dr. Barbie Kelly I agree with the dictator's note, documented as a scribe by Jennifer Hernandez.
[2021-12-21] MEDS: SODIUM CHLORIDE 0.9% 1,000 ML IV SCH (13:51)
--- NOTE | 2021-12-21 15:06 | P.PN ---
Subjective Progress Note Date: 12/21/21 HISTORY OF PRESENT ILLNESS This is a 71-year-old female patient with past medical history of hypertension, hyperlipidemia, hypothyroidism, spondylosis of the cervical spine, history of 1 episode of diverticulitis, irritable bowel syndrome and anxiety disorder. She does have a history of admission for UTI and sepsis with early pyelonephritis secondary to ESBL E. coli UTI. Patient has been seen by urology status post cystoscopy that did not show any abnormalities at that time. She had a hospitalization in October 2021 for acute pancreatitis. She was discharged home in a follow-up with GI. Her last colonoscopy was possibly 2 years ago. MRCP done on November 12 as an outpatient revealed slightly larger thin-walled cyst or cystic lesion in the central pancreatic body should be closely followed. Side branch IPMN is suspected. Additional smaller lesions are stable. Hepatic l esions are grossly stable in size. Diffuse fatty infiltration of liver read demonstrated. Patient had a follow-up appointment with Dr. Kelly for results of the MRCP. She does have chronic lower abdominal pain and was to call Dr. Raphael if the pain worsened. She did call yesterday but did not receive a call back. She came in the emergency center for evaluation. Yesterday, she had mostly right lower quadrant pain but this morning it is on the bilateral lower quadrants. She states she has been eating a lot of cucumbers and fresh vegetables from her garden. Patient also complains of dysuria and has had hematuria for the past couple of days. Patient complains of nausea and had an episode of vomiting yesterday. Nausea is improved. . Patient was found to be afebrile, heart rate 94, blood pressure 143/92, pulse ox 97% on room air. WBC 14, hemoglobin 14.5, platelet count 267. Sodium 134, potassium 4.3, chloride 96, CO2 26, BUN 15 and creatinine 0.75. Blood sugar 104. Calcium 9.6. Total bilirubin 1.2, AST 26, ALT 38, alkaline phosphatase 181. Total protein 8. Albumin 4.9. Amylase and lipase normal. Urinalysis was cloudy, blood moderate, leukoesterase large, WBCs greater than 182, bacteria rare. Lactic acid 0.6. CAT scan of the abdomen and pelvis without contrast revealed mild acute diverticulitis without abscess formation or free air in the mid sigmoid colon. No definite renal or ureteral stones. Distal right ureteral vesicle junction stone versus phlebolith could be considered. Correlate with the location of patients pain. Patient has received 1 dose each of ceftriaxone, Levaquin, Flagyl, Dilaudid, Toradol and Zofran. She is status post 1 L of IV fluids, admitted to the [facility] oncology unit. 12/21: Patient has been seen and followed by GI with plan to continue IV Levaquin and Flagyl, full liquid diet and advance as tolerated, no plans for endoscopy. Patient has been afebrile, heart rate 74, blood pressure 131/67, pulse ox 95% on room air. Urine culture has been finalized with E. coli, pansensitive. Patient states that she had some diarrhea this morning but none for the past 2 hours. Diet advanced by GI to low fiber starting this evening. She denies having any nausea or vomiting. She has lower abdominal tenderness with palpation only. She denies any dysuria. We will discontinue IV fluids with anticipation of probable discharge home tomorrow. She remains afebrile, heart rate 78, blood pressure 136/74, pulse ox 95% on room air. Repeat blood work ordered for tomorrow. REVIEW OF SYSTEMS Constitutional: No fever, no chills, no night sweats. No weight change. No weakness, fatigue or lethargy. No daytime sleepiness. EENT: No headache. No blurred vision or double vision, no loss of vision. No loss of Hearing, no ringing in the ears, no dizziness. No nasal drainage or congestion. No epistaxis. No sore throat. Lungs: No shortness of breath, cough, no sputum production. No wheezing. Cardiovascular: No chest pain, no lower extremity edema. No palpitations. No paroxysmal nocturnal dyspnea. No orthopnea. No lightheadedness or dizziness. No syncopal episodes. Abdominal: Reported abdominal tenderness with palpation. Denies nausea, denies vomiting. Reported diarrhea. No constipation. No bloody or tarry stools. No loss of appetite. Genitourinary: No dysuria, increased frequency, reports urgency. No urinary retention. Reports hematuria. Musculoskeletal: No myalgias. No muscle weakness, no gait dysfunction, no frequent falls. No back pain. No neck pain. Integumentary: No wounds, no lesions. No rash or pruritus. No unusual bruising. No change in hair or nails. Neurologic: No aphasia. No facial droop. No change in mentation. No head injury. No headache. No paralysis. No paresthesia. Psychiatric: No depression. No anxiety. No mood swings. Endocrine: No abnormal blood sugars. No weight change. No excessive sweating or thirst. No cold intolerance. PHYSICAL EXAMINATION Gen: This is a 71-year-old obese female resting in bed and appears to be in no acute distress. Patient's is at bedside. HEENT: Head is atraumatic, normocephalic. Pupils equal, round. Sclerae is anicteric. Oral mucous membranes are slightly dry. NECK: Supple. No JVD. No lymphadenopathy. No thyromegaly. LUNGS: Clear to auscultation. No wheezes or rhonchi. No intercostal retractions. HEART: First heart sound is depressed, second heart sound is normal, no gallop or murmur. ABDOMEN: Soft. Bowel sounds are present. No masses. Mild lower quadrant tenderness. EXTREMITIES: No pedal edema. No calf tenderness. Dorsalis pedis +2 bilaterally. NEUROLOGICAL: Patient is awake, alert and oriented x3. Cranial nerves 2 through 12 are grossly intact. Muscle power 5/5 in the upper and lower extremities bilaterally. ASSESSMENT AND PLAN 1. Mild diverticulitis. Patient has been started on Flagyl 500 mg IV piggyback every 8 hours, Levaquin 500 mg IV piggyback daily, regular diet. Continue Tylenol or Dilaudid for pain, continue Zofran as needed for nausea. Diet changed to full liquid diet and advanced to low fiber this evening. Consult with GI appreciated. 2. Acute E. coli urinary tract infection. Continue IV Levaquin. 3. Hypertension. Continue patient on amlodipine 10 mg daily. 4. Hyperlipidemia. 5. Hypothyroidism. Continue levothyroxine 50 g daily. 6. Generalized anxiety disorder, recurrent depression and insomnia. Continue Lexapro 20 mg daily, Wellbutrin 150 mg daily, Ambien 10 mg at bedtime as needed for insomnia. 7. Irritable bowel syndrome. Continue Bentyl 20 mg 4 times daily.. 8. Recent hospitalization for pancreatitis. 9. GI prophylaxis. Protonix. 10. DVT prophylaxis. Lovenox subcu. CODE STATUS: Full code DISCHARGE PLAN Return home without home care. Impression and plan of care have been directed as dictated by the signing physician. Julianna Cantrell nurse practitioner acting as scribe for signing physician. Objective - Vital Signs Vital signs: Vital Signs Temp 97.9 F 12/21/21 04:17 Pulse 74 12/21/21 04:17 Resp 14 12/21/21 04:17 BP 131/67 12/21/21 04:17 Pulse Ox 95 12/21/21 04:17 FiO2 Intake & Output 12/20/21 12/21/21 12/21/21 18:59 06:59 18:59 Other: Voiding Method Toilet Toilet # Voids 2 1 - Labs CBC & Chem 7: 12/19/21 12:04 12/19/21 12:04 Labs: Microbiology - Last 24 Hours (Table) 12/19/21 09:56 Urine Culture - Final Urine,Voided Escherichia coli
[2021-12-21] MEDS: LEVOFLOXACIN 500MG-D5W PMX 500 MG in DEXTROSE/WATER 1 100ML.BAG IVPB SCH (15:49)
[2021-12-21] MEDS: METOCLOPRAMIDE 5 MG/ML 2 ML VIAL IVP PRN (19:49)
[2021-12-21] MEDS: ZOLPIDEM 5 MG TAB PO PRN (21:55)
[2021-12-22] MEDS: metroNIDAZOLE-NS PMX 500 MG in SALINE 1 100ML.BAG IVPB SCH ×4 (00:19→23:44)
[2021-12-22] MEDS: LEVOTHYROXINE 50 MCG TAB PO SCH (06:09)
[2021-12-22] MEDS: PANTOPRAZOLE 40 MG TABLET PO SCH (08:45)
[2021-12-22] MEDS: DICYCLOMINE 20 MG TAB PO SCH ×4 (08:45→20:45)
[2021-12-22] MEDS: amLODIPine 10 MG TAB PO SCH (08:45)
[2021-12-22] MEDS: buPROPion XL 150 MG TAB.ER.24H PO SCH (08:46)
[2021-12-22] MEDS: ENOXAPARIN 40 MG/0.4 ML SYRINGE SQ SCH (08:46)
[2021-12-22] MEDS: ESCITALOPRAM 20 MG TAB PO SCH (08:46)
[2021-12-22 09:09] LABS: African American GFR (CKD) 84.8 (60.0-200.0); Albumin/Globulin Ratio 1.67 (1.60-3.17); Anion Gap 9.9 mmol/L (10.00-18.00); BUN/Creat Ratio 13.63 Ratio (12.00-20.00); Blood Urea Nitrogen 10.9 mg/dL (9.0-27.0); Calcium 9.3 mg/dL (8.7-10.3); Carbon Dioxide 27.1 mmol/L (20.0-27.5); Globulin 2.4 g/dL (1.6-3.3); Non-African American GFR(CKD) 73.1 (60.0-200.0); Potassium 4.5 mmol/L (3.5-5.5); Total Bilirubin 0.5 mg/dL (0.30-1.20); Total Protein 6.4 g/dL (6.2-8.2)
[2021-12-22 09:19] LABS: HGB 12.7 g/dL (12.0-15.0); MCH 26.9 pg (27.0-32.0); MCHC 31.8 g/dL (32.0-37.0); MCV 84.7 fL (80.0-97.0); Mean Platelet Volume 10.4 fL (9.5-12.2); NRBC Per 100 WBC 0 /100 WBCS (0.0-0.0); Platelet Count 262 X 10*3/uL (140-440); RBC 4.72 X 10*6/uL (4.10-5.20); RDW 14.6 % (11.5-14.5); WBC 6.11 X 10*3/uL (4.50-10.00)
--- NOTE | 2021-12-22 13:11 | P.PN ---
Subjective Progress Note Date: 12/22/21 HISTORY OF PRESENT ILLNESS This is a 71-year-old female patient with past medical history of hypertension, hyperlipidemia, hypothyroidism, spondylosis of the cervical spine, history of 1 episode of diverticulitis, irritable bowel syndrome and anxiety disorder. She does have a history of admission for UTI and sepsis with early pyelonephritis secondary to ESBL E. coli UTI. Patient has been seen by urology status post cystoscopy that did not show any abnormalities at that time. She had a hospitalization in October 2021 for acute pancreatitis. She was discharged home in a follow-up with GI. Her last colonoscopy was possibly 2 years ago. MRCP done on November 12 as an outpatient revealed slightly larger thin-walled cyst or cystic lesion in the central pancreatic body should be closely followed. Side branch IPMN is suspected. Additional smaller lesions are stable. Hepatic l esions are grossly stable in size. Diffuse fatty infiltration of liver read demonstrated. Patient had a follow-up appointment with Dr. Kelly for results of the MRCP. She does have chronic lower abdominal pain and was to call Dr. Raphael if the pain worsened. She did call yesterday but did not receive a call back. She came in the emergency center for evaluation. Yesterday, she had mostly right lower quadrant pain but this morning it is on the bilateral lower quadrants. She states she has been eating a lot of cucumbers and fresh vegetables from her garden. Patient also complains of dysuria and has had hematuria for the past couple of days. Patient complains of nausea and had an episode of vomiting yesterday. Nausea is improved. . Patient was found to be afebrile, heart rate 94, blood pressure 143/92, pulse ox 97% on room air. WBC 14, hemoglobin 14.5, platelet count 267. Sodium 134, potassium 4.3, chloride 96, CO2 26, BUN 15 and creatinine 0.75. Blood sugar 104. Calcium 9.6. Total bilirubin 1.2, AST 26, ALT 38, alkaline phosphatase 181. Total protein 8. Albumin 4.9. Amylase and lipase normal. Urinalysis was cloudy, blood moderate, leukoesterase large, WBCs greater than 182, bacteria rare. Lactic acid 0.6. CAT scan of the abdomen and pelvis without contrast revealed mild acute diverticulitis without abscess formation or free air in the mid sigmoid colon. No definite renal or ureteral stones. Distal right ureteral vesicle junction stone versus phlebolith could be considered. Correlate with the location of patients pain. Patient has received 1 dose each of ceftriaxone, Levaquin, Flagyl, Dilaudid, Toradol and Zofran. She is status post 1 L of IV fluids, admitted to the [facility] oncology unit. 12/21: Patient has been seen and followed by GI with plan to continue IV Levaquin and Flagyl, full liquid diet and advance as tolerated, no plans for endoscopy. Patient has been afebrile, heart rate 74, blood pressure 131/67, pulse ox 95% on room air. Urine culture has been finalized with E. coli, pansensitive. Patient states that she had some diarrhea this morning but none for the past 2 hours. Diet advanced by GI to low fiber starting this evening. She denies having any nausea or vomiting. She has lower abdominal tenderness with palpation only. She denies any dysuria. We will discontinue IV fluids with anticipation of probable discharge home tomorrow. She remains afebrile, heart rate 78, blood pressure 136/74, pulse ox 95% on room air. Repeat blood work ordered for tomorrow. 12/22 : Patient is sitting up in chair in no acute distress, we will continue with IV ABX for one more day , her pain is controlled and she will likely be going home in [place], we will continue with same treatment plan, she is tolerating her treatment well REVIEW OF SYSTEMS Constitutional: No fever, no chills, no night sweats. No weight change. No weakness, fatigue or lethargy. No daytime sleepiness. EENT: No headache. No blurred vision or double vision, no loss of vision. No loss of Hearing, no ringing in the ears, no dizziness. No nasal drainage or congestion. No epistaxis. No sore throat. Lungs: No shortness of breath, cough, no sputum production. No wheezing. Cardiovascular: No chest pain, no lower extremity edema. No palpitations. No paroxysmal nocturnal dyspnea. No orthopnea. No lightheadedness or dizziness. No syncopal episodes. Abdominal: Reported abdominal tenderness with palpation. Denies nausea, denies vomiting. Reported diarrhea. No constipation. No bloody or tarry stools. No loss of appetite. Genitourinary: No dysuria, increased frequency, reports urgency. No urinary retention. Reports hematuria. Musculoskeletal: No myalgias. No muscle weakness, no gait dysfunction, no fr equent falls. No back pain. No neck pain. Integumentary: No wounds, no lesions. No rash or pruritus. No unusual bruising. No change in hair or nails. Neurologic: No aphasia. No facial droop. No change in mentation. No head injury. No headache. No paralysis. No paresthesia. Psychiatric: No depression. No anxiety. No mood swings. Endocrine: No abnormal blood sugars. No weight change. No excessive sweating or thirst. No cold intolerance. PHYSICAL EXAMINATION Gen: This is a 71-year-old obese female resting in bed and appears to be in no acute distress. Patient's is at bedside. HEENT: Head is atraumatic, normocephalic. Pupils equal, round. Sclerae is an icteric. Oral mucous membranes are slightly dry. NECK: Supple. No JVD. No lymphadenopathy. No thyromegaly. LUNGS: Clear to auscultation. No wheezes or rhonchi. No intercostal retractions. HEART: First heart sound is depressed, second heart sound is normal, no gallop or murmur. ABDOMEN: Soft. Bowel sounds are present. No masses. Mild lower quadrant tenderness. EXTREMITIES: No pedal edema. No calf tenderness. Dorsalis pedis +2 bilaterally. NEUROLOGICAL: Patient is awake, alert and oriented x3. Cranial nerves 2 through 12 are grossly intact. Muscle power 5/5 in the upper and lower extremities bilaterally. ASSESSMENT AND PLAN 1. Mild diverticulitis. Patient has been started on Flagyl 500 mg IV piggyback every 8 hours, Levaquin 500 mg IV piggyback daily, regular diet. Continue Tylenol or Dilaudid for pain, continue Zofran as needed for nausea. Diet change d to full liquid diet and advanced to low fiber this evening. Consult with GI appreciated. 2. Acute E. coli urinary tract infection. Continue IV Levaquin. 3. Hypertension. Continue patient on amlodipine 10 mg daily. 4. Hyperlipidemia. 5. Hypothyroidism. Continue levothyroxine 50 g daily. 6. Generalized anxiety disorder, recurrent depression and insomnia. Continue Lexapro 20 mg daily, Wellbutrin 150 mg daily, Ambien 10 mg at bedtime as needed for insomnia. 7. Irritable bowel syndrome. Continue Bentyl 20 mg 4 times daily.. 8. Recent hospitalization for pancreatitis. 9. GI prophylaxis. Protonix. 10. DVT prophylaxis. Lovenox subcu. CODE STATUS: Full code DISCHARGE PLAN Return home without home care. Objective - Vital Signs Vital signs: Vital Signs Temp 97.9 F 12/22/21 04:15 Pulse 73 12/22/21 04:15 Resp 15 12/22/21 04:15 BP 124/70 12/22/21 04:15 Pulse Ox 96 12/22/21 04:15 FiO2 Intake & Output 12/21/21 12/22/21 12/22/21 18:59 06:59 18:59 Other: Voiding Method Toilet # Voids 1 - Labs CBC & Chem 7: 12/22/21 05:08 12/22/21 05:08 Labs: Abnormal Lab Results - Last 24 Hours (Table) 12/22/21 12/22/21 Range/Units 05:08 05:08 MCH 26.9 L (27.0-32.0) pg MCHC 31.8 L (32.0-37.0) g/dL RDW 14.6 H (11.5-14.5) % Anion Gap 9.90 L (10.00-18.00) mmol/L ALT 48 H (8-44) U/L Alkaline Phosphatase 157 H (41-126) U/L Microbiology - Last 24 Hours (Table) 12/19/21 09:56 Urine Culture - Final Urine,Voided Escherichia coli
[2021-12-22] MEDS: LEVOFLOXACIN 500MG-D5W PMX 500 MG in DEXTROSE/WATER 1 100ML.BAG IVPB SCH (15:31)
[2021-12-22] MEDS: ZOLPIDEM 5 MG TAB PO PRN (20:45)
[2021-12-23] MEDS: LEVOTHYROXINE 50 MCG TAB PO SCH (05:22)
[2021-12-23 05:47] VITALS: RESP 16
[2021-12-23] MEDS: DICYCLOMINE 20 MG TAB PO SCH ×2 (08:28→12:39)
[2021-12-23] MEDS: PANTOPRAZOLE 40 MG TABLET PO SCH (08:28)
[2021-12-23] MEDS: ESCITALOPRAM 20 MG TAB PO SCH (08:28)
[2021-12-23] MEDS: buPROPion XL 150 MG TAB.ER.24H PO SCH (08:28)
[2021-12-23] MEDS: amLODIPine 10 MG TAB PO SCH (08:28)
[2021-12-23] MEDS: ENOXAPARIN 40 MG/0.4 ML SYRINGE SQ SCH (08:29)
[2021-12-23] MEDS: metroNIDAZOLE-NS PMX 500 MG in SALINE 1 100ML.BAG IVPB SCH (08:29)
[2021-12-23 11:08] VITALS: BP 159/80; PULSE 57; TEMP 97.5
--- NOTE | 2021-12-23 11:11 | P.DS ---
Providers Date of admission: 12/20/21 07:48 Expected date of discharge: 12/23/21 Attending physician: Dina Renteria Consults: 12/20/21 08:34 Consult Physician Routine Consulting Provider: Elma Kelly Consult Reason/Comments: worsening abd pain, IBS in office last week Do you want consulting provider notified?: Yes Primary care physician: Dina Renteria Hospital Course: HISTORY OF PRESENT ILLNESS This is a 71-year-old female patient with past medical history of hypertension, hyperlipidemia, hypothyroidism, spondylosis of the cervical spine, history of 1 episode of diverticulitis, irritable bowel syndrome and anxiety disorder. She does have a history of admission for UTI and sepsis with early pyelonephritis secondary to ESBL E. coli UTI. Patient has been seen by urology status post cystoscopy that did not show any abnormalities at that time. She had a hospitalization in October 2021 for acute pancreatitis. She was discharged home in a follow-up with GI. Her last colonoscopy was possibly 2 years ago. MRCP done on November 12 as an outpatient revealed slightly larger thin-walled cyst or cystic lesion in the central pancreatic body should be closely followed. Side branch IPMN is suspected. Additional smaller lesions are stable. Hepatic lesions are grossly stable in size. Diffuse fatty infiltration of liver read demonstrated. Patient had a follow-up appointment with Dr. Kelly for results of the MRCP. She does have chronic lower abdominal pain and was to call Dr. Raphael if the pain worsened. She did call yesterday but did not receive a call back. She came in the emergency center for evaluation. Yesterday, she had mostly right lower quadrant pain but this morning it is on the bilateral lower quadrants. She states she has been eating a lot of cucumbers and fresh vegetables from her garden. Patient also complains of dysuria and has had hematuria for the past couple of days. Patient complains of nausea and had an episode of vomiting yesterday. Nausea is improved. . Patient was found to be afebrile, heart rate 94, blood pressure 143/92, pulse ox 97% on room air. WBC 14, hemoglobin 14.5, platelet count 267. Sodium 134, potassium 4.3, chloride 96, CO2 26, BUN 15 and creatinine 0.75. Blood sugar 104. Calcium 9.6. Total bilirubin 1.2, AST 26, ALT 38, alkaline phosphatase 181. Total protein 8. Albumin 4.9. Amylase and lipase normal. Urinalysis was cloudy, blood moderate, leukoesterase large, WBCs greater than 182, bacteria rare. Lactic acid 0.6. CAT scan of the abdomen and pelvis without contrast revealed mild acute diverticulitis without abscess formation or free air in the mid sigmoid colon. No definite renal or ureteral stones. Distal right ureteral vesicle junction stone versus phlebolith could be considered. Correlate with the location of patients pain. Patient has received 1 dose each of ceftriaxone, Levaquin, Flagyl, Dilaudid, Toradol and Zofran. She is status post 1 L of IV fluids, admitted to the [facility] oncology unit. 12/21: Patient has been seen and followed by GI with plan to continue IV Levaquin and Flagyl, full liquid diet and advance as tolerated, no plans for endoscopy. Patient has been afebrile, heart rate 74, blood pressure 131/67, pulse ox 95% on room air. Urine culture has been finalized with E. coli, pansensitive. Patient states that she had some diarrhea this morning but none for the past 2 hours. Diet advanced by GI to low fiber starting this evening. She denies having any nausea or vomiting. She has lower abdominal tenderness with palpation only. She denies any dysuria. We will discontinue IV fluids with anticipation of probable discharge home tomorrow. She remains afebrile, heart rate 78, blood pressure 136/74, pulse ox 95% on room air. Repeat blood work ordered for tomorrow. 12/22 : Patient is sitting up in chair in no acute distress, we will continue with IV ABX for one more day , her pain is controlled and she will likely be going home in [place], we will continue with same treatment plan, she is tolerating her treatment well Discharge Diagnoses: 1. Mild diverticulitis. 2. Acute E. coli urinary tract infection. 3. Hypertension. 4. Hyperlipidemia. 5. Hypothyroidism. 6. Generalized anxiety disorder, recurrent depression and insomnia. 7. Irritable bowel syndrome. Patient Condition at Discharge: Good Plan - Discharge Summary Discharge Rx Participant: Yes New Discharge Prescriptions: No Action Zolpidem [Ambien] 10 mg PO HS PRN PRN Reason: Insomnia Levothyroxine Sodium [Synthroid] 50 mcg PO DAILY buPROPion XL [Wellbutrin XL] 150 mg PO DAILY Escitalopram [Lexapro] 20 mg PO DAILY amLODIPine [Norvasc] 10 mg PO DAILY 30 Days #30 tab Dicyclomine [Bentyl] 20 mg PO QID Acetaminophen Tab [Tylenol] 650 mg PO Q4H PRN PRN Reason: Pain Or Fever > 100.5 Discharge Medication List Levothyroxine Sodium [Synthroid] 50 mcg PO DAILY 05/19/14 [History] Zolpidem [Ambien] 10 mg PO HS PRN 05/19/14 [History] Acetaminophen Tab [Tylenol] 650 mg PO Q4H PRN 10/16/21 [History] buPROPion XL [Wellbutrin XL] 150 mg PO DAILY 10/16/21 [History] Escitalopram [Lexapro] 20 mg PO DAILY 10/17/21 [History] amLODIPine [Norvasc] 10 mg PO DAILY 30 Days #30 tab 10/17/21 [Rx] Dicyclomine [Bentyl] 20 mg PO QID 12/19/21 [History] Follow up Appointment(s)/Referral(s): Dina Renteria MD [Primary Care Provider] - 1-2 days
[2021-12-23] MEDS ORDERED: LEVOFLOXACIN 500 MG TAB PO SCH (12:00)
[2021-12-23] MEDS ORDERED: metroNIDAZOLE 500 MG TAB PO SCH (16:00)
== END 2021-12-23 14:51 | disposition home or self-care (01) | DRG 690 ==
LOC: EC 09:46 → 6NMEDSUR 15:09 → 5NMEDONC 17:35 → OBSVTOIN 12-20 07:48
PROVIDERS: ADMIT Internal Medicine; ATTEND Internal Medicine
DX: N39.0 Urinary tract infection, site not specified (principal); K57.32 Diverticulitis of large intestine without perforation or abscess without bleeding; F33.9 Major depressive disorder, recurrent, unspecified; K76.0 Fatty (change of) liver, not elsewhere classified; B96.20 Unspecified Escherichia coli [E. coli] as the cause of diseases classified elsewhere; R31.9 Hematuria, unspecified; I10 Essential (primary) hypertension; K58.9 Irritable bowel syndrome, unspecified; G89.29 Other chronic pain; E78.5 Hyperlipidemia, unspecified; E03.9 Hypothyroidism, unspecified; F41.1 Generalized anxiety disorder; K21.9 Gastro-esophageal reflux disease without esophagitis; M19.90 Unspecified osteoarthritis, unspecified site; G47.00 Insomnia, unspecified; M54.50 Low back pain, unspecified; M47.812 Spondylosis without myelopathy or radiculopathy, cervical region; M43.10 Spondylolisthesis, site unspecified; I83.93 Asymptomatic varicose veins of bilateral lower extremities; Z79.890 Hormone replacement therapy; Z79.899 Other long term (current) drug therapy; Z85.828 Personal history of other malignant neoplasm of skin; Z87.440 Personal history of urinary (tract) infections; Z87.891 Personal history of nicotine dependence; Z96.652 Presence of left artificial knee joint; Z88.1 Allergy status to other antibiotic agents; Z88.0 Allergy status to penicillin; Z88.2 Allergy status to sulfonamides
CPT/HCPCS: 36415; 74176; 80053; 81001; 82150; 83605; 83690; 85025; 85027; 87077; 87086; 87186; 96361; 96365; 96366; 96367; 96375; 96376; 99285

== ENCOUNTER → 2022-06-03 | Outpatient (CLI) | payer MEDICARE, OTHER ==
[2022-06-03 16:03] LABS: African American GFR (CKD) >90 (>60 ml/min/1.73 sqM); Blood Urea Nitrogen 18 mg/dL (7-17); Non-African American GFR(CKD) 79 (>60 ml/min/1.73 sqM)
--- NOTE | 2022-06-03 17:06 | CT ---
EXAMINATION TYPE: CT abdomen w con CT DLP: 1053.0 mGycm, Automated exposure control for dose reduction was used. DATE OF EXAM: 06/03/2022 4:37 PM COMPARISON: CT abdomen pelvis most recent from 12/19/2021 CLINICAL INDICATION:Female, 71 years old with history of K85.10 ABD.; pancreatitis TECHNIQUE: Axial CT of the abdomen and pelvis. Sagittal and coronal reformats were created on a [employer] workstation. Contrast used:70ml mL of Isovue 300 with IV Contrast, Oral contrast used: with Oral Contrast FINDINGS: LOWER CHEST: Stable pulmonary nodules no new or enlarging pulmonary nodules visualized in the lung ba ses. ABDOMEN LIVER: Diffuse low-attenuation to the liver. There is a heterogenous enhancement pattern. Area in the right posterior lateral aspect enhancement wedge-shaped measuring up to 14 mm. GALLBLADDER AND BILE DUCTS: Gallbladder is incompletely distended no evidence for gallstones. Common duct is within normal limits for size. PANCREAS: No evidence for ductal dilation, the pancreatic parenchyma enhances uniformly. No adjacent fat stranding. SPLEEN: Unremarkable. ADRENAL GLANDS: Unremarkable. KIDNEYS AND URETERS: No evidence of hydronephrosis or renal calculus. The ureters are unremarkable. STOMACH AND BOWEL: No evidence of bowel obstruction. Scattered colonic diverticula. PERITONEUM/RETROPERITONEUM: No evidence of pneumoperitoneum or free fluid. VASCULATURE: No evidence of aortic aneurysm. MUSCULOSKELETAL: No acute osseous abnormalities, unchanged left iliacus intramuscular lipoma. LYMPH NODES: No gross evidence for lymphadenopathy. SOFT TISSUE/ABDOMINAL WALL: Fat-containing umbilical hernia. IMPRESSION: 1. No evidence for pancreatitis. No suspicious pancreatic masses. No ductal dilation. No acute abdom inal process visualized. 2. Heterogenous enhancement pattern to the liver with superimposed Hepatic steatosis. Peripheral wed ge-shaped area of enhancement on this exam is felt to represent vascular shunting. If this concern fo r liver mass consider MRI liver mass protocol with IV contrast. 3. Colonic diverticulosis. 4. Fat-containing umbilical hernia.
== END | disposition home or self-care (01) ==
LOC: RADCTMAIN 15:20
PROVIDERS: ATTEND Internal Medicine
DX: K42.9 Umbilical hernia without obstruction or gangrene (principal); K85.10 Biliary acute pancreatitis without necrosis or infection; K57.30 Diverticulosis of large intestine without perforation or abscess without bleeding; K76.0 Fatty (change of) liver, not elsewhere classified
CPT/HCPCS: 82565; 84520; 74160; 36415; Q9967

== ENCOUNTER → 2022-06-24 | Outpatient (CLI) | payer MEDICARE, OTHER ==
--- NOTE | 2022-06-27 07:20 | MR ---
EXAMINATION TYPE: MR liver wo/w con DATE OF EXAM: 06/24/2022 7:21 PM INDICATION: Patient age:Female; 71 years old; Reason for study: K76.0 FATTY (CHANGE OF) LIVER; Abdominal pain, fatty liver. COMPARISON: CT scan abdomen from 06/03/2022. TECHNIQUE: Multiplanar multi-sequence imaging was performed without contrast. Post contrast imaging was performed. Post IV contrast subtraction images were also submitted for review. IV Contrast: 9 cc Gadavist FINDINGS: LOWER CHEST: No gross irregularity. ABDOMEN Liver: There is signal dropout on chemical shift of phase imaging compatible with hepatic steatosis. There is a right hepatic lobe high T2 signal low T1 observation measuring 10 mm which demonstrates pr ogressive discontinuous peripheral enhancement with complete filling on delayed imaging. Additional s egment 7 area of high DWI signal measuring 10 mm which does also demonstrates fill in on delayed imag ing. Gallbladder and Bile ducts: Low signal cholelithiasis B present within the gallbladder fundus. Pancreas: Unremarkable. Spleen: Small splenule. Adrenal glands: Unremarkable. Kidneys: Unremarkable. Stomach and Bowel: No evidence of obstructive uropathy. No masses. Peritoneum: No evidence of pneumoperitoneum or free fluid. Vasculature: Unremarkable. No aortic aneurysm. Musculoskeletal: The osseous structures appear intact. Lymph Nodes: No gross evidence for lymphadenopathy. Abdominal wall: Unremarkable. IMPRESSION: 1. Hepatic steatosis with 2 observations with benign enhancement characteristics. No observations th at meet HCC criteria. 2. No acute abdominal process.
== END | disposition home or self-care (01) ==
LOC: RADMRIMAIN 17:57
PROVIDERS: ATTEND Internal Medicine
DX: K76.0 Fatty (change of) liver, not elsewhere classified (principal)
CPT/HCPCS: 74183; A9585

== ENCOUNTER → 2023-01-02 | Outpatient (CLI) | payer MEDICARE, OTHER ==
--- NOTE | 2023-01-02 09:00 | US ---
EXAMINATION TYPE: US gallbladder DATE OF EXAM: 01/02/2023 COMPARISON: 10/16/2021, 06/24/2022 CLINICAL INDICATION: Female, 72 years old with history of R10.11 RUQ PAIN; RUQ pain per patient. TECHNIQUE: Multiple sonographic images of the right upper quadrant are obtained. FINDINGS: EXAM MEASUREMENTS: Liver Length: 16.8 cm Gallbladder Wall: 0.1 cm CBD: 0.5 cm Right Kidney: 9.2 x 4.9 x 4.3 cm Pancreas: Head and tail obscured by overlying bowel gas Liver: Echogenic and heterogenous in appearance. Gallbladder: No stones seen Evidence for sonographic Rowan's sign: neg CBD: wnl Right Kidney: No hydronephrosis or masses seen IMPRESSION: 1. No evidence for acute process. 2. Hepatic steatosis.
== END | disposition home or self-care (01) ==
LOC: RADUSWWP 07:31
PROVIDERS: ATTEND Internal Medicine Gastroenterology
DX: K76.0 Fatty (change of) liver, not elsewhere classified (principal)
CPT/HCPCS: 76705

== ENCOUNTER → 2023-02-27 | Outpatient (CLI) | payer MEDICARE, OTHER ==
[2023-02-27 15:42] LABS: ALT 35 U/L (8-44); AST 17 U/L (13-35); Chol/HDL Ratio 3.65 Ratio; LDL Cholesterol,Calculated 135.6 mg/dL (0.0-131.0)
== END | disposition home or self-care (01) ==
LOC: LABWHC1 11:19
PROVIDERS: ATTEND Internal Medicine Interventional Cardiology
DX: E78.2 Mixed hyperlipidemia (principal)
CPT/HCPCS: 36415; 80061; 84450; 84460

== ENCOUNTER 2023-04-29 10:29 | Observation (INO) | payer MEDICARE, OTHER ==
--- NOTE | 2023-04-29 11:04 | ED ---
General Adult HPI - General Chief complaint: Chest Pain Stated complaint: Chest pain Time Seen by Provider: 04/29/23 10:50 Source: patient, RN notes reviewed Mode of arrival: ambulatory Limitations: no limitations - History of Present Illness Initial comments: Patient is a pleasant 72-year-old female present to the emergency department with concerns of chest discomfort. Onset of symptoms was yesterday. Patient did go to Dr. Singleton and was told to come to the hospital if symptoms worsen. Patient describes discomfort like tightness. Symptoms do worsen with exertion. Patient also has some associated dyspnea, nausea and sweating. No history of similar symptoms previously. No leg pain or leg swelling. - Related Data Home Medications Medication Instructions Recorded Confirmed Levothyroxine Sodium [Synthroid] 50 mcg PO DAILY 05/19/14 12/19/21 Zolpidem [Ambien] 10 mg PO HS PRN 05/19/14 12/19/21 Acetaminophen Tab [Tylenol] 650 mg PO Q4H PRN 10/16/21 12/19/21 buPROPion XL [Wellbutrin XL] 150 mg PO DAILY 10/16/21 12/19/21 Escitalopram [Lexapro] 20 mg PO DAILY 10/17/21 12/19/21 Dicyclomine [Bentyl] 20 mg PO QID 12/19/21 12/19/21 Previous Rx's Medication Instructions Recorded amLODIPine [Norvasc] 10 mg PO DAILY 30 Days #30 tab 10/17/21 Levofloxacin [Levaquin] 500 mg PO Q24H #7 tab 12/23/21 metroNIDAZOLE [Flagyl] 500 mg PO TID #21 tab 12/23/21 Allergies Allergy/AdvReac Type Severity Reaction Status Date / Time nitrofurantoin Allergy Itching Verified 12/19/21 15:27 [From Macrobid] Penicillins Allergy Rash/Hives/ Verified 12/19/21 15:27 Swelling Sulfa (Sulfonamide Allergy Rash/Hives Verified 12/19/21 15:27 Antibiotics) Review of Systems ROS Statement: Those systems with pertinent positive or pertinent negative responses have been documented in the HPI. ROS Other: All systems not noted in ROS Statement are negative. Constitutional: Denies: fever Eyes: Denies: eye pain ENT: Denies: ear pain Respiratory: Reports: as per HPI, dyspnea Cardiovascular: Reports: chest pain, dyspnea on exertion Psychiatric: Reports: anxiety Past Medical History Past Medical History: Cancer, Chest Pain / Angina, GERD/Reflux, Hyperlipidemia, Hypertension, Osteoarthritis (OA), Pneumonia, Thyroid Disorder, Vascular Disorder Additional Past Medical History / Comment(s): polynephritis, severe UTI with sepsis which she states she fully recovered from then last week pt states she had the flu and then urinary tract infection symptoms returned. Other hx: UTIs, skin cancer nose and R cheek, diverticular disease, pancreatitis, elevated liver function tests, irregular heart beat in the past, spondylosis cervical spine/neck pain, low back pain, varicosities bilateral legs, insomnia Last Myocardial Infarction Date:: unknown History of Any Multi-Drug Resistant Organisms: ESBL Date of last positivie culture/infection: 08/28/20 MDRO Source:: ESBL URINE Past Surgical History: Adenoidectomy, Heart Catheterization, Hysterectomy, Joint Replacement, Orthopedic Surgery, Tonsillectomy Additional Past Surgical History / Comment(s): Total L knee arthroplasty, R foot bunionectomy, R carpal tunnel release, R middle finger cyst removed/spur removed, R foot surgery with screws in place, colonoscopies, skin cancer removals, bilateral cataract removals/lens implants. Past Anesthesia/Blood Transfusion Reactions: No Reported Reaction Additional Past Anesthesia/Blood Transfusion Reaction / Comment(s): no hx blood transfusion Past Psychological History: Anxiety Smoking Status: Former smoker Past Alcohol Use History: None Reported Past Drug Use History: None Reported - Past Family History Sister(s) Family Medical History: Cancer Additional Family Medical History / Comment(s): Patient had total of 4 sisters. One from a form of lymphoma. OTHER sisters are alive. One has COPD. One is blind and deaf since 18 months old from strep meningitis. Third sister is also blind from aniridia and glaucoma. Brother(s) Family Medical History: Cancer Additional Family Medical History / Comment(s): Patient has a total of 4 brothers. One from myocardial infarction and one from pancreatic cancer. 2 living brothers have no major medical problems. Father Family Medical History: Myocardial Infarction (MT) Additional Family Medical History / Comment(s): Father at age 79 from MT, he was residing in [facility] at the time. Mother Family Medical History: Seizure Disorder Additional Family Medical History / Comment(s): Mother at age 78 from either MT or seizure. She had history of COPD, Oxygen dependent, seizure disorder. General Exam Limitations: no limitations General appearance: alert Head exam: Present: normocephalic Eye exam: Present: normal appearance Neck exam: Present: normal inspection Respiratory exam: Present: normal lung sounds bilaterally Cardiovascular Exam: Present: tachycardia Expanded Peripheral pulses: 2+: Radial (R), Radial (L), Posterior Tibialis (R), Posterior Tibialis (L) GI/Abdominal exam: Present: soft. Absent: tenderness Extremities exam: Present: normal inspection. Absent: pedal edema, calf tenderness Neurological exam: Present: alert Psychiatric exam: Present: normal affect, normal mood Skin exam: Present: normal color Course Vital Signs 04/29/23 10:46 Temperature 98.2 F Pulse Rate 113 H Respiratory 20 Rate Blood Pressure 160/90 O2 Sat by Pulse 99 Oximetry EKG Findings - EKG Results: EKG: interpreted by ERMD (Septal Q waves.), sinus rhythm, normal axis, normal ST/T EKG shows: tachycardia Medical Decision Making - Medical Decision Making Was pt. sent in by a medical professional or institution (, PA, WASHING MACHINE ASSEMBLER, urgent care, hospital, or detention...) When possible be specific @ -Patient did see cartographic engineer yesterday and was advised to come to emergency department if symptoms continue or worsen Did you speak to anyone other than the patient for history (EMS, parent, family, police, friend...)? What history was obtained from this source @ -Family is present and confirms history Did you review nursing and triage notes (agree or disagree)? Why? @ -I reviewed and agree with nursing and triage notes Were old charts reviewed (outside hosp., previous admission, EMS record, old EKG, old radiological studies, urgent care reports/EKG's, detention records)? Report findings @ -Previous chest x-ray reviewed. Differential Diagnosis (chest pain, altered mental status, abdominal pain women, abdominal pain men, vaginal bleeding, weakness, fever, dyspnea, syncope, headache, dizziness, GI bleed, back pain, seizure, CVA, palpatations, mental health, musculoskeletal)? @ -Differential Chest Pain: Stable Angina, Unstable Angina, STEMI, NSTEMI Aortic Dissection, Pneumothorax, Musculoskeletal, Esophageal Spasm GERD, Cholecystitis, Pancreatitis, Zoster, this is not meant to be an all-inclusive list. EKG interpreted by me (3pts min.). @ -As above X-rays interpreted by me (1pt min.). @ -Chest x-ray shows no acute process CT interpreted by me (1pt min.). @ -None done U/S interpreted by me (1pt. min.). @ -None done What testing was considered but not performed or refused? (CT, X-rays, U/S, labs)? Why? @ -None What meds were considered but not given or refused? Why? @ -None Did you discuss the management of the patient with other professionals (melva oquendo i.e. , PA, WASHING MACHINE ASSEMBLER, lab, RT, psych nurse, social science instructor, straight truck driver, teacher, environmental compliance officer, ed case manager)? Give summary @ -Case was discussed with Dr. Renteria who will admit his patient Was smoking cessation discussed for >3mins.? @ -No Was critical care preformed (if so, how long)? @ -No Were there social determinants of health that impacted care today? How? (Homelessness, low income, unemployed, alcoholism, drug addiction, transportation, low edu. Level, literacy, decrease access to med. care, custodial, rehab)? @ -No Was there de-escalation of care discussed even if they declined (Discuss DNR or withdrawal of care, Hospice)? DNR status @ -No What co-morbidities impacted this encounter? (DM, HTN, Smoking, COPD, CAD, Cancer, CVA, ARF, Chemo, Hep., AIDS, mental health diagnosis, sleep apnea, morbid obesity)? @ -None Was patient admitted / discharged? Hospital course, mention meds given and route, prescriptions, significant lab abnormalities, going to OR and other pertinent info. @ -Patient reevaluated. Patient and family are updated on results and plan. Patient will be admitted with cardiac consult. Admission orders written. Undiagnosed new problem with uncertain prognosis? @ -No Drug Therapy requiring intensive monitoring for toxicity (Heparin, Nitro, Insulin, Cardizem)? @ -No Were any procedures done? @ -No Diagnosis/symptom? @ -Chest pain Acute, or Chronic, or Acute on Chronic? @ -Acute Uncomplicated (without systemic symptoms) or Complicated (systemic symptoms)? @ -Default Side effects of treatment? @ -No Exacerbation, Progression, or Severe Exacerbation? @ -No Poses a threat to life or bodily function? How? (Chest pain, USA, MT, pneumonia, PE, COPD, DKA, ARF, appy, cholecystitis, CVA, Diverticulitis, Homicidal, Suicidal, threat to staff... and all critical care pts) @ -No - Lab Data Result diagrams: 04/29/23 11:14 04/29/23 11:14 Lab Results 04/29/23 04/29/23 04/29/23 Range/Units 11:14 11:14 11:14 WBC 7.2 (3.8-10.6) k/uL RBC 5.20 (3.80-5.40) m/uL Hgb 14.7 (11.4-16.0) gm/dL Hct 45.3 (34.0-46.0) % MCV 87.3 (80.0-100.0) fL MCH 28.3 (25.0-35.0) pg MCHC 32.5 (31.0-37.0) g/dL RDW 15.3 (11.5-15.5) % Plt Count 254 (150-450) k/uL MPV 7.0 Neutrophils % 74 % Lymphocytes % 17 % Monocytes % 5 % Eosinophils % 2 % Basophils % 0 % Neutrophils # 5.3 (1.3-7.7) k/uL Lymphocytes # 1.2 (1.0-4.8) k/uL Monocytes # 0.4 (0-1.0) k/uL Eosinophils # 0.1 (0-0.7) k/uL Basophils # 0.0 (0-0.2) k/uL PT 10.3 (10.0-12.5) sec INR 0.9 (<1.2) APTT 25.0 (22.0-30.0) sec D-Dimer 0.26 (<0.60) mg/L FEU Sodium 134 L (137-145) mmol/L Potassium 5.0 (3.5-5.1) mmol/L Chloride 103 (98-107) mmol/L Carbon Dioxide 22 (22-30) mmol/L Anion Gap 9 mmol/L BUN 16 (7-17) mg/dL Creatinine 0.58 (0.52-1.04) mg/dL Est GFR (CKD-EPI)AfAm >90 (>60 ml/min/1.73 sqM) Est GFR (CKD-EPI)NonAf >90 (>60 ml/min/1.73 sqM) Glucose 122 H (74-99) mg/dL Calcium 9.9 (8.4-10.2) mg/dL Magnesium 2.0 (1.6-2.3) mg/dL Total Bilirubin 1.2 (0.2-1.3) mg/dL AST 42 H (14-36) U/L ALT 63 H (4-34) U/L Alkaline Phosphatase 140 H (38-126) U/L Troponin I (0.000-0.034) ng/mL Total Protein 7.8 (6.3-8.2) g/dL Albumin 4.6 (3.5-5.0) g/dL 04/29/23 Range/Units 11:14 WBC (3.8-10.6) k/uL RBC (3.80-5.40) m/uL Hgb (11.4-16.0) gm/dL Hct (34.0-46.0) % MCV (80.0-100.0) fL MCH (25.0-35.0) pg MCHC (31.0-37.0) g/dL RDW (11.5-15.5) % Plt Count (150-450) k/uL MPV Neutrophils % % Lymphocytes % % Monocytes % % Eosinophils % % Basophils % % Neutrophils # (1.3-7.7) k/uL Lymphocytes # (1.0-4.8) k/uL Monocytes # (0-1.0) k/uL Eosinophils # (0-0.7) k/uL Basophils # (0-0.2) k/uL PT (10.0-12.5) sec INR (<1.2) APTT (22.0-30.0) sec D-Dimer (<0.60) mg/L FEU Sodium (137-145) mmol/L Potassium (3.5-5.1) mmol/L Chloride (98-107) mmol/L Carbon Dioxide (22-30) mmol/L Anion Gap mmol/L BUN (7-17) mg/dL Creatinine (0.52-1.04) mg/dL Est GFR (CKD-EPI)AfAm (>60 ml/min/1.73 sqM) Est GFR (CKD-EPI)NonAf (>60 ml/min/1.73 sqM) Glucose (74-99) mg/dL Calcium (8.4-10.2) mg/dL Magnesium (1.6-2.3) mg/dL Total Bilirubin (0.2-1.3) mg/dL AST (14-36) U/L ALT (4-34) U/L Alkaline Phosphatase (38-126) U/L Troponin I 0.021 (0.000-0.034) ng/mL Total Protein (6.3-8.2) g/dL Albumin (3.5-5.0) g/dL Disposition Clinical Impression: Chest pain Disposition: ADMITTED IP TO THIS HOSP Is patient prescribed a controlled substance at d/c from ED?: No Referrals: Dina Renteria MD [Primary Care Provider] - 1-2 days Time of Disposition: 12:56
[2023-04-29 11:22] LABS: Basophils % (A) 0 %; Eosinophils # (A) 0.1 k/uL (0-0.7); Eosinophils % (A) 2 %; HCT 45.3 % (34.0-46.0); HGB 14.7 gm/dL (11.4-16.0); Lymphocytes # (A) 1.2 k/uL (1.0-4.8); Lymphocytes % (A) 17 %; MCH 28.3 pg (25.0-35.0); MCHC 32.5 g/dL (31.0-37.0); MCV 87.3 fL (80.0-100.0); Monocytes # (A) 0.4 k/uL (0-1.0); Monocytes % (A) 5 %; Neutrophils # (A) 5.3 k/uL (1.3-7.7); Neutrophils % (A) 74 %; Platelet Count 254 k/uL (150-450); RDW 15.3 % (11.5-15.5); WBC 7.2 k/uL (3.8-10.6)
[2023-04-29 11:35] LABS: ALT 63 U/L (4-34); African American GFR (CKD) >90 (>60 ml/min/1.73 sqM); Anion Gap 9 mmol/L; Blood Urea Nitrogen 16 mg/dL (7-17); Calcium 9.9 mg/dL (8.4-10.2); Carbon Dioxide 22 mmol/L (22-30); Chloride 103 mmol/L (98-107); Glucose 122 mg/dL (74-99); Non-African American GFR(CKD) >90 (>60 ml/min/1.73 sqM); Sodium 134 mmol/L (137-145); Total Bilirubin 1.2 mg/dL (0.2-1.3)
[2023-04-29 11:39] LABS: Total Protein 7.8 g/dL (6.3-8.2)
--- NOTE | 2023-04-29 11:39 | XR ---
EXAMINATION TYPE: XR chest 2V DATE OF EXAM: 04/29/2023 COMPARISON: 12/10/2021 INDICATION: Chest pain TECHNIQUE: Single frontal view of the chest is obtained. FINDINGS: The heart size is normal. The pulmonary vasculature is normal. The lungs are clear. IMPRESSION: 1. No acute pulmonary process.
[2023-04-29 11:40] LABS: AST 42 U/L (14-36); Albumin 4.6 g/dL (3.5-5.0); Alkaline Phosphatase 140 U/L (38-126)
[2023-04-29 11:49] LABS: INR 0.9 (<1.2); Prothrombin Time 10.3 sec (10.0-12.5)
[2023-04-29] MEDS: NITROGLYCERIN OINT 1 INCH/GM PACKET TOPICAL STA (12:10)
[2023-04-29] MEDS: ASPIRIN 81 MG PO STA (12:10)
[2023-04-29] MEDS ORDERED: NITROGLYCERIN SL TABS 0.4 MG TAB SUBLINGUAL PRN (12:57)
[2023-04-29] MEDS ORDERED: hydrALAZINE HCL 20 MG/ML 1 ML VIAL IVP PRN (14:26)
--- NOTE | 2023-04-29 14:31 | P.CRDCN ---
History of Present Illness History of present illness: HISTORY OF PRESENT ILLNESS: This is a 72-year-old female with a past medical history significant for hypertension, hyperlipidemia and hypothyroidism. Patient follows in the office with Dr. Singleton. We have been asked to see the patient in consultation for chest pain. Patient examined at the bedside in the emergency room. Patient states on Friday she has been feeling unwell. She reports she feels like she is "on drugs". She states that she is having back pain and also neck pain. She reports the chest pain feels like a pressure in the middle of her chest. She reports feeling sweaty at home but denies fever. She also reports shortness of breath when she has the chest pain. She reports she has had episodes of shaking but states it is only when she is having a lot of pain. She states the episodes have been intermittent since Friday. She states the episodes last for about 10-20 minutes. She states she has been taking aspirin and tylenol without relief at home. She reports numbness in her right arm and leg for the past week. She states she saw Dr. Singleton on Friday and was scheduled to have an echocardiogram. She was given nitro paste upon arrival to the ER. She reports improvement in her chest pain but continues to have back pain and a headache. Patients blood pressure is elevated at the time of examination with a reading of 163/109. DIAGNOSTICS: - EKG reveals sinus mechanism with no signs of acute ischemia. - Chest xray negative for acute process. - Laboratory data: WBC 7.2. Hemoglobin 14.7. Platelet count 254. D-dimer 0.26. Sodium 134. Potassium 5.0. BUN 16. Creatinine 0.58. Troponin negative x 1 AST 42. ALT 63. - Current home cardiac medications include losartan 25 mg daily, rosuvastatin 20 mg at night, Zetia 10 mg daily. - Most recent echocardiogram obtained in December 2020 reveals ejection fraction 55%, mild TR, mild MR, mild LVH. - Cardiac catheterization history: 2016 revealing normal coronary arteries REVIEW OF SYSTEMS: At the time of my exam: CONSTITUTIONAL: Denies fever or chills. HEENT: Denies blurred vision, vision changes, or eye pain. Denies hemoptysis. Reports headache CARDIOVASCULAR: Denies chest pain. Denies orthopnea. Denies PND. Denies palpitations RESPIRATORY: Denies shortness of breath. GASTROINTESTINAL: Denies abdominal pain. Denies nausea or vomiting. HEMATOLOGIC: Denies bleeding disorders. GENITOURINARY: Denies any blood in urine. SKIN: Denies pruitis. Denies rash. PHYSICAL EXAM: VITAL SIGNS: Reviewed. GENERAL: Well-developed in no acute distress. HEENT: Head is normocephalic. Pupils are equal, round. Sclerae anicteric. Mucous membranes of the mouth are moist. Neck supple. No JVD or thyromegaly LUNGS: Respirations even and unlabored. Lungs essentially clear to auscultation bilaterally. HEART: Regular rate and rhythm. S1 and S2 heard. ABDOMEN: Soft. Nondistended. Nontender. EXTREMITIES: Normal range of motion. No clubbing or cyanosis. Peripheral pulses intact. No lower extremity edema NEUROLOGIC: Awake and alert. Oriented x 3. ASSESSMENT: Chest pain, troponin negative x 1 Right-sided numbness, headache, and "brain fog", rule out neurologic etiology Hypertension, uncontrolled on admission Mildly elevated LFTs Hyperlipidemia Hypothyroidism Normal coronary arteries, per cardiac catheterization in 2016 PLAN: Obtain 2D echo to assess cardiac structure and function Consult neurology for evaluation of right sided numbness Resume home cardiac medications Increase losartan to 50 mg daily Patient states she took her medications this morning before coming to the hospital. Given additional 25 mg of losartan x 1 dose now Add Hydralazine IVP 10mg Q6 hours for systolic blood pressure greater than 170 or diastolic blood pressure greater than 110 Trend troponins Continue telemetry monitoring to rule out arrhythmia Check Covid, influenza, and RSV N.p.o. at midnight If patient's troponins are negative, patient will undergo Lexiscan stress test in the morning Further recommendations pending patient course Nurse practitioner note has been reviewed by physician. Signing provider agrees with the documented findings, assessment, and plan of care documented by DIPPING MACHINE OPERATOR as a scribe. Past Medical History Past Medical History: Cancer, Chest Pain / Angina, GERD/Reflux, Hyperlipidemia, Hypertension, Osteoarthritis (OA), Pneumonia, Thyroid Disorder, Vascular Disorder Additional Past Medical History / Comment(s): polynephritis, severe UTI with sepsis which she states she fully recovered from then last week pt states she had the flu and then urinary tract infection symptoms returned. Other hx: UTIs, skin cancer nose and R cheek, diverticular disease, pancreatitis, elevated liver function tests, irregular heart beat in the past, spondylosis cervical spine/neck pain, low back pain, varicosities bilateral legs, insomnia Last Myocardial Infarction Date:: unknown History of Any Multi-Drug Resistant Organisms: ESBL Date of last positivie culture/infection: 08/28/20 MDRO Source:: ESBL URINE Past Surgical History: Adenoidectomy, Heart Catheterization, Hysterectomy, Joint Replacement, Orthopedic Surgery, Tonsillectomy Additional Past Surgical History / Comment(s): Total L knee arthroplasty, R foot bunionectomy, R carpal tunnel release, R middle finger cyst removed/spur rem alem, R foot surgery with screws in place, colonoscopies, skin cancer removals, bilateral cataract removals/lens implants. Past Anesthesia/Blood Transfusion Reactions: No Reported Reaction Additional Past Anesthesia/Blood Transfusion Reaction / Comment(s): no hx blood transfusion Past Psychological History: Anxiety Smoking Status: Former smoker Past Alcohol Use History: None Reported Past Drug Use History: None Reported - Past Family History Sister(s) Family Medical History: Cancer Additional Family Medical History / Comment(s): Patient had total of 4 sisters. One from a form of lymphoma. OTHER sisters are alive. One has COPD. One is blind and deaf since 18 months old from strep meningitis. Third sister is also blind from aniridia and glaucoma. Brother(s) Family Medical History: Cancer Additional Family Medical History / Comment(s): Patient has a total of 4 brothers. One from myocardial infarction and one from pancreatic cancer. 2 living brothers have no major medical problems. Father Family Medical History: Myocardial Infarction (IA) Additional Family Medical History / Comment(s): Father at age 79 from [place], he was residing in [facility] at the time. Mother Family Medical History: Seizure Disorder Additional Family Medical History / Comment(s): Mother at age 78 from either IA or seizure. She had history of COPD, Oxygen dependent, seizure disorder. Medications and Allergies Home Medications Medication Instructions Recorded Confirmed Type Levothyroxine Sodium [Synthroid] 50 mcg PO DAILY 05/19/14 04/29/23 History Zolpidem [Ambien] 10 mg PO HS@2200 05/19/14 04/29/23 History ALPRAZolam [Xanax] 0.5 mg PO TID PRN 04/29/23 04/29/23 History Acetaminophen Tab [Tylenol] 650 mg PO HS 04/29/23 04/29/23 History Amitriptyline HCl [Elavil] 25 mg PO HS@2100 04/29/23 04/29/23 History Ezetimibe [Zetia] 10 mg PO W/LUNCH 04/29/23 04/29/23 History Losartan [Cozaar] 25 mg PO W/LUNCH 04/29/23 04/29/23 History Rosuvastatin [Crestor] 20 mg PO HS 04/29/23 04/29/23 History Vit C/E/Zn/Coppr/Lutein/Zeaxan 1 cap PO HS 04/29/23 04/29/23 History [Preservision Areds 2 Softgel] cycloSPORINE 0.05% OPHTH SOLN 1 applicator BOTH EYES DAILY@1200 04/29/23 04/29/23 History [Restasis] Allergies Allergy/AdvReac Type Severity Reaction Status Date / Time nitrofurantoin Allergy Itching Verified 04/29/23 13:13 [From Macrobid] Penicillins Allergy Rash/Hives/ Verified 04/29/23 13:13 Swelling Sulfa (Sulfonamide Allergy Rash/Hives Verified 04/29/23 13:13 Antibiotics) Physical Exam Vitals: Vital Signs Temp Pulse Resp BP Pulse Ox 04/29/23 10:46 98.2 F 113 H 20 160/90 99 Intake and Output 04/28/23 04/29/23 04/29/23 22:59 06:59 14:59 Other: Weight 92.533 kg Results 04/29/23 11:14 04/29/23 11:14 Cardiac Enzymes 04/29/23 04/29/23 Range/Units 11:14 11:14 AST 42 H (14-36) U/L Troponin I 0.021 (0.000-0.034) ng/mL Coagulation 04/29/23 Range/Units 11:14 PT 10.3 (10.0-12.5) sec APTT 25.0 (22.0-30.0) sec CBC 04/29/23 Range/Units 11:14 WBC 7.2 (3.8-10.6) k/uL RBC 5.20 (3.80-5.40) m/uL Hgb 14.7 (11.4-16.0) gm/dL Hct 45.3 (34.0-46.0) % Plt Count 254 (150-450) k/uL Comprehensive Metabolic Panel 04/29/23 Range/Units 11:14 Sodium 134 L (137-145) mmol/L Potassium 5.0 (3.5-5.1) mmol/L Chloride 103 (98-107) mmol/L Carbon Dioxide 22 (22-30) mmol/L BUN 16 (7-17) mg/dL Creatinine 0.58 (0.52-1.04) mg/dL Glucose 122 H (74-99) mg/dL Calcium 9.9 (8.4-10.2) mg/dL AST 42 H (14-36) U/L ALT 63 H (4-34) U/L Alkaline Phosphatase 140 H (38-126) U/L Total Protein 7.8 (6.3-8.2) g/dL Albumin 4.6 (3.5-5.0) g/dL Current Medications Generic Name Dose Route Start Last Admin Trade Name Freq PRN Reason Stop Dose Admin Aspirin 325 mg 04/30/23 09:00 Aspirin 325 Mg Tab PO DAILY TOMAS Nitroglycerin 0.4 mg 04/29/23 12:57 Nitroglycerin Sl Tabs 0.4 Mg Tab SUBLINGUAL Q5M PRN Chest Pain Nitroglycerin 1 inch 04/29/23 18:00 Nitroglycerin Oint 1 Inch/Gm Packet TOPICAL Q6HR TOMAS Intake and Output 04/28/23 04/29/23 04/29/23 22:59 06:59 14:59 Other: Weight 92.533 kg Patient Weight 04/30/23 06:59 Weight 92.533 kg 04/29/23 11:14 04/29/23 11:14
[2023-04-29] MEDS: LORazepam 1 MG TAB PO STA (15:24)
[2023-04-29] MEDS: LOSARTAN 25 MG TAB PO STA (15:24)
[2023-04-29] MEDS ORDERED: ALPRAZolam 0.5 MG TAB PO PRN (18:52)
--- NOTE | 2023-04-29 19:39 | P.HPIM ---
History of Present Illness H&P Date: 04/29/23 Chief Complaint: chest pain HISTORY OF PRESENT ILLNESS This is a 72-year-old female patient with past medical history of hypertension, hyperlipidemia, hypothyroidism, spondylosis of the cervical spine, history of 1 episode of diverticulitis, irritable bowel syndrome and anxiety disorder. She does have a history of admission for UTI and sepsis with early pyelonephritis secondary to ESBL E. coli UTI. Patient has been seen by urology status post cystoscopy that did not show any abnormalities at that time, patient apparently developed to have a significant left-sided chest pain radiating to the back and both neck and both shoulders last Friday she ended up going to see Dr. Kang in the office, had an EKG in the office did not show any evidence of acute abnormalities, she was scheduled to go for an echocardiogram to be done in the hospital along with a stress test but she was advised to go to the emergency department if her chest pain came back, she went to bed last night, and she was feeling foggy and she could not really describe it at the same time she developed to have a significant left-sided chest pain radiating to the neck and both shoulders and she was complaining of increased numbness on the right side of her body including the right arm and the right leg, so the patient ended up coming to the emergency department for evaluation, had a twelve-lead EKG that showed evidence of sinus mechanism without evidence of acute ST-T wave changes, I did show poor R wave progression in the anterior leads suggestive of possible LAD disease, her cardiac enzymes were negative, chest x-ray was negative, white count were negative, because of the presentation she was seen in consultation by cardiology who recommended for the patient to go for Lexiscan Cardiolite stress test tomorrow morning, also it was recommended for the patient to be seen in consultation by neurology due to the recurrent numbness in the right upper and right lower extremity patient is well-known to have a history of spondylosis of the cervical spine patient does not have any weakness upon examination in the emergency department, and her neurological examination is totally normal. REVIEW OF SYSTEMS Constitutional: No fever, no chills, no night sweats. No weight change. No weakness, fatigue or lethargy. No daytime sleepiness. EENT: No headache. No blurred vision or double vision, no loss of vision. No loss of Hearing, no ringing in the ears, no dizziness. No nasal drainage or congestion. No epistaxis. No sore throat. Lungs: No shortness of breath, cough, no sputum production. No wheezing. Cardiovascular: positive for chest pain, no lower extremity edema. No palpitations. No paroxysmal nocturnal dyspnea. No orthopnea. No lightheadedness or dizziness. No syncopal episodes. Abdominal: Reported no abdominal pain. no nausea, no vomiting. No diarrhea. No constipation. No bloody or tarry stools. No loss of appetite. Genitourinary: No dysuria, increased frequency, reports urgency. No urinary retention. Reports hematuria. Musculoskeletal: No myalgias. No muscle weakness, no gait dysfunction, no frequent falls. positive for back pain and neck pain. Integumentary: No wounds, no lesions. No rash or pruritus. No unusual bruising. No change in hair or nails. Neurologic: No aphasia. No facial droop. positive for change in mentation. No head injury. No headache. No paralysis., positive for right arm paresthesia as well as right lower extremity paresthesia that has resolved Psychiatric: No depression. No anxiety. No mood swings. Endocrine: No abnormal blood sugars. No weight change. No excessive sweating or thirst. No cold intolerance. MEDICAL HISTORY Hypertension Hyperlipidemia Hypothyroidism Spondylosis of the cervical spine Pancreatitis Generalized anxiety disorder ESBL E. coli UTI Irritable bowel syndrome Skin cancer removed from her nose and right cheek Diverticular disease Elevated liver function tests Insomnia SURGICAL HISTORY Tonsillectomy Adenoidectomy Cardiac catheterization Hysterectomy Total left knee arthroplasty Right foot bunionectomy Right carpal tunnel release Right middle finger cyst removal Colonoscopies Skin cancer resections Bilateral cataract removal and intraocular lens implants Cystoscopy SOCIAL HISTORY Patient is a lifelong nonsmoker, no alcohol abuse, in no marijuana or illicit drug use. Patient lives at home with her and is independent. FAMILY HISTORY Father at age 79 from myocardial infarction residing at an [facility] at the time. Mother at age 78 from either HI or seizure with history of COPD oxygen dependent and seizure disorder. Patient had a total of 4 brothers. One from a myocardial infarction and one from pancreatic cancer. 2 living brothers have no major medical problems. Patient had 4 sisters. One from a form of lymphoma. One sister has COPD. One sister is blind and deaf since 18 months old from strep meningitis. Third sister is also blind from aniridia and glaucoma. PHYSICAL EXAMINATION Gen: This is a 72-year-old obese female resting in bed and appears to be in no acute distress. HEENT: Head is atraumatic, normocephalic. Pupils equal, round. Sclerae is anicteric. Oral mucous membranes are slightly dry. NECK: Supple. No JVD. No lymphadenopathy. No thyromegaly. LUNGS: Clear to auscultation. No wheezes or rhonchi. No intercostal retractions. HEART: First heart sound is depressed, second heart sound is normal, there is THOR 2/6 located at the left sternal border ABDOMEN: Soft., non tender , non distended Bowel sounds are present. No masses EXTREMITIES: No pedal edema. No calf tenderness. Dorsalis pedis +2 bilaterally. NEUROLOGICAL: Patient is awake, alert and oriented x3. Cranial nerves 2 through 12 are grossly intact. Muscle power 5/5 in the upper and lower extremities bilaterally. Deep tendon reflexes were normal. ASSESSMENT AND PLAN 1. Chest sofia likely non cardiac .Cardiac enzymes are negative, was seen by cardiology and it was recommended Lexiscan cardiolite stress test in AM 2. Right arm numbness, likely radiculopathy due to spondylosis of the cervical spine , neurology was consulted 3. Hypertension and hypertensive cardiovascular disease. Continue patient on amlodipine 10 mg daily and Losartan 50 mg po daily, my use Hydralazine as needed 4. Hyperlipidemia.we will continue with Rosuvastatin 20 mg po daily along with Zetia 10 mg po daily 5. Hypothyroidism. Continue levothyroxine 50 g daily. 6. Generalized anxiety disorder, recurrent depression and insomnia. Continue Lexapro 20 mg daily, Wellbutrin 150 mg daily and Xanax 0.5 mg po tid as needed 7. Irritable bowel syndrome. Continue Bentyl 20 mg 4 times daily.. 8. Insomnia. we will continue with Zolpidem 10 mg po qhs 9. GI prophylaxis. Protonix 40 mg po daily 10. DVT prophylaxis. Lovenox 40 mg Sc daily. 11. Full code. 12. Observation Past Medical History Past Medical History: Cancer, Chest Pain / Angina, GERD/Reflux, Hyperlipidemia, Hypertension, Osteoarthritis (OA), Pneumonia, Thyroid Disorder, Vascular Disorder Additional Past Medical History / Comment(s): polynephritis, severe UTI with sepsis which she states she fully recovered from then last week pt states she had the flu and then urinary tract infection symptoms returned. Other hx: UTIs, skin cancer nose and R cheek, diverticular disease, pancreatitis, elevated liver function tests, irregular heart beat in the past, spondylosis cervical spine/neck pain, low back pain, varicosities bilateral legs, insomnia Last Myocardial Infarction Date:: unknown History of Any Multi-Drug Resistant Organisms: ESBL Date of last positivie culture/infection: 08/28/20 MDRO Source:: ESBL URINE Past Surgical History: Adenoidectomy, Heart Catheterization, Hysterectomy, Joint Replacement, Orthopedic Surgery, Tonsillectomy Additional Past Surgical History / Comment(s): Total L knee arthroplasty, R foot bunionectomy, R carpal tunnel release, R middle finger cyst removed/spur removed, R foot surgery with screws in place, colonoscopies, skin cancer re movals, bilateral cataract removals/lens implants. Past Anesthesia/Blood Transfusion Reactions: No Reported Reaction Additional Past Anesthesia/Blood Transfusion Reaction / Comment(s): no hx blood transfusion Past Psychological History: Anxiety Smoking Status: Former smoker Past Alcohol Use History: None Reported Past Drug Use History: None Reported - Past Family History Sister(s) Family Medical History: Cancer Additional Family Medical History / Comment(s): Patient had total of 4 sisters. One from a form of lymphoma. OTHER sisters are alive. One has COPD. One is blind and deaf since 18 months old from strep meningitis. Third sister is also blind from aniridia and glaucoma. Brother(s) Family Medical History: Cancer Additional Family Medical History / Comment(s): Patient has a total of 4 brot hers. One from myocardial infarction and one from pancreatic cancer. 2 living brothers have no major medical problems. Father Family Medical History: Myocardial Infarction (HI) Additional Family Medical History / Comment(s): Father at age 79 from HI, he was residing in [facility] at the time. Mother Family Medical History: Seizure Disorder Additional Family Medical History / Comment(s): Mother at age 78 from either HI or seizure. She had history of COPD, Oxygen dependent, seizure disorder. Medications and Allergies Home Medications Medication Instructions Recorded Confirmed Type Levothyroxine Sodium [Synthroid] 50 mcg PO DAILY 05/19/14 04/29/23 History Zolpidem [Ambien] 10 mg PO HS@2200 05/19/14 04/29/23 History ALPRAZolam [Xanax] 0.5 mg PO TID PRN 04/29/23 04/29/23 History Acetaminophen Tab [Tylenol] 650 mg PO HS 04/29/23 04/29/23 History Amitriptyline HCl [Elavil] 25 mg PO HS@2100 04/29/23 04/29/23 History Ezetimibe [Zetia] 10 mg PO W/LUNCH 04/29/23 04/29/23 History Losartan [Cozaar] 25 mg PO W/LUNCH 04/29/23 04/29/23 History Rosuvastatin [Crestor] 20 mg PO HS 04/29/23 04/29/23 History Vit C/E/Zn/Coppr/Lutein/Zeaxan 1 cap PO HS 04/29/23 04/29/23 History [Preservision Areds 2 Softgel] cycloSPORINE 0.05% OPHTH SOLN 1 applicator BOTH EYES DAILY@1200 04/29/23 04/29/23 History [Restasis] Allergies Allergy/AdvReac Type Severity Reaction Status Date / Time nitrofurantoin Allergy Itching Verified 04/29/23 13:13 [From Macrobid] Penicillins Allergy Rash/Hives/ Verified 04/29/23 13:13 Swelling Sulfa (Sulfonamide Allergy Rash/Hives Verified 04/29/23 13:13 Antibiotics) Physical Exam Vitals: Vital Signs Temp Pulse Resp BP Pulse Ox 04/29/23 16:58 95 18 147/87 98 04/29/23 15:00 93 18 158/86 98 04/29/23 14:00 92 18 154/70 98 04/29/23 13:00 95 18 160/76 98 04/29/23 10:46 98.2 F 113 H 20 160/90 99 Intake and Output 04/29/23 04/29/23 04/29/23 06:59 14:59 22:59 Other: Weight 92.533 kg Results CBC & Chem 7: 04/29/23 11:14 04/29/23 11:14 Labs: Abnormal Lab Results - Last 24 Hours (Table) 04/29/23 Range/Units 11:14 Sodium 134 L (137-145) mmol/L Glucose 122 H (74-99) mg/dL AST 42 H (14-36) U/L ALT 63 H (4-34) U/L Alkaline Phosphatase 140 H (38-126) U/L
[2023-04-29] MEDS: ATORVASTATIN 40 MG TAB PO SCH (20:25)
[2023-04-29] MEDS: NITROGLYCERIN OINT 1 INCH/GM PACKET TOPICAL SCH (20:25)
[2023-04-29] MEDS: ACETAMINOPHEN TAB 325 MG TAB PO SCH (20:25)
[2023-04-29] MEDS: ZOLPIDEM 5 MG TAB PO SCH (22:37)
[2023-04-29] MEDS: AMITRIPTYLINE HCL 25 MG TAB PO SCH (22:38)
[2023-04-29] MEDS: VIT A,C & E-LUTEIN-MINERALS 1 EACH TAB PO SCH (22:38)
[2023-04-30] MEDS: LEVOTHYROXINE 50 MCG TAB PO SCH (05:53)
[2023-04-30] MEDS ORDERED: AMINOPHYLLINE 500 MG/20 ML VIAL IV PRN (06:00)
[2023-04-30] MEDS ORDERED: CAFFEINE CITRATE 60 MG/3 ML VIAL IV PRN (06:00)
[2023-04-30] MEDS ORDERED: REGADENOSON 0.4 MG/5 ML SYRINGE IV PRN (07:00)
[2023-04-30] MEDS ORDERED: REGADENOSON 0.4 MG/5 ML SYRINGE IV ONE (08:00)
[2023-04-30 08:56] LABS: Chol/HDL Ratio 3.09 Ratio; LDL Cholesterol,Calculated 129.1 mg/dL (0.0-131.0)
[2023-04-30] MEDS ORDERED: ASPIRIN 325 MG TAB PO SCH (09:00)
[2023-04-30] MEDS: ASPIRIN 81 MG PO SCH (09:23)
--- NOTE | 2023-04-30 11:13 | P.PN ---
Subjective HISTORY OF PRESENT ILLNESS: This is a 72-year-old female with a past medical history significant for hypertension, hyperlipidemia and hypothyroidism. Patient follows in the office with Dr. Singleton. We have been asked to see the patient in consultation for chest pain. Patient examined at the bedside in the emergency room. Patient states on Friday she has been feeling unwell. She reports she feels like she is "on drugs". She states that she is having back pain and also neck pain. She reports the chest pain feels like a pressure in the middle of her chest. She reports feeling sweaty at home but denies fever. She also reports shortness of breath when she has the chest pain. She reports she has had episodes of shaking but states it is only when she is having a lot of pain. She states the episodes have been intermittent since Friday. She states the episodes last for about 10-20 minutes. She states she has been taking aspirin and tylenol without relief at home. She reports numbness in her right arm and leg for the past week. She states she saw Dr. Singleton on Friday and was scheduled to have an echocardiogram. She was given nitro paste upon arrival to the ER. She reports improvement in her chest pain but continues to have back pain and a headache. Patients blood pressure is elevated at the time of examination with a reading of 163/109. DIAGNOSTICS: - EKG reveals sinus mechanism with no signs of acute ischemia. - Chest xray negative for acute process. - Laboratory data: WBC 7.2. Hemoglobin 14.7. Platelet count 254. D-dimer 0.26. Sodium 134. Potassium 5.0. BUN 16. Creatinine 0.58. Troponin negative x 1 AST 42. ALT 63. - Current home cardiac medications include losartan 25 mg daily, rosuvastatin 20 mg at night, Zetia 10 mg daily. - Most recent echocardiogram obtained in December 2020 reveals ejection fraction 55%, mild TR, mild MR, mild LVH. - Cardiac catheterization history: 2015 revealing normal coronary arteries 04/28/2023 Patient examined this morning in the stress lab. Patient denies any further episodes of chest pain or pressure. She denies any shortness of breath. She continues to report a little bit of dizziness this morning. Also reports improvement in her right-sided weakness. She does report that her right leg felt cold this morning but that has since resolved. Vital signs are stable. Most recent blood pressure 131/80. 2D echo is currently pending. PHYSICAL EXAM: VITAL SIGNS: Reviewed. GENERAL: Well-developed in no acute distress. HEENT: Head is normocephalic. Pupils are equal, round. Sclerae anicteric. Mucous membranes of the mouth are moist. Neck supple. No JVD or thyromegaly LUNGS: Respirations even and unlabored. Lungs essentially clear to auscultation bilaterally. HEART: Regular rate and rhythm. S1 and S2 heard. ABDOMEN: Soft. Nondistended. Nontender. EXTREMITIES: Normal range of motion. No clubbing or cyanosis. Peripheral pulses intact. No lower extremity edema NEUROLOGIC: Awake and alert. Oriented x 3. ASSESSMENT: Chest pain, troponin negative x 1 Right-sided numbness, headache, and "brain fog", rule out neurologic etiology Hypertension, uncontrolled on admission Mildly elevated LFTs Hyperlipidemia Hypothyroidism Normal coronary arteries, per cardiac catheterization in 2016 PLAN: Continue current cardiac medications Continue to monitor blood pressure Continue telemetry monitoring to rule out any arrhythmias Neurology has been consulted for evaluation. Await recommendations 2D echo has been ordered. Await results. Patient to undergo Lexiscan stress test today If negative, she may be discharged home from a cardiac standpoint Further recommendations pending patient course Nurse practitioner note has been reviewed by physician. Signing provider agrees with the documented findings, assessment, and plan of care documented by COMPLAINT ANALYST as a scribe. Objective - Vital Signs Vital signs: Vital Signs Temp 97.3 F L 04/30/23 07:38 Pulse 83 04/30/23 07:38 Resp 16 04/30/23 07:38 BP 131/80 04/30/23 07:38 Pulse Ox 97 04/30/23 07:38 FiO2 Intake & Output 04/29/23 04/30/23 04/30/23 18:59 06:59 18:59 Weight 92.533 kg - Labs CBC & Chem 7: 04/29/23 11:14 04/29/23 11:14 Labs: Abnormal Lab Results - Last 24 Hours (Table) 04/29/23 04/29/23 Range/Units 11:14 15:33 Sodium 134 L (137-145) mmol/L Glucose 122 H (74-99) mg/dL AST 42 H (14-36) U/L ALT 63 H (4-34) U/L Alkaline Phosphatase 140 H (38-126) U/L Cholesterol 229.00 H (0.00-200.00) mg/dL HDL Cholesterol 74.10 H (40.00-60.00) mg/dL
[2023-04-30] MEDS ORDERED: LOSARTAN 25 MG TAB PO SCH (12:30)
--- NOTE | 2023-04-30 12:45 | CA ---
Lexiscan Nuclear Stress Test Report Name: Kerry Christopher Exam Date: 04/30/2023 10:53 Exam Location: [place] Stress Ht (in): 62 Wt (lb): 204 BSA: 1.93 Ordering Phys: Shahnaz Trujillo Referring Phys: DESHAWN Technologist: Edward Neri Age: 72 Gender: F : 1950 Procedure CPT: Indications: Reflex order-Stress test ICD-10 Codes: Patient History: Medications: SEE CHART Meds past 24 hrs: Pretest Chest Pain: STRESS TEST Lexiscan Protocol Exercise Duration (min:sec): 01:[address] Depressions (mm): Angina Score: Pandya Score: Resting HR (bpm): 74 Peak HR (bpm): 101 Resting BP (mmHg): 144 / 73 Peak BP (mmHg): 156 / 62 MPHR: 146 Target HR: 124 % MPHR: 69 METS: 1.0 Total Dose: Peak Dose: Atropine: Double Product: 54359 BP Response: Stress Termination: INFUSION COMPLETE Stress Symptoms: CHEST HEAVINESS,HEADACHE Stress Summary: ECG ANALYSIS Resting ECG: Stress ECG: CONCLUSIONS At baseline EKG showed showed normal sinus rhythm, normal axis, minimal 0.[address] depressions and T-wave inversions in lead V4 through V6. Patient recieved IV infusion of Lexiscan 0.4mg and at peak infusion EKG no significant change from baseline. Conclusions: 1. Nonspecific stress EKG portion secondary baseline EKG abnormalities. 2. Nuclear imaging to be reported separately. Dr. Abdullahi Sanderson DO (Electronically Signed) Final Date: 30 April 2023 12:44
--- NOTE | 2023-04-30 12:56 | P.CNNES ---
History of Present Illness Consult date: 04/30/23 Requesting physician: Shahnaz Trujillo Reason for Consult: right sided numbness, r/o tia/cva History of Present Illness: This is a 72-year-old woman who presented emergency department because of chest pain. Neurology is consulted for numbness over the right side. Patient states she also noticed numbness for last couple days she noticed numbness over the hands and the foot when she feels is improving. She states she has chronic neck pain that radiates to the shoulder region vulva feels its getting worse. She also feels she is having abnormal sensation in the head but she could not describe it for me and she states like as if she is looking at something at a glass. Denies any history of stroke, TIAs. She takes aspirin sporadically. She states she has chronic headaches and the its over the central region c urrently is 2/10 very mild. She does not favor bright lights. Denies any phonophobia. She states that she had ptosis of the right eye that her sas bi developer noticed about 2 months ago but it could've been there even prior if was not mentioned by her sas bi developer and he recommended further workup by her primary attending and recommended consideration of imaging of the brain but she stated that she followed up with her PCP and he ordered just blood testing. Of note she stated that she has chronic back issues as well as neck issues and she was notified the by prior orthopedic doctor to have surgery on her neck. Some other workup during his hospital visit consisted of: CBC with differential is unremarkable Lipid panel is triglyceride 129, last all is 229, LDLs 129 HDL 74 The patient had a stress test and was reported as nonspecific stress EKG portion secondary to baseline EKG abnormality. Nuclear imaging to be reported separately. Review of Systems Positive and negative as per HPI. Past Medical History Past Medical History: Cancer, Chest Pain / Angina, GERD/Reflux, Hyperlipidemia, Hypertension, Osteoarthritis (OA), Pneumonia, Thyroid Disorder, Vascular Disorder Additional Past Medical History / Comment(s): polynephritis, severe UTI with sepsis which she states she fully recovered from then last week pt states she had the flu and then urinary tract infection symptoms returned. Other hx: UTIs, skin cancer nose and R cheek, diverticular disease, pancreatitis, elevated liver function tests, irregular heart beat in the past, spondylosis cervical spine/neck pain, low back pain, varicosities bilateral legs, insomnia Last Myocardial Infarction Date:: unknown History of Any Multi-Drug Resistant Organisms: ESBL Date of last positivie culture/infection: 08/28/20 MDRO Source:: ESBL URINE Past Surgical History: Adenoidectomy, Heart Catheterization, Hysterectomy, Joint Replacement, Orthopedic Surgery, Tonsillectomy Additional Past Surgical History / Comment(s): Total L knee arthroplasty, R foot bunionectomy, R carpal tunnel release, R middle finger cyst removed/spur removed, R foot surgery with screws in place, colonoscopies, skin cancer removals, bilateral cataract removals/lens implants. Past Anesthesia/Blood Transfusion Reactions: No Reported Reaction Additional Past Anesthesia/Blood Transfusion Reaction / Comment(s): no hx blood transfusion Past Psychological History: Anxiety Smoking Status: Former smoker Past Alcohol Use History: None Reported Past Drug Use History: None Reported - Past Family History Sister(s) Family Medical History: Cancer Additional Family Medical History / Comment(s): Patient had total of 4 sisters. One from a form of lymphoma. OTHER sisters are alive. One has COPD. One is blind and deaf since 18 months old from strep meningitis. Third sister is also blind from aniridia and glaucoma. Brother(s) Family Medical History: Cancer Additional Family Medical History / Comment(s): Patient has a total of 4 brothers. One from myocardial infarction and one from pancreatic cancer. 2 living brothers have no major medical problems. Father Family Medical History: Myocardial Infarction (DE) Additional Family Medical History / Comment(s): Father at age 79 from DE, he was residing in [facility] at the time. Mother Family Medical History: Seizure Disorder Additional Family Medical History / Comment(s): Mother at age 78 from either DE or seizure. She had history of COPD, Oxygen dependent, seizure disorder. Medications and Allergies Home Medications Medication Instructions Recorded Confirmed Type Levothyroxine Sodium [Synthroid] 50 mcg PO DAILY 05/19/14 04/29/23 History Zolpidem [Ambien] 10 mg PO HS@2200 05/19/14 04/29/23 History ALPRAZolam [Xanax] 0.5 mg PO TID PRN 04/29/23 04/29/23 History Acetaminophen Tab [Tylenol] 650 mg PO HS 04/29/23 04/29/23 History Amitriptyline HCl [Elavil] 25 mg PO HS@2100 04/29/23 04/29/23 History Ezetimibe [Zetia] 10 mg PO W/LUNCH 04/29/23 04/29/23 History Losartan [Cozaar] 25 mg PO W/LUNCH 04/29/23 04/29/23 History Rosuvastatin [Crestor] 20 mg PO HS 04/29/23 04/29/23 History Vit C/E/Zn/Coppr/Lutein/Zeaxan 1 cap PO HS 04/29/23 04/29/23 History [Preservision Areds 2 Softgel] cycloSPORINE 0.05% OPHTH SOLN 1 applicator BOTH EYES DAILY@1200 04/29/23 04/29/23 History [Restasis] Allergies Allergy/AdvReac Type Severity Reaction Status Date / Time nitrofurantoin Allergy Itching Verified 04/29/23 13:13 [From Macrobid] Penicillins Allergy Rash/Hives/ Verified 04/29/23 13:13 Swelling Sulfa (Sulfonamide Allergy Rash/Hives Verified 04/29/23 13:13 Antibiotics) Physical Examination - Vital Signs Vital Signs: Vital Signs Temp Pulse Pulse Resp BP BP Pulse Ox 04/30/23 07:38 97.3 F L 83 16 131/80 97 04/30/23 05:19 91 18 158/89 97 04/30/23 00:00 92 18 140/76 98 04/29/23 21:00 90 16 146/79 97 04/29/23 20:00 89 18 98 04/29/23 16:58 95 18 147/87 98 04/29/23 15:00 93 18 158/86 98 04/29/23 14:00 92 18 154/70 98 04/29/23 13:00 95 18 160/76 98 GENERAL: The patient is lying in bed and is not in acute distress. NEUROLOGICAL: Higher mental function: The patient is awake, alert, oriented to self, place and time. Patient is following commands. No aphasia and no neglect. Cranial nerves: The pupils are round, equal and reactive to light and accommodation. Visual chambers are full to confrontation throughout. Extraocular movement is intact no nystagmus is noted. Facial sensation is normal to touch throughout. The facial strength is normal throughout. Hearing is normal bilaterally to hand rub. Tongue is midline and moved [id number] without any difficulty. No dysarthria is noted. Shoulder shrug is normal bilaterally. Motor: The strength is 5 over 5 throughout. Normal tone and bulk. Cerebellum: Normal finger to nose bilaterally. Sensation: Sensation is normal to touch throughout. Reflexes (right/left): 2+ throughout. Plantars are downgoing bilaterally. Results - Laboratory Findings CBC and BMP: 04/29/23 11:14 04/29/23 11:14 Abnormal Lab Findings: Abnormal Labs 04/29/23 04/29/23 11:14 15:33 Sodium 134 L Glucose 122 H AST 42 H ALT 63 H Alkaline Phosphatase 140 H Cholesterol 229.00 H HDL Cholesterol 74.10 H Assessment and Plan Assessment: This is a 72-year-old woman who presented emergency department because of chest pain. She is also having numbness over the right hand and the right foot been going on for last couple days. She's having this chronic neck issues radiating to the shoulders and feels is getting worse and she feels she is having abnormal sensation in the head as a result. Also has ptosis for last 2 months at least or or that her sas bi developer noticed and recommended consideration of further imaging but deferred due to her PCP according to patient. Numbness over the right hand and foot rule out cervical severe stenosis versus rule out stroke Ptosis of the right eye unknown exact etiology Chest pain Chronic cervical pain as well as the lower back pain next Plan: I ordered CT of the head and cervical spine. If those are negative we'll consider MRI I ordered CT angiography of the head and neck this patient has ptosis of the right eye to rule out any aneurysm or vascular abnormality causing that I ordered ESR, CRP, TSH, vitamin B-12, folate, hemoglobin A1c Patient is on aspirin 81 mg as well as Lipitor 40 mg daily at bedtime started by the cardiology team Patient had a stress test dad today. We'll defer the rest of the medical management to primary team and other specialist I discussed with the patient and her was at bedside Thank you for the consultation Time with Patient: Greater than 30
[2023-04-30] MEDS: LOSARTAN 50 MG TAB PO SCH (13:01)
[2023-04-30] MEDS: EZETIMIBE 10 MG TAB PO SCH (13:01)
[2023-04-30] MEDS: cycloSPORINE 0.05% OPHTH 0.4 ML DROPERETTE BOTH EYES SCH (13:01)
--- NOTE | 2023-04-30 13:16 | NM ---
EXAMINATION TYPE: NM stress lexiscan cardiolite DATE OF EXAM: 04/30/2023 COMPARISON: NONE CLINICAL INDICATION: Female, 72 years old with history of CP; TECHNIQUE: After the intravenous administration of 10.3 mCi Tc 99m Sestamibi - Cardiolite resting SP ECT images acquired 45 minutes post injection. The patient received 0.4mg Lexiscan, 25.2 mCi Tc 99m Sestamibi - Stress images obtained [address] injection FINDINGS: Review of stress and rest SPECT images demonstrates a small perfusion defect along the anteroseptal w all only seen on rest. This suggests attenuation artifact. No distinct reversibility is seen. However , the TID is increased at 1.29. Gated analysis shows normal wall motion with an estimated left ventri cular ejection fraction of 67 %. IMPRESSION: 1. The transient ischemic dilatation ratio is increased at 1.29. Further workup as clinically indicat ed as this can be seen in the setting of multivessel, global inducible ischemia. 2. No focal reversibility is seen.
[2023-04-30] MEDS: ACETAMINOPHEN TAB 325 MG TAB PO PRN (15:40)
[2023-04-30] MEDS: NYSTATIN 100,000UNIT/GM CREAM 30 GM TUBE TOPICAL SCH (18:05)
--- NOTE | 2023-04-30 18:19 | CT ---
EXAMINATION TYPE: CT angio head neck CT DLP: Combined DLP of 1959.4 mGycm, Automated exposure control for dose reduction was used. DATE OF EXAM: 04/30/2023 6:01 PM COMPARISON: CT same day. CLINICAL INDICATION:Female, 72 years old with history of headache ptosis right eye; PHH, SANTOS, ptosis R T eye. TECHNIQUE: Axially acquired helical CT angiogram of the head and neck was obtained with contrast. Axi al images are supplemented with 3D reconstructions and MIP images which were post-processed at an in dependent workstation. NASCET criteria used. Contrast used:65 cc mL of Isovue 300 with IV Contrast, Oral contrast used: None. FINDINGS: CTA HEAD: No evidence of acute intracranial hemorrhage, mass effect, or midline shift. The ventricles, sulci, a nd cisterns are unremarkable. The visualized portions of the internal carotid arteries, middle cerebral arteries, anterior cerebral arteries, and posterior cerebral arteries are patent. The basilar and vertebral arteries are patent. CTA NECK: Right Carotid System: The common carotid artery and external carotid artery are patent. The carotid bifurcation demonstrate s no evidence of hemodynamically significant stenosis. The remaining portions of the internal carotid artery demonstrate normal size without significant narrowing. Left Carotid System: The common carotid artery and external carotid artery are patent. The carotid bifurcation demonstrate s no evidence of hemodynamically significant stenosis. The remaining portions of the internal carotid artery demonstrate normal size without significant narrowing. Vertebral arteries are patent without evidence hemodynamically significant stenosis. There is a three-vessel aortic arch. The origins of the great vessels are patent. No evidence of hemo dynamically significant stenosis. IMPRESSION: 1. No evidence of dissection of the cervical internal carotid arteries or vertebral arteries or any e vidence of significant stenosis at the carotid bifurcations. 2. No evidence of intracranial high-grade stenosis or intracranial aneurysm.
--- NOTE | 2023-04-30 18:19 | CT ---
EXAMINATION TYPE: CT brain cspine wo con CT DLP: Combined DLP of 1959.4 mGycm, Automated exposure control for dose reduction was used. DATE OF EXAM: 04/30/2023 6:01 PM COMPARISON: CT Angio same day. CLINICAL INDICATION:Female, 72 years old with history of numbness with headache; SANTOS and numbness TECHNIQUE: Brain: Multiple axial CT images of the brain were obtained without IV contrast. Cspine: Axial CT images from the skull base to the inferior aspect of T2 we obtained without intraven ous contrast. Coronal and sagittal reformatted images were also reviewed. FINDINGS: Brain: Extra-axial spaces: No abnormal extra-axial fluid collections. Ventricular system: Within normal limits Cerebral parenchyma: No acute intraparenchymal hemorrhage or mass effect. The blanchard-white junction is well differentiated. Cerebellum: Unremarkable. Mass effect: No evidence of midline shift. Intracranial vasculature: unremarkable Soft tissues: Normal. Calvarium/osseous structures: No depressed skull fracture. Paranasal sinuses and mastoid air cells: Clear. Visualized orbits: Orbital contents are intact. Cervical spine: Fracture: None. Osseous structures: Minimal osteophyte formation and facet and uncovertebral joint arthropathy throug hout the visualized spine. Vertebral alignment: Within normal limits. Spinal canal/Neural Foramina: No evidence of significant spinal canal narrowing. No evidence for sign ificant neural foraminal stenosis. Neck soft tissues: Prevertebral soft tissues are within normal limits. Other: The airway is patent. Atherosclerosis of the carotid bifurcations. The lungs are clear. IMPRESSION: 1. No acute intracranial process. 2. No evidence of cervical spine fracture. 3. Mild multilevel degenerative disc disease.
--- NOTE | 2023-05-01 11:01 | CA ---
Transthoracic Echo Report Name: Kerry Christopher Age: 72 Gender: F : 1950 Exam Date: 04/30/2023 16:20 Exam Location: [facility] Ht (in): 62 Wt (lb): 204 Ordering Physician: Shahnaz Trujillo Attending/Referring Phys: Block Breaker Operator Joyce Josue RDCS Procedure CPT: Indications: LV function Cardiac Hx: Technical Quality: Technically difficult study Contrast 1: Definity Total Dose (mL): 2 Contrast 2: Total Dose (mL): MEASUREMENTS (Male / Female) Normal Values 2D ECHO LV Diastolic Diameter PLAX 4.4 cm 4.2 - 5.9 / 3.9 - 5.3 cm LV Systolic Diameter PLAX 2.4 cm IVS Diastolic Thickness 1.5 cm 0.6 - 1.0 / 0.6 - 0.9 cm LVPW Diastolic Thickness 1.1 cm 0.6 - 1.0 / 0.6 - 0.9 cm LV Relative Wall Thickness 0.6 RV Internal Dim ED PLAX 3.1 cm LA Volume 45.3 cm??? 18 - 58 / 22 - 52 cm??? LA Volume Index 22.0 cm???/m??? 16 - 28 cm???/m??? M-MODE Aortic Root Diameter MM 3.0 cm LA Systolic Diameter MM 3.6 cm LA Ao Ratio MM 1.2 AV Cusp Separation MM 1.9 cm DOPPLER AV Peak Velocity 139.3 cm/s AV Peak Gradient 7.8 mmHg AV Mean Velocity 111.8 cm/s AV Mean Gradient 5.2 mmHg AV Velocity Time Integral 30.2 cm LVOT Peak Velocity 92.1 cm/s LVOT Peak Gradient 3.4 mmHg LVOT Velocity Time Integral 18.5 cm MV Area PHT 4.6 cm??? Mitral E Point Velocity 57.6 cm/s Mitral A Point Velocity 84.9 cm/s Mitral E to A Ratio 0.7 MV Deceleration Time 163.9 ms MV E' Velocity 6.5 cm/s Mitral E to MV E' Ratio 8.8 TR Peak Velocity 236.9 cm/s TR Peak Gradient 22.5 mmHg Right Ventricular Systolic Press 26.8 mmHg FINDINGS Left Ventricle Moderately increased left ventricular wall thickness. Left ventricular cavity size normal. Normal left ventricular systolic function with no obvious regional wall motion abnormalities. Left ventricular ejection fraction is estimated at 50-55 %. Right Ventricle Normal right ventricular size and function. Right ventricular systolic pressure within normal limits. Mild RVH. Right Atrium Normal right atrial size. Left Atrium Normal left atrial size. Mitral Valve Structurally normal mitral valve. Mitral valve thickened. Mild mitral regurgitation. Aortic Valve No aortic valve stenosis or regurgitation. Tricuspid Valve Structurally normal tricuspid valve. Mild tricuspid regurgitation. Pulmonic Valve Structurally normal pulmonic valve. Pericardium No pericardial effusion. Aorta Normal size aortic root and proximal ascending aorta. CONCLUSIONS Moderately increased left ventricular wall thickness Left ventricular ejection fraction 50-55% Mild RVH RVSP 26 Mild mitral regurgitation Mild tricuspid regurgitation Previewed by: Dr. Abdullahi Sanderson DO (Electronically Signed) Final Date: 01 May 2023 11:00
[2023-05-01 15:03] VITALS: BP 141/66; PULSE 96; RESP 16; TEMP 97.7
--- NOTE | 2023-05-01 15:17 | P.PN ---
Subjective Progress Note Date: 05/01/23 The patient stated she has numbness over the right 3rd and 4th digit only and feels improving. Her numbness over the right foot is old. Denies of any further neck pain or headache. Denies of any new neurological issues. Objective - Vital Signs Vital signs: Vital Signs Temp 97.7 F 05/01/23 14:46 Pulse 96 05/01/23 14:46 Resp 16 05/01/23 14:46 BP 141/66 05/01/23 14:46 Pulse Ox 98 05/01/23 14:46 FiO2 Intake & Output 04/30/23 05/01/23 05/01/23 18:59 06:59 18:59 Intake Total 268 Balance 268 Weight 92.533 kg Intake: Oral 268 Other: # Voids 3 2 2 - Exam GENERAL: The patient is lying in bed and is not in acute distress. NEUROLOGICAL: Higher mental function: The patient is awake, alert, oriented to self, place and time. Patient is following commands. No aphasia and no neglect. Cranial nerves: The pupils are round, equal and reactive to light and accommodation. Visual chambers are full to confrontation throughout. Extraocular movement is intact no nystagmus is noted. Facial sensation is normal to touch throughout. The facial strength is normal throughout. Hearing is normal bilaterally to hand rub. Tongue is midline and moved [id number] without any difficulty. No dysarthria is noted. Shoulder shrug is normal bilaterally. Motor: The strength is 5 over 5 throughout. Normal tone and bulk. Cerebellum: Normal finger to nose bilaterally. Sensation: Sensation is normal to touch throughout. Reflexes (right/left): 2+ throughout. Plantars are downgoing bilaterally. Some other workup during his hospital visit consisted of: CBC with differential is unremarkable TSH: 2.690 Vitamin B12: 810 Serum folate is 14.9 HbA1c: 5.8 Lipid panel is triglyceride 129, last all is 229, LDLs 129 HDL 74 The patient had a stress test and was reported as nonspecific stress EKG portion secondary to baseline EKG abnormality. Nuclear imaging to be reported separately. 2D echo is reported as Moderately increase Left ventricular wall thickness. CT head is reported as no acute intracranial process. I personally reviewed CT head and agree with report. CT cervical spine is reported as no evidence of cervical spine fracture. Mild multilevel degenerative disc disease. CTA head and neck reported as no evidence of dissection of the cervical internal carotid arteries or vertebral arteries or an evidence of significant stenosis at the carotid bifurcation. No evidence of intracranial high grade stenosis or i ntracranial aneurysm. - Labs CBC & Chem 7: 04/29/23 11:14 04/29/23 11:14 Assessment and Plan Assessment: This is a 72-year-old woman who presented emergency department because of chest pain. She is also having numbness over the right hand and the right foot been going on for last couple days. She's having this chronic neck issues radiating to the shoulders and feels is getting worse and she feels she is having abnormal sensation in the head as a result. Also has ptosis for last 2 months at least or or that her structural test engineer noticed and recommended consideration of further imaging but deferred due to her PCP according to patient. Numbness over the right hand (3rd and 4th digit): Unsure if due to carpal tunnel syndrome vs cervical radiculopathy---feels better today. Ptosis of the right eye for months unknown exact etiology. CT head and CTA head and neck is negative. Chronic right foot numbness Chest pain Chronic cervical pain as well as the lower back Plan: Recommend MRI of the brain as well as cervical spine as well as a consideration of MRI of the lumbar and patient does not want this and is in patient. Patient can obtain these as an outpatient. I also recommended EMG of nerve conduction study of upper the first then lowers as outpatient. Assess whether the patient has any peripheral such as carpal tunnel syndrome and neuropathy in lower versus cervical and lumbar radiculopathy Recommend the patient to follow-up with orthopedic at team as an outpatient within 3 weeks as well as neurologist as an outpatient Patient is on aspirin 81 mg as well as Lipitor 40 mg daily at bedtime started by the cardiology team Cardiology team is on board. We'll defer the rest of the medical management to primary team and other specialist I discussed with the patient and her was at bedside There is no further neurological workup. We'll sign off. Please reconsult if needed. Time with Patient: Less than 30
--- NOTE | 2023-05-02 15:40 | P.PN ---
Subjective Progress Note Date: 04/30/23 HISTORY OF PRESENT ILLNESS This is a 72-year-old female patient with past medical history of hypertension, hyperlipidemia, hypothyroidism, spondylosis of the cervical spine, history of 1 episode of diverticulitis, irritable bowel syndrome and anxiety disorder. She does have a history of admission for UTI and sepsis with early pyelonephritis secondary to ESBL E. coli UTI. Patient has been seen by urology status post cystoscopy that did not show any abnormalities at that time, patient apparently developed to have a significant left-sided chest pain radiating to the back and both neck and both shoulders last Friday she ended up going to see Dr. Kang in the office, had an EKG in the office did not show any evidence of acute abnormalities, she was scheduled to go for an echocardiogram to be done in the hospital along with a stress test but she was advised to go to the emergency department if her chest pain came back, she went to bed last night, and she was feeling foggy and she could not really describe it at the same time she developed to have a significant left-sided chest pain radiating to the neck and both shoulders and she was complaining of increased numbness on the right side of her body including the right arm and the right leg, so the patient ended up coming to the emergency department for evaluation, had a twelve-lead EKG that showed evidence of sinus mechanism without evidence of acute ST-T wave changes, I did show poor R wave progression in the anterior leads suggestive of possible LAD disease, her cardiac enzymes were negative, chest x-ray was negative, white count were negative, because of the presentation she was seen in consultation by cardiology who recommended for the patient to go for Lexiscan Cardiolite stress test tomorrow morning, also it was recommended for the patient to be seen in consultation by neurology due to the recurrent numbness in the right upper and right lower extremity patient is well-known to have a history of spondylosis of the cervical spine patient does not have any weakness upon examination in the emergency department, and her neurological examination is totally normal. 04/30: Patient sitting up in bed in no apparent distress, she is scheduled to go down for a CT of the cervical spine as well as a CT angiography of the head and neck that was ordered by neurology, patient underwent a stress testing along w ith echocardiogram that was negative for stress-induced ischemia echocardiogram showed minimal RVH, ejection fraction was normal mild mitral regurgitation, patient was cleared from cardiology standpoint, we are awaiting further testing that was ordered by neurology and the patient can be discharged home hopefully in the next 24 hours. REVIEW OF SYSTEMS Constitutional: No fever, no chills, no night sweats. No weight change. No weakness, fatigue or lethargy. No daytime sleepiness. EENT: No headache. No blurred vision or double vision, no loss of vision. No loss of Hearing, no ringing in the ears, no dizziness. No nasal drainage or congestion. No epistaxis. No sore throat. Lungs: No shortness of breath, cough, no sputum production. No wheezing. Cardiovascular: positive for chest pain, no lower extremity edema. No palpitations. No paroxysmal nocturnal dyspnea. No orthopnea. No lightheadedness or dizziness. No syncopal episodes. Abdominal: Reported no abdominal pain. no nausea, no vomiting. No diarrhea. No constipation. No bloody or tarry stools. No loss of appetite. Genitourinary: No dysuria, increased frequency, reports urgency. No urinary r etention. Reports hematuria. Musculoskeletal: No myalgias. No muscle weakness, no gait dysfunction, no frequent falls. positive for back pain and neck pain. Integumentary: No wounds, no lesions. No rash or pruritus. No unusual bruising. No change in hair or nails. Neurologic: No aphasia. No facial droop. positive for change in mentation. No head injury. No headache. No paralysis., positive for right arm paresthesia as well as right lower extremity paresthesia that has resolved Psychiatric: No depression. No anxiety. No mood swings. Endocrine: No abnormal blood sugars. No weight change. No excessive sweating or thirst. No cold intolerance. PHYSICAL EXAMINATION Gen: This is a 72-year-old obese female resting in bed and appears to be in no acute distress. HEENT: Head is atraumatic, normocephalic. Pupils equal, round. Sclerae is anicteric. Oral mucous membranes are slightly dry. NECK: Supple. No JVD. No lymphadenopathy. No thyromegaly. LUNGS: Clear to auscultation. No wheezes or rhonchi. No intercostal retractions. HEART: First heart sound is depressed, second heart sound is normal, there is THOR 2/6 located at the left sternal border ABDOMEN: Soft., non tender , non distended Bowel sounds are present. No masses EXTREMITIES: No pedal edema. No calf tenderness. Dorsalis pedis +2 bilaterally. NEUROLOGICAL: Patient is awake, alert and oriented x3. Cranial nerves 2 through 12 are grossly intact. Muscle power 5/5 in the upper and lower extremities bilaterally. Deep tendon reflexes were normal. ASSESSMENT AND PLAN 1. Chest sofia likely non cardiac .Cardiac enzymes are negative, was seen by cardiology and she underwent echocardiogram that showed mild RVH, I did showed ejection fraction 55 to 60% and mild mitral regurgitation. 2. Right arm numbness, likely radiculopathy due to spondylosis of the cervical spine , neurology was consulted patient is scheduled for CT scan of the cervical spine as well as CT angiography of the neck and head. 3. Hypertension and hypertensive cardiovascular disease. Continue patient on amlodipine 10 mg daily and Losartan 50 mg po daily, my use Hydralazine as needed 4. Hyperlipidemia.we will continue with Rosuvastatin 20 mg po daily along with Zetia 10 mg po daily 5. Hypothyroidism. Continue levothyroxine 50 g daily. 6. Generalized anxiety disorder, recurrent depression and insomnia. Continue Lexapro 20 mg daily, Wellbutrin 150 mg daily and Xanax 0.5 mg po tid as needed 7. Irritable bowel syndrome. Continue Bentyl 20 mg 4 times daily.. 8. Insomnia. we will continue with Zolpidem 10 mg po qhs 9. GI prophylaxis. Protonix 40 mg po daily 10. DVT prophylaxis. Lovenox 40 mg Sc daily. 11. Home tomorrow morning. Objective - Vital Signs Vital signs: Vital Signs Temp 97.9 F 05/01/23 07:40 Pulse 84 05/01/23 07:40 Resp 15 05/01/23 07:40 BP 134/79 05/01/23 07:40 Pulse Ox 97 05/01/23 07:40 FiO2 Intake & Output 04/30/23 05/01/23 05/01/23 18:59 06:59 18:59 Intake Total 118 Balance 118 Weight 92.533 kg Intake: Oral 118 Other: # Voids 3 2 - Labs CBC & Chem 7: 04/29/23 11:14 04/29/23 11:14
--- NOTE | 2023-05-02 15:42 | P.DS ---
Providers Date of admission: 04/29/23 12:58 Expected date of discharge: 05/01/23 Attending physician: Dina Renteria Consults: 04/29/23 14:25 Consult Physician Routine Consulting Provider: Pablo Escamilla Consult Reason/Comments: Right-sided numbness, rule out TIA/CVA Do you want consulting provider notified?: Yes Primary care physician: Dina Renteria Hospital Course: HISTORY OF PRESENT ILLNESS This is a 72-year-old female patient with past medical history of hypertension, hyperlipidemia, hypothyroidism, spondylosis of the cervical spine, history of 1 episode of diverticulitis, irritable bowel syndrome and anxiety disorder. She does have a history of admission for UTI and sepsis with early pyelonephritis secondary to ESBL E. coli UTI. Patient has been seen by urology status post cystoscopy that did not show any abnormalities at that time, patient apparently developed to have a significant left-sided chest pain radiating to the back and both neck and both shoulders last Friday she ended up going to see Dr. Kang in the office, had an EKG in the office did not show any evidence of acute abnormalities, she was scheduled to go for an echocardiogram to be done in the hospital along with a stress test but she was advised to go to the emergency department if her chest pain came back, she went to bed last night, and she was feeling foggy and she could not really describe it at the same time she developed to have a significant left-sided chest pain radiating to the neck and both shoulders and she was complaining of increased numbness on the right side of her body including the right arm and the right leg, so the patient ended up coming to the emergency department for evaluation, had a twelve-lead EKG that showed evidence of sinus mechanism without evidence of acute ST-T wave changes, I did show poor R wave progression in the anterior leads suggestive of possible LAD disease, her cardiac enzymes were negative, chest x-ray was negative, white count were negative, because of the presentation she was seen in consultation by cardiology who recommended for the patient to go for Lexiscan Cardiolite stress test tomorrow morning, also it was recommended for the patient to be seen in consultation by neurology due to the recurrent numbness in the right upper and right lower extremity patient is well-known to have a history of spondylosis of the cervical spine patient does not have any weakness upon examination in the emergency department, and her neurological examination is totally normal. 04/30: Patient sitting up in bed in no apparent distress, she is scheduled to go down for a CT of the cervical spine as well as a CT angiography of the head and neck that was ordered by neurology, patient underwent a stress testing along with echocardiogram that was negative for stress-induced ischemia echocardiogram showed minimal RVH, ejection fraction was normal mild mitral regurgitation, patient was cleared from cardiology standpoint, we are awaiting further testing that was ordered by neurology and the patient can be discharged home hopefully in the next 24 hours. Discharge diagnoses: 1. Chest sofia likely non cardiac. Echocardiogram is showing ejection fraction 55 to 60%, mild mitral regurgitation and mild RVH. Lexiscan stress test negative for stress-induced ischemia. 2. Right arm numbness, likely radiculopathy due to spondylosis of the cervical spine CT scan of the cervical spine showed evidence of mild degenerative disc disease without evidence of fracture CT angiography of the neck and the brain did not show evidence of an aneurysm or any significant dissection of the carotid artery or significant disease of the carotid arteries. 3. Hypertension and hypertensive cardiovascular disease. 4. Hyperlipidemia. 5. Hypothyroidism. 6. Generalized anxiety disorder, recurrent depression and insomnia. 7. Irritable bowel syndrome. 8. Insomnia 9. Candidal intertrigo. Patient Condition at Discharge: Stable Plan - Discharge Summary Discharge Rx Participant: No New Discharge Prescriptions: New Aspirin 81 mg PO DAILY tab Continue Zolpidem [Ambien] 10 mg PO HS@2200 Levothyroxine Sodium [Synthroid] 50 mcg PO DAILY cycloSPORINE 0.05% OPHTH SOLN [Restasis] 1 applicator BOTH EYES DAILY@1200 Acetaminophen Tab [Tylenol] 650 mg PO HS Ezetimibe [Zetia] 10 mg PO W/LUNCH Losartan [Cozaar] 25 mg PO W/LUNCH Amitriptyline HCl [Elavil] 25 mg PO HS@2100 ALPRAZolam [Xanax] 0.5 mg PO TID PRN PRN Reason: Anxiety Rosuvastatin [Crestor] 20 mg PO HS Vit C/E/Zn/Coppr/Lutein/Zeaxan [Preservision Areds 2 Softgel] 1 cap PO HS Discharge Medication List Levothyroxine Sodium [Synthroid] 50 mcg PO DAILY 05/19/14 [History] Zolpidem [Ambien] 10 mg PO HS@2200 05/19/14 [History] ALPRAZolam [Xanax] 0.5 mg PO TID PRN 04/29/23 [History] Acetaminophen Tab [Tylenol] 650 mg PO HS 04/29/23 [History] Amitriptyline HCl [Elavil] 25 mg PO HS@2100 04/29/23 [History] Ezetimibe [Zetia] 10 mg PO W/LUNCH 04/29/23 [History] Losartan [Cozaar] 25 mg PO W/LUNCH 04/29/23 [History] Rosuvastatin [Crestor] 20 mg PO HS 04/29/23 [History] Vit C/E/Zn/Coppr/Lutein/Zeaxan [Preservision Areds 2 Softgel] 1 cap PO HS 04/29/23 [History] cycloSPORINE 0.05% OPHTH SOLN [Restasis] 1 applicator BOTH EYES DAILY@1200 04/29/23 [History] Aspirin 81 mg PO DAILY tab 05/01/23 [Rx] Follow up Appointment(s)/Referral(s): Dina Renteria MD [Primary Care Provider] - 1 Week Abdullahi Sanderson DO [STAFF PHYSICIAN] - 1 Week Patient Instructions/Handouts: Chest Pain (DC) Activity/Diet/Wound Care/Special Instructions: follow up outpatient with neurology for mri of brain and c spine follow up with orthopedic dr as well in 3 weeks Discharge Disposition: HOME SELF-CARE
== END 2023-05-01 16:02 | disposition home or self-care (01) ==
LOC: EC 10:29 → 6NMEDSUR 12:58
PROVIDERS: ADMIT Internal Medicine; ATTEND Internal Medicine
DX: R07.89 Other chest pain (principal); R20.0 Anesthesia of skin; H02.401 Unspecified ptosis of right eyelid; M54.2 Cervicalgia; M54.50 Low back pain, unspecified; G89.29 Other chronic pain; R51.9 Headache, unspecified; K21.9 Gastro-esophageal reflux disease without esophagitis; E78.5 Hyperlipidemia, unspecified; I11.9 Hypertensive heart disease without heart failure; F41.1 Generalized anxiety disorder; E03.9 Hypothyroidism, unspecified; R79.89 Other specified abnormal findings of blood chemistry; G47.00 Insomnia, unspecified; F33.9 Major depressive disorder, recurrent, unspecified; K58.9 Irritable bowel syndrome, unspecified; B37.2 Candidiasis of skin and nail; M47.812 Spondylosis without myelopathy or radiculopathy, cervical region; E66.9 Obesity, unspecified; Z68.37 Body mass index [BMI] 37.0-37.9, adult; Z20.822 Contact with and (suspected) exposure to COVID-19; Z85.828 Personal history of other malignant neoplasm of skin; Z87.891 Personal history of nicotine dependence; Z79.890 Hormone replacement therapy; Z79.899 Other long term (current) drug therapy; Z88.0 Allergy status to penicillin; Z88.2 Allergy status to sulfonamides; Z88.3 Allergy status to other anti-infective agents
CPT/HCPCS: 99285; 36415; 94760; 93005; 93017; 85379; 80061; 80053; 85652; 84443; 82607; 82746; 83735; 84484; 85025; 85610; 85730; 86140; 83036; 87636; 71046; 72125; 70496; 70450; 70498; 78452; G0378 ×3; C8929; A9500; Q9957; J2785; Q9967; 93306

== ENCOUNTER 2023-06-08 12:12 | Inpatient (IN) | payer MEDICARE, OTHER ==
[2023-06-08] MEDS: SODIUM CHLORIDE 0.9% 1,000 ML IV STA (12:38)
[2023-06-08] MEDS: KETOROLAC 15 MG/ML 1 ML VIAL IVP STA ×2 (12:40→14:28)
[2023-06-08] MEDS: MORPHINE SULFATE 4 MG/ML SYRINGE IVP STA (12:42)
[2023-06-08 12:44] LABS: Basophils % (A) 0 %; Eosinophils # (A) 0.1 k/uL (0-0.7); Eosinophils % (A) 1 %; HCT 45.3 % (34.0-46.0); HGB 14.3 gm/dL (11.4-16.0); Lymphocytes # (A) 1.1 k/uL (1.0-4.8); Lymphocytes % (A) 8 %; MCH 27.9 pg (25.0-35.0); MCHC 31.6 g/dL (31.0-37.0); MCV 88.3 fL (80.0-100.0); Mean Platelet Volume 7.8; Monocytes # (A) 0.8 k/uL (0-1.0); Monocytes % (A) 6 %; Neutrophils # (A) 11.4 k/uL (1.3-7.7); Neutrophils % (A) 84 %; Platelet Count 253 k/uL (150-450); RBC 5.13 m/uL (3.80-5.40); RDW 14.8 % (11.5-15.5); WBC 13.6 k/uL (3.8-10.6)
--- NOTE | 2023-06-08 12:50 | ED ---
Abdominal Pain HPI - General Chief Complaint: Abdominal Pain Stated Complaint: L lower abd pain Time Seen by Provider: 06/08/23 12:17 Source: patient, RN notes reviewed Mode of arrival: ambulatory Limitations: no limitations - History of Present Illness Initial Comments: This is a 72-year-old female who presents to the emergency department for abdominal pain. States that she has had abdominal pain over the last couple of weeks, however today it became severe. Pain is localized to the left lower quadrant. Reports having more bowel movements than normal. Denies any fever/chills or nausea/vomiting. States that pain feels similar to prior bouts of diverticulitis. MD Complaint: abdominal pain - Related Data Home Medications Medication Instructions Recorded Confirmed Levothyroxine Sodium [Synthroid] 50 mcg PO DAILY 05/19/14 06/08/23 Zolpidem [Ambien] 10 mg PO HS@2200 05/19/14 06/08/23 ALPRAZolam [Xanax] 0.5 mg PO TID PRN 04/29/23 06/08/23 Acetaminophen Tab [Tylenol] 650 mg PO HS 04/29/23 06/08/23 Amitriptyline HCl [Elavil] 25 mg PO HS@2100 04/29/23 06/08/23 Ezetimibe [Zetia] 10 mg PO W/LUNCH 04/29/23 06/08/23 Losartan [Cozaar] 25 mg PO W/LUNCH 04/29/23 06/08/23 Rosuvastatin [Crestor] 20 mg PO HS 04/29/23 06/08/23 Vit C/E/Zn/Coppr/Lutein/Zeaxan 1 cap PO HS 04/29/23 06/08/23 [Preservision Areds 2 Softgel] cycloSPORINE 0.05% OPHTH SOLN 1 applicator BOTH EYES DAILY@1200 04/29/23 06/08/23 [Restasis] Dicyclomine [Bentyl] 10 mg PO BID 06/08/23 06/08/23 Previous Rx's Medication Instructions Recorded Aspirin 81 mg PO DAILY tab 05/01/23 Allergies Allergy/AdvReac Type Severity Reaction Status Date / Time nitrofurantoin Allergy Itching Verified 06/08/23 19:35 [From Macrobid] Penicillins Allergy Rash/Hives/ Verified 06/08/23 19:35 Swelling Sulfa (Sulfonamide Allergy Rash/Hives Verified 06/08/23 19:35 Antibiotics) Review of Systems ROS Statement: Those systems with pertinent positive or pertinent negative responses have been documented in the HPI. ROS Other: All systems not noted in ROS Statement are negative. Past Medical History Past Medical History: Cancer, Chest Pain / Angina, GERD/Reflux, Hyperlipidemia, Hypertension, Osteoarthritis (OA), Pneumonia, Thyroid Disorder, Vascular Disorder Additional Past Medical History / Comment(s): polynephritis, severe UTI with sepsis which she states she fully recovered from then last week pt states she had the flu and then urinary tract infection symptoms returned. Other hx: UTIs, skin cancer nose and R cheek, diverticular disease, pancreatitis, elevated liver function tests, irregular heart beat in the past, spondylosis cervical spine/neck pain, low back pain, varicosities bilateral legs, insomnia Last Myocardial Infarction Date:: unknown History of Any Multi-Drug Resistant Organisms: ESBL Date of last positivie culture/infection: 08/28/20 MDRO Source:: ESBL URINE Past Surgical History: Adenoidectomy, Heart Catheterization, Hysterectomy, Joint Replacement, Orthopedic Surgery, Tonsillectomy Additional Past Surgical History / Comment(s): Total L knee arthroplasty, R foot bunionectomy, R carpal tunnel release, R middle finger cyst removed/spur removed, R foot surgery with screws in place, colonoscopies, skin cancer removals, bilateral cataract removals/lens implants. Past Anesthesia/Blood Transfusion Reactions: No Reported Reaction Additional Past Anesthesia/Blood Transfusion Reaction / Comment(s): no hx blood transfusion Past Psychological History: Anxiety Smoking Status: Former smoker Past Alcohol Use History: None Reported Past Drug Use History: None Reported - Past Family History Sister(s) Family Medical History: Cancer Additional Family Medical History / Comment(s): Patient had total of 4 sisters. One from a form of lymphoma. OTHER sisters are alive. One has COPD. One is blind and deaf since 18 months old from strep meningitis. Third sister is also blind from aniridia and glaucoma. Brother(s) Family Medical History: Cancer Additional Family Medical History / Comment(s): Patient has a total of 4 brothers. One from myocardial infarction and one from pancreatic cancer. 2 living brothers have no major medical problems. Father Family Medical History: Myocardial Infarction (AR) Additional Family Medical History / Comment(s): Father at age 79 from AR, he was residing in [facility] at the time. Mother Family Medical History: Seizure Disorder Additional Family Medical History / Comment(s): Mother at age 78 from either AR or seizure. She had history of COPD, Oxygen dependent, seizure disorder. General Exam Limitations: no limitations General appearance: alert, in distress Head exam: Present: atraumatic, normocephalic, normal inspection Respiratory exam: Present: normal lung sounds bilaterally. Absent: respiratory distress, wheezes, rales, rhonchi, stridor Cardiovascular Exam: Present: regular rate, normal rhythm, normal heart sounds. Absent: systolic murmur, diastolic murmur, rubs, gallop, clicks GI/Abdominal exam: Present: soft, tenderness (LLQ), normal bowel sounds. Absent: distended Neurological exam: Present: alert, oriented X3, CN II-XII intact Psychiatric exam: Present: normal affect, normal mood Skin exam: Present: warm, dry, intact, normal color. Absent: rash Course Vital Signs 06/08/23 06/08/23 06/08/23 12:13 14:26 16:41 Temperature 98.3 F 98.0 F Pulse Rate 97 75 75 Respiratory 20 18 18 Rate Blood Pressure 163/84 114/57 131/78 O2 Sat by Pulse 96 97 97 Oximetry 06/08/23 06/08/23 18:16 21:18 Temperature Pulse Rate 80 71 Respiratory 12 18 Rate Blood Pressure 123/77 132/61 O2 Sat by Pulse 95 98 Oximetry Medical Decision Making - Medical Decision Making This is a 72 year old female who presents to the emergency department for abdominal pain. Was pt. sent in by a medical professional or institution? @ -No Did you speak to anyone other than the patient for history? @ -No Did you review nursing and triage notes? @ -Yes, and I agree, it is accurate with regards to the patient's symptoms. Were old charts reviewed? @ -No Differential Diagnosis? @ -Differential Abdominal Pain Women: Appendicitis, Cholecystitis, diverticulosis, ischemic bowel, pancreatitis, hepatitis, UTI, gastroenteritis, AAA, incarcerated hernia, bowel obstruction, constipation, inflammatory bowel, hepatitis, peptic ulcer disease, splenic infarction, perforated viscus, vulvitis, ovarian torsion, PID, kidney stone, placenta abruption, this is not meant to be an all-inclusive list EKG interpreted by me (3pts min.)? @ -Not obtained X-rays interpreted by me (1pt min.)? @ -Not obtained CT interpreted by me (1pt min.)? @ -CT scan of the abdomen and pelvis obtained. My interpretation identifies inflammation around the descending and sigmoid colon. U/S interpreted by me (1pt. min.)? @ -Not obtained What testing was considered but not performed? (CT, X-rays, U/S, labs)? Why? @ -None What meds were considered but not given? Why? @ -None Did you discuss the management of the patient with other professionals? @ -Yes, Dr. Renteria, who accepts the patient for admission. Did you reconcile home meds? @ -No Was smoking cessation discussed for >3mins.? @ -No Was critical care preformed (if so, how long)? @ -No Were there social determinants of health that impacted care today? How? (Homelessness, low income, unemployed, alcoholism, drug addiction, transporta tion, low edu. Level, literacy, decrease access to med. care, prison, rehab)? @ -No Was there de-escalation of care discussed even if they declined? (Discuss DNR or withdrawal of care, Hospice)? @ -No What co-morbidities impacted this encounter? (DM, HTN, Smoking, COPD, CAD, Cancer, CVA, Hep., AIDS, mental health diagnosis, sleep apnea, morbid obesity)? @ -Diverticulosis Was patient admitted / discharged? @ -Admitted. Lab work demonstrates leukocytosis. CT scan of the abdomen and pelvis demonstrates acute uncomplicated diverticulitis. I had initially hoped on discharging the patient home, however she received multiple doses of pain medication consisting of Toradol, morphine, and Dilaudid. She continued to complain of intractable abdominal pain and did not feel that she could manage this at home. Patient subsequently admitted to medicine for further management. Patient was started on IV Flagyl and Levaquin. Blood cultures obtained prior. Undiagnosed new problem with uncertain prognosis? @ -None Drug Therapy requiring intensive monitoring for toxicity (Heparin, Nitro, Insulin, Cardizem)? @ -None Were any procedures done? @ -None Diagnosis/symptom? @ -Diverticulitis Acute, or Chronic, or Acute on Chronic? @ -Acute Uncomplicated (without systemic symptoms) or Complicated (systemic symptoms)? @ -Complicated Side effects of treatment? @ -None Exacerbation, Progression, or Severe Exacerbation] @ -Not applicable Poses a threat to life or bodily function? @ -Yes This case was discussed in detail with the attending ED physician, Dr. Elise. Presentation, findings, and treatment plan discussed in detail as well. - Lab Data Result diagrams: 06/09/23 05:36 06/09/23 05:36 Lab Results 06/08/23 06/08/23 06/08/23 Range/Units 12:34 12:34 12:34 WBC 13.6 H (3.8-10.6) k/uL RBC 5.13 (3.80-5.40) m/uL Hgb 14.3 (11.4-16.0) gm/dL Hct 45.3 (34.0-46.0) % MCV 88.3 (80.0-100.0) fL MCH 27.9 (25.0-35.0) pg MCHC 31.6 (31.0-37.0) g/dL RDW 14.8 (11.5-15.5) % Plt Count 253 (150-450) k/uL MPV 7.8 Neutrophils % 84 % Lymphocytes % 8 % Monocytes % 6 % Eosinophils % 1 % Basophils % 0 % Neutrophils # 11.4 H (1.3-7.7) k/uL Lymphocytes # 1.1 (1.0-4.8) k/uL Monocytes # 0.8 (0-1.0) k/uL Eosinophils # 0.1 (0-0.7) k/uL Basophils # 0.0 (0-0.2) k/uL Sodium 133 L (137-145) mmol/L Potassium 4.3 (3.5-5.1) mmol/L Chloride 100 (98-107) mmol/L Carbon Dioxide 24 (22-30) mmol/L Anion Gap 9 mmol/L BUN 12 (7-17) mg/dL Creatinine 0.62 (0.52-1.04) mg/dL Est GFR (CKD-EPI)AfAm >90 (>60 ml/min/1.73 sqM) Est GFR (CKD-EPI)NonAf 89 (>60 ml/min/1.73 sqM) Glucose 119 H (74-99) mg/dL Plasma Lactic Acid Rip (0.7-2.0) mmol/L Calcium 9.0 (8.4-10.2) mg/dL Total Bilirubin 1.0 (0.2-1.3) mg/dL AST 30 (14-36) U/L ALT 62 H (4-34) U/L Alkaline Phosphatase 141 H (38-126) U/L Total Protein 7.0 (6.3-8.2) g/dL Albumin 4.2 (3.5-5.0) g/dL Amylase 43 (30-110) U/L Lipase 36 (23-300) U/L Urine Color Colorless Urine Appearance Clear (Clear) Urine pH 7.0 (5.0-8.0) Ur Specific [place] 1.031 (1.001-1.035) Urine Protein Negative (Negative) Urine Glucose (UA) Negative (Negative) Urine Ketones Negative (Negative) Urine Blood Negative (Negative) Urine Nitrite Negative (Negative) Urine Bilirubin Negative (Negative) Urine Urobilinogen <2.0 (<2.0) mg/dL Ur Leukocyte Esterase Negative (Negative) 06/08/23 Range/Units 12:34 WBC (3.8-10.6) k/uL RBC (3.80-5.40) m/uL Hgb (11.4-16.0) gm/dL Hct (34.0-46.0) % MCV (80.0-100.0) fL MCH (25.0-35.0) pg MCHC (31.0-37.0) g/dL RDW (11.5-15.5) % Plt Count (150-450) k/uL MPV Neutrophils % % Lymphocytes % % Monocytes % % Eosinophils % % Basophils % % Neutrophils # (1.3-7.7) k/uL Lymphocytes # (1.0-4.8) k/uL Monocytes # (0-1.0) k/uL Eosinophils # (0-0.7) k/uL Basophils # (0-0.2) k/uL Sodium (137-145) mmol/L Potassium (3.5-5.1) mmol/L Chloride (98-107) mmol/L Carbon Dioxide (22-30) mmol/L Anion Gap mmol/L BUN (7-17) mg/dL Creatinine (0.52-1.04) mg/dL Est GFR (CKD-EPI)AfAm (>60 ml/min/1.73 sqM) Est GFR (CKD-EPI)NonAf (>60 ml/min/1.73 sqM) Glucose (74-99) mg/dL Plasma Lactic Acid Rip 1.2 (0.7-2.0) mmol/L Calcium (8.4-10.2) mg/dL Total Bilirubin (0.2-1.3) mg/dL AST (14-36) U/L ALT (4-34) U/L Alkaline Phosphatase (38-126) U/L Total Protein (6.3-8.2) g/dL Albumin (3.5-5.0) g/dL Amylase (30-110) U/L Lipase (23-300) U/L Urine Color Urine Appearance (Clear) Urine pH (5.0-8.0) Ur Specific [place] (1.001-1.035) Urine Protein (Negative) Urine Glucose (UA) (Negative) Urine Ketones (Negative) Urine Blood (Negative) Urine Nitrite (Negative) Urine Bilirubin (Negative) Urine Urobilinogen (<2.0) mg/dL Ur Leukocyte Esterase (Negative) - Radiology Data Radiology results: report reviewed, image reviewed Disposition Clinical Impression: Diverticulitis, Intractable abdominal pain Disposition: ADMITTED IP TO THIS [facility] Time of Disposition: 15:51
[2023-06-08 12:57] LABS: ALT 62 U/L (4-34); AST 30 U/L (14-36); African American GFR (CKD) >90 (>60 ml/min/1.73 sqM); Albumin 4.2 g/dL (3.5-5.0); Alkaline Phosphatase 141 U/L (38-126); Amylase 43 U/L (30-110); Anion Gap 9 mmol/L; Blood Urea Nitrogen 12 mg/dL (7-17); Carbon Dioxide 24 mmol/L (22-30); Chloride 100 mmol/L (98-107); Glucose 119 mg/dL (74-99); Lipase 36 U/L (23-300); Non-African American GFR(CKD) 89 (>60 ml/min/1.73 sqM); Potassium 4.3 mmol/L (3.5-5.1); Sodium 133 mmol/L (137-145)
--- NOTE | 2023-06-08 13:38 | CT ---
EXAMINATION TYPE: CT abdomen pelvis w con DATE OF EXAM: 06/08/2023 COMPARISON: 12/19/2021 HISTORY: LLQ PAIN X1WEEK CT DLP: 1362.5 mGycm Automated exposure control for dose reduction was used. TECHNIQUE: Helical acquisition of images was performed from the lung bases through the pelvis. CONTRAST: Performed without Oral Contrast and with IV Contrast, patient injected with 100 mL of Isovue 300. FINDINGS: The lung bases are clear. The gallbladder is normal without distention, wall thickening, pericholecystic fluid or gallstones. T here is no biliary ductal dilatation. There is no focal mass or organomegaly involving the liver, pancreas, spleen or adrenal glands. There is mild fatty infiltration liver with focal areas of sparing. There is no solid renal mass or hydronephrosis and there is homogeneous contrast enhancement of the r enal parenchyma. The caliber the abdominal aorta is normal is no retroperitoneal adenopathy or hemorr juan josé. There is focal pericolic fatty inflammation involving the distal descending colon and proximal sigmoi d colon consistent with acute diverticulitis. There is no bowel obstruction. There is no free intrape ritoneal air there is no discrete abscess. There is moderate diverticulosis of the sigmoid colon. No pelvic mass, free fluid, abscess or adenopathy. There are surgical absence of uterus. The osseous structures and soft tissues are intact. IMPRESSION: Acute uncomplicated focal acute diverticulitis of the descending colon/sigmoid junction without bowel obstruction, abscess or free intraperitoneal air or fluid.
[2023-06-08] MEDS: HYDROmorphone 1 MG/ML 1 ML SYRINGE IVP STA (14:29)
[2023-06-08 15:04] LABS: Appearance,Urine Clear (Clear); Bilirubin,Urine Negative (Negative); Blood,Urine Negative (Negative); Color,Urine Colorless; Glucose,Urine (UA) Negative (Negative); Ketones,Urine Negative (Negative); Leukocyte Esterase,Urine Negative (Negative); Nitrite,Urine Negative (Negative); Protein,Urine Negative (Negative); Specific Gravity,Urine 1.031 (1.001-1.035); Urobilinogen,Urine <2.0 mg/dL (<2.0)
[2023-06-08] MEDS ORDERED: MORPHINE SULFATE 4 MG/ML SYRINGE IV PRN (15:52)
[2023-06-08] MEDS ORDERED: ONDANSETRON 4 MG/2 ML VIAL IVP PRN (15:52)
[2023-06-08] MEDS ORDERED: NALOXONE 0.4 MG/ML 1 ML VIAL IV PRN (15:52)
[2023-06-08] MEDS: LEVOFLOXACIN 750MG-D5W PMX 750 MG in DEXTROSE/WATER 1 150ML.BAG IVPB SCH (16:40)
[2023-06-08] MEDS: metroNIDAZOLE-NS PMX 500 MG in SALINE 1 100ML.BAG IVPB SCH (19:25)
[2023-06-08] MEDS: HYDROcodone/APAP 5-325MG 1 EACH TAB PO PRN (23:13)
[2023-06-08] MEDS ORDERED: ALPRAZolam 0.5 MG TAB PO PRN (23:26)
[2023-06-09] MEDS: metroNIDAZOLE-NS PMX 500 MG in SALINE 1 100ML.BAG IVPB SCH (02:21)
[2023-06-09] MEDS: PANTOPRAZOLE 40 MG TABLET PO SCH (05:48)
[2023-06-09] MEDS: LEVOTHYROXINE 50 MCG TAB PO SCH (05:48)
[2023-06-09 08:35] LABS: Basophils # (A) 0.04 X 10*3/uL (0.00-0.10); Basophils % (A) 0.5 %; Eosinophils # (A) 0.07 X 10*3/uL (0.04-0.35); Eosinophils % (A) 0.8 %; HCT 39.8 % (37.2-46.3); HGB 12.5 g/dL (12.0-15.0); Lymphocytes # (A) 1.17 X 10*3/uL (0.90-5.00); Lymphocytes % (A) 13.2 %; MCH 27.2 pg (27.0-32.0); MCHC 31.4 g/dL (32.0-37.0); MCV 86.5 FL (80.0-97.0); Mean Platelet Volume 9.9 FL (9.5-12.2); Monocytes # (A) 0.63 X 10*3/uL (0.20-1.00); Monocytes % (A) 7.1 %; NRBC Per 100 WBC 0 X 10*3/uL (0.00-0.01); Neutrophils # (A) 6.89 X 10*3/uL (1.80-7.70); Neutrophils % (A) 77.9 %; Platelet Count 200 X 10*3/uL (140-440); RDW 15.1 % (11.5-14.5); WBC 8.84 X 10*3/uL (4.50-10.00)
[2023-06-09 08:38] LABS: ALT 39 U/L (8-44); AST 12 U/L (13-35); Albumin 3.7 g/dL (3.8-4.9); Albumin/Globulin Ratio 1.76 Ratio (1.60-3.17); Alkaline Phosphatase 117 U/L (41-126); Blood Urea Nitrogen 8.4 mg/dL (9.0-27.0); Calcium 8.9 mg/dL (8.7-10.3); Carbon Dioxide 27.2 mmol/L (21.6-31.8); Chloride 103 mmol/L (96-109); Globulin 2.1 g/dL (1.6-3.3); Glucose 96 mg/dL (70-110); Potassium 4.3 mmol/L (3.5-5.5); Sodium 139 mmol/L (135-145); Total Bilirubin 0.8 mg/dL (0.3-1.2); Total Protein 5.8 g/dL (6.2-8.2)
[2023-06-09] MEDS: DICYCLOMINE 10 MG CAP PO SCH (09:24)
[2023-06-09] MEDS: ENOXAPARIN 40 MG/0.4 ML SYRINGE SQ SCH (09:24)
[2023-06-09] MEDS: ASPIRIN 81 MG PO SCH (09:24)
[2023-06-09] MEDS: LOSARTAN 25 MG TAB PO SCH (09:25)
[2023-06-09] MEDS: cycloSPORINE 0.05% OPHTH 0.4 ML DROPERETTE BOTH EYES SCH (09:25)
[2023-06-09] MEDS: EZETIMIBE 10 MG TAB PO SCH (09:26)
--- NOTE | 2023-06-09 17:27 | P.HPIM ---
History of Present Illness H&P Date: 06/09/23 HISTORY OF PRESENT ILLNESS This is a 72-year-old female patient with past medical history of hypertension, hyperlipidemia, hypothyroidism, spondylosis of the cervical spine, history of 1 episode of diverticulitis, irritable bowel syndrome and anxiety disorder. She does have a history of admission for UTI and sepsis with early pyelonephritis secondary to ESBL E. coli UTI. Patient has been seen by urology status post cystoscopy that did not show any abnormalities at that time, patient apparently developed to have a significant left-sided abdominal pain associated with nausea but no vomiting, patient stated that she has been eating some protein bar with nuts recently, patient started to have significant pain in the left lower quadrant, she ended up coming to the emergency department for evaluation, she was found to have leukocytosis with a white count of 13,000, she was slightly hyponatremic due to hypovolemia, she ended up going for CT scan of the abdomen and pelvis with contrast that did show evidence of sigmoid diverticulitis without abscess formation, and no bowel obstruction, she was started on IV fluid resuscitation in the form of normal saline, she was placed on Levaquin and metronidazole and she was admitted to the hospital for treatment she was started on liquid diet for the next 1 or 2 days. Patient was requiring morphine for pain control REVIEW OF SYSTEMS Constitutional: No fever, no chills, no night sweats. No weight change. No weakness, fatigue or lethargy. No daytime sleepiness. EENT: No headache. No blurred vision or double vision, no loss of vision. No loss of Hearing, no ringing in the ears, no dizziness. No nasal drainage or congestion. No epistaxis. No sore throat. Lungs: No shortness of breath, cough, no sputum production. No wheezing. Cardiovascular: no chest pain, no lower extremity edema. No palpitations. No paroxysmal nocturnal dyspnea. No orthopnea. No lightheadedness or dizziness. No syncopal episodes. Abdominal: Reported left lower quadrant abdominal pain. positive for nausea, no vomiting. No diarrhea. No constipation. No bloody or tarry stools. No loss of appetite. Genitourinary: No dysuria, increased frequency, reports urgency. No urinary retention. Musculoskeletal: No myalgias. No muscle weakness, no gait dysfunction, no frequent falls. positive for back pain and neck pain. Integumentary: No wounds, no lesions. No rash or pruritus. No unusual bruising. No change in hair or nails. Neurologic: No aphasia. No facial droop. positive for change in mentation. No head injury. No headache. No paralysis. Psychiatric: No depression. positive for anxiety. No mood swings. Endocrine: No abnormal blood sugars. No weight change. No excessive sweating or thirst. No cold intolerance. MEDICAL HISTORY Hypertension Hyperlipidemia Hypothyroidism Spondylosis of the cervical spine Pancreatitis Generalized anxiety disorder ESBL E. coli UTI Irritable bowel syndrome Skin cancer removed from her nose and right cheek Diverticular disease Elevated liver function tests Insomnia SURGICAL HISTORY Tonsillectomy Adenoidectomy Cardiac catheterization Hysterectomy Total left knee arthroplasty Right foot bunionectomy Right carpal tunnel release Right middle finger cyst removal Colonoscopies Skin cancer resections Bilateral cataract removal and intraocular lens implants Cystoscopy SOCIAL HISTORY Patient is a lifelong nonsmoker, no alcohol abuse, in no marijuana or illicit drug use. Patient lives at home with her and is independent. FAMILY HISTORY Father at age 79 from myocardial infarction residing at an [facility] at the time. Mother at age 78 from either UT or seizure with history of COPD oxygen dependent and seizure disorder. Patient had a total of 4 brothers. One from a myocardial infarction and one from pancreatic cancer. 2 living brot hers have no major medical problems. Patient had 4 sisters. One from a form of lymphoma. One sister has COPD. One sister is blind and deaf since 18 months old from strep meningitis. Third sister is also blind from aniridia and glaucoma. PHYSICAL EXAMINATION Gen: This is a 72-year-old obese female resting in bed and appears to be in no acute distress. HEENT: Head is atraumatic, normocephalic. Pupils equal, round. Sclerae is anicteric. Oral mucous membranes are slightly dry. NECK: Supple. No JVD. No lymphadenopathy. No thyromegaly. LUNGS: Clear to auscultation. No wheezes or rhonchi. No intercostal retractions. HEART: First heart sound is depressed, second heart sound is normal, there is THOR 2/6 located at the left sternal border ABDOMEN: Soft., mild tenderness to the left lower quadrant no rebound or guarding , non distended Bowel sounds are present. No masses EXTREMITIES: No pedal edema. No calf tenderness. Dorsalis pedis +2 bilaterally. NEUROLOGICAL: Patient is awake, alert and oriented x3. Cranial nerves 2 through 12 are grossly intact. Muscle power 5/5 in the upper and lower extremities bilaterally. Deep tendon reflexes were normal., Muscle power 5 out of 5 in upper and lower extremities bilaterally. ASSESSMENT AND PLAN 1. Acute sigmoid diverticulitis and complicated without evidence of abscess. Continue patient on clear liquid diet, start the patient on Levaquin 500 milligram IV piggyback every 24 hours, start the patient on metronidazole 500 mg IV piggyback every 8 hours, continue current pain management, keep the patient on clear liquid diet for the next 24 hours. I will follow-up with the patient very closely. 2. Mild hyponatremia likely due to hypovolemia continue IV fluid resuscitation in the form of normal saline at 75 cc an hour repeat CMP tomorrow morning. 3. Hypertension and hypertensive cardiovascular disease. Continue patient on amlodipine 10 mg daily and Losartan 50 mg po daily, my use Hydralazine as needed 4. Hyperlipidemia.we will continue with Rosuvastatin 20 mg po daily along with Zetia 10 mg po daily 5. Hypothyroidism. Continue levothyroxine 50 g daily. 6. Generalized anxiety disorder, recurrent depression and insomnia. Continue Lexapro 20 mg daily, Wellbutrin 150 mg daily and Xanax 0.5 mg po tid as needed 7. Irritable bowel syndrome. Continue Bentyl 20 mg 4 times daily.. 8. Insomnia. we will continue with Zolpidem 10 mg po qhs 9. GI prophylaxis. Protonix 40 mg po daily 10. DVT prophylaxis. Lovenox 40 mg Sc daily. 11. admit to inpatient. Estimated length of stay 2 midnights 12. Patient is full code. Past Medical History Past Medical History: Cancer, Chest Pain / Angina, GERD/Reflux, Hyperlipidemia, Hypertension, Osteoarthritis (OA), Pneumonia, Thyroid Disorder, Vascular Disor otoniel Additional Past Medical History / Comment(s): polynephritis, severe UTI with sepsis which she states she fully recovered from then last week pt states she had the flu and then urinary tract infection symptoms returned. Other hx: UTIs, skin cancer nose and R cheek, diverticular disease, pancreatitis, elevated liver function tests, irregular heart beat in the past, spondylosis cervical spine/neck pain, low back pain, varicosities bilateral legs, insomnia Last Myocardial Infarction Date:: unknown History of Any Multi-Drug Resistant Organisms: ESBL Date of last positivie culture/infection: 08/28/20 MDRO Source:: ESBL URINE Past Surgical History: Adenoidectomy, Heart Catheterization, Hysterectomy, Joint Replacement, Orthopedic Surgery, Tonsillectomy Additional Past Surgical History / Comment(s): Total L knee arthroplasty, R foot bunionectomy, R carpal tunnel release, R middle finger cyst removed/spur removed, R foot surgery with screws in place, colonoscopies, skin cancer removals, bilateral cataract removals/lens implants. Past Anesthesia/Blood Transfusion Reactions: No Reported Reaction Additional Past Anesthesia/Blood Transfusion Reaction / Comment(s): no hx blood transfusion Past Psychological History: Anxiety Smoking Status: Former smoker Past Alcohol Use History: None Reported Past Drug Use History: None Reported - Past Family History Sister(s) Family Medical History: Cancer Additional Family Medical History / Comment(s): Patient had total of 4 sisters. One from a form of lymphoma. OTHER sisters are alive. One has COPD. One is blind and deaf since 18 months old from strep meningitis. Third sister is also blind from aniridia and glaucoma. Brother(s) Family Medical History: Cancer Additional Family Medical History / Comment(s): Patient has a total of 4 brothers. One from myocardial infarction and one from pancreatic cancer. 2 living brothers have no major medical problems. Father Family Medical History: Myocardial Infarction (UT) Additional Family Medical History / Comment(s): Father at age 79 from UT, he was residing in [facility] at the time. Mother Family Medical History: Seizure Disorder Additional Family Medical History / Comment(s): Mother at age 78 from e ither UT or seizure. She had history of COPD, Oxygen dependent, seizure disorder. Medications and Allergies Home Medications Medication Instructions Recorded Confirmed Type Levothyroxine Sodium [Synthroid] 50 mcg PO DAILY 05/19/14 06/08/23 History Zolpidem [Ambien] 10 mg PO HS@2200 05/19/14 06/08/23 History ALPRAZolam [Xanax] 0.5 mg PO TID PRN 04/29/23 06/08/23 History Acetaminophen Tab [Tylenol] 650 mg PO HS 04/29/23 06/08/23 History Amitriptyline HCl [Elavil] 25 mg PO HS@2100 04/29/23 06/08/23 History Ezetimibe [Zetia] 10 mg PO W/LUNCH 04/29/23 06/08/23 History Losartan [Cozaar] 25 mg PO W/LUNCH 04/29/23 06/08/23 History Rosuvastatin [Crestor] 20 mg PO HS 04/29/23 06/08/23 History Vit C/E/Zn/Coppr/Lutein/Zeaxan 1 cap PO HS 04/29/23 06/08/23 History [Preservision Areds 2 Softgel] cycloSPORINE 0.05% OPHTH SOLN 1 applicator BOTH EYES DAILY@1200 04/29/23 06/08/23 History [Restasis] Aspirin 81 mg PO DAILY tab 05/01/23 06/08/23 Rx Dicyclomine [Bentyl] 10 mg PO BID 06/08/23 06/08/23 History Allergies Allergy/AdvReac Type Severity Reaction Status Date / Time nitrofurantoin Allergy Itching Verified 06/08/23 19:35 [From Macrobid] Penicillins Allergy Rash/Hives/ Verified 06/08/23 19:35 Swelling Sulfa (Sulfonamide Allergy Rash/Hives Verified 06/08/23 19:35 Antibiotics) Physical Exam Vitals: Vital Signs Temp Pulse Pulse Resp BP BP Pulse Ox 06/09/23 07:20 97.8 F 65 17 136/76 98 06/09/23 02:00 98 F 66 16 157/81 96 06/08/23 23:00 64 06/08/23 22:33 98 F 64 18 163/74 96 06/08/23 21:18 71 18 132/61 98 06/08/23 18:16 80 12 123/77 95 06/08/23 16:41 98.0 F 75 18 131/78 97 06/08/23 14:26 75 18 114/57 97 Intake and Output 06/08/23 06/09/23 06/09/23 22:59 06:59 14:59 Other: Voiding Method Toilet # Voids 2 Weight 92.533 kg Results CBC & Chem 7: 06/09/23 05:36 06/09/23 05:36 Labs: Abnormal Lab Results - Last 24 Hours (Table) 06/09/23 06/09/23 Range/Units 05:36 05:36 MCHC 31.4 L (32.0-37.0) g/dL RDW 15.1 H (11.5-14.5) % BUN 8.4 L (9.0-27.0) mg/dL AST 12 L (13-35) U/L Total Protein 5.8 L (6.2-8.2) g/dL Albumin 3.7 L (3.8-4.9) g/dL Thrombosis Risk Factor Assmnt - Choose All That Apply Any of the Below Risk Factors Present?: Yes Each Factor Represents 1 point: Obesity (BMI >25) Other Risk Factors: Yes Each Risk Factor Represents 2 Points: Age 61-74 years Other congenital or acquired thrombophilia - If yes, enter type in comment: No Thrombosis Risk Factor Assessment Total Risk Factor Score: 3 Thrombosis Risk Factor Assessment Level: Moderate Risk
[2023-06-09] MEDS: ACETAMINOPHEN TAB 325 MG TAB PO PRN (18:23)
[2023-06-09] MEDS: SODIUM CHLORIDE 0.9% 1,000 ML IV SCH (18:24)
[2023-06-09] MEDS: VIT A,C & E-LUTEIN-MINERALS 1 EACH TAB PO SCH (21:04)
[2023-06-09] MEDS: ATORVASTATIN 40 MG TAB PO SCH (21:04)
[2023-06-09] MEDS: ZOLPIDEM 5 MG TAB PO SCH (21:04)
[2023-06-09] MEDS: AMITRIPTYLINE HCL 25 MG TAB PO SCH (21:04)
[2023-06-10 12:04] LABS: BUN/Creat Ratio 8.29 Ratio (12.00-20.00); Blood Urea Nitrogen 5.8 mg/dL (9.0-27.0); Glucose 96 mg/dL (70-110)
[2023-06-10 12:05] LABS: ALT 35 U/L (8-44); AST 18 U/L (13-35); Albumin 3.7 g/dL (3.8-4.9); Albumin/Globulin Ratio 1.68 Ratio (1.60-3.17); Alkaline Phosphatase 121 U/L (41-126); Calcium 9.2 mg/dL (8.7-10.3); Carbon Dioxide 24.9 mmol/L (21.6-31.8); Chloride 104 mmol/L (96-109); Globulin 2.2 g/dL (1.6-3.3); Potassium 4.6 mmol/L (3.5-5.5); Sodium 140 mmol/L (135-145); Total Bilirubin 0.6 mg/dL (0.3-1.2); Total Protein 5.9 g/dL (6.2-8.2)
[2023-06-10 12:14] LABS: Basophils # (A) 0.04 X 10*3/uL (0.00-0.10); Basophils % (A) 0.6 %; Eosinophils # (A) 0.08 X 10*3/uL (0.04-0.35); Eosinophils % (A) 1.3 %; HCT 39.4 % (37.2-46.3); HGB 12.6 g/dL (12.0-15.0); Lymphocytes # (A) 1.03 X 10*3/uL (0.90-5.00); Lymphocytes % (A) 16.2 %; MCH 27.8 pg (27.0-32.0); MCV 86.8 FL (80.0-97.0); Mean Platelet Volume 10.2 FL (9.5-12.2); Monocytes % (A) 7.9 %; NRBC Per 100 WBC 0 X 10*3/uL (0.00-0.01); Neutrophils # (A) 4.66 X 10*3/uL (1.80-7.70); Neutrophils % (A) 73.5 %; Platelet Count 208 X 10*3/uL (140-440); RBC 4.54 X 10*6/uL (4.10-5.20); WBC 6.34 X 10*3/uL (4.50-10.00)
--- NOTE | 2023-06-10 18:45 | P.PN ---
Subjective Progress Note Date: 06/10/23 HISTORY OF PRESENT ILLNESS This is a 72-year-old female patient with past medical history of hypertension, hyperlipidemia, hypothyroidism, spondylosis of the cervical spine, history of 1 episode of diverticulitis, irritable bowel syndrome and anxiety disorder. She does have a history of admission for UTI and sepsis with early pyelonephritis secondary to ESBL E. coli UTI. Patient has been seen by urology status post cystoscopy that did not show any abnormalities at that time, patient apparently developed to have a significant left-sided abdominal pain associated with nausea but no vomiting, patient stated that she has been eating some protein bar with nuts recently, patient started to have significant pain in the left lower quadrant, she ended up coming to the emergency department for evaluation, she was found to have leukocytosis with a white count of 13,000, she was slightly hyponatremic due to hypovolemia, she ended up going for CT scan of the abdomen and pelvis with contrast that did show evidence of sigmoid diverticulitis without abscess formation, and no bowel obstruction, she was started on IV fluid resuscitation in the form of normal saline, she was placed on Levaquin and metronidazole and she was admitted to the hospital for treatment she was started on liquid diet for the next 1 or 2 days. Patient was requiring morphine for pain control . 06/09: Patient is sitting up in the chair no apparent distress, she is feeling a lot better today, she has been tolerating the clear liquid diet very well, she is asking for full liquid diet at this time, we will start that today, decrease her IV fluid, continue IV antibiotic for another 24 hours, patient did have a bowel movement which was diarrhea, we will follow-up with the patient in the next 24 hours, she if she is feeling better she can be discharged home on oral ciprofloxacin as well as metronidazole for the next 7 days, she is to stay on a low residue diet until she is seen in the office in a week from now. REVIEW OF SYSTEMS Constitutional: No fever, no chills, no night sweats. No weight change. No weakness, fatigue or lethargy. No daytime sleepiness. EENT: No headache. No blurred vision or double vision, no loss of vision. No loss of Hearing, no ringing in the ears, no dizziness. No nasal drainage or congestion. No epistaxis. No sore throat. Lungs: No shortness of breath, cough, no sputum production. No wheezing. Cardiovascular: no chest pain, no lower extremity edema. No palpitations. No paroxysmal nocturnal dyspnea. No orthopnea. No lightheadedness or dizziness. No syncopal episodes. Abdominal: Reported left lower quadrant abdominal pain. positive for nausea, no vomiting. positive for diarrhea. No constipation. No bloody or tarry stools. No loss of appetite. Genitourinary: No dysuria, increased frequency, reports urgency. No urinary r etention. Musculoskeletal: No myalgias. No muscle weakness, no gait dysfunction, no frequent falls. positive for back pain and neck pain. Integumentary: No wounds, no lesions. No rash or pruritus. No unusual bruising. No change in hair or nails. Neurologic: No aphasia. No facial droop. positive for change in mentation. No head injury. No headache. No paralysis. Psychiatric: No depression. positive for anxiety. No mood swings. Endocrine: No abnormal blood sugars. No weight change. No excessive sweating or thirst. No cold intolerance. PHYSICAL EXAMINATION Gen: This is a 72-year-old obese female resting in bed and appears to be in no acute distress. HEENT: Head is atraumatic, normocephalic. Pupils equal, round. Sclerae is anicteric. Oral mucous membranes are slightly dry. NECK: Supple. No JVD. No lymphadenopathy. No thyromegaly. LUNGS: Clear to auscultation. No wheezes or rhonchi. No intercostal retractions. HEART: First heart sound is depressed, second heart sound is normal, there is THOR 2/6 located at the left sternal border ABDOMEN: Soft., mild tenderness to the left lower quadrant no rebound or guarding , non distended Bowel sounds are present. No masses EXTREMITIES: No pedal edema. No calf tenderness. Dorsalis pedis +2 bilaterall y. NEUROLOGICAL: Patient is awake, alert and oriented x3. Cranial nerves 2 through 12 are grossly intact. Muscle power 5/5 in the upper and lower extremities bilaterally. Deep tendon reflexes were normal., Muscle power 5 out of 5 in upper and lower extremities bilaterally. ASSESSMENT AND PLAN 1. Acute sigmoid diverticulitis and complicated without evidence of abscess. Continue patient on clear liquid diet, start the patient on Levaquin 500 milligram IV piggyback every 24 hours, start the patient on metronidazole 500 mg IV piggyback every 8 hours, continue current pain management, increase her diet to full liquid diet, continue IV antibiotic, increase activity, likely home in the next 24 hours. 2. Mild hyponatremia likely due to hypovolemia continue IV fluid resuscitation in the form of normal saline at 75 cc an hour repeat CMP tomorrow morning. 3. Hypertension and hypertensive cardiovascular disease. Continue patient on amlodipine 10 mg daily and Losartan 50 mg po daily, my use Hydralazine as needed 4. Hyperlipidemia.we will continue with Rosuvastatin 20 mg po daily along with Zetia 10 mg po daily 5. Hypothyroidism. Continue levothyroxine 50 g daily. 6. Generalized anxiety disorder, recurrent depression and insomnia. Continue Lexapro 20 mg daily, Wellbutrin 150 mg daily and Xanax 0.5 mg po tid as needed 7. Irritable bowel syndrome. Continue Bentyl 20 mg 4 times daily.. 8. Insomnia. we will continue with Zolpidem 10 mg po qhs 9. GI prophylaxis. Protonix 40 mg po daily 10. DVT prophylaxis. Lovenox 40 mg Sc daily. 11. Advance diet to full liquid diet. 12. Home tomorrow morning. Objective - Vital Signs Vital signs: Vital Signs Temp 97.6 F 06/10/23 14:00 Pulse 78 06/10/23 14:00 Resp 16 06/10/23 14:00 BP 144/81 06/10/23 14:00 Pulse Ox 99 06/10/23 14:00 FiO2 Intake & Output 06/09/23 06/10/23 06/10/23 18:59 06:59 18:59 Other: Voiding Method Toilet # Voids 2 2 3 - Labs CBC & Chem 7: 06/10/23 07:06 06/10/23 07:06 Labs: Abnormal Lab Results - Last 24 Hours (Table) 06/10/23 06/10/23 Range/Units 07:06 07:06 RDW 15.0 H (11.5-14.5) % BUN 5.8 L (9.0-27.0) mg/dL BUN/Creatinine Ratio 8.29 L (12.00-20.00) Ratio Total Protein 5.9 L (6.2-8.2) g/dL Albumin 3.7 L (3.8-4.9) g/dL Microbiology - Last 24 Hours (Table) 06/08/23 16:45 Blood Culture - Preliminary Blood 06/08/23 16:25 Blood Culture - Preliminary Blood
[2023-06-11 07:48] VITALS: BP 129/80; PULSE 73; RESP 16; TEMP 98
[2023-06-11 11:15] LABS: Basophils # (A) 0.06 X 10*3/uL (0.00-0.10); Eosinophils # (A) 0.14 X 10*3/uL (0.04-0.35); Eosinophils % (A) 2.3 %; HCT 42.7 % (37.2-46.3); HGB 13.2 g/dL (12.0-15.0); Lymphocytes # (A) 1.07 X 10*3/uL (0.90-5.00); Lymphocytes % (A) 17.5 %; MCH 27.4 pg (27.0-32.0); MCHC 30.9 g/dL (32.0-37.0); MCV 88.6 FL (80.0-97.0); Mean Platelet Volume 9.9 FL (9.5-12.2); Monocytes # (A) 0.44 X 10*3/uL (0.20-1.00); Monocytes % (A) 7.2 %; NRBC Per 100 WBC 0 X 10*3/uL (0.00-0.01); Neutrophils # (A) 4.35 X 10*3/uL (1.80-7.70); Neutrophils % (A) 71.3 %; Platelet Count 235 X 10*3/uL (140-440); RBC 4.82 X 10*6/uL (4.10-5.20); RDW 14.9 % (11.5-14.5)
[2023-06-11 11:30] LABS: ALT 36 U/L (8-44); AST 21 U/L (13-35); Albumin 3.8 g/dL (3.8-4.9); Albumin/Globulin Ratio 1.73 Ratio (1.60-3.17); Alkaline Phosphatase 131 U/L (41-126); BUN/Creat Ratio 8.71 Ratio (12.00-20.00); Blood Urea Nitrogen 6.1 mg/dL (9.0-27.0); Carbon Dioxide 24.6 mmol/L (21.6-31.8); Chloride 104 mmol/L (96-109); Globulin 2.2 g/dL (1.6-3.3); Glucose 99 mg/dL (70-110); Potassium 4.3 mmol/L (3.5-5.5); Sodium 139 mmol/L (135-145); Total Bilirubin 0.5 mg/dL (0.3-1.2)
--- NOTE | 2023-06-11 15:10 | P.DS ---
Providers Date of admission: 06/08/23 15:29 Expected date of discharge: 06/11/23 Attending physician: Dina Renteria Primary care physician: Dina Renteria Hospital Course: HISTORY OF PRESENT ILLNESS This is a 72-year-old female patient with past medical history of hypertension, hyperlipidemia, hypothyroidism, spondylosis of the cervical spine, history of 1 episode of diverticulitis, irritable bowel syndrome and anxiety disorder. She does have a history of admission for UTI and sepsis with early pyelonephritis secondary to ESBL E. coli UTI. Patient has been seen by urology status post cystoscopy that did not show any abnormalities at that time, patient apparently developed to have a significant left-sided abdominal pain associated with nausea but no vomiting, patient stated that she has been eating some protein bar with nuts recently, patient started to have significant pain in the left lower quadrant, she ended up coming to the emergency department for evaluation, she was found to have leukocytosis with a white count of 13,000, she was slightly hyponatremic due to hypovolemia, she ended up going for CT scan of the abdomen and pelvis with contrast that did show evidence of sigmoid diverticulitis without abscess formation, and no bowel obstruction, she was started on IV fluid resuscitation in the form of normal saline, she was placed on Levaquin and metronidazole and she was admitted to the hospital for treatment she was started on liquid diet for the next 1 or 2 days. Patient was requiring morphine for pain control . 06/09: Patient is sitting up in the chair no apparent distress, she is feeling a lot better today, she has been tolerating the clear liquid diet very well, she is asking for full liquid diet at this time, we will start that today, decrease her IV fluid, continue IV antibiotic for another 24 hours, patient did have a bowel movement which was diarrhea, we will follow-up with the patient in the next 24 hours, she if she is feeling better she can be discharged home on oral ciprofloxacin as well as metronidazole for the next 7 days, she is to stay on a low residue diet until she is seen in the office in a week from now. 06/10: Patient is sitting up in bed in no apparent distress, she ambulating around okay, she denies any chest pain, shortness of breath, she has no abdominal pain, she is tolerating full liquid diet very well, will advance diet to a soft diet, low residue diet, and stay on that for another week or so, follow-up with me as an outpatient, switch the patient to oral ciprofloxacin 500 mg orally twice every day as well as metronidazole 500 mg orally 3 times every day for the next 7 days. Discharge diagnoses: 1. Acute sigmoid diverticulitis and complicated without evidence of abscess. 2. Mild hyponatremia likely due to hypovolemia 3. Hypertension and hypertensive cardiovascular disease. 4. Hyperlipidemia. 5. Hypothyroidism. 6. Generalized anxiety disorder, recurrent depression and insomnia. 7. Irritable bowel syndrome. 8. Insomnia. Patient Condition at Discharge: Stable Plan - Discharge Summary Discharge Rx Participant: No New Discharge Prescriptions: No Action Zolpidem [Ambien] 10 mg PO HS@2200 Levothyroxine Sodium [Synthroid] 50 mcg PO DAILY cycloSPORINE 0.05% OPHTH SOLN [Restasis] 1 applicator BOTH EYES DAILY@1200 Acetaminophen Tab [Tylenol] 650 mg PO HS Ezetimibe [Zetia] 10 mg PO W/LUNCH Losartan [Cozaar] 25 mg PO W/LUNCH Amitriptyline HCl [Elavil] 25 mg PO HS@2100 ALPRAZolam [Xanax] 0.5 mg PO TID PRN PRN Reason: Anxiety Rosuvastatin [Crestor] 20 mg PO HS Vit C/E/Zn/Coppr/Lutein/Zeaxan [Preservision Areds 2 Softgel] 1 cap PO HS Aspirin 81 mg PO DAILY tab Dicyclomine [Bentyl] 10 mg PO BID Discharge Medication List Levothyroxine Sodium [Synthroid] 50 mcg PO DAILY 05/19/14 [History] Zolpidem [Ambien] 10 mg PO HS@2200 05/19/14 [History] ALPRAZolam [Xanax] 0.5 mg PO TID PRN 04/29/23 [History] Acetaminophen Tab [Tylenol] 650 mg PO HS 04/29/23 [History] Amitriptyline HCl [Elavil] 25 mg PO HS@2100 04/29/23 [History] Ezetimibe [Zetia] 10 mg PO W/LUNCH 04/29/23 [History] Losartan [Cozaar] 25 mg PO W/LUNCH 04/29/23 [History] Rosuvastatin [Crestor] 20 mg PO HS 04/29/23 [History] Vit C/E/Zn/Coppr/Lutein/Zeaxan [Preservision Areds 2 Softgel] 1 cap PO HS 04/29/23 [History] cycloSPORINE 0.05% OPHTH SOLN [Restasis] 1 applicator BOTH EYES DAILY@1200 04/29/23 [History] Aspirin 81 mg PO DAILY tab 05/01/23 [Rx] Dicyclomine [Bentyl] 10 mg PO BID 06/08/23 [History] Follow up Appointment(s)/Referral(s): Dina Renteria MD [Primary Care Provider] - 1-2 days
[2023-06-11] MEDS ORDERED: metroNIDAZOLE 500 MG TAB PO SCH (16:00)
[2023-06-11] MEDS ORDERED: CIPROFLOXACIN HCL 500 MG TAB PO SCH (21:00)
== END 2023-06-11 16:11 | disposition home or self-care (01) | DRG 392 ==
LOC: EC 12:12 → 5NMEDONC 15:29 → 6NMEDSUR 21:21
PROVIDERS: ADMIT Internal Medicine; ATTEND Internal Medicine
DX: K57.32 Diverticulitis of large intestine without perforation or abscess without bleeding (principal); E87.1 Hypo-osmolality and hyponatremia; F33.9 Major depressive disorder, recurrent, unspecified; E86.1 Hypovolemia; I10 Essential (primary) hypertension; E78.5 Hyperlipidemia, unspecified; F41.1 Generalized anxiety disorder; G47.00 Insomnia, unspecified; Z79.899 Other long term (current) drug therapy; E03.9 Hypothyroidism, unspecified; Z79.890 Hormone replacement therapy; K58.9 Irritable bowel syndrome, unspecified; I83.93 Asymptomatic varicose veins of bilateral lower extremities; M47.892 Other spondylosis, cervical region; Z86.79 Personal history of other diseases of the circulatory system; Z79.82 Long term (current) use of aspirin; Z85.828 Personal history of other malignant neoplasm of skin; Z90.710 Acquired absence of both cervix and uterus; Z96.1 Presence of intraocular lens; Z87.891 Personal history of nicotine dependence; Z96.652 Presence of left artificial knee joint; Z98.42 Cataract extraction status, left eye; Z98.41 Cataract extraction status, right eye
CPT/HCPCS: 36415; 74177; 80053; 81003; 82150; 83605; 83690; 85025; 87040; 96361; 96365; 96366; 96367; 96375; 96376; 99285

== ENCOUNTER 2023-08-17 09:38 | Emergency (ER) | payer MEDICARE, OTHER ==
--- NOTE | 2023-08-17 10:17 | ED ---
Abdominal Pain HPI - General Chief Complaint: Abdominal Pain Stated Complaint: L sided flank pain Time Seen by Provider: 08/17/23 09:57 Source: patient, RN notes reviewed Mode of arrival: ambulatory Limitations: no limitations - History of Present Illness Initial Comments: This is a 72-year-old female who presents to the emergency department for left lower quadrant pain. Symptoms started 2 days ago. She has mild associated nausea. Pain radiates to the back to some extent, however it is primarily in the abdomen. States that symptoms feel either like a prior bout of diverticulitis or UTI. Most recently had diverticulitis 3 months ago. Denies any fevers or chills. MD Complaint: abdominal pain - Related Data Home Medications Medication Instructions Recorded Confirmed Levothyroxine Sodium [Synthroid] 50 mcg PO DAILY 05/19/14 06/08/23 Zolpidem [Ambien] 10 mg PO HS@2200 05/19/14 06/08/23 ALPRAZolam [Xanax] 0.5 mg PO TID PRN 04/29/23 06/08/23 Acetaminophen Tab [Tylenol] 650 mg PO HS 04/29/23 06/08/23 Amitriptyline HCl [Elavil] 25 mg PO HS@2100 04/29/23 06/08/23 Ezetimibe [Zetia] 10 mg PO W/LUNCH 04/29/23 06/08/23 Losartan [Cozaar] 25 mg PO W/LUNCH 04/29/23 06/08/23 Rosuvastatin [Crestor] 20 mg PO HS 04/29/23 06/08/23 Vit C/E/Zn/Coppr/Lutein/Zeaxan 1 cap PO HS 04/29/23 06/08/23 [Preservision Areds 2 Softgel] cycloSPORINE 0.05% OPHTH SOLN 1 applicator BOTH EYES DAILY@1200 04/29/23 06/08/23 [Restasis] Dicyclomine [Bentyl] 10 mg PO BID 06/08/23 06/08/23 Previous Rx's Medication Instructions Recorded Aspirin 81 mg PO DAILY tab 05/01/23 Ciprofloxacin HCl [Cipro] 500 mg PO BID #14 tab 06/11/23 metroNIDAZOLE [Flagyl] 500 mg PO TID #21 tab 06/11/23 Ciprofloxacin HCl [Cipro] 500 mg PO BID 10 Days #20 tab 08/17/23 Naproxen Sodium 550 mg PO BID PRN #20 tablet 08/17/23 Ondansetron Odt [Zofran Odt] 4 mg PO Q8HR PRN #15 tab 08/17/23 metroNIDAZOLE [Flagyl] 500 mg PO TID 10 Days #30 tab 08/17/23 Allergies Allergy/AdvReac Type Severity Reaction Status Date / Time nitrofurantoin Allergy Itching Verified 08/17/23 09:45 [From Macrobid] Penicillins Allergy Rash/Hives/ Verified 08/17/23 09:45 Swelling Sulfa (Sulfonamide Allergy Rash/Hives Verified 08/17/23 09:45 Antibiotics) Review of Systems ROS Statement: Those systems with pertinent positive or pertinent negative responses have been documented in the HPI. ROS Other: All systems not noted in ROS Statement are negative. Past Medical History Past Medical History: Cancer, Chest Pain / Angina, GERD/Reflux, Hyperlipidemia, Hypertension, Osteoarthritis (OA), Pneumonia, Thyroid Disorder, Vascular Disorder Additional Past Medical History / Comment(s): polynephritis, severe UTI with sepsis which she states she fully recovered from then last week pt states she had the flu and then urinary tract infection symptoms returned. Other hx: UTIs, skin cancer nose and R cheek, diverticular disease, pancreatitis, elevated liver function tests, irregular heart beat in the past, spondylosis cervical spine/neck pain, low back pain, varicosities bilateral legs, insomnia Last Myocardial Infarction Date:: unknown History of Any Multi-Drug Resistant Organisms: ESBL Date of last positivie culture/infection: 08/28/20 MDRO Source:: ESBL URINE Past Surgical History: Adenoidectomy, Heart Catheterization, Hysterectomy, Joint Replacement, Orthopedic Surgery, Tonsillectomy Additional Past Surgical History / Comment(s): Total L knee arthroplasty, R foot bunionectomy, R carpal tunnel release, R middle finger cyst removed/spur removed, R foot surgery with screws in place, colonoscopies, skin cancer removals, bilateral cataract removals/lens implants. Past Anesthesia/Blood Transfusion Reactions: No Reported Reaction Additional Past Anesthesia/Blood Transfusion Reaction / Comment(s): no hx blood transfusion Past Psychological History: Anxiety Smoking Status: Former smoker Past Alcohol Use History: None Reported Past Drug Use History: None Reported - Past Family History Sister(s) Family Medical History: Cancer Additional Family Medical History / Comment(s): Patient had total of 4 sisters. One from a form of lymphoma. OTHER sisters are alive. One has COPD. One is blind and deaf since 18 months old from strep meningitis. Third sister is also blind from aniridia and glaucoma. Brother(s) Family Medical History: Cancer Additional Family Medical History / Comment(s): Patient has a total of 4 brothers. One from myocardial infarction and one from pancreatic cancer. 2 living brothers have no major medical problems. Father Family Medical History: Myocardial Infarction ([place]) Additional Family Medical History / Comment(s): Father at age 79 from [place], he was [facility] the time. Mother Family Medical History: Seizure Disorder Additional Family Medical History / Comment(s): Mother at age 78 from either [place] or seizure. She had history of COPD, Oxygen dependent, seizure disorder. General Exam Limitations: no limitations General appearance: alert, in no apparent distress Head exam: Present: atraumatic, normocephalic, normal inspection Respiratory exam: Present: normal lung sounds bilaterally. Absent: respiratory distress, wheezes, rales, rhonchi, stridor Cardiovascular Exam: Present: regular rate, normal rhythm, normal heart sounds. Absent: systolic murmur, diastolic murmur, rubs, gallop, clicks GI/Abdominal exam: Present: soft, tenderness (LLQ), normal bowel sounds. Absent: distended Back exam: Absent: CVA tenderness (R), CVA tenderness (L) Neurological exam: Present: alert, oriented X3, CN II-XII intact Psychiatric exam: Present: normal affect, normal mood Skin exam: Present: warm, dry, intact, normal color. Absent: rash Course Vital Signs 08/17/23 09:43 Temperature 98.2 F Pulse Rate 90 Respiratory 18 Rate Blood Pressure 128/85 O2 Sat by Pulse 96 Oximetry Medical Decision Making - Medical Decision Making This is a 72 year old female who presents to the emergency department for abdominal pain. Was pt. sent in by a medical professional or institution? @ -No Did you speak to anyone other than the patient for history? @ -No Did you review nursing and triage notes? @ -Yes, and I agree, it is accurate with regards to the patient's symptoms. Were old charts reviewed? @ -No Differential Diagnosis? @ -Differential Abdominal Pain Women: Appendicitis, Cholecystitis, diverticulosis, ischemic bowel, pancreatitis, hepatitis, UTI, gastroenteritis, AAA, incarcerated hernia, bowel obstruction, constipation, inflammatory bowel, hepatitis, peptic ulcer disease, splenic infarction, perforated viscus, vulvitis, ovarian torsion, PID, kidney stone, placenta abruption, this is not meant to be an all-inclusive list EKG interpreted by me (3pts min.)? @ -Not obtained X-rays interpreted by me (1pt min.)? @ -Not obtained CT interpreted by me (1pt min.)? @ -CT scan of the abdomen and pelvis obtained. My interpretation identifies bowel wall thickening of the descending and sigmoid colon. U/S interpreted by me (1pt. min.)? @ -Not obtained What testing was considered but not performed? (CT, X-rays, U/S, labs)? Why? @ -None What meds were considered but not given? Why? @ -None Did you discuss the management of the patient with other professionals? @ -No Did you reconcile home meds? @ -No Was smoking cessation discussed for >3mins.? @ -No Was critical care preformed (if so, how long)? @ -No Were there social determinants of health that impacted care today? How? ( Homelessness, low income, unemployed, alcoholism, drug addiction, transportation, low edu. Level, literacy, decrease access to med. care, [facility], rehab)? @ -No Was there de-escalation of care discussed even if they declined? (Discuss DNR or withdrawal of care, Hospice)? @ -No What co-morbidities impacted this encounter? (DM, HTN, Smoking, COPD, CAD, Cancer, CVA, Hep., AIDS, mental health diagnosis, sleep apnea, morbid obesity)? @ -Diverticulosis Was patient admitted / discharged? @ -Discharged. Lab work unremarkable. Urinalysis is contaminated and not overtly positive for infection. Urine was sent for culture. CT scan of the abdomen and pelvis demonstrates mild recurrent uncomplicated diverticulitis of the descending/sigmoid colon junction. Patient's symptoms were well-controlled in the emergency department and she was comfortable with managing this on an outpatient basis. Prescription for ciprofloxacin, Flagyl, naproxen, and Zofran provided with dosing instructions reviewed. Advised close follow-up with her primary care provider. Undiagnosed new problem with uncertain prognosis? @ -None Drug Therapy requiring intensive monitoring for toxicity (Heparin, Nitro, Insulin, Cardizem)? @ -None Were any procedures done? @ -None Diagnosis/symptom? @ -Diverticulitis Acute, or Chronic, or Acute on Chronic? @ -Acute Uncomplicated (without systemic symptoms) or Complicated (systemic symptoms)? @ -Uncomplicated Side effects of treatment? @ -None Exacerbation, Progression, or Severe Exacerbation] @ -Not applicable Poses a threat to life or bodily function? @ -No Return precautions reviewed in depth, the patient is instructed to return to the emergency department with any new, worsening, or concerning symptoms. Patient verbalized understanding. This case was discussed in detail with the attending ED physician, Dr. Henderson. Presentation, findings, and treatment plan discussed in detail as well. - Lab Data Result diagrams: 08/17/23 10:37 08/17/23 10:37 Lab Results 08/17/23 08/17/23 08/17/23 Range/Units 10:37 10:37 10:37 WBC 9.8 (3.8-10.6) k/uL RBC 5.11 (3.80-5.40) m/uL Hgb 14.1 (11.4-16.0) gm/dL Hct 44.8 (34.0-46.0) % MCV 87.7 (80.0-100.0) fL MCH 27.5 (25.0-35.0) pg MCHC 31.4 (31.0-37.0) g/dL RDW 14.8 (11.5-15.5) % Plt Count 204 (150-450) k/uL MPV 7.4 Neutrophils % 84 % Lymphocytes % 8 % Monocytes % 5 % Eosinophils % 1 % Basophils % 1 % Neutrophils # 8.2 H (1.3-7.7) k/uL Lymphocytes # 0.8 L (1.0-4.8) k/uL Monocytes # 0.5 (0-1.0) k/uL Eosinophils # 0.1 (0-0.7) k/uL Basophils # 0.1 (0-0.2) k/uL Sodium 135 L (137-145) mmol/L Potassium 4.5 (3.5-5.1) mmol/L Chloride 102 (98-107) mmol/L Carbon Dioxide 28 (22-30) mmol/L Anion Gap 5 mmol/L BUN 15 (7-17) mg/dL Creatinine 0.64 (0.52-1.04) mg/dL Est GFR (CKD-EPI)AfAm >90 (>60 ml/min/1.73 sqM) Est GFR (CKD-EPI)NonAf 88 (>60 ml/min/1.73 sqM) Glucose 106 H (74-99) mg/dL Plasma Lactic Acid Rip (0.7-2.0) mmol/L Calcium 9.3 (8.4-10.2) mg/dL Total Bilirubin 1.2 (0.2-1.3) mg/dL AST 42 H (14-36) U/L ALT 73 H (4-34) U/L Alkaline Phosphatase 155 H (38-126) U/L Total Protein 6.8 (6.3-8.2) g/dL Albumin 4.3 (3.5-5.0) g/dL Amylase 42 (30-110) U/L Lipase 42 (23-300) U/L Urine Color Light Yellow Urine Appearance Cloudy H (Clear) Urine pH 6.0 (5.0-8.0) Ur Specific [place] 1.016 (1.001-1.035) Urine Protein Negative (Negative) Urine Glucose (UA) Negative (Negative) Urine Ketones Negative (Negative) Urine Blood Negative (Negative) Urine Nitrite Negative (Negative) Urine Bilirubin Negative (Negative) Urine Urobilinogen <2.0 (<2.0) mg/dL Ur Leukocyte Esterase Large H (Negative) Urine RBC 2 (0-5) /hpf Urine WBC 6 H (0-5) /hpf Ur Squamous Epith Cells 6 H (0-4) /hpf Urine Bacteria Rare H (None) /hpf Urine Mucus Rare H (None) /hpf 08/17/23 Range/Units 10:37 WBC (3.8-10.6) k/uL RBC (3.80-5.40) m/uL Hgb (11.4-16.0) gm/dL Hct (34.0-46.0) % MCV (80.0-100.0) fL MCH (25.0-35.0) pg MCHC (31.0-37.0) g/dL RDW (11.5-15.5) % Plt Count (150-450) k/uL MPV Neutrophils % % Lymphocytes % % Monocytes % % Eosinophils % % Basophils % % Neutrophils # (1.3-7.7) k/uL Lymphocytes # (1.0-4.8) k/uL Monocytes # (0-1.0) k/uL Eosinophils # (0-0.7) k/uL Basophils # (0-0.2) k/uL Sodium (137-145) mmol/L Potassium (3.5-5.1) mmol/L Chloride (98-107) mmol/L Carbon Dioxide (22-30) mmol/L Anion Gap mmol/L BUN (7-17) mg/dL Creatinine (0.52-1.04) mg/dL Est GFR (CKD-EPI)AfAm (>60 ml/min/1.73 sqM) Est GFR (CKD-EPI)NonAf (>60 ml/min/1.73 sqM) Glucose (74-99) mg/dL Plasma Lactic Acid Rip 1.0 (0.7-2.0) mmol/L Calcium (8.4-10.2) mg/dL Total Bilirubin (0.2-1.3) mg/dL AST (14-36) U/L ALT (4-34) U/L Alkaline Phosphatase (38-126) U/L Total Protein (6.3-8.2) g/dL Albumin (3.5-5.0) g/dL Amylase (30-110) U/L Lipase (23-300) U/L Urine Color Urine Appearance (Clear) Urine pH (5.0-8.0) Ur Specific [place] (1.001-1.035) Urine Protein (Negative) Urine Glucose (UA) (Negative) Urine Ketones (Negative) Urine Blood (Negative) Urine Nitrite (Negative) Urine Bilirubin (Negative) Urine Urobilinogen (<2.0) mg/dL Ur Leukocyte Esterase (Negative) Urine RBC (0-5) /hpf Urine WBC (0-5) /hpf Ur Squamous Epith Cells (0-4) /hpf Urine Bacteria (None) /hpf Urine Mucus (None) /hpf - Radiology Data Radiology results: report reviewed, image reviewed Disposition Clinical Impression: Diverticulitis Disposition: HOME SELF-CARE Instructions (If sedation given, give patient instructions): Diverticulitis (ED), Diverticulitis Diet (ED) Additional Instructions: Return to the emergency department with any new, worsening, or concerning symptoms. Take both antibiotics as prescribed for 10 days. Take the naproxen twice daily as needed for pain relief. Do not take any other anti- inflammatories such as ibuprofen with this. You may take it with Tylenol. Take the Zofran up to every 8 hours as needed for nausea and vomiting. Follow a low fiber diet while you are in this acute flareup of the diverticulitis. When your symptoms resolve, increase your fiber intake to reduce the likelihood of recurrence. Follow up with your primary care provider in 1-2 days. Prescriptions: Ciprofloxacin HCl [Cipro] 500 mg PO BID 10 Days #20 tab metroNIDAZOLE [Flagyl] 500 mg PO TID 10 Days #30 tab Naproxen Sodium 550 mg PO BID PRN #20 tablet PRN Reason: Pain Ondansetron Odt [Zofran Odt] 4 mg PO Q8HR PRN #15 tab PRN Reason: Nausea And Vomiting Is patient prescribed a controlled substance at d/c from ED?: No Referrals: Dina Renteria MD [Primary Care Provider] - 1-2 days Time of Disposition: 12:35
[2023-08-17 10:55] VITALS: RESP 18; TEMP 98.2
[2023-08-17] MEDS: SODIUM CHLORIDE 0.9% 1,000 ML IV STA (10:56)
[2023-08-17] MEDS: KETOROLAC 15 MG/ML 1 ML VIAL IVP STA (11:04)
[2023-08-17 11:05] LABS: Basophils # (A) 0.1 k/uL (0-0.2); Basophils % (A) 1 %; Eosinophils # (A) 0.1 k/uL (0-0.7); Eosinophils % (A) 1 %; HCT 44.8 % (34.0-46.0); HGB 14.1 gm/dL (11.4-16.0); Lymphocytes # (A) 0.8 k/uL (1.0-4.8); Lymphocytes % (A) 8 %; MCH 27.5 pg (25.0-35.0); MCHC 31.4 g/dL (31.0-37.0); MCV 87.7 fL (80.0-100.0); Mean Platelet Volume 7.4; Monocytes # (A) 0.5 k/uL (0-1.0); Monocytes % (A) 5 %; Neutrophils # (A) 8.2 k/uL (1.3-7.7); Neutrophils % (A) 84 %; Platelet Count 204 k/uL (150-450); RBC 5.11 m/uL (3.80-5.40); RDW 14.8 % (11.5-15.5); WBC 9.8 k/uL (3.8-10.6)
[2023-08-17] MEDS: ONDANSETRON 4 MG/2 ML VIAL IVP STA (11:06)
[2023-08-17] MEDS: MORPHINE SULFATE 4 MG/ML SYRINGE IVP STA (11:07)
[2023-08-17 11:09] LABS: Appearance,Urine Cloudy (Clear); Bacteria,Urine Rare /hpf; Bilirubin,Urine Negative (Negative); Blood,Urine Negative (Negative); Color,Urine Light Yellow; Glucose,Urine (UA) Negative (Negative); Ketones,Urine Negative (Negative); Leukocyte Esterase,Urine Large (Negative); Mucus,Urine Rare /hpf; Nitrite,Urine Negative (Negative); Protein,Urine Negative (Negative); RBC,Urine 2 /hpf (0-5); Specific Gravity,Urine 1.016 (1.001-1.035); Squamous Epithelial Cell,Urine 6 /hpf (0-4); Urobilinogen,Urine <2.0 mg/dL (<2.0); WBC,Urine 6 /hpf (0-5)
[2023-08-17 11:13] LABS: ALT 73 U/L (4-34); AST 42 U/L (14-36); African American GFR (CKD) >90 (>60 ml/min/1.73 sqM); Albumin 4.3 g/dL (3.5-5.0); Alkaline Phosphatase 155 U/L (38-126); Amylase 42 U/L (30-110); Anion Gap 5 mmol/L; Blood Urea Nitrogen 15 mg/dL (7-17); Calcium 9.3 mg/dL (8.4-10.2); Carbon Dioxide 28 mmol/L (22-30); Chloride 102 mmol/L (98-107); Glucose 106 mg/dL (74-99); Lipase 42 U/L (23-300); Non-African American GFR(CKD) 88 (>60 ml/min/1.73 sqM); Potassium 4.5 mmol/L (3.5-5.1); Sodium 135 mmol/L (137-145); Total Bilirubin 1.2 mg/dL (0.2-1.3); Total Protein 6.8 g/dL (6.3-8.2)
--- NOTE | 2023-08-17 12:10 | CT ---
EXAMINATION TYPE: CT abdomen pelvis w con DATE OF EXAM: 08/17/2023 COMPARISON: 06/08/2023 HISTORY: LLQ abdominal pain CT DLP: 1523.1 mGycm Automated exposure control for dose reduction was used. TECHNIQUE: Helical acquisition of images was performed from the lung bases through the pelvis. CONTRAST: Performed without Oral Contrast and with IV Contrast, patient injected with 100 mL of Isovue 300. Findings: There are mild scattered groundglass opacities in the lung bases possibly reflecting mild atelectasis . The gallbladder is normal without distention, wall thickening, pericholecystic fluid or gallstones. T here is no biliary ductal dilatation. There is no focal mass or organomegaly involving the liver, pancreas, spleen or adrenal glands. There is patchy fatty infiltration of the liver. There is no solid renal mass or hydronephrosis and there is homogeneous contrast enhancement of the r enal parenchyma. The caliber the abdominal aorta is normal is no retroperitoneal adenopathy or hemorr juan josé. There is recurrent bowel wall thickening/inflammation and pericolic inflammation in the descending co jie/sigmoid junction consistent with recurrent diverticulitis somewhat less extensive than that seen on the prior study. There is no bowel obstruction, free air, free fluid or intra-abdominal abscess. No pelvic mass, free fluid, abscess or adenopathy. The osseous structures and soft tissues are intact. IMPRESSION: Mild recurrent uncomplicated diverticulitis of the descending/sigmoid colon junction.
[2023-08-17] MEDS: metroNIDAZOLE 500 MG TAB PO STA (13:06)
[2023-08-17] MEDS: CIPROFLOXACIN HCL 500 MG TAB PO STA (13:06)
[2023-08-17] MEDS: ACET/COD 300 MG/30 MG STARTER PACK 6 TAB BTL PO STA (13:07)
[2023-08-17] MEDS: HYDROmorphone 1 MG/ML 1 ML SYRINGE IVP STA (13:07)
[2023-08-17] MEDS: HYDROcodone/APAP 7.5-325MG 1 EACH TAB PO ONE (13:07)
[2023-08-17 14:11] VITALS: BP 129/79; PULSE 80
== END 2023-08-17 13:29 | disposition home or self-care (01) ==
LOC: EC 09:38
DX: K57.92 Diverticulitis of intestine, part unspecified, without perforation or abscess without bleeding (principal); Z88.0 Allergy status to penicillin; Z88.2 Allergy status to sulfonamides; Z88.8 Allergy status to other drugs, medicaments and biological substances; Z87.891 Personal history of nicotine dependence
CPT/HCPCS: 36415; 80053; 82150; 83605; 83690; 85025; 81001; 74177; 99284; 96374; 96375 ×3; 96361; J2270; J2405; J1170; J1885; Q9967

== ENCOUNTER 2023-08-30 19:08 | Emergency (ER) | payer MEDICARE, OTHER ==
[2023-08-30 19:35] VITALS: RESP 18; TEMP 97.9
--- NOTE | 2023-08-30 21:10 | ED ---
Abdominal Pain HPI - General Source: patient, RN notes reviewed Mode of arrival: ambulatory Limitations: no limitations <Janina Amezcua - Last Filed: 08/30/23 21:09> <Timmy Wade - Last Filed: 09/21/23 16:07> - General Chief Complaint: Abdominal Pain Stated Complaint: Abdominal Pain Time Seen by Provider: 08/30/23 21:09 - History of Present Illness Initial Comments: Quick [id number] female presenting with abdominal pain x 1 week. Patient was seen for this last week and was diagnosed with uncomplicated diverticulitis and discharged on antibiotics. Patient states pain has not improved since discharge. Denies nausea, vomiting, fever, chills (Janina Amezcua) - Related Data Home Medications Medication Instructions Recorded Confirmed Levothyroxine Sodium [Synthroid] 50 mcg PO DAILY 05/19/14 09/03/23 Zolpidem [Ambien] 10 mg PO HS@2200 05/19/14 09/04/23 Amitriptyline HCl [Elavil] 25 mg PO HS@2100 PRN 04/29/23 09/04/23 Losartan [Cozaar] 25 mg PO W/LUNCH 04/29/23 09/04/23 Vit C/E/Zn/Coppr/Lutein/Zeaxan 1 cap PO HS 04/29/23 09/04/23 [Preservision Areds 2 Softgel] cycloSPORINE 0.05% OPHTH SOLN 1 applicator BOTH EYES DAILY@1200 04/29/23 09/04/23 [Restasis] Dicyclomine [Bentyl] 20 mg PO BID 06/08/23 09/04/23 Cetirizine HCl [Zyrtec] 10 mg PO DAILY 09/03/23 09/04/23 Escitalopram [Lexapro] 20 mg PO DAILY 09/03/23 09/04/23 Simvastatin [Zocor] 40 mg PO HS 09/03/23 09/04/23 Allergies Allergy/AdvReac Type Severity Reaction Status Date / Time nitrofurantoin Allergy Itching Verified 09/04/23 07:22 [From Macrobid] Penicillins Allergy Rash/Hives/ Verified 09/04/23 07:22 Swelling Sulfa (Sulfonamide Allergy Rash/Hives Verified 09/04/23 07:22 Antibiotics) Review of Systems ROS Other: All systems not noted in ROS Statement are negative. <Janina Amezcua - Last Filed: 08/30/23 21:09> ROS Other: All systems not noted in ROS Statement are negative. <Timmy Wade - Last Filed: 09/21/23 16:07> ROS Statement: Those systems with pertinent positive or pertinent negative responses have been documented in the HPI. Past Medical History Past Medical History: Cancer, Chest Pain / Angina, GERD/Reflux, Hyperlipidemia, Hypertension, Osteoarthritis (OA), Pneumonia, Thyroid Disorder, Vascular Disorder Additional Past Medical History / Comment(s): polynephritis, severe UTI with sepsis which she states she fully recovered from then last week pt states she had the flu and then urinary tract infection symptoms returned. Other hx: UTIs, skin cancer nose and R cheek, diverticular disease, pancreatitis, elevated liver function tests, irregular heart beat in the past, spondylosis cervical spine/neck pain, low back pain, varicosities bilateral legs, insomnia Last Myocardial Infarction Date:: unknown History of Any Multi-Drug Resistant Organisms: ESBL Date of last positivie culture/infection: 08/28/20 MDRO Source:: ESBL URINE Past Surgical History: Adenoidectomy, Heart Catheterization, Hysterectomy, Joint Replacement, Orthopedic Surgery, Tonsillectomy Additional Past Surgical History / Comment(s): Total L knee arthroplasty, R foot bunionectomy, R carpal tunnel release, R middle finger cyst removed/spur removed, R foot surgery with screws in place, colonoscopies, skin cancer removals, bilateral cataract removals/lens implants. Past Anesthesia/Blood Transfusion Reactions: No Reported Reaction Additional Past Anesthesia/Blood Transfusion Reaction / Comment(s): no hx blood transfusion Past Psychological History: Anxiety Smoking Status: Former smoker Past Alcohol Use History: None Reported Past Drug Use History: None Reported - Past Family History Sister(s) Family Medical History: Cancer Additional Family Medical History / Comment(s): Patient had total of 4 sisters. One from a form of lymphoma. OTHER sisters are alive. One has COPD. One is blind and deaf since 18 months old from strep meningitis. Third sister is also blind from aniridia and glaucoma. Brother(s) Family Medical History: Cancer Additional Family Medical History / Comment(s): Patient has a total of 4 brothers. One from myocardial infarction and one from pancreatic cancer. 2 living brothers have no major medical problems. Father Family Medical History: Myocardial Infarction (MD) Additional Family Medical History / Comment(s): Father at age 79 from MD, he was residing in [facility] at the time. Mother Family Medical History: Seizure Disorder Additional Family Medical History / Comment(s): Mother at age 78 from either MD or seizure. She had history of COPD, Oxygen dependent, seizure disorder. <Janina Amezcua - Last Filed: 08/30/23 21:09> General Exam Limitations: no limitations <Janina Amezcua - Last Filed: 08/30/23 21:09> Limitations: no limitations General appearance: alert, in no apparent distress Head exam: Present: atraumatic, normocephalic Eye exam: Present: normal appearance. Absent: scleral icterus, conjunctival injection Neck exam: Present: normal inspection Respiratory exam: Present: normal lung sounds bilaterally. Absent: respiratory distress, wheezes, rales, rhonchi, stridor, accessory muscle use Cardiovascular Exam: Present: regular rate, normal rhythm, normal heart sounds. Absent: systolic murmur, diastolic murmur, rubs, gallop GI/Abdominal exam: Present: soft, tenderness. Absent: distended, guarding, rebound, rigid, mass, pulsatile mass, hernia Extremities exam: Present: normal inspection, normal capillary refill. Absent: pedal edema, calf tenderness Back exam: Present: normal inspection. Absent: CVA tenderness (R), CVA tenderness (L) Neurological exam: Present: alert Skin exam: Present: warm, dry, intact, normal color. Absent: rash <Timmy Wade - Last Filed: 09/21/23 16:07> - General Exam Comments Initial Comments: Visual Physical Exam Vital signs reviewed General: Well-appearing, nontoxic, no acute distress. Head: Normocephalic, atraumatic Eyes: PERRLA, EOMI ENT: Airway patent Chest: Nonlabored breathing Skin: No visual rash, normal skin tone Neuro: Alert and oriented 3 Musculoskeletal: No gross abnormalities (Janina Amezcua) Course Vital Signs 08/30/23 08/30/23 08/31/23 19:33 23:42 03:00 Temperature 97.9 F Pulse Rate 81 68 65 Respiratory 18 18 18 Rate Blood Pressure 159/84 139/71 130/62 O2 Sat by Pulse 96 97 95 Oximetry 08/31/23 03:49 Temperature Pulse Rate 78 Respiratory 18 Rate Blood Pressure 128/86 O2 Sat by Pulse 97 Oximetry Medical Decision Making <Janina Amezcua - Last Filed: 08/30/23 21:09> - Lab Data Result diagrams: 08/30/23 22:45 08/30/23 22:45 <Timmy Wade - Last Filed: 09/21/23 16:07> - Medical Decision Making I completed the quick note portion of this chart signed Janina Amezcua PA-C (Janina Amezcua) The patient had CT scan of the abdomen and pelvis that I interpreted as negative for free air or obstruction. No acute surgical condition. Suspect transverse colitis Was pt. sent in by a medical professional or institution (, TABATHA, VALUE ANALYSIS COORDINATOR, urgent care, hospital, or custodial...) When possible be specific @ -[No] Did you speak to anyone other than the patient for history (EMS, parent, family, police, friend...)? What history was obtained from this source @ -[No] Did you review nursing and triage notes (agree or disagree)? Why? @ -[I reviewed and agree with nursing and triage notes] Were old charts reviewed (outside hosp., previous admission, EMS record, old EKG, old radiological studies, urgent care reports/EKG's, custodial records)? Report findings @ -[No old charts were reviewed] Differential Diagnosis (chest pain, altered mental status, abdominal pain women, abdominal pain men, vaginal bleeding, weakness, fever, dyspnea, syncope, headache, dizziness, GI bleed, back pain, seizure, CVA, palpatations, mental health, musculoskeletal)? @ -[Differential Abdominal Pain Women: Appendicitis, Cholecystitis, diverticulosis, ischemic bowel, pancreatitis, hepatitis, UTI, gastroenteritis, AAA, incarcerated hernia, bowel obstruction, constipation, inflammatory bowel, hepatitis, peptic ulcer disease, splenic infarction, perforated viscus, vulvitis, ovarian torsion, PID, kidney stone, placenta abruption, this is not meant to be an all-inclusive list EKG interpreted by me (3pts min.). @ -[As above] X-rays interpreted by me (1pt min.). @ -[None done] CT interpreted by me (1pt min.). @ -[I interpreted as above] U/S interpreted by me (1pt. min.). @ -[None done] What testing was considered but not performed or refused? (CT, X-rays, U/S, labs)? Why? @ -[None] What meds were considered but not given or refused? Why? @ -[None] Did you discuss the management of the patient with other professionals (professionals i.e. DrMatthew, PA, VALUE ANALYSIS COORDINATOR, lab, RT, psych nurse, social research assistant, furnace filler, teacher, learning officer, wrapper caser)? Give summary @ -[No] Was smoking cessation discussed for >3mins.? @ -[No] Was critical care preformed (if so, how long)? @ -[No] Were there social determinants of health that impacted care today? How? (Homelessness, low income, unemployed, alcoholism, drug addiction, transportation, low edu. Level, literacy, decrease access to med. care, fpc, rehab)? @ -[No] Was there de-escalation of care discussed even if they declined (Discuss DNR or withdrawal of care, Hospice)? DNR status @ -[No] What co-morbidities impacted this encounter? (DM, HTN, Smoking, COPD, CAD, Cancer, CVA, ARF, Chemo, Hep., AIDS, mental health diagnosis, sleep apnea, morbid obesity)? @ -[None] Was patient admitted / discharged? Hospital course, mention meds given and route, prescriptions, significant lab abnormalities, going to OR and other pertinent info. @ -[Patient is 72-year-old woman here with abdominal pain that has continued since she was in last week and was diagnosed with probable diverticulitis. The patient does not show definite diverticulitis but appears more consistent with colitis. She does have good relief with treatment here. I I did offer admission but at this point she would like to go home and will follow-up with GI. Discussed appropriate further care and follow-up as well as return parameters Undiagnosed new problem with uncertain prognosis? @ -[No] Drug Therapy requiring intensive monitoring for toxicity (Heparin, Nitro, Insulin, Cardizem)? @ -[No] Were any procedures done? @ -[No] Diagnosis/symptom? @ -[Acute abdominal pain Acute transverse colitis Acute, or Chronic, or Acute on Chronic? @ -[Acute Uncomplicated (without systemic symptoms) or Complicated (systemic symptoms)? @ -[Uncomplicated Side effects of treatment? @ -[No] Exacerbation, Progression, or Severe Exacerbation? @ -[No] Poses a threat to life or bodily function? How? (Chest pain, USA, MD, pneumonia, PE, COPD, DKA, ARF, appy, cholecystitis, CVA, Diverticulitis, Homicidal, Suicidal, threat to staff... and all critical care pts) @ -[No] (Timmy Wade) - Lab Data Lab Results 08/30/23 08/30/23 08/30/23 Range/Units 22:45 22:45 22:45 WBC 10.6 (3.8-10.6) k/uL RBC 5.12 (3.80-5.40) m/uL Hgb 14.5 (11.4-16.0) gm/dL Hct 44.3 (34.0-46.0) % MCV 86.6 (80.0-100.0) fL MCH 28.4 (25.0-35.0) pg MCHC 32.8 (31.0-37.0) g/dL RDW 14.7 (11.5-15.5) % Plt Count 265 (150-450) k/uL MPV 7.8 Neutrophils % 77 % Lymphocytes % 15 % Monocytes % 5 % Eosinophils % 2 % Basophils % 1 % Neutrophils # 8.1 H (1.3-7.7) k/uL Lymphocytes # 1.6 (1.0-4.8) k/uL Monocytes # 0.5 (0-1.0) k/uL Eosinophils # 0.2 (0-0.7) k/uL Basophils # 0.1 (0-0.2) k/uL Sodium 135 L (137-145) mmol/L Potassium 4.0 (3.5-5.1) mmol/L Chloride 102 (98-107) mmol/L Carbon Dioxide 24 (22-30) mmol/L Anion Gap 9 mmol/L BUN 23 H (7-17) mg/dL Creatinine 0.80 (0.52-1.04) mg/dL Est GFR (CKD-EPI)AfAm 84 (>60 ml/min/1.73 sqM) Est GFR (CKD-EPI)NonAf 73 (>60 ml/min/1.73 sqM) Glucose 104 H (74-99) mg/dL Plasma Lactic Acid Rip 1.0 (0.7-2.0) mmol/L Calcium 9.6 (8.4-10.2) mg/dL Total Bilirubin 0.4 (0.2-1.3) mg/dL AST 22 (14-36) U/L ALT 24 (4-34) U/L Alkaline Phosphatase 137 H (38-126) U/L C-Reactive Protein 1.0 H (<1.0) mg/dL Total Protein 7.0 (6.3-8.2) g/dL Albumin 4.5 (3.5-5.0) g/dL Lipase 77 (23-300) U/L Disposition <Janina Amezcua - Last Filed: 08/30/23 21:09> Is patient prescribed a controlled substance at d/c from ED?: No <Timmy Wade - Last Filed: 09/21/23 16:07> Clinical Impression: Abdominal pain, Colitis Disposition: HOME SELF-CARE Condition: Good Instructions (If sedation given, give patient instructions): Abdominal Pain (ED), Colitis (ED) Referrals: Dina Renteria MD [Primary Care Provider] - 1-2 days
[2023-08-30 23:09] LABS: Basophils # (A) 0.1 k/uL (0-0.2); Basophils % (A) 1 %; Eosinophils # (A) 0.2 k/uL (0-0.7); Eosinophils % (A) 2 %; HCT 44.3 % (34.0-46.0); HGB 14.5 gm/dL (11.4-16.0); Lymphocytes # (A) 1.6 k/uL (1.0-4.8); Lymphocytes % (A) 15 %; MCH 28.4 pg (25.0-35.0); MCHC 32.8 g/dL (31.0-37.0); MCV 86.6 fL (80.0-100.0); Mean Platelet Volume 7.8; Monocytes # (A) 0.5 k/uL (0-1.0); Monocytes % (A) 5 %; Neutrophils # (A) 8.1 k/uL (1.3-7.7); Neutrophils % (A) 77 %; Platelet Count 265 k/uL (150-450); RBC 5.12 m/uL (3.80-5.40); RDW 14.7 % (11.5-15.5); WBC 10.6 k/uL (3.8-10.6)
[2023-08-30 23:22] LABS: ALT 24 U/L (4-34); AST 22 U/L (14-36); African American GFR (CKD) 84 (>60 ml/min/1.73 sqM); Albumin 4.5 g/dL (3.5-5.0); Alkaline Phosphatase 137 U/L (38-126); Anion Gap 9 mmol/L; Blood Urea Nitrogen 23 mg/dL (7-17); Calcium 9.6 mg/dL (8.4-10.2); Carbon Dioxide 24 mmol/L (22-30); Chloride 102 mmol/L (98-107); Glucose 104 mg/dL (74-99); Lipase 77 U/L (23-300); Non-African American GFR(CKD) 73 (>60 ml/min/1.73 sqM); Sodium 135 mmol/L (137-145); Total Bilirubin 0.4 mg/dL (0.2-1.3)
[2023-08-30] MEDS: SODIUM CHLORIDE 0.9% 1,000 ML IV STA (23:38)
[2023-08-30] MEDS: MORPHINE SULFATE 4 MG/ML SYRINGE IV STA (23:42)
--- NOTE | 2023-08-31 01:26 | CT ---
EXAM: CT Abdomen and Pelvis Without Intravenous Contrast CLINICAL HISTORY: ITS.REASON CT Reason: low abdominal pain TECHNIQUE: Axial computed tomography images of the abdomen and pelvis without intravenous contrast. CTDI is 15.2 mGy and DLP is 850.9 mGy-cm. This CT exam was performed using one or more of the following dose reduction techniques: automated exposure control, adjustment of the mA and/or kV according to patient size, and/or use of iterative reconstruction technique. COMPARISON: CT abdomen pelvis June 08, 2023. FINDINGS: Lung bases: Unremarkable. No mass. No consolidation. ABDOMEN: Liver: Hepatic steatosis. Gallbladder and bile ducts: Contracted gallbladder. No calcified stones. No ductal dilation. Pancreas: Unremarkable. No ductal dilation. Spleen: Unremarkable. No splenomegaly. Adrenals: Unremarkable. No mass. Kidneys and ureters: Unremarkable. No hydronephrosis or nephrolithiasis. Stomach and bowel: Mild wall thickening of the distal transverse colon, with mild pericolonic fat stranding, correlate for mild colitis. Diverticulosis, without acute diverticulitis. No small bowel obstruction. No free intraperitoneal air. PELVIS: Appendix: No findings to suggest acute appendicitis. Bladder: Decompressed urinary bladder. No stones. Reproductive: Hysterectomy. ABDOMEN and PELVIS: Intraperitoneal space: Unremarkable. No free air. No significant fluid collection. Bones/joints: No acute fracture. No dislocation. Soft tissues: Lipoma in the LEFT iliopsoas muscle. Vasculature: Unremarkable. No abdominal aortic aneurysm. Lymph nodes: Unremarkable. No enlarged lymph nodes. IMPRESSION: 1. Mild wall thickening of the distal transverse colon, with mild pericolonic fat stranding, correlate for mild colitis. 2. No hydronephrosis or nephrolithiasis. 3. Hysterectomy. 4. Diverticulosis, without acute diverticulitis. No small bowel obstruction. No free intraperitoneal air.
[2023-08-31] MEDS: ACET/COD 300 MG/30 MG STARTER PACK 6 TAB BTL PO STA (03:48)
[2023-08-31 03:50] VITALS: BP 128/86; PULSE 78
== END 2023-08-31 03:50 | disposition home or self-care (01) ==
LOC: EC 19:08
DX: K52.9 Noninfective gastroenteritis and colitis, unspecified (principal); Z87.891 Personal history of nicotine dependence; Z88.0 Allergy status to penicillin; Z88.1 Allergy status to other antibiotic agents; Z88.2 Allergy status to sulfonamides
CPT/HCPCS: 36415; 80053; 83605; 83690; 85025; 86140; 74176; 99284; 96374; 96361; J2270

== ENCOUNTER → 2023-09-04 | Day surgery (SDC) | payer MEDICARE, OTHER ==
[2023-09-04 07:21] VITALS: BP 146/69; PULSE 75; RESP 16; TEMP 97.5
== END ==
LOC: CATHCVL 06:52
PROVIDERS: ATTEND Internal Medicine
DX: Z12.12 Encounter for screening for malignant neoplasm of rectum (principal); I10 Essential (primary) hypertension; E78.5 Hyperlipidemia, unspecified; F41.9 Anxiety disorder, unspecified; E03.9 Hypothyroidism, unspecified; F32.9 Major depressive disorder, single episode, unspecified; Z79.899 Other long term (current) drug therapy; Z79.890 Hormone replacement therapy
CPT/HCPCS: 36410; 76937; C1751

== ENCOUNTER 2023-10-13 17:04 | Emergency (ER) | payer MEDICARE, OTHER ==
[2023-10-13 17:20] VITALS: TEMP 99.1
[2023-10-13 17:56] LABS: Appearance,Urine Clear (Clear); Bilirubin,Urine Negative (Negative); Blood,Urine Negative (Negative); Color,Urine Colorless; Glucose,Urine (UA) Negative (Negative); Ketones,Urine Negative (Negative); Leukocyte Esterase,Urine Negative (Negative); Nitrite,Urine Negative (Negative); PH, Urine 6.5 (5.0-8.0); Protein,Urine Negative (Negative); Specific Gravity,Urine 1.002 (1.001-1.035); Urobilinogen,Urine <2.0 mg/dL (<2.0)
[2023-10-13] MEDS: ONDANSETRON 4 MG/2 ML VIAL IVP STA (20:01)
[2023-10-13] MEDS: SODIUM CHLORIDE 0.9% 1,000 ML IV STA (20:02)
[2023-10-13 20:10] LABS: Basophils % (A) 0 %; Eosinophils # (A) 0.1 k/uL (0-0.7); Eosinophils % (A) 2 %; HCT 42.9 % (34.0-46.0); HGB 13.8 gm/dL (11.4-16.0); Lymphocytes # (A) 1.2 k/uL (1.0-4.8); Lymphocytes % (A) 14 %; MCH 27.6 pg (25.0-35.0); MCHC 32.1 g/dL (31.0-37.0); MCV 85.9 fL (80.0-100.0); Mean Platelet Volume 7.3; Monocytes # (A) 0.5 k/uL (0-1.0); Monocytes % (A) 6 %; Neutrophils # (A) 6.8 k/uL (1.3-7.7); Neutrophils % (A) 77 %; Platelet Count 230 k/uL (150-450); RBC 4.99 m/uL (3.80-5.40); RDW 14.9 % (11.5-15.5); WBC 8.9 k/uL (3.8-10.6)
[2023-10-13 20:32] LABS: ALT 26 U/L (4-34); AST 31 U/L (14-36); African American GFR (CKD) >90 (>60 ml/min/1.73 sqM); Albumin 4.3 g/dL (3.5-5.0); Alkaline Phosphatase 124 U/L (38-126); Anion Gap 4 mmol/L; Blood Urea Nitrogen 15 mg/dL (7-17); Calcium 9.2 mg/dL (8.4-10.2); Carbon Dioxide 27 mmol/L (22-30); Chloride 103 mmol/L (98-107); Glucose 97 mg/dL (74-99); Non-African American GFR(CKD) 86 (>60 ml/min/1.73 sqM); Potassium 4.2 mmol/L (3.5-5.1); Sodium 134 mmol/L (137-145); Total Bilirubin 0.7 mg/dL (0.2-1.3); Total Protein 6.9 g/dL (6.3-8.2)
--- NOTE | 2023-10-13 21:10 | CT ---
EXAMINATION TYPE: CT abdomen pelvis w con CT DLP: 1395.7 mGycm, Automated exposure control for dose reduction was used. DATE OF EXAM: 10/13/2023 8:50 PM COMPARISON: 08/30/2023 CLINICAL INDICATION:Female, 73 years old with history of LLQ pain; LLQ abdominal pain. TECHNIQUE: Axial CT abdomen pelvis w con;Sagittal and coronal reformats were created on a separate w orkstation. Contrast used:100 ml mL of Isovue 300 with IV Contrast, (none if empty) Oral contrast used: without Oral Contrast (none if empty) FINDINGS: LOWER CHEST: Unremarkable ABDOMEN LIVER: Diffusely hypoattenuating parenchyma. GALLBLADDER AND BILE DUCTS: Unremarkable. PANCREAS: Unremarkable. SPLEEN: Unremarkable. ADRENAL GLANDS: Unremarkable. KIDNEYS AND URETERS: No evidence of hydronephrosis or renal calculus. The ureters are unremarkable. PELVIS BLADDER: Unremarkable REPRODUCTIVE: The uterus is surgically absent. ABDOMEN & PELVIS STOMACH AND BOWEL: No evidence of bowel obstruction. e extensive scattered colonic diverticula throug hout the sigmoid colon and rectum. There is some inflammation changes suggested on series 202 image 4 0. PERITONEUM/RETROPERITONEUM: No evidence of pneumoperitoneum or free fluid. VASCULATURE: No evidence of aortic aneurysm. 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 Degeneration changes of sacroiliac joints with multilevel degeneration changes of th e spine. LYMPH NODES: No gross evidence for lymphadenopathy. SOFT TISSUE/ABDOMINAL WALL: Fat-containing umbilical hernia. IMPRESSION: 1. Extensive colonic diverticula in the left lower quadrant with minimal inflammation changes sugges yu findings could represent uncomplicated diverticulitis. No additional acute left lower quadrant pr ocess. 2. Hepatic steatosis.
--- NOTE | 2023-10-13 21:19 | ED ---
Female Urogenital HPI - General Chief complaint: Urogenital Stated complaint: UTI Time Seen by Provider: 10/13/23 21:17 Source: patient, RN notes reviewed Mode of arrival: ambulatory Limitations: no limitations - History of Present Illness Initial comments: 73-year-old female presented to the ER with a chief complaint of vaginal itchiness. Patient states she was recently treated for a UTI with antibiotics 1 week ago. She states 5 days ago she started to experiencing vaginal itchiness. She also reports a yellow discharged. She was seen by dermatology yesterday for a routine checkup and was prescribed fluconazole and hydrocortisone cream for vaginal itchiness. She states today she noticed blood in the discharge with brought her to the ER. She also was endorsing some left lower quadrant abdominal pain. She admits to nausea and has been taking Zofran with relief. She states she has a history of diverticulitis. She denies any constipation, diarrhea, vomiting, fevers, chills, chest pain, shortness of breath or peripheral edema. - Related Data Home Medications Medication Instructions Recorded Confirmed Levothyroxine Sodium [Synthroid] 50 mcg PO DAILY 05/19/14 09/03/23 Zolpidem [Ambien] 10 mg PO HS@2200 05/19/14 09/04/23 Amitriptyline HCl [Elavil] 25 mg PO HS@2100 PRN 04/29/23 09/04/23 Losartan [Cozaar] 25 mg PO W/LUNCH 04/29/23 09/04/23 Vit C/E/Zn/Coppr/Lutein/Zeaxan 1 cap PO HS 04/29/23 09/04/23 [Preservision Areds 2 Softgel] cycloSPORINE 0.05% OPHTH SOLN 1 applicator BOTH EYES DAILY@1200 04/29/23 09/04/23 [Restasis] Dicyclomine [Bentyl] 20 mg PO BID 06/08/23 09/04/23 Cetirizine HCl [Zyrtec] 10 mg PO DAILY 09/03/23 09/04/23 Escitalopram [Lexapro] 20 mg PO DAILY 09/03/23 09/04/23 Simvastatin [Zocor] 40 mg PO HS 09/03/23 09/04/23 Previous Rx's Medication Instructions Recorded Ciprofloxacin HCl [Cipro] 500 mg PO BID 1 Days #14 tab 10/13/23 metroNIDAZOLE [Flagyl] 500 mg PO BID #14 tab 10/13/23 Allergies Allergy/AdvReac Type Severity Reaction Status Date / Time nitrofurantoin Allergy Itching Verified 10/13/23 17:20 [From Macrobid] Penicillins Allergy Rash/Hives/ Verified 10/13/23 17:20 Swelling Sulfa (Sulfonamide Allergy Rash/Hives Verified 10/13/23 17:20 Antibiotics) Review of Systems ROS Statement: Those systems with pertinent positive or pertinent negative responses have been documented in the HPI. ROS Other: All systems not noted in ROS Statement are negative. Past Medical History Past Medical History: Cancer, Chest Pain / Angina, GERD/Reflux, Hyperlipidemia, Hypertension, Osteoarthritis (OA), Pneumonia, Thyroid Disorder, Vascular Disorder Additional Past Medical History / Comment(s): current UTI & colitis, hx. po lynephritis, hx. of severe UTI with sepsis, skin cancer nose and R cheek, diverticular disease, pancreatitis, elevated liver function tests, irregular heart beat in the past, spondylosis cervical spine/neck pain, low back pain, varicosities bilateral legs, insomnia, fatty liver Last Myocardial Infarction Date:: unknown History of Any Multi-Drug Resistant Organisms: ESBL Date of last positivie culture/infection: 08/19/23 MDRO Source:: ESBL URINE Past Surgical History: Adenoidectomy, Heart Catheterization, Hysterectomy, Joint Replacement, Orthopedic Surgery, Tonsillectomy Additional Past Surgical History / Comment(s): Total L knee arthroplasty, R foot bunionectomy, R carpal tunnel release, R middle finger cyst removed/spur removed, R foot surgery with screws in place, colonoscopies, skin cancer removals, bilateral cataract removals/lens implants. Past Anesthesia/Blood Transfusion Reactions: No Reported Reaction Additional Past Anesthesia/Blood Transfusion Reaction / Comment(s): no hx blood transfusion Past Psychological History: Anxiety Smoking Status: Never smoker Past Alcohol Use History: None Reported, Occasional Past Drug Use History: None Reported - Past Family History Sister(s) Family Medical History: Cancer Additional Family Medical History / Comment(s): Patient had total of 4 sisters. One from a form of lymphoma. OTHER sisters are alive. One has COPD. One is blind and deaf since 18 months old from strep meningitis. Third sister is also blind from aniridia and glaucoma. Brother(s) Family Medical History: Cancer Additional Family Medical History / Comment(s): Patient has a total of 4 brothers. One from myocardial infarction and one from pancreatic cancer. 2 living brothers have no major medical problems. Father Family Medical History: Myocardial Infarction (NC) Additional Family Medical History / Comment(s): Father at age 79 from NC, he was residing in [facility] at the time. Mother Family Medical History: Seizure Disorder Additional Family Medical History / Comment(s): Mother at age 78 from either NC or seizure. She had history of COPD, Oxygen dependent, seizure disorder. General Exam Limitations: no limitations General appearance: alert, in no apparent distress Respiratory exam: Present: normal lung sounds bilaterally. Absent: respiratory distress, wheezes, rales, rhonchi, stridor Cardiovascular Exam: Present: regular rate, normal rhythm, normal heart sounds. Absent: systolic murmur, diastolic murmur, rubs, gallop, clicks GI/Abdominal exam: Present: soft, tenderness (LLQ), normal bowel sounds Extremities exam: Present: normal inspection, full ROM, normal capillary refill. Absent: tenderness, pedal edema, joint swelling, calf tenderness Neurological exam: Present: alert, oriented X3, CN II-XII intact Skin exam: Present: warm, dry, intact, normal color. Absent: rash Course Vital Signs 10/13/23 10/13/23 17:16 21:44 Temperature 99.1 F Pulse Rate 86 68 Respiratory 18 16 Rate Blood Pressure 145/73 158/84 O2 Sat by Pulse 94 L 98 Oximetry Medical Decision Making - Medical Decision Making Was pt. sent in by a medical professional or institution (, PA, HEALTH OUTREACH WORKER, urgent care, hospital, or fci...) When possible be specific @ -No Did you speak to anyone other than the patient for history (EMS, parent, family, police, friend...)? What history was obtained from this source @ -No Did you review nursing and triage notes (agree or disagree)? Why? @ -I reviewed and agree with nursing and triage notes Were old charts reviewed (outside hosp., previous admission, EMS record, old EKG, old radiological studies, urgent care reports/EKG's, fci records)? Report findings @ -No old charts were reviewed Differential Diagnosis (chest pain, altered mental status, abdominal pain women, abdominal pain men, vaginal bleeding, weakness, fever, dyspnea, syncope, headache, dizziness, GI bleed, back pain, seizure, CVA, palpatations, mental health, musculoskeletal)? @Differential Abdominal Pain Women:Appendicitis, Cholecystitis, diverticulosis, ischemic bowel, pancreatitis, hepatitis, UTI, gastroenteritis, AAA, incarcerated hernia, bowel obstruction, constipation, inflammatory bowel, hepatitis, peptic ulcer disease, splenic infarction, perforated viscus, vulvitis, ovarian torsion, PID, kidney stone, placenta abruption, this is not meant to be an all-inclusive list EKG interpreted by me (3pts min.). @ -None X-rays interpreted by me (1pt min.). @ -None done CT interpreted by me (1pt min.). @ -CT abdomen pelvis concerning of uncomplicated acute diverticulitis. U/S interpreted by me (1pt. min.). @ -None done What testing was considered but not performed or refused? (CT, X-rays, U/S, labs)? Why? @ -None What meds were considered but not given or refused? Why? @ -None Did you discuss the management of the patient with other professionals (professionals i.e. , PA, HEALTH OUTREACH WORKER, lab, RT, psych nurse, long term care social worker, software designer, teacher, promotions officer, onsite case manager)? Give summary @ -No Was smoking cessation discussed for >3mins.? @ -No Was critical care preformed (if so, how long)? @ -No Were there social determinants of health that impacted care today? How? (Homelessness, low income, unemployed, alcoholism, drug addiction, transportation, low edu. Level, literacy, decrease access to med. care, retirement, rehab)? @ -No Was there de-escalation of care discussed even if they declined (Discuss DNR or withdrawal of care, Hospice)? DNR status @ -No What co-morbidities impacted this encounter? (DM, HTN, Smoking, COPD, CAD, Cancer, CVA, ARF, Chemo, Hep., AIDS, mental health diagnosis, sleep apnea, morbid obesity)? @ -None Was patient admitted / discharged? Hospital course, mention meds given and route, prescriptions, significant lab abnormalities, going to OR and other pertinent info. @ -Discharge. 73-year-old female presented to the ER with a chief complaint of vaginal itchiness. History and physical exam completed. Vitals stable. Patient in no signs of acute distress and nontoxic-appearing. Exam remarkable for focal abdominal tenderness in the left lower quadrant. Normal bowel sounds. No rebound or guarding. Urine analysis unremarkable. Laboratory studies were obtained at that time which were also unremarkable. Due to focal left lower quadrant abdominal tenderness and history of diverticulitis CT abdomen pelvis performed showing uncomplicated diverticulitis. Patient will be started on ciprofloxacin and Flagyl, first dose in the ER. Symptomatic control in the ER. Upon reevaluation, patient resting comfortably in exam room in no signs of acute distress. Results discussed with patient, all questions answered. Vaginal itchiness believed to be due from candidal infection as recent antibiotic use. I advised her to continue taking Diflucan as prescribed. Advise close follow-up with PCP. Strict return parameters discussed. Patient discharged in stable condition. Patient verbally expressed understanding and agreement care plan. Case discussed with ED attending, Dr. Madison. Undiagnosed new problem with uncertain prognosis? @ -No Drug Therapy requiring intensive monitoring for toxicity (Heparin, Nitro, Insulin, Cardizem)? @ -No Were any procedures done? @ -No Diagnosis/symptom? @ -Diverticulitis Acute, or Chronic, or Acute on Chronic? @ -Acute Uncomplicated (without systemic symptoms) or Complicated (systemic symptoms)? @ -Uncomplicated Side effects of treatment? @ -No Exacerbation, Progression, or Severe Exacerbation? @ -No Poses a threat to life or bodily function? How? (Chest pain, USA, NC, pneumonia, PE, COPD, DKA, ARF, appy, cholecystitis, CVA, Diverticulitis, Homicidal, Suicidal, threat to staff... and all critical care pts) @ -No - Lab Data Result diagrams: 10/13/23 19:54 10/13/23 19:54 Lab Results 10/13/23 10/13/23 10/13/23 Range/Units 17:27 19:54 19:54 WBC 8.9 (3.8-10.6) k/uL RBC 4.99 (3.80-5.40) m/uL Hgb 13.8 (11.4-16.0) gm/dL Hct 42.9 (34.0-46.0) % MCV 85.9 (80.0-100.0) fL MCH 27.6 (25.0-35.0) pg MCHC 32.1 (31.0-37.0) g/dL RDW 14.9 (11.5-15.5) % Plt Count 230 (150-450) k/uL MPV 7.3 Neutrophils % 77 % Lymphocytes % 14 % Monocytes % 6 % Eosinophils % 2 % Basophils % 0 % Neutrophils # 6.8 (1.3-7.7) k/uL Lymphocytes # 1.2 (1.0-4.8) k/uL Monocytes # 0.5 (0-1.0) k/uL Eosinophils # 0.1 (0-0.7) k/uL Basophils # 0.0 (0-0.2) k/uL Sodium 134 L (137-145) mmol/L Potassium 4.2 (3.5-5.1) mmol/L Chloride 103 (98-107) mmol/L Carbon Dioxide 27 (22-30) mmol/L Anion Gap 4 mmol/L BUN 15 (7-17) mg/dL Creatinine 0.69 (0.52-1.04) mg/dL Est GFR (CKD-EPI)AfAm >90 (>60 ml/min/1.73 sqM) Est GFR (CKD-EPI)NonAf 86 (>60 ml/min/1.73 sqM) Glucose 97 (74-99) mg/dL Plasma Lactic Acid Rip (0.7-2.0) mmol/L Calcium 9.2 (8.4-10.2) mg/dL Total Bilirubin 0.7 (0.2-1.3) mg/dL AST 31 (14-36) U/L ALT 26 (4-34) U/L Alkaline Phosphatase 124 (38-126) U/L Total Protein 6.9 (6.3-8.2) g/dL Albumin 4.3 (3.5-5.0) g/dL Urine Color Colorless Urine Appearance Clear (Clear) Urine pH 6.5 (5.0-8.0) Ur Specific [place] 1.002 (1.001-1.035) Urine Protein Negative (Negative) Urine Glucose (UA) Negative (Negative) Urine Ketones Negative (Negative) Urine Blood Negative (Negative) Urine Nitrite Negative (Negative) Urine Bilirubin Negative (Negative) Urine Urobilinogen <2.0 (<2.0) mg/dL Ur Leukocyte Esterase Negative (Negative) 10/13/23 Range/Units 19:54 WBC (3.8-10.6) k/uL RBC (3.80-5.40) m/uL Hgb (11.4-16.0) gm/dL Hct (34.0-46.0) % MCV (80.0-100.0) fL MCH (25.0-35.0) pg MCHC (31.0-37.0) g/dL RDW (11.5-15.5) % Plt Count (150-450) k/uL MPV Neutrophils % % Lymphocytes % % Monocytes % % Eosinophils % % Basophils % % Neutrophils # (1.3-7.7) k/uL Lymphocytes # (1.0-4.8) k/uL Monocytes # (0-1.0) k/uL Eosinophils # (0-0.7) k/uL Basophils # (0-0.2) k/uL Sodium (137-145) mmol/L Potassium (3.5-5.1) mmol/L Chloride (98-107) mmol/L Carbon Dioxide (22-30) mmol/L Anion Gap mmol/L BUN (7-17) mg/dL Creatinine (0.52-1.04) mg/dL Est GFR (CKD-EPI)AfAm (>60 ml/min/1.73 sqM) Est GFR (CKD-EPI)NonAf (>60 ml/min/1.73 sqM) Glucose (74-99) mg/dL Plasma Lactic Acid Rip 0.7 (0.7-2.0) mmol/L Calcium (8.4-10.2) mg/dL Total Bilirubin (0.2-1.3) mg/dL AST (14-36) U/L ALT (4-34) U/L Alkaline Phosphatase (38-126) U/L Total Protein (6.3-8.2) g/dL Albumin (3.5-5.0) g/dL Urine Color Urine Appearance (Clear) Urine pH (5.0-8.0) Ur Specific [place] (1.001-1.035) Urine Protein (Negative) Urine Glucose (UA) (Negative) Urine Ketones (Negative) Urine Blood (Negative) Urine Nitrite (Negative) Urine Bilirubin (Negative) Urine Urobilinogen (<2.0) mg/dL Ur Leukocyte Esterase (Negative) - Radiology Data Radiology results: report reviewed, image reviewed Disposition Clinical Impression: Diverticulitis Disposition: HOME SELF-CARE Condition: Stable Instructions (If sedation given, give patient instructions): Diverticulitis (DC) Additional Instructions: Please follow-up with PCP. Complete full course of antibiotics. Return to the ER for any new or worsening concerns. Prescriptions: Ciprofloxacin HCl [Cipro] 500 mg PO BID 1 Days #14 tab metroNIDAZOLE [Flagyl] 500 mg PO BID #14 tab Is patient prescribed a controlled substance at d/c from ED?: No Referrals: Dina Renteria MD [Primary Care Provider] - 1-2 days Time of Disposition: 21:19
[2023-10-13] MEDS: metroNIDAZOLE 500 MG TAB PO STA (21:42)
[2023-10-13] MEDS: CIPROFLOXACIN HCL 500 MG TAB PO STA (21:42)
[2023-10-13 23:04] VITALS: BP 158/84; PULSE 68; RESP 16
== END 2023-10-13 21:44 | disposition home or self-care (01) ==
LOC: EC 17:04
DX: K57.32 Diverticulitis of large intestine without perforation or abscess without bleeding (principal); Z88.1 Allergy status to other antibiotic agents; Z88.0 Allergy status to penicillin; Z88.2 Allergy status to sulfonamides
CPT/HCPCS: 36415; 80053; 83605; 85025; 81003; 74177; 99284; 96374; 96361 ×2; J2405

== ENCOUNTER → 2023-11-20 | Outpatient (CLI) | payer MEDICARE, OTHER ==
[2023-11-20 17:30] LABS: ALT 51 U/L (8-44); AST 21 U/L (13-35); Chol/HDL Ratio 3.88 Ratio; LDL Cholesterol,Calculated 128.9 mg/dL (0.0-131.0)
== END | disposition home or self-care (01) ==
LOC: LABWHC1 10:00
PROVIDERS: ATTEND Internal Medicine Interventional Cardiology
DX: E78.2 Mixed hyperlipidemia (principal)
CPT/HCPCS: 36415; 80061; 84450; 84460

== ENCOUNTER 2024-01-16 08:41 | Day surgery (SDC) | payer MEDICARE, OTHER ==
[2024-01-16 09:19] VITALS: TEMP 97.6
[2024-01-16] MEDS: IV FLUID CONTINUATION 1,000 ML IV ONE (09:30)
[2024-01-16] MEDS: LACTATED RINGERS 1,000 ML IV SCH (09:31)
[2024-01-16] MEDS ORDERED: PROPOFOL 10 MG/ML 20 ML VIAL IV ONE (10:05)
[2024-01-16] MEDS ORDERED: LIDOCAINE 1% INJ 10MG/ML (20 ML MDV) ONE (10:05)
--- NOTE | 2024-01-16 10:28 | P.PCN ---
Date of Procedure: 01/16/24 Procedure(s) Performed: Brief history: Patient is a pleasant 73-year-old white female scheduled for an elective upper endoscopy as well as colonoscopy as a part of evaluation of abdominal pain, nausea and chronic diarrhea for the last several months duration. Procedure performed: Esophagogastroduodenoscopy with biopsy Colonoscopy with random biopsies and snare polypectomy/Endo Clip placement Preoperative diagnosis: Abdominal pain and nausea Chronic diarrhea Anesthesia: MAC Procedure: After informed consent was obtained from the patient was brought into the endoscopy unit and IV sedation was administered by anesthesia under continuous monitoring. Initially upper endoscopy was done. The Olympus GF 160 video endoscope was inserted inserted into the mouth and esophagus intubated without any difficulty and was gradually advanced into the stomach and duodenum and carefully examined. The bulb and second part of the duodenum appeared normal. Apices were done from the duodenum rule out celiac disease. The scope was then withdrawn into the stomach adequately insufflated with air and upon careful examination the antrum had mild gastritis and biopsies were done from this area. Mucosa of the body, cardia and fundus appeared normal. The scope was then withdrawn into the esophagus. The GE junction was located at 40 cm to the incisors. It appeared regular with no erythema erosions or ulcerations. Rest of the esophagus appeared normal. Patient tolerated the procedure well. At this time the patient continued to remain sedation. Initial digital rectal examination was normal. Olympus CF 160 video colonoscope was then inserted into the rectum and gradually advanced to the cecum without any difficulty. Careful examination was performed as the scope was gradually being withdrawn. The prep was excellent. The cecum, 1.5 cm flat polyp that was removed by piecemeal snare polypectomy followed by Endo Clip placement. Rest of the ascending colon, transverse colon, descending colon, sigmoid colon and rectum appeared normal. Biopsies were done from the ascending and descending colon rule out microscopic/collagenous colitis. Retroflexion was performed in the rectum and no lesions were noted. Patient tolerated the procedure well. Impression: 1. Upper endoscopy revealed mild antral gastritis but no evidence of esophagitis or peptic ulcer disease 2. Colonoscopy revealed a 1.5 cm flat cecal polyp status post snare polypectomy followed by placement and scattered sigmoid diverticulosis Recommendations: Findings of this examination were discussed with the patient as well as her family. She was advised to follow-up with the biopsy results. If the biopsy reveals adenoma she can have repeat colonoscopy in 3 years. Follow-up in the office in 2 weeks.
[2024-01-16 10:55] VITALS: BP 117/63; PULSE 78; RESP 16
== END 2024-01-16 11:25 | disposition home or self-care (01) ==
LOC: ORWHC2ENDO 08:41
PROVIDERS: ATTEND Internal Medicine Gastroenterology
DX: D12.0 Benign neoplasm of cecum (principal); K29.50 Unspecified chronic gastritis without bleeding; K52.9 Noninfective gastroenteritis and colitis, unspecified; K57.30 Diverticulosis of large intestine without perforation or abscess without bleeding; I10 Essential (primary) hypertension; E78.5 Hyperlipidemia, unspecified; I73.9 Peripheral vascular disease, unspecified; E03.9 Hypothyroidism, unspecified; K21.9 Gastro-esophageal reflux disease without esophagitis; K76.0 Fatty (change of) liver, not elsewhere classified; Z79.890 Hormone replacement therapy; Z79.899 Other long term (current) drug therapy; Z88.0 Allergy status to penicillin; Z88.2 Allergy status to sulfonamides; Z88.8 Allergy status to other drugs, medicaments and biological substances
CPT/HCPCS: 88305; 45385; 43239; J2003; J2704

== ENCOUNTER → 2024-04-13 | Outpatient (CLI) | payer MEDICARE, OTHER ==
[2024-04-13 17:07] LABS: ALT 24 U/L (8-44); AST 21 U/L (13-35); Chol/HDL Ratio 3.31 Ratio; LDL Cholesterol,Calculated 119.2 mg/dL (0.0-131.0)
== END | disposition home or self-care (01) ==
LOC: LABWHC1 09:43
PROVIDERS: ATTEND Internal Medicine Interventional Cardiology
DX: E78.2 Mixed hyperlipidemia (principal)
CPT/HCPCS: 36415; 80061; 84450; 84460

== ENCOUNTER → 2024-09-16 | Outpatient (CLI) | payer MEDICARE, OTHER ==
[2024-09-16 15:53] LABS: Basophils # (A) 0.06 X 10*3/uL (0.00-0.10); Basophils % (A) 1.1 %; Eosinophils # (A) 0.11 X 10*3/uL (0.04-0.35); Eosinophils % (A) 2.0 %; HCT 45.2 % (37.2-46.3); HGB 14.0 g/dL (12.0-15.0); Immature Grans, Automated 0.90 %; Lymphocytes # (A) 1.03 X 10*3/uL (0.90-5.00); Lymphocytes % (A) 18.7 %; MCH 27.5 pg (27.0-32.0); MCHC 31.0 g/dL (32.0-37.0); MCV 88.8 FL (80.0-97.0); Monocytes # (A) 0.47 X 10*3/uL (0.20-1.00); Monocytes % (A) 8.5 %; NRBC Per 100 WBC 0 X 10*3/uL (0.00-0.01); Neutrophils # (A) 3.78 X 10*3/uL (1.80-7.70); Neutrophils % (A) 68.8 %; Platelet Count 231 X 10*3/uL (140-440); RBC 5.09 X 10*6/uL (4.10-5.20); RDW 15.1 % (11.5-14.5); WBC 5.50 X 10*3/uL (4.50-10.00)
[2024-09-16 15:56] LABS: ALT 50 U/L (8-44); AST 33 U/L (13-35); Albumin 4.2 g/dL (3.8-4.9); Albumin/Globulin Ratio 1.91 Ratio (1.60-3.17); Alkaline Phosphatase 119 U/L (41-126); Anion Gap 11.20 mmol/L (4.00-12.00); BUN/Creat Ratio 19.43 Ratio (12.00-20.00); Blood Urea Nitrogen 13.6 mg/dL (9.0-27.0); Calcium 9.4 mg/dL (8.7-10.3); Carbon Dioxide 26.8 mmol/L (21.6-31.8); Chloride 103 mmol/L (96-109); Globulin 2.2 g/dL (1.6-3.3); Glucose 113 mg/dL (70-110); Potassium 5.2 mmol/L (3.5-5.5); Sodium 141 mmol/L (135-145); Total Protein 6.4 g/dL (6.2-8.2)
== END | disposition home or self-care (01) ==
LOC: LABWHC1 09:44
PROVIDERS: ATTEND Nurse Practitioner Family
DX: K92.1 Melena (principal)
CPT/HCPCS: 36415; 80053; 85025

== ENCOUNTER → 2024-09-28 | Outpatient (CLI) | payer MEDICARE, OTHER ==
--- NOTE | 2024-09-28 09:10 | MR ---
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 IV Contrast: 9 cc Gadobutrol (None if empty) FINDINGS: The heart is borderline enlarged without pericardial effusion. No pleural effusion. Liver mildly enlarged at 18.0 cm. There is loss of signal on T1 out of phase sequence compatible with fatty infiltration. 1.0 cm T2 hyperintense lesion posterior right liver lobe shows progressive postcontrast enhancement c ompatible with hemangioma. There is an adjacent vague area of mildly increased T2 hyperintensity posterior right liver lobe rosemary uring 1.5 cm. This shows delayed postcontrast enhancement and was present previously as well. Possibl e focal fibrosis or vague hemangioma. No suspicious focal liver lesion is seen. Portal venous system is patent. No gallstones or biliary ductal dilatation. Adrenal glands, spleen with hilar splenule, and kidneys within normal limits. Redemonstrated 1.1 cm bilobed cyst of the mid pancreatic body with possible communication with the ma in pancreatic duct. No suspicious pancreatic mass or enhancing lesion is seen. Sigmoid diverticulosis incidentally noted on coronal sequence. No abdominal ascites, lymphadenopathy, or other gross bowel abnormality seen. IMPRESSION: 1. Stable 1.1 cm bilobed cyst of the mid pancreatic body with possible communication with the main pa ncreatic duct. A small IPMN, small serous cystadenoma, or sequela of previous pancreatitis are in the differential. Stability over 2 years suggests a benign etiology. Consider an additional precautionar y two-year follow-up. 2. Mild hepatomegaly at 18.0 cm with hepatic steatosis. Appropriate clinical management is advised. 3. Incidental sigmoid diverticulosis. [facility], Workstation: [employer] GuidesTHIERRY, 09/28/2024 9:08 AM
== END | disposition home or self-care (01) ==
LOC: RADMRIMAIN 05:54
PROVIDERS: ATTEND Internal Medicine Gastroenterology
DX: K86.2 Cyst of pancreas (principal); K57.30 Diverticulosis of large intestine without perforation or abscess without bleeding; K76.0 Fatty (change of) liver, not elsewhere classified; R16.0 Hepatomegaly, not elsewhere classified
CPT/HCPCS: 74183; A9585